=== PATIENT | male | born 1950 | race Caucasian/White ===

== ENCOUNTER 2020-08-08 12:58 | Outpatient (REF) | payer MEDICARE, BC, SELFPAY ==
[2020-08-08 17:14] LABS: Alanine Aminotransferase < 6 U/L (0-40); Anion Gap 17 (12-20); Aspartate Amino Transferase 8 U/L (5-37); Blood Urea Nitrogen 23 mg/dL (9-16); Carbon Dioxide 26 mmol/L (22-29); Chloride 103 mmol/L (96-108); Cholesterol 123 mg/dL; Estimated Glomerular Filt Rate > 60; Glucose Fasting 84 mg/dL (60-99); HDL Cholesterol 46 mg/dL; LDL Cholesterol Calculated 61 mg/dl; Potassium 4.7 mmol/l (3.3-5.1); Sodium 141 mmol/L (135-145); Triglycerides 82 mg/dL
== END 2020-08-08 12:59 | disposition home or self-care (01) ==
LOC: HO.HMGCLDS 12:58
PROVIDERS: PCP Internal Medicine; Visit Provider Internal Medicine
DX: I10 Essential (primary) hypertension (principal); E78.5 Hyperlipidemia, unspecified; I25.10 Atherosclerotic heart disease of native coronary artery without angina pectoris
CPT/HCPCS: 80048; 80061; 84450; 84460

== ENCOUNTER 2020-12-11 12:45 | Outpatient (REF) | payer MEDICARE, SELFPAY ==
[2020-12-11 13:55] LABS: MANUAL DIFF FLAG NO
[2020-12-11 14:01] LABS: Basophils Percent Auto 0.5 % (0-2); Eosinophils Percent Auto 0.2 % (0-4); Hematocrit 40.6 % (42-52); Hemoglobin 13.8 g/dl (14.0-18.0); Imm Gran Abs Auto 0.02 X10*3/uL (0.00-0.03); Imm Gran Pct Auto 0.3 % (0.0-0.4); Lymphocytes Percent Auto 15.3 % (20-40); Mean Corpuscular Volume 91.2 fL (80-98); Mean Platelet Volume 9.3 fL (9.4-12.4); Monocytes Absolute Auto 0.5 X10*3/uL (0.1-1.2); Monocytes Percent Auto 7.1 % (2-11); Neutrophils Absolute Auto 4.9 X10*3/uL (2.0-8.3); Neutrophils Percent Auto 76.6 % (45-73); Platelet Count 184 X10*3/uL (160-400); Red Blood Count 4.45 X10*6/uL (4.60-5.80); Red Cell Distribution Width 12.5 % (11.0-16.0); White Blood Count 6.5 X10*3/uL (4.8-10.8)
[2020-12-11 14:14] LABS: Alanine Aminotransferase 12 U/L (0-40); Anion Gap 15 (12-20); Aspartate Amino Transferase 10 U/L (5-37); Blood Urea Nitrogen 21 mg/dL (9-16); Calcium 8.8 mg/dL (8.4-10.2); Carbon Dioxide 27 mmol/L (22-29); Chloride 105 mmol/L (96-108); Cholesterol 140 mg/dL; Estimated Glomerular Filt Rate > 60; Glucose Fasting 100 mg/dL (60-99); HDL Cholesterol 57 mg/dL; Iron 70 mcg/dL (45-160); LDL Cholesterol Calculated 60 mg/dl; Percent Iron Saturation 21 % (15-50); Potassium 4.2 mmol/L (3.3-5.1); Sodium 143 mmol/L (135-145); Total Iron Binding Capacity 328 mcg/dL (228-428); Triglycerides 119 mg/dL; Unsaturated Iron Binding 258 ug/dL
[2020-12-11 14:36] LABS: Ferritin 67 ng/mL (20-250)
== END 2020-12-11 12:46 | disposition home or self-care (01) ==
LOC: HO.HMGCLDS 12:45
PROVIDERS: PCP Internal Medicine; Visit Provider Internal Medicine
DX: D64.9 Anemia, unspecified (principal); E78.5 Hyperlipidemia, unspecified; I10 Essential (primary) hypertension
CPT/HCPCS: 36415; 80048; 80061; 82728; 83540; 84450; 84460; 85025

== ENCOUNTER 2021-07-10 09:19 | Outpatient (REF) | payer MEDICARE, BC, SELFPAY ==
[2021-07-10 11:27] LABS: MANUAL DIFF FLAG NO
[2021-07-10 11:35] LABS: Basophils Absolute Auto 0.1 X10*3/uL (0.0-0.2); Basophils Percent Auto 0.7 % (0-2); Eosinophils Absolute Auto 0.3 X10*3/uL (0.0-0.4); Hematocrit 40.4 % (42.0-52.0); Hemoglobin 13.5 g/dl (14.0-18.0); Imm Gran Abs Auto 0.03 X10*3/uL (0.00-0.03); Imm Gran Pct Auto 0.4 % (0.0-0.4); Lymphocytes Absolute Auto 1.3 X10*3/uL (1.2-4.9); Lymphocytes Percent Auto 18.2 % (20-40); Mean Corpuscular HGB Conc 33.4 g/dl (31.0-36.0); Mean Corpuscular Hemoglobin 30.8 pg (27.0-33.0); Mean Platelet Volume 9.5 fL (9.4-12.4); Monocytes Absolute Auto 0.6 X10*3/uL (0.1-1.2); Monocytes Percent Auto 8.2 % (2-11); Neutrophils Absolute Auto 4.82 x10*3/uL (2.0-8.3); Neutrophils Percent Auto 68.5 % (45-73); Platelet Count 222 X10*3/uL (160-400); Red Blood Count 4.39 X10*6/uL (4.60-5.80); Red Cell Distribution Width 12.9 % (11.0-16.0)
[2021-07-10 11:57] LABS: Alanine Aminotransferase 8 U/L (0-40); Anion Gap 15 (12-20); Aspartate Amino Transferase 11 U/L (5-37); Blood Urea Nitrogen 16 mg/dL (9-16); Calcium 8.8 mg/dL (8.4-10.2); Carbon Dioxide 26 mmol/L (22-29); Chloride 108 mmol/L (96-108); Cholesterol 143 mg/dL; Estimated Glomerular Filt Rate > 60; Glucose Fasting 100 mg/dL (60-99); HDL Cholesterol 60 mg/dL; Iron 102 mcg/dL (45-160); LDL Cholesterol Calculated 65 mg/dl; Percent Iron Saturation 32 % (15-50); Potassium 3.8 mmol/L (3.3-5.1); Sodium 145 mmol/L (135-145); Total Iron Binding Capacity 315 mcg/dL (228-428); Triglycerides 91 mg/dL; Unsaturated Iron Binding 213 ug/dL
[2021-07-10 12:07] LABS: Ferritin 65 ng/mL (20-250)
[2021-07-10 12:38] LABS: PSA,Total (Free>4and<10) 0.75 ng/mL (0.00-4.00)
== END 2021-07-10 09:20 | disposition home or self-care (01) ==
LOC: HO.HMGCLDS 09:19
PROVIDERS: PCP Internal Medicine; Visit Provider Internal Medicine
DX: Z12.5 Encounter for screening for malignant neoplasm of prostate (principal); D64.9 Anemia, unspecified; E78.5 Hyperlipidemia, unspecified; I10 Essential (primary) hypertension; I25.10 Atherosclerotic heart disease of native coronary artery without angina pectoris; R35.1 Nocturia
CPT/HCPCS: 36415; 80048; 80061; 82728; 83540; 84153; 84450; 84460; 85025

== ENCOUNTER 2022-01-15 12:18 | Outpatient (REF) | payer MEDICARE, BC, SELFPAY ==
[2022-01-15 13:53] LABS: MANUAL DIFF FLAG NO
[2022-01-15 13:59] LABS: Basophils Percent Auto 0.7 % (0-2); Eosinophils Absolute Auto 0.1 X10*3/uL (0.0-0.4); Eosinophils Percent Auto 2.3 % (0-4); Hematocrit 37.5 % (42.0-52.0); Hemoglobin 12.6 g/dl (14.0-18.0); Imm Gran Abs Auto 0.01 X10*3/uL (0.00-0.03); Imm Gran Pct Auto 0.2 % (0.0-0.4); Mean Corpuscular HGB Conc 33.6 g/dl (31.0-36.0); Mean Corpuscular Hemoglobin 30.9 pg (27.0-33.0); Mean Corpuscular Volume 91.9 fL (80.0-98.0); Mean Platelet Volume 9.6 fL (9.4-12.4); Monocytes Absolute Auto 0.4 X10*3/uL (0.1-1.2); Neutrophils Absolute Auto 2.8 x10*3/uL (2.0-8.3); Neutrophils Percent Auto 64.8 % (45-73); Platelet Count 182 X10*3/uL (160-400); Red Blood Count 4.08 X10*6/uL (4.60-5.80); Red Cell Distribution Width 12.7 % (11.0-16.0); White Blood Count 4.3 X10*3/uL (4.8-10.8)
[2022-01-15 14:21] LABS: Alanine Aminotransferase 16 U/L (0-40); Anion Gap 15 (12-20); Aspartate Amino Transferase 9 U/L (5-37); Blood Urea Nitrogen 17 mg/dL (9-16); Calcium 9.9 mg/dL (8.4-10.2); Carbon Dioxide 27 mmol/L (22-29); Chloride 105 mmol/L (96-108); Cholesterol 130 mg/dL; Estimated Glomerular Filt Rate > 60; Glucose Fasting 89 mg/dL (60-99); HDL Cholesterol 55 mg/dL; LDL Cholesterol Calculated 57 mg/dl; Potassium 4.7 mmol/L (3.3-5.1); Sodium 142 mmol/L (135-145); Triglycerides 92 mg/dL
[2022-01-15 14:43] LABS: PSA,Total (Free>4and<10) 0.57 ng/mL (0.00-4.00)
== END 2022-01-15 12:19 | disposition home or self-care (01) ==
LOC: HO.HMGCLDS 12:18
PROVIDERS: Visit Provider Internal Medicine
DX: Z12.5 Encounter for screening for malignant neoplasm of prostate (principal); D64.9 Anemia, unspecified; E78.5 Hyperlipidemia, unspecified; I10 Essential (primary) hypertension; I25.10 Atherosclerotic heart disease of native coronary artery without angina pectoris
CPT/HCPCS: 36415; 80048; 80061; 82306; 84153; 84450; 84460; 85025

== ENCOUNTER 2022-03-05 09:49 | Inpatient (IN) | payer MEDICARE, BC, SELFPAY ==
--- NOTE | 2022-03-05 | ECG_ITS ---
Test Reason : CP Blood Pressure : / mmHG Vent. Rate : 119 BPM Atrial Rate : 119 BPM P-R Int : 128 ms QRS Dur : 092 ms QT Int : 316 ms P-R-T Axes : 079 063 -32 degrees QTc Int : 444 ms Sinus tachycardia Cannot rule out Inferior infarct (cited on or before 03-MAY-2020) Abnormal ECG When compared with ECG of 05-MAR-2022 11:05, No significant change was found Referred By: Brenda Page Electronically Signed By:TAMIKA WATTERS
--- NOTE | ~2022-03-05 | XR_ITS ---
EXAMINATION: XR CHEST CLINICAL INFORMATION: Shortness of breath COMPARISON: 03/06/2022 TECHNIQUE: Frontal view of the chest was obtained. FINDINGS: Left upper extremity PICC line with catheter tip in the proximal right atrium. Previously seen retrocardiac opacity has improved with minimal residual. No focal consolidation or mass seen. No pleural effusion or pneumothorax. Degenerative changes of the shoulders and spine. XR/XR chest 1V IMPRESSION: Previously seen retrocardiac left lower lobe consolidation has improved. New left upper extremity PICC line with tip overlying the proximal right atrium near the expected location of the cavoatrial junction.
--- NOTE | ~2022-03-05 | CT_ITS ---
EXAMINATION: CT HEAD WITHOUT CONTRAST CT CERVICAL SPINE WITHOUT CONTRAST CLINICAL INFORMATION: Fall. COMPARISON: CT scan of the head 05/03/2020. TECHNIQUE: Brass Pourer images were obtained. CT imaging of the head and cervical spine was performed without contrast. Data was reformatted into multiplanar images at the acquisition workstation. This CT examination was performed using dose optimization techniques as appropriate, including one or more of the following: Automated exposure control, iterative reconstruction, and adjustment of technique factors (mA and/or kVp) according to patient size (this includes techniques or standardized protocols for targeted exams where dose is matched to indication/reason for exam). DLP: 1358 mGy-cm. FINDINGS: Head: Patient motion degrades image quality therefore the diagnostic accuracy of this component of the examination is limited. There is no acute hemorrhage or abnormal extra-axial collection. No intracranial mass effect or midline shift. Lateral and third ventricles are proportionate to the subarachnoid spaces. No hydrocephalus. Ill-defined foci of hypoattenuation are visualized within the periventricular white matter that most likely represent a chronic manifestation of small vessel ischemia. Yo-white matter differentiation is otherwise preserved and there is no evidence of acute territorial infarct. The calvarium and skull base are intact. Mastoid air cells and middle ear cavities are well aerated. No active paranasal sinus disease. Cervical spine: Alignment is normal. Vertebral heights are preserved. No acute fracture. No abnormal prevertebral soft tissue swelling. There is multilevel degenerative spondylosis of the cervical spine. Grossly no evidence of canal compromise. Uncovertebral joint spurring causes mild to moderate neuroforaminal encroachment at multiple levels. Heavily calcified atheromatous plaque involves both carotid bifurcations. Soft tissues of the neck are otherwise unremarkable. Visualized lung apices are clear. CT/CT cervical spine wo con IMPRESSION: Patient motion degrades image quality therefore the diagnostic accuracy of this examination is limited. Grossly no evidence of acute intracranial hemorrhage. No acute cervical spine fracture and no posttraumatic spinal subluxation.
--- NOTE | ~2022-03-05 | IR_ITS ---
PROCEDURE: IR INSERTION OF PICC CLINICAL INFORMATION: Requires IV access. COMPARISON: None TECHNIQUE: All elements of maximal sterile barrier technique followed including use of cap, mask, sterile gown, sterile gloves, a sterile full body drape and hand hygiene. Also followed skin preparation with 2% chlorhexidine for cutaneous antisepsis, and sterile ultrasound preparation with sterile gel and probe cover when applicable. Consent for the procedure had been obtained by the radiology nurses for their attempt at placing PICC line. FINDINGS: Ultrasound evaluation of the left arm was performed which demonstrated a patent brachial vein. PACS image was obtained. Using sterile technique and ultrasound guidance a needle was placed into a left brachial vein above the elbow and guidewire placed. Following fascial dilatation a 6 Colombian peel-away sheath was placed. Over the guidewire and through the peel-away sheath a 6 [place]ian 47 cm long triple lumen PICC line was placed with its tip at the cavoatrial junction. All 3 ports aspirated and were flushed. The entry site was then cleaned and dressing applied including antimicrobial disc. FLUOROSCOPY TIME: 0.7 minutes. DAP: 85 uGy-cm2 IR/IR cvc insert peripheral IMPRESSION: Placement of 6 [place]ian triple-lumen PICC line within the left upper extremity via a brachial vein approach. Catheter is 47 cm in length.
--- NOTE | ~2022-03-05 | FL_ITS ---
EXAMINATION: FL MODIFIED BARIUM SWALLOW CLINICAL INFORMATION: Dysphagia. COMPARISON: None. TECHNIQUE: Modified barium swallow was performed in conjunction with the speech pathologist. The radiologist provided real-time fluoroscopic imaging during the examination. FINDINGS: Multiple liquid and semisolid consistencies combined with barium were administered to the patient under direct fluoroscopic visualization. There are several instances of penetration with a possible small focus of aspiration. This was partially cleared with multiple swallowing instances. FLUOROSCOPY TIME: 1.9 min 4.906 mGy 1.473 Gy-cm2 1 image FL/FL barium swallow modified IMPRESSION: Several episodes of penetration with possible aspiration. Please refer to the speech pathologist notes for complete evaluation.
--- NOTE | ~2022-03-05 | CT_ITS ---
EXAMINATION: CT CHEST, ABDOMEN PELVIS WITHOUT CONTRAST CLINICAL INFORMATION: Sacral wound COMPARISON: None TECHNIQUE: 5 mm thin axial and reformatted 3 mm thin sagittal coronal images of chest, abdomen pelvis were obtained without contrast. DLP 582. FINDINGS: Chest: LUNGS: The lungs are well-expanded with ill-defined patchy opacities superior segment left lower lobe with prominent interstitial thickening. Mild atelectatic changes seen in both lung bases. Mediastinum: The heart size and the great vessels are normal caliber. Central trachea and the bronchi widely patent. There are small shotty precarinal 1 cm lymph node. No pericardial effusion seen. Pleura:: There is no pleural effusion, thickening or calcification. Axilla: No abnormal axillary lymph nodes seen. The chest wall is unremarkable. Abdomen and pelvis: Liver, ducts and gallbladder: The liver is normal size, density and contour. There is a 1.4 cm lesion right hepatic lobe most likely simple cyst it measures less than 1 Hounsfield units. No intrahepatic ductal dilatation seen. The gallbladder is unremarkable. Spleen: Unremarkable. Adrenal glands: Unremarkable. Pancreas: Unremarkable. Kidneys, ureter and bladder: Both kidneys are symmetrical size, shape and position. There is a partially exophytic midpole 2.5 cm cyst medial cortex left kidney. No radiopaque calculi or hydronephrosis seen. There is an exophytic interpolar 1.4 cm cyst lateral cortex right kidney. The bladder is distended but otherwise appears unremarkable. Lymphovascular structures there is no abnormal size retroperitoneal lymph nodes seen. The abdominal aorta is normal caliber. GI tract: There is scattered stool, diverticula and gas seen throughout the colon without significant distention or diverticulitis. The small bowel loops are normal caliber. Appendix is not visualized with certainty.. Abdominal wall: Unremarkable. Pelvis: No abnormal lymph nodes. No evidence of hernia. Osseous structures: There is significant compression deformity T12 vertebra, question age. No aggressive lytic or sclerotic process seen. There are degenerative disc changes with endplate spondylosis L4-L5 disc level. CT/CT abdomen pelvis wo con IMPRESSION: Atelectatic changes in both lung bases. No acute process. No acute processes in the abdomen. There are bilateral renal cysts, hepatic cysts. No radiopaque renal or gallbladder calculi. Moderate constipation. Compression fractures of T12 vertebra of uncertain age.
--- NOTE | ~2022-03-05 | US_ITS ---
EXAMINATION: US VENOUS WITH DOPPLER UPPER EXTREMITY, RIGHT CLINICAL INFORMATION: Swelling COMPARISON: None TECHNIQUE: Ultrasound of the upper extremity is performed using compression sonography and color and pulse Doppler flow with assessment of augmentation of flow. There is also imaging and Doppler assessment of the jugular and subclavian veins. Spectral analysis with color-flow imaging is performed. FINDINGS: There is thrombus seen in the right axillary, basilic and cephalic veins. The right internal jugular, subclavian and brachial veins are patent. US/US venous duplex UE RT IMPRESSION: DVT in the right axillary and basilic and cephalic veins.
--- NOTE | ~2022-03-05 | CT_ITS ---
EXAMINATION: CT HEAD WITHOUT CONTRAST CT CERVICAL SPINE WITHOUT CONTRAST CLINICAL INFORMATION: Fall. COMPARISON: CT scan of the head 05/03/2020. TECHNIQUE: Mica Plate Layer Hand images were obtained. CT imaging of the head and cervical spine was performed without contrast. Data was reformatted into multiplanar images at the acquisition workstation. This CT examination was performed using dose optimization techniques as appropriate, including one or more of the following: Automated exposure control, iterative reconstruction, and adjustment of technique factors (mA and/or kVp) according to patient size (this includes techniques or standardized protocols for targeted exams where dose is matched to indication/reason for exam). DLP: 1358 mGy-cm. FINDINGS: Head: Patient motion degrades image quality therefore the diagnostic accuracy of this component of the examination is limited. There is no acute hemorrhage or abnormal extra-axial collection. No intracranial mass effect or midline shift. Lateral and third ventricles are proportionate to the subarachnoid spaces. No hydrocephalus. Ill-defined foci of hypoattenuation are visualized within the periventricular white matter that most likely represent a chronic manifestation of small vessel ischemia. Yo-white matter differentiation is otherwise preserved and there is no evidence of acute territorial infarct. The calvarium and skull base are intact. Mastoid air cells and middle ear cavities are well aerated. No active paranasal sinus disease. Cervical spine: Alignment is normal. Vertebral heights are preserved. No acute fracture. No abnormal prevertebral soft tissue swelling. There is multilevel degenerative spondylosis of the cervical spine. Grossly no evidence of canal compromise. Uncovertebral joint spurring causes mild to moderate neuroforaminal encroachment at multiple levels. Heavily calcified atheromatous plaque involves both carotid bifurcations. Soft tissues of the neck are otherwise unremarkable. Visualized lung apices are clear. CT/CT head/brain wo con IMPRESSION: Patient motion degrades image quality therefore the diagnostic accuracy of this examination is limited. Grossly no evidence of acute intracranial hemorrhage. No acute cervical spine fracture and no posttraumatic spinal subluxation.
--- NOTE | ~2022-03-05 | XR_ITS ---
EXAMINATION: PORTABLE CHEST 1 VIEW CLINICAL INFORMATION: SOB . COMPARISON: No recent pertinent prior studies are available for comparison. TECHNIQUE: Portable frontal view of the chest was obtained. FINDINGS: Lungs well-expanded. There is a subtle obscuration of the medial left hemidiaphragm suggesting a retrocardiac left lower lobe infiltrate versus focal atelectasis. Subtle air bronchograms are suspected in this location. Infectious etiology would be strongly favored. Clinical correlation recommended. No associated effusion edema or pneumothorax. Cardiac silhouette within normal limits for size with vascular calcification in aorta. Degenerative changes in the shoulders. XR/XR chest 1V IMPRESSION: Obscuration of the medial left hemidiaphragm suggesting a left lower lobe retrocardiac consolidation with subtle air bronchograms. Infectious etiology would be favored in this setting.
--- NOTE | 2022-03-05 09:52 | ED.AMS ---
HPI - Altered Mental Status General Chief Complaint: General Medical Stated Complaint: FOUND ON FLOOR,OVERNIGHT,CONFUSION Time Seen by Provider: 03/05/22 09:51 Source: patient and EMS Mode of arrival: EMS Limitations: altered mental status History of Present Illness HPI narrative: 71 yo male with hx of HLD, CAD, parkinson's disease, anemia, HTN - was found on floor this AM by family when they went to get him for appointment. He states he slipped out of bed but he is confused. I am not sure when he was last seen normal. He has no complaints of pain and has no signs of head trauma. family arrived and they have not seen him in a while complaint: altered mental status and confusion Onset (ago): unknown Severity: moderate Consistency of symptoms: unknown Context: other (parkinson's found on floor) Associated symptoms: chills, malaise, foul smelling urine, difficulty walking and incontinence Treatments prior to arrival: oxygen (fire department stated his oxygen levels were low 90s he is 97% on RA here) Related Data Home Medications Medication Instructions Recorded Confirmed carbidopa ER 25 mg-levodopa 100 mg 2 tab PO TID 08/22/20 03/05/22 tablet,extended release metoprolol tartrate 25 mg tablet 25 mg PO BID 08/22/20 03/05/22 amantadine HCl 100 mg tablet 1 tab PO BID 03/05/22 03/05/22 lisinopril 10 mg tablet 1 tab PO DAILY 03/05/22 03/05/22 Previous Rx's Medication Instructions Recorded atorvastatin 20 mg tablet 20 mg PO DAILY #90 tabs 01/15/22 Allergies Allergy/AdvReac Type Severity Reaction Status Date / Time No Known Allergies Allergy Verified 02/24/22 23:32 [No Known Allergies*] Review of Systems Review of Systems: ROS unable to be obtained due to altered mental status PMFSH Past Medical History Source: old records reviewed Medical History Anemia CAD (coronary artery disease) Dyslipidemia Essential hypertension Parkinsons disease Surgical History No pertinent past surgical history Family History Family History Father Bladder cancer Mother No problems noted. Brother No problems noted. Sister No problems noted. Son No problems noted. Son No problems noted. Social History Social History Housing: Apartment Alcohol intake: never Patient Tobacco Use Status: Never used Tobacco e-Cigarette/Vaping Use: Never Used Advance Directives: No Current occupational status: retired Cognitive needs: No Hearing needs: No Vision needs: Yes Physical Exam ED Vital Signs: Vital Signs - 24 hr 03/05/22 10:05 03/05/22 11:43 Temperature 96.5 F L 98.3 F Pulse Rate 130 H 118 H Respiratory Rate 16 16 Blood Pressure 114/64 127/57 L Pulse Oximetry 100 98 Oxygen Delivery Method Room Air Room Air BMI result Body Mass Index 21.0 Appearance: Alert. Oriented X1 to self. Mild acute distress. Eyes: Pupils equal, round and reactive to light. ENT: Pharynx dry MM. Atraumatic Neck: Normal inspection. Neck supple. CVS: tachycardic heart rate and rhythm. Pulses normal. Respiratory: No respiratory distress. Breath sounds diminished Abdomen: Soft and nontender. Back: ulcer noted on thoracic spinous process lower thoracic about 10cm long, sacrum dark necrotic eschar noted with surrounding erythema, skin peeling off and foul odor noted Skin: Skin warm and dry. Normal skin color. Normal skin turgor. Extremities: No lower extremity edema. No calf ttp Neuro: Oriented X 1. No motor deficit. No sensory deficit. follows commands rigid, shaky tremulous Course Course Course Narrative: initially patient in hallway I was not able to see his back due to privacy issues once in CT scan room he has ulcer on thoracic spine with erythema no drainage, on sacrum there is an eschar with necrotic area foul smelling surrounding erythema - at this time infection suspected IV zosyn ordered 1039am. given troponin message sent to Cardiology but patient denies pain and he cannot provide a history I also do not see STEMI on EKG - ECHO heparin lovenox once CT scans back plts and hemoglobin stable, coags stable - trop downtrending, lactic acid downtrending no acute trauma found on CT scan does have T12 compression fracture at this time given troponin will start on low dose infusion I am not sure what event precipitated his presentation but his back wounds suggest he was on the ground for a long time. I am going to start him on heparin in case of the need for reversal. patient on low dose protocol cardiology aware okay to admit family no longer at bedside MDM - Altered Mental Status MDM Narrative Medical decision making narrative: 71 yo male with hx of HLD, CAD, parkinson's disease, anemia, HTN here with c/o being found down on floor he is altered - at this time will obtain labs, cultures, UA, CT head/cspine for trauma. CT chest for pneumonia. He denies any complaints, 2L of IVF ordered. Unsure what happened. Likely admit. Lab Data Result diagrams: 03/05/22 10:25 03/05/22 10:25 Labs: Lab Results 03/05/22 03/05/22 03/05/22 Range/Units 10:25 10:25 10:25 WBC 13.2 H (4.8-10.8) X10*3/uL RBC 5.12 D (4.60-5.80) X10*6/uL Hgb 15.7 D (14.0-18.0) g/dl Hct 47.2 D (42.0-52.0) % MCV 92.2 (80.0-98.0) fL MCH 30.7 (27.0-33.0) pg MCHC 33.3 (31.0-36.0) g/dl RDW 13.0 (11.0-16.0) % Plt Count 279 D (160-400) X10*3/uL MPV 9.4 (9.4-12.4) fL Immature Gran % (Auto) 0.6 H (0.0-0.4) % Neut % (Auto) 86.7 H (45-73) % Lymph % (Auto) 5.4 L (20-40) % [place] % (Auto) 7.1 (2-11) % Eos % (Auto) 0.0 (0-4) % Baso % (Auto) 0.2 (0-2) % Lymph # (Auto) 0.7 L (1.2-4.9) X10*3/uL [place] # (Auto) 0.9 (0.1-1.2) X10*3/uL Eos # (Auto) 0.0 (0.0-0.4) X10*3/uL Baso # (Auto) 0.0 (0.0-0.2) X10*3/uL Abs Immat Gran (auto) 0.08 H (0.00-0.03) X10*3/uL Absolute Neuts (auto) 11.5 H (2.0-8.3) x10*3/uL Absolute Nucleated RBC 0.000 (0.0-0.012) X10*3/uL Nucleated RBC % (auto) 0.0 (0.0-0.2) /100WBC PT 11.1 (9.9-13.0) SEC INR 1.0 (0.9-1.1) APTT 25.5 (24.1-38.0) SEC VBG pH (7.32-7.43) VBG pCO2 mmHg VBG pO2 mmHg VBG HCO3 (22-26) mmol/L VBG O2 Saturation % VBG Base Excess mmol/L Sodium 150 H (135-145) mmol/L Potassium 4.6 (3.3-5.1) mmol/L Chloride 108 (96-108) mmol/L Carbon Dioxide 26 (22-29) mmol/L Anion Gap 21 H (12-20) BUN 44 H D (9-16) mg/dL Creatinine 0.99 (0.5-1.4) mg/dL Estim Creat Clear Calc 63.5 Estimated GFR > 60 Random Glucose 138 H (60-115) mg/dL Lactic Acid (0.5-2.0) mmol/L Lactic Acid F/U @ 2Hr (0.5-2.0) mmol/L Calcium 9.6 (8.4-10.2) mg/dL Magnesium 2.3 (1.6-2.6) mg/dL Total Bilirubin 2.3 H (0.0-1.0) mg/dL Direct Bilirubin 1.1 H (0.0-0.5) mg/dL AST 62 H (5-37) U/L ALT 80 H (0-40) U/L Alkaline Phosphatase 96 (39-117) U/L Total Creatine Kinase 2199 H (38-174) U/L Troponin I High Sens (<3.5-35.0) ng/L Total Protein 7.2 (6.5-8.0) g/dL Albumin 4.2 (3.5-5.0) g/dL Lipase 20 (8-78) U/L COVID-19 (EDUARDO) (Negative) COVID-19 Clin Com 03/05/22 03/05/22 03/05/22 Range/Units 10:25 10:25 10:25 WBC (4.8-10.8) X10*3/uL RBC (4.60-5.80) X10*6/uL Hgb (14.0-18.0) g/dl Hct (42.0-52.0) % MCV (80.0-98.0) fL MCH (27.0-33.0) pg MCHC (31.0-36.0) g/dl RDW (11.0-16.0) % Plt Count (160-400) X10*3/uL MPV (9.4-12.4) fL Immature Gran % (Auto) (0.0-0.4) % Neut % (Auto) (45-73) % Lymph % (Auto) (20-40) % [place] % (Auto) (2-11) % Eos % (Auto) (0-4) % Baso % (Auto) (0-2) % Lymph # (Auto) (1.2-4.9) X10*3/uL [place] # (Auto) (0.1-1.2) X10*3/uL Eos # (Auto) (0.0-0.4) X10*3/uL Baso # (Auto) (0.0-0.2) X10*3/uL Abs Immat Gran (auto) (0.00-0.03) X10*3/uL Absolute Neuts (auto) (2.0-8.3) x10*3/uL Absolute Nucleated RBC (0.0-0.012) X10*3/uL Nucleated RBC % (auto) (0.0-0.2) /100WBC PT (9.9-13.0) SEC INR (0.9-1.1) APTT (24.1-38.0) SEC VBG pH (7.32-7.43) VBG pCO2 mmHg VBG pO2 mmHg VBG HCO3 (22-26) mmol/L VBG O2 Saturation % VBG Base Excess mmol/L Sodium (135-145) mmol/L Potassium (3.3-5.1) mmol/L Chloride (96-108) mmol/L Carbon Dioxide (22-29) mmol/L Anion Gap (12-20) BUN (9-16) mg/dL Creatinine (0.5-1.4) mg/dL Estim Creat Clear Calc Estimated GFR Random Glucose (60-115) mg/dL Lactic Acid 3.1 H* (0.5-2.0) mmol/L Lactic Acid F/U @ 2Hr (0.5-2.0) mmol/L Calcium (8.4-10.2) mg/dL Magnesium (1.6-2.6) mg/dL Total Bilirubin (0.0-1.0) mg/dL Direct Bilirubin (0.0-0.5) mg/dL AST (5-37) U/L ALT (0-40) U/L Alkaline Phosphatase (39-117) U/L Total Creatine Kinase (38-174) U/L Troponin I High Sens 1310.1 H* (<3.5-35.0) ng/L Total Protein (6.5-8.0) g/dL Albumin (3.5-5.0) g/dL Lipase (8-78) U/L COVID-19 (EDUARDO) Negative (Negative) COVID-19 Clin Com See Note 03/05/22 03/05/22 03/05/22 Range/Units 10:30 12:30 12:39 WBC (4.8-10.8) X10*3/uL RBC (4.60-5.80) X10*6/uL Hgb (14.0-18.0) g/dl Hct (42.0-52.0) % MCV (80.0-98.0) fL MCH (27.0-33.0) pg MCHC (31.0-36.0) g/dl RDW (11.0-16.0) % Plt Count (160-400) X10*3/uL MPV (9.4-12.4) fL Immature Gran % (Auto) (0.0-0.4) % Neut % (Auto) (45-73) % Lymph % (Auto) (20-40) % [place] % (Auto) (2-11) % Eos % (Auto) (0-4) % Baso % (Auto) (0-2) % Lymph # (Auto) (1.2-4.9) X10*3/uL [place] # (Auto) (0.1-1.2) X10*3/uL Eos # (Auto) (0.0-0.4) X10*3/uL Baso # (Auto) (0.0-0.2) X10*3/uL Abs Immat Gran (auto) (0.00-0.03) X10*3/uL Absolute Neuts (auto) (2.0-8.3) x10*3/uL Absolute Nucleated RBC (0.0-0.012) X10*3/uL Nucleated RBC % (auto) (0.0-0.2) /100WBC PT (9.9-13.0) SEC INR (0.9-1.1) APTT (24.1-38.0) SEC VBG pH 7.37 (7.32-7.43) VBG pCO2 36 mmHg VBG pO2 39 mmHg VBG HCO3 21 L (22-26) mmol/L VBG O2 Saturation 61.0 % VBG Base Excess -3.2 mmol/L Sodium (135-145) mmol/L Potassium (3.3-5.1) mmol/L Chloride (96-108) mmol/L Carbon Dioxide (22-29) mmol/L Anion Gap (12-20) BUN (9-16) mg/dL Creatinine (0.5-1.4) mg/dL Estim Creat Clear Calc Estimated GFR Random Glucose (60-115) mg/dL Lactic Acid (0.5-2.0) mmol/L Lactic Acid F/U @ 2Hr 2.1 H* (0.5-2.0) mmol/L Calcium (8.4-10.2) mg/dL Magnesium (1.6-2.6) mg/dL Total Bilirubin (0.0-1.0) mg/dL Direct Bilirubin (0.0-0.5) mg/dL AST (5-37) U/L ALT (0-40) U/L Alkaline Phosphatase (39-117) U/L Total Creatine Kinase (38-174) U/L Troponin I High Sens 1052.4 H* (<3.5-35.0) ng/L Total Protein (6.5-8.0) g/dL Albumin (3.5-5.0) g/dL Lipase (8-78) U/L COVID-19 (EDUARDO) (Negative) COVID-19 Clin Com ECG Data ECG #1: Attestation: I personally reviewed and interpreted this ECG as follows: ECG interpretation date: 03/05/22 ECG interpretation time: 11:20 Interpretation: Rate: 120 Rhythm: sinus tachycardia Otho: normal Normal P waves. Normal RICCARDO. Normal QRS complex. ST T wave : no SHARON, nonspecific inf qTC: normal prior studies: no SHARON The study has been interpreted contemporaneously by me. . Critical Care Time Critical Care Time Critical Care Time: Yes Total Critical Care Time: 60 Attestation: review of records, medical consult, discussion with family I attest to this time spent taking care of the patient Discharge Plan Discharge Clinical Impression: Acidosis, lactic, Back wound, Decubitus ulcer of sacral area, Elevated troponin, Acute dehydration, Non-ST elevation NC (NSTEMI), Closed wedge compression fracture of T12 vertebra Patient Disposition: Admitted As Inpatient
--- NOTE | 2022-03-05 10:03 | ECG_ITS ---
Test Reason : CP Blood Pressure : / mmHG Vent. Rate : 120 BPM Atrial Rate : 120 BPM P-R Int : 132 ms QRS Dur : 090 ms QT Int : 324 ms P-R-T Axes : 072 063 -29 degrees QTc Int : 457 ms Sinus tachycardia Possible Left atrial enlargement Cannot rule out Inferior infarct (cited on or before 03-MAY-2020) Abnormal ECG When compared with ECG of 03-MAY-2020 17:30, Vent. rate has increased BY 64 BPM Nonspecific T wave abnormality now evident in Lateral leads Referred By: Brenda Page Electronically Signed By:TAMIKA WATTERS
[2022-03-05 10:05] VITALS: BP 114/64; BP 132/70; PULSE 115; PULSE 130; RESP 16; TEMP 35.8; O2SAT 100; O2SAT 95; BMI 21.0
[2022-03-05 10:31] LABS: MANUAL DIFF FLAG NO
[2022-03-05 10:34] LABS: Venous Blood Gas Refer to POC result
[2022-03-05 10:34] LABS: VBG Base Excess -3.2 mmol/L; VBG HCO3 21 mmol/L (22-26); VBG pCO2 36 mmHg; VBG pH 7.37 (7.32-7.43); VBG pO2 39 mmHg
[2022-03-05 10:35] LABS: Basophils Percent Auto 0.2 % (0-2); Hematocrit 47.2 % (42.0-52.0); Hemoglobin 15.7 g/dl (14.0-18.0); Imm Gran Abs Auto 0.08 X10*3/uL (0.00-0.03); Imm Gran Pct Auto 0.6 % (0.0-0.4); Lymphocytes Absolute Auto 0.7 X10*3/uL (1.2-4.9); Lymphocytes Percent Auto 5.4 % (20-40); Mean Corpuscular HGB Conc 33.3 g/dl (31.0-36.0); Mean Corpuscular Hemoglobin 30.7 pg (27.0-33.0); Mean Corpuscular Volume 92.2 fL (80.0-98.0); Mean Platelet Volume 9.4 fL (9.4-12.4); Monocytes Absolute Auto 0.9 X10*3/uL (0.1-1.2); Monocytes Percent Auto 7.1 % (2-11); Neutrophils Absolute Auto 11.5 x10*3/uL (2.0-8.3); Neutrophils Percent Auto 86.7 % (45-73); Platelet Count 279 X10*3/uL (160-400); Red Blood Count 5.12 X10*6/uL (4.60-5.80); White Blood Count 13.2 X10*3/uL (4.8-10.8)
[2022-03-05 10:49] LABS: Lactic Acid 3.1 mmol/L (0.5-2.0)
[2022-03-05 10:54] LABS: COVID-19 Test Negative (Negative); Prothrombin Time 11.1 SEC (9.9-13.0)
[2022-03-05 10:56] LABS: Partial Thromboplastin Time 25.5 SEC (24.1-38.0)
[2022-03-05 11:01] LABS: Alanine Aminotransferase 80 U/L (0-40); Albumin Level 4.2 g/dL (3.5-5.0); Alkaline Phosphatase 96 U/L (39-117); Anion Gap 21 (12-20); Aspartate Amino Transferase 62 U/L (5-37); Bilirubin Direct 1.1 mg/dL (0.0-0.5); Bilirubin Total 2.3 mg/dL (0.0-1.0); Blood Urea Nitrogen 44 mg/dL (9-16); Calcium 9.6 mg/dL (8.4-10.2); Carbon Dioxide 26 mmol/L (22-29); Chloride 108 mmol/L (96-108); Creatinine Clr Calc Pharmacy 63.5; Estimated Glomerular Filt Rate > 60; Glucose Random 138 mg/dL (60-115); Lipase 20 U/L (8-78); Magnesium 2.3 mg/dL (1.6-2.6); Potassium 4.6 mmol/L (3.3-5.1); Sodium 150 mmol/L (135-145); Total Protein 7.2 g/dL (6.5-8.0); Troponin-I High Sensitivity 1310.1 ng/L (<3.5-35.0)
[2022-03-05] MEDS: Piperacillin Sodium/Tazobactam 3.375 GM in 0.9 % Sodium Chloride 50 ML IV ×2 (11:02→18:15)
[2022-03-05] MEDS: 0.9 % Sodium Chloride 1,000 ML 999 ML IVCONT ×2 (11:05→12:08)
--- NOTE | 2022-03-05 11:31 | CA_ITS ---
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 - Valves not well visualized, but grossly no major abnormality. Findings Left Ventricle Normal left ventricular cavity size. There is normal left ventricular wall thickness. Regional wall motion abnormalities can not be excluded due to suboptimal endocardial definition. Diastolic function is normal for age. Based on off axis views, LVEF about 50%. Right Ventricle Normal right ventricular cavity size. There is normal right ventricular systolic function. Atria Both atria are normal in size. Aortic Valve The aortic valve was not well visualized. There is no aortic valve stenosis. There is no aortic valve regurgitation. Mitral Valve The mitral valve appears normal. There is no mitral valve regurgitation. There is no mitral valve stenosis. Pulmonic Valve The pulmonic valve was not well visualized. Tricuspid Valve There is trace tricuspid valve regurgitation. There is no evidence of pulmonary hypertension. Great Vessels The aorta was not well visualized. The sinuses of valsalva is normal in size. Venous The inferior vena cava is normal in size and collapses greater than 50% with inspiration. Pericardium/Pleural There is no evidence of pericardial effusion. Prior Study Comparison No prior study available for comparison. Measurements 2D Linear Measurements IVSd: 1.03 0.6-0.9/0.6-1.0 cm LVIDd: 4.10 3.9-5.3/4.2-5.9 cm LVIDd Index: 2.24 2.4-3.2/2.2-3.1 cm/m2 LVIDs: 2.99 2.0-3.6 cm LVPWd: 0.93 0.7-1.1 cm LA Diam: 2.50 2.7-3.8/3.0-4.0 cm LAIDs Index: 1.37 1.5-2.3 cm/m2 LV Mass: 159.43 67-162/88-224 g LV Mass Index: 87.12 43-95/49-115 g/m2 LVOT Diam: 2.10 3.0+(-)1.3 cm 2D Systolic Function EF 4C: 57.50 >55% Mitral Valve MV Pk E: 0.31 MV PK A: 0.69 MV Decel Time: 72.00 E/A: 0.40 E'Lateral: 8.92 E'Medial: 4.24 E/E' Med: 7.30 E/E' Lat: 3.50 PHT: 21.00 MVA PHT: 10.48 Decel Pettis: 4.26 Aortic Valve AoV Pk Vasyl: 1.53 AoV Mn Vasyl: 0.99 AoV VTI: 0.22 AoV Pk Grad: 9.00 Aov Mn Grad: 5.00 DARINEL Cont.VTI: 2.53 LVOT LVOT Pk Vasyl: 0.76 LVOT Mn Vasyl: 0.58 LVOT VTI: 0.16 LVOT Pk Grad: 2.00 LVOT Mn Grad: 1.00 LVOT Diam: 2.10 LVOT Area: 3.46 Diastolic Function MV Pk E: 0.31 MV Pk A: 0.69 E/A: 0.40 E'Medial: 4.24 E/E' Med: 7.30 E' Laterial: 8.92 E/E' Lat: 3.50 Right Ventricle TAPSE (mm): 24.00 Tricuspid Valve TR Pk Vasyl: 1.60 TR Pk Grad: 10.00 RA Press: 3.00 RVSP: 13.00 Pulmonary Valve PV Pk Vasyl: 1.53 Peak PV Grad: 9.00 Updated in Other Vendor System with Status of Final Osmar William MD electronically signed on 03/05/2022 5:05:55 PM with status of Final
[2022-03-05 11:43] VITALS: BP 127/57; PULSE 118; RESP 16; TEMP 36.8; O2SAT 98
--- NOTE | 2022-03-05 11:50 | PC.NURSE ---
patient A/O X4 . lungs diminished . patient tachycardia on monitor . tremors r/t history of Parkinson . lips and mouth dry .skin warm dry . superficial abrasion noted on left elbow from fall today . open area with Escher noted on coccyc, covered with allevyn . open area midline along spine covered with abdominal pad . patient positioned on side toe relieve pressure form areas . Bruises noted on left and right hips with yellowing. soft non distended abdomen ,positive bowel sounds noted all quadrants . patient aware of care .
--- NOTE | 2022-03-05 11:54 | PHA.MEDREC ---
Pharmacy Consult ? Medication Reconciliation Pharmacy has completed the medication reconciliation. Patient has altered mental status. Patients son was in the room but could not recall any of his meds. Medications were confirmed with Caty from [facility].
[2022-03-05 12:31] LABS: Reflex Lactate? Lactic Acid Added
[2022-03-05 13:10] LABS: ~Lactic Acid-LAB USE ONLY 2.1 mmol/L (0.5-2.0)
[2022-03-05 13:26] LABS: Troponin-I High Sensitivity 1052.4 ng/L (<3.5-35.0)
--- NOTE | 2022-03-05 13:36 | PC.NURSE ---
pt's weight is 64.1kg per bed scale.
[2022-03-05 14:19] VITALS: BP 138/75; PULSE 117; RESP 20; TEMP 36.6; O2SAT 97
[2022-03-05] MEDS: Heparin Sodium,Porcine 5,000 UNIT/ML VIAL 4000 UNIT IVPUSH (14:24)
[2022-03-05] MEDS: Heparin Sodium,Porcine/1/2NS 25,000 UNIT/250 ML IV.SOLN 7.99 UNIT IVCONT (14:28)
[2022-03-05 14:45] LABS: Reflex Lactate? 2 Y
--- NOTE | 2022-03-05 14:45 | PM.IMHP ---
History of Present Illness Date of Service: 03/05/22 Chief Complaint: found on the ground by son This is a 71 year old male with a PMH of CAD, HTN, Parkinson's disease, HLD who is brought in by EMS services to [facility] after he was found on the ground, next to his bed by his son. The patient is currently disoriented and unable to provide a meaningful history. He is, however, able to state that he does not have chest pain currently. Per his son, he last saw his father on day and he was in his usual state of health then. When he arrived to visit him today, he found him on his back. His son reports that his father does not have a history of dementia and he would rate his memory fairly well. His father typically does manage his ADLS on his own. Upon arrival to the ED, he was ramos-scanned. CT head/neck/chest/abd were essentially negative for any acute findings. His skin exam revealed multiple pressure uclers -- see pictures below. His HS trop-I is elevated and EKG showing non-specific changes. He has been given IVF, IV zosyn and has been started on IV heparin (after discussion with cardiology). Review of Systems Review of Systems: unable due to mental status [facility] Medical History Anemia CAD (coronary artery disease) Dyslipidemia Essential hypertension Parkinsons disease Family History Father Bladder cancer Mother No problems noted. Brother No problems noted. Sister No problems noted. Son No problems noted. Son No problems noted. Surgical History No pertinent past surgical history Social History Housing: Apartment Alcohol intake: never Patient Tobacco Use Status: Never used Tobacco e-Cigarette/Vaping Use: Never Used Advance Directives: No Current occupational status: retired Cognitive needs: No Hearing needs: No Vision needs: Yes Meds Allergies Allergy/AdvReac Type Severity Reaction Status Date / Time No Known Allergies Allergy Verified 02/24/22 23:32 [No Known Allergies*] Active Medications: Current Medications Heparin Sodium (Porcine) (Heparin Sodium,Porcine 5,000 Unit/Ml Vial) 2,700 unit 40 unit/kg (2700 unit) IVPUSH PROTOCOL BOLUS PRN; Protocol PRN Reason: 40 unit/kg - Heparin Protocol Heparin Sodium (Porcine) (Heparin Sodium,Porcine 5,000 Unit/Ml Vial) 5,300 unit 80 unit/kg (5300 unit) IVPUSH PROTOCOL BOLUS PRN; Protocol PRN Reason: 80 unit/kg - Heparin Protocol Heparin Sodium/Sodium Chloride () 25,000 unit in 250 mls @ 0 mls/hr IVCONT .Q0M [facility]; Protocol Last Admin: 03/05/22 14:28 Dose: 12 units/kg/hr, 7.99 mls/hr Pharmacy Consult (Consult Rx Perform Med Rec) 1 each MISCELLANE ONCE PRN PRN Reason: Consult order Pharmacy Consult (Consult Rx Perform Med Rec) 1 each MISCELLANE ONCE PRN PRN Reason: Consult order Home Medications Medication Instructions Recorded Confirmed Last Taken Type carbidopa ER 25 mg-levodopa 100 mg 2 tab PO TID 08/22/20 03/05/22 Unknown History tablet,extended release metoprolol tartrate 25 mg tablet 25 mg PO BID 08/22/20 03/05/22 Unknown History amantadine HCl 100 mg tablet 1 tab PO BID 03/05/22 03/05/22 Unknown History lisinopril 10 mg tablet 1 tab PO DAILY 03/05/22 03/05/22 Unknown History Physical Exam Vital Signs and Narrative: Vital Signs: Last Vital Signs Temp 97.9 F 03/05/22 14:19 Pulse 117 H 03/05/22 14:19 Resp 20 03/05/22 14:19 BP 138/75 03/05/22 14:19 Pulse Ox 97 03/05/22 14:19 O2 Del Method 03/05/22 14:19 BMI result Body Mass Index 21.0 Const: Other: Constitutional - Awake and Alert, No apparent distress HEENT - PERRLA, EOMI, Dry mucous membranes Cardiovascular - S1S2, Tachycardic around 110 Respiratory - Normal lung expansion, Normal respiratory effort, No respiratory distress, CTA bilaterally Gastrointestinal - NT / ND; +BS; No rebound or guarding - No CVA tenderness Extremities - no calf tenderness bilaterally, no swelling Musculoskeletal - Normal inspection, normal ROM Skin - Warm/Dry Neurological - Awake and alert, oriented to self and place, otherwise disoriented to time and situation; moving all 4 limbs equally Psychological - Appropriate affect Results Labs CBC and Chem 7: 03/05/22 10:25 03/05/22 10:25 Labs: Laboratory Results - last 24 hr 03/05/22 03/05/22 03/05/22 10:25 10:25 10:25 MCV 92.2 MCH 30.7 MCHC 33.3 RDW 13.0 Plt Count 279 D MPV 9.4 Immature Gran % (Auto) 0.6 H Neut % (Auto) 86.7 H Lymph % (Auto) 5.4 L [place] % (Auto) 7.1 Eos % (Auto) 0.0 Baso % (Auto) 0.2 Lymph # (Auto) 0.7 L [place] # (Auto) 0.9 Eos # (Auto) 0.0 Baso # (Auto) 0.0 Abs Immat Gran (auto) 0.08 H Absolute Neuts (auto) 11.5 H Absolute Nucleated RBC 0.000 Nucleated RBC % (auto) 0.0 PT 11.1 INR 1.0 APTT 25.5 VBG pH VBG pCO2 VBG pO2 VBG HCO3 VBG O2 Saturation VBG Base Excess Anion Gap 21 H Estim Creat Clear Calc 63.5 Estimated GFR > 60 Random Glucose 138 H Lactic Acid Lactic Acid F/U @ 2Hr Calcium 9.6 Magnesium 2.3 Total Bilirubin 2.3 H Direct Bilirubin 1.1 H AST 62 H ALT 80 H Alkaline Phosphatase 96 Total Creatine Kinase 2199 H Troponin I High Sens Total Protein 7.2 Albumin 4.2 Lipase 20 COVID-19 ([facility]ARDO) COVID-19 Clin Com 03/05/22 03/05/22 03/05/22 10:25 10:25 10:25 MCV MCH MCHC RDW Plt Count MPV Immature Gran % (Auto) Neut % (Auto) Lymph % (Auto) [place] % (Auto) Eos % (Auto) Baso % (Auto) Lymph # (Auto) [place] # (Auto) Eos # (Auto) Baso # (Auto) Abs Immat Gran (auto) Absolute Neuts (auto) Absolute Nucleated RBC Nucleated RBC % (auto) PT INR APTT VBG pH VBG pCO2 VBG pO2 VBG HCO3 VBG O2 Saturation VBG Base Excess Anion Gap Estim Creat Clear Calc Estimated GFR Random Glucose Lactic Acid 3.1 H* Lactic Acid F/U @ 2Hr Calcium Magnesium Total Bilirubin Direct Bilirubin AST ALT Alkaline Phosphatase Total Creatine Kinase Troponin I High Sens 1310.1 H* Total Protein Albumin Lipase COVID-19 ([facility]ARDO) Negative COVID-19 Clin Com See Note 03/05/22 03/05/22 03/05/22 10:30 12:30 12:39 MCV MCH MCHC RDW Plt Count MPV Immature Gran % (Auto) Neut % (Auto) Lymph % (Auto) [place] % (Auto) Eos % (Auto) Baso % (Auto) Lymph # (Auto) [place] # (Auto) Eos # (Auto) Baso # (Auto) Abs Immat Gran (auto) Absolute Neuts (auto) Absolute Nucleated RBC Nucleated RBC % (auto) PT INR APTT VBG pH 7.37 VBG pCO2 36 VBG pO2 39 VBG HCO3 21 L VBG O2 Saturation 61.0 VBG Base Excess -3.2 Anion Gap Estim Creat Clear Calc Estimated GFR Random Glucose Lactic Acid Lactic Acid F/U @ 2Hr 2.1 H* Calcium Magnesium Total Bilirubin Direct Bilirubin AST ALT Alkaline Phosphatase Total Creatine Kinase Troponin I High Sens 1052.4 H* Total Protein Albumin Lipase COVID-19 ([facility]ARDO) COVID-19 Clin Com Imaging Radiologist's Impressions: Impressions Abdomen/Pelvis CT 03/05/22 11:13 IMPRESSION: Atelectatic changes in both lung bases. No acute process. No acute processes in the abdomen. There are bilateral renal cysts, hepatic cysts. No radiopaque renal or gallbladder calculi. Moderate constipation. Compression fractures of T12 vertebra of uncertain age. Cervical Spine CT 03/05/22 11:16 IMPRESSION: Patient motion degrades image quality therefore the diagnostic accuracy of this examination is limited. Grossly no evidence of acute intracranial hemorrhage. No acute cervical spine fracture and no posttraumatic spinal subluxation. Chest CT 03/05/22 11:16 IMPRESSION: Atelectatic changes in both lung bases. No acute process. No acute processes in the abdomen. There are bilateral renal cysts, hepatic cysts. No radiopaque renal or gallbladder calculi. Moderate constipation. Compression fractures of T12 vertebra of uncertain age. Head CT 03/05/22 11:16 IMPRESSION: Patient motion degrades image quality therefore the diagnostic accuracy of this examination is limited. Grossly no evidence of acute intracranial hemorrhage. No acute cervical spine fracture and no posttraumatic spinal subluxation. Assessment and Plan (1) Non-ST elevation PR (NSTEMI): Status: Acute Plan This is a 71 yo M with a PMH of CAD, HTN, HLD, Parkinson's disease who presents to the ED after being found on the ground by his son. He has multiple active issues and will be admitted for further care. 1. NSTEMI EKG non-specific; Troponins in the NSTEMI range IV heparin per protocol, rectal ASA, 2d Echo and cardiology consult 2. Toxic/Metabolic Encephalopathy Per son's description of patient's baseline, this is an acute change CT brain imaging is negative. No definitive foci of infection. He does have mild hypernatremia check ammonia 3. HyperNa due to poor oral intake given 1L NS; will continue with D5-1/2 @ 100 cc/hr until tomorrow AM 4. Hyperbiliubinemia / transaminitis no abdominal symptoms question if related to infectious etiology trend 5. Sacral and thoracic pressure uclers empiric IV antibiotics General surgery consult 6. Parkinson's disease continue baseline meds after swallow eval is completed 7. T12 compression fracture, likely traumatic no pain at this time, monitor I do not feel that the patient has severe sepsis at this time. DVT pptx -- on heparin gtt for NSTEMI Son reports that he is HCP Code status -- persumed full (son is not aware of any DNR/DNI and the patient cannot answer himself) In light of the patients NSTEMI which will require 48 hours of IV heparin, I anticipaite a medically necessary inpatient hospitalization which is likely to span at least 2 midnights. This cannot be completed in a less acute setting. Quality Stroke Does the patient have a stroke diagnosis?: No VTE Prior VTE?: No VTE Risk Level:: Medical - moderate - high VTE Device Contraindication: Treatment Not Indicated VTE Drug Contraindication: N/A - Med Ordered
[2022-03-05 15:22] LABS: Ammonia 28 umol/L (13-55)
[2022-03-05 15:25] LABS: ~Lactic Acid-LAB USE ONLY 2.6 mmol/L (0.5-2.0)
[2022-03-05] MEDS: vancomycin HCL 1,500 MG in 0.9 % Sodium Chloride 500 ML 333.33 MG IV (16:19)
[2022-03-05] MEDS: Aspirin 300 MG SUPP.RECT PR (16:20)
--- NOTE | 2022-03-05 16:35 | PM.CNGS ---
History of Present Illness Consult details Consult date: 03/05/22 Narrative: 71-year-old male referred for sacral decubitus ulcer. The patient was brought to the hospital after he was found on the floor at home by he son. Apparently, the last time that any other family member had seen him was over a week ago. The patient is supposed to be independent and lives alone. He did not have any obvious history of dementia before. This is therefore uncertain as to why he was on the floor and it is uncertain as to how long that he had been in that state. In the ER, he was noted to have markedly elevated troponin levels. He was also noted to have sacral decubitus ulcers on the sacrum, the right arm, in both hips as well as on the vertebral prominence of the upper back. Review of Systems Review of Systems: Unavailable - the patient is not communicative although awake PMFSH Past Medical History Medical History (Updated 03/07/22 @ 16:48 by Mann Watson MD) Anemia CAD (coronary artery disease) Dyslipidemia Essential hypertension Parkinsons disease Family History Family History Father Bladder cancer Mother No problems noted. Brother No problems noted. Sister No problems noted. Son No problems noted. Son No problems noted. Surgical History Surgical History No pertinent past surgical history Social History Social History Housing: Apartment Alcohol intake: never Patient Tobacco Use Status: Never used Tobacco e-Cigarette/Vaping Use: Never Used service: No Current occupational status: retired Cognitive needs: No Hearing needs: No Vision needs: Yes Meds Allergies Allergy/AdvReac Type Severity Reaction Status Date / Time No Known Allergies Allergy Verified 02/24/22 23:32 [No Known Allergies*] Active Medications: Current Medications Acetaminophen (Acetaminophen 325 Mg Tablet) 650 mg PO Q6H PRN PRN Reason: Pain, Mild (Pain Scale 1-3) Heparin Sodium (Porcine) (Heparin Sodium,Porcine 5,000 Unit/Ml Vial) 2,700 unit 40 unit/kg (2700 unit) IVPUSH PROTOCOL BOLUS PRN; Protocol PRN Reason: 40 unit/kg - Heparin Protocol Heparin Sodium (Porcine) (Heparin Sodium,Porcine 5,000 Unit/Ml Vial) 5,300 unit 80 unit/kg (5300 unit) IVPUSH PROTOCOL BOLUS PRN; Protocol PRN Reason: 80 unit/kg - Heparin Protocol Heparin Sodium/Sodium Chloride () 25,000 unit in 250 mls @ 0 mls/hr IVCONT .Q0M [facility]; Protocol Last Admin: 03/05/22 14:28 Dose: 12 units/kg/hr, 7.99 mls/hr Piperacillin Sod/Tazobactam (Sod 3.375 gm/ Sodium Chloride) 50 mls @ 100 mls/hr IV Q6H [facility] Vancomycin HCl 1,250 mg/ (Sodium Chloride) 250 mls @ 166.667 mls/hr IV Q24H [facility] Dextrose/Sodium Chloride (D51/2ns) 1,000 mls @ 100 mls/hr IVCONT .Q10H [facility] Metoprolol Tartrate (Metoprolol Tartrate 5 Mg/5 Ml Vial) 2.5 mg IVPUSH Q6H PRN PRN Reason: HR > 110 Ondansetron HCl (Ondansetron Hcl 4 Mg/2 Ml Vial) 4 mg IVPUSH Q8H PRN PRN Reason: Nausea and Vomiting Pharmacy Consult (Consult Rx Perform Med Rec) 1 each MISCELLANE ONCE PRN PRN Reason: Consult order Pharmacy Consult (Consult Rx Perform Med Rec) 1 each MISCELLANE ONCE PRN PRN Reason: Consult order Pharmacy Consult (Consult Rx Vancomycin Dosing) 1 each MISCELLANE DAILY PRN PRN Reason: Consult order Sodium Chloride (0.9 % Sodium Chloride Flush 3 Ml Syringe) 3 ml IVFLUSH [facility] Home Medications Medication Instructions Recorded Confirmed Last Taken Type carbidopa ER 25 mg-levodopa 100 mg 2 tab PO TID 08/22/20 03/05/22 Unknown History tablet,extended release metoprolol tartrate 25 mg tablet 25 mg PO BID 08/22/20 03/05/22 Unknown History amantadine HCl 100 mg tablet 1 tab PO BID 03/05/22 03/05/22 Unknown History lisinopril 10 mg tablet 1 tab PO DAILY 03/05/22 03/05/22 Unknown History Physical Exam Vital Signs: Vital Signs: Last Vital Signs Temp 97.9 F 03/05/22 14:19 Pulse 117 H 06/28/22 14:19 Resp 20 03/05/22 14:19 BP 138/75 03/05/22 14:19 Pulse Ox 97 03/05/22 14:19 O2 Del Method 03/05/22 14:19 BMI result Body Mass Index 21.0 Const: Other: Opens eyes but not communicative, appears very frail, has very minimal verbal output at this time General: no acute distress Resp: Effort & Inspection: normal respiratory effort Cardio: Rate: tachycardic GI: Palpation (GI): Soft to palpation, not firm and no guarding Back/Spine/Pelvis: Other: Sacral decubitus ulcer, stage 1-2, with a central area that seems to some superficial skin discoloration, no pus, no obvious gangrene or necrosis; area is about 8 x 7 cm in diameter; Decubitus ulcer, stage I, on the upper back along the vertebral prominence and also on both left and right hips, no skin breakdown Results Labs Result diagrams: 03/08/22 06:00 03/08/22 06:00 Labs: Abnormal lab results 03/05/22 03/05/22 03/05/22 Range/Units 10:25 10:25 10:25 WBC 13.2 H (4.8-10.8) X10*3/uL Immature Gran % (Auto) 0.6 H (0.0-0.4) % Neut % (Auto) 86.7 H (45-73) % Lymph % (Auto) 5.4 L (20-40) % Lymph # (Auto) 0.7 L (1.2-4.9) X10*3/uL Abs Immat Gran (auto) 0.08 H (0.00-0.03) X10*3/uL Absolute Neuts (auto) 11.5 H (2.0-8.3) x10*3/uL VBG HCO3 (22-26) mmol/L Sodium 150 H (135-145) mmol/L Anion Gap 21 H (12-20) BUN 44 H D (9-16) mg/dL Random Glucose 138 H (60-115) mg/dL Lactic Acid 3.1 H* (0.5-2.0) mmol/L Lactic Acid F/U @ 2Hr (0.5-2.0) mmol/L Lactic Acid F/U @ 4Hr (0.5-2.0) mmol/L Total Bilirubin 2.3 H (0.0-1.0) mg/dL Direct Bilirubin 1.1 H (0.0-0.5) mg/dL AST 62 H (5-37) U/L ALT 80 H (0-40) U/L Total Creatine Kinase 2199 H (38-174) U/L Troponin I High Sens (<3.5-35.0) ng/L 03/05/22 03/05/22 03/05/22 Range/Units 10:25 10:30 12:30 WBC (4.8-10.8) X10*3/uL Immature Gran % (Auto) (0.0-0.4) % Neut % (Auto) (45-73) % Lymph % (Auto) (20-40) % Lymph # (Auto) (1.2-4.9) X10*3/uL Abs Immat Gran (auto) (0.00-0.03) X10*3/uL Absolute Neuts (auto) (2.0-8.3) x10*3/uL VBG HCO3 21 L (22-26) mmol/L Sodium (135-145) mmol/L Anion Gap (12-20) BUN (9-16) mg/dL Random Glucose (60-115) mg/dL Lactic Acid (0.5-2.0) mmol/L Lactic Acid F/U @ 2Hr (0.5-2.0) mmol/L Lactic Acid F/U @ 4Hr (0.5-2.0) mmol/L Total Bilirubin (0.0-1.0) mg/dL Direct Bilirubin (0.0-0.5) mg/dL AST (5-37) U/L ALT (0-40) U/L Total Creatine Kinase (38-174) U/L Troponin I High Sens 1310.1 H* 1052.4 H* (<3.5-35.0) ng/L 03/05/22 03/05/22 Range/Units 12:39 14:54 WBC (4.8-10.8) X10*3/uL Immature Gran % (Auto) (0.0-0.4) % Neut % (Auto) (45-73) % Lymph % (Auto) (20-40) % Lymph # (Auto) (1.2-4.9) X10*3/uL Abs Immat Gran (auto) (0.00-0.03) X10*3/uL Absolute Neuts (auto) (2.0-8.3) x10*3/uL VBG HCO3 (22-26) mmol/L Sodium (135-145) mmol/L Anion Gap (12-20) BUN (9-16) mg/dL Random Glucose (60-115) mg/dL Lactic Acid (0.5-2.0) mmol/L Lactic Acid F/U @ 2Hr 2.1 H* (0.5-2.0) mmol/L Lactic Acid F/U @ 4Hr 2.6 H* (0.5-2.0) mmol/L Total Bilirubin (0.0-1.0) mg/dL Direct Bilirubin (0.0-0.5) mg/dL AST (5-37) U/L ALT (0-40) U/L Total Creatine Kinase (38-174) U/L Troponin I High Sens (<3.5-35.0) ng/L Short CBC 03/05/22 Range/Units 10:25 WBC 13.2 H (4.8-10.8) X10*3/uL Hgb 15.7 D (14.0-18.0) g/dl Hct 47.2 D (42.0-52.0) % Plt Count 279 D (160-400) X10*3/uL BMP 03/05/22 10:25 Sodium 150 H Potassium 4.6 Chloride 108 Carbon Dioxide 26 BUN 44 H D Creatinine 0.99 Calcium 9.6 Cardiac Enzymes 03/05/22 Range/Units 10:25 Total Creatine Kinase 2199 H (38-174) U/L Liver Function 03/05/22 Range/Units 10:25 Total Bilirubin 2.3 H (0.0-1.0) mg/dL Direct Bilirubin 1.1 H (0.0-0.5) mg/dL AST 62 H (5-37) U/L ALT 80 H (0-40) U/L Alkaline Phosphatase 96 (39-117) U/L Albumin 4.2 (3.5-5.0) g/dL All other labs normal. Assessment and Plan (1) Decubitus ulcer of sacral area: Qualifiers: Pressure injury stage: unspecified pressure injury stage Qualified Code(s): L89.159 - Pressure ulcer of sacral region, unspecified stage Status: Acute He has a wide sacral decubitus ulcer as described above. This appears to be a stage 1-2 ulcer. There is an area of central discoloration. However, I do not think that he needs debridement at this time especially as he has significant elevation of troponin and I would avoid stressing his heart with pain at this time. I would recommend continue with the foam dressings. I would make sure that he changes positions [id number] every 2 hours. He is being worked up for other medical issues at this time including coronary disease. He has been started on heparin drip. He should be aggressively hydrated via IV in view of his lactic acidosis likely secondary to dehydration him being a immobilized for several days. I will follow along while he is in the hospital. Procedures Date of Service Date of Service: 03/05/22
--- NOTE | 2022-03-05 17:48 | MHC.CM.PN ---
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 Concerns regarding self neglect and inability to return home safely. RN aware. Original Note: CM spoke with patient. Able to answer to name, knows he is in the hospital and that he fell. Unsure how long he was on the ground. Pt altered per son. Usually A&O. Son/HCP Xu Gama at bedside. IMM 03/05. HCP not on file. Copy requested. Pt has NSTEMI, Metabolic encephalopathy, parkinson's T12 compression fx, and sacral and thoracic pressure ulcers. Sacral decubitis with eschar. Pt has old bruising noted and is quite thin. Son tells CM that he last saw his father on father's day February 24. Son tells CM that his father lives alone, is essentially independent, drives a bit locally, eats microwaved meals and has no DME/services. Son tells CM that he takes his father to medical appointments and grocery shopping. Admits that his mental status is drastically changed. Son aware that CM will file with [facility] for self neglect, as it seems his father needs more help to live at home and is not safe to d/c home at this time. Son is aware that his father will need a PT/OT consult at some point during his hospital stay and will need STR. Aware that he may need more help at home after STR or might not even to able to return home. Pt requested local referrals. Care Port given with 25 local facilities. D/C plan: STR. Will need transportation. CM to follow for d/c needs.
[2022-03-05] MEDS: Dextrose 5 % and 0.45 % NaCl 1,000 ML 100 ML IVCONT (18:16)
[2022-03-05 18:22] VITALS: BP 112/53; PULSE 109; RESP 18; TEMP 36.5; O2SAT 98
--- NOTE | 2022-03-05 18:28 | PC.NURSE ---
RN to RN given to Mane
--- NOTE | 2022-03-05 20:05 | PC.NURSE ---
Addendum entered by Charlee Peterson 03/06/22 07:09: Report given to RAAD Morton Original Note: report received from RAAD Osborne. pt resting in bed. no signs of acute distress notice. breathing equally unlabored. pt on continuos cardiac monitoring
--- NOTE | 2022-03-05 20:53 | PC.NURSE ---
[employer] PER RN
[2022-03-05] MEDS: Heparin Sodium,Porcine 5,000 UNIT/ML VIAL 2700 UNIT IVPUSH (21:36)
[2022-03-05 23:35] VITALS: BP 127/68; PULSE 110; RESP 18; TEMP 36.7; O2SAT 98
[2022-03-06] VITALS (8 sets, daily range): BP systolic 115–131; BP diastolic 61–67; PULSE 98–127; RESP 17–32; TEMP 37.2–38.6; O2SAT 94–100
[2022-03-06] MEDS: Piperacillin Sodium/Tazobactam 3.375 GM in 0.9 % Sodium Chloride 50 ML IV ×5 (00:06→23:57)
[2022-03-06 04:35] LABS: INTERNATIONAL NORM RATIO 1.1 (0.9-1.1); PTT Heparin Drip 50.6 SEC (53-77.9); Prothrombin Time 13.1 SEC (10.0-13.1)
[2022-03-06 04:37] LABS: Hematocrit 41.5 % (42.0-52.0); Hemoglobin 13.5 g/dl (14.0-18.0); Mean Corpuscular HGB Conc 32.5 g/dl (31.0-36.0); Mean Corpuscular Hemoglobin 30.3 pg (27.0-33.0); Mean Corpuscular Volume 93.3 fL (80.0-98.0); Mean Platelet Volume 9.7 fL (9.4-12.4); Platelet Count 223 X10*3/uL (160-400); Red Blood Count 4.45 X10*6/uL (4.60-5.80); Red Cell Distribution Width 13.3 % (11.0-16.0); White Blood Count 8.5 X10*3/uL (4.8-10.8)
[2022-03-06 05:19] LABS: Alanine Aminotransferase 62 U/L (0-40); Albumin Level 3.2 g/dL (3.5-5.0); Alkaline Phosphatase 77 U/L (39-117); Anion Gap 18 (12-20); Aspartate Amino Transferase 41 U/L (5-37); Bilirubin Direct 0.9 mg/dL (0.0-0.5); Bilirubin Total 1.9 mg/dL (0.0-1.0); Blood Urea Nitrogen 40 mg/dL (9-16); Carbon Dioxide 19 mmol/L (22-29); Chloride 120 mmol/L (96-108); Creatinine Clr Calc Pharmacy 68.3; Creatinine Clr Calc Pharmacy 70.6; Estimated Glomerular Filt Rate > 60; Glucose Random 142 mg/dL (60-115); Sodium 153 mmol/L (135-145); Total Protein 5.6 g/dL (6.5-8.0)
[2022-03-06] MEDS: Heparin Sodium,Porcine 5,000 UNIT/ML VIAL 2700 UNIT IVPUSH (05:21)
--- NOTE | 2022-03-06 06:55 | PM.EVENT ---
Event Note Date of Service: 03/06/22 Event Note: Pt developed resp distress tachypneic, no hypoxia will obtain CXR, BNP pending rectal temp
[2022-03-06 08:00] LABS: B Type Natriuretic Peptide 141 pg/mL (<100)
--- NOTE | 2022-03-06 09:35 | HE.PHANOTE ---
Vancomycin Dosing Addendum Patients renal function has improved since last lab draw.Planning to do a random level pull for tomorrow. Patient is due for a Trough on 03/08/22 @1300. Predicted AUC is 420mg/L/hr with current regimen of 1250mg Q24 (~18mg/kg).
--- NOTE | 2022-03-06 10:16 | MHC.SLORD ---
Addendum entered and electronically signed by Mitali Machado MA, CCC-CHIEF ENGINEER'S HELPER 03/06/22 10:22: Recommend continue NPO at this time given lethargic state. Original Note: Speech Language Pathology Order Status: Received order for bedside dysphagia evaluation. Attempted to see patient for PO trials at bedside this morning. Upon arrival of CHIEF ENGINEER'S HELPER, patient was sleeping, open mouth. CHIEF ENGINEER'S HELPER attempted to wake patient with RN. Patient would briefly open his eyes to sternal rub and verbal stimuli. Patient would quickly fall back asleep, unable to remain awake for more than few seconds. D/t lethargy, not appropriate for swallow evaluation at this time. Discussed w/ RN on unit. Notified MD, RN, RD via [place] Message. Please contact CHIEF ENGINEER'S HELPER if mental status improves. Otherwise, plan to re-attempt evaluation tomorrow if appropriate.
--- NOTE | 2022-03-06 10:24 | P.CONCA_ITS ---
History of Present Illness History of Present Illness Date of Service: 03/06/22 Chief complaint: found on ground by son Narrative: This is a cardiology consultation regarding elevated troponins. It seems that he was found on the ground next to his bed by his son. When he came into the [facility], it seems that he was disoriented and not able to give much information. He still appears quite sleepy and is eyes are pretty much closed. When I tried to ask him questions like if he is having chest pain or breathing problems anything else, he has shakes his head and states no. Otherwise, after arrival labs were checked and found to have elevated CK as well as troponins. Hence he has been f urther admitted for further evaluation. Review of Systems Review of Systems: Yes all other systems are reviewed and are negative Constitutional: Constitutional: Reports as per HPI Eyes: Eyes: Reports as per HPI ENT: Reports as per HPI Cardiovascular: Cardiovascular: Reports as per HPI, Denies acrocyanosis, Denies cool extremities, Denies chest pain, Denies leg edema, Denies lightheadedness, Denies palpitations and Denies dyspnea Respiratory: Respiratory: Reports as per HPI, Reports no additional respiratory complaints and Denies dyspnea Gastrointestinal: Gastrointestinal: Reports as per HPI and Reports no additio nal gastrointestinal complaints Genitourinary: Genitourinary: Reports no additional male genitourinary complaints and Reports as per HPI Musculoskeletal: Musculoskeletal: Reports no additional musculoskeletal complaints and Reports as per HPI Integumentary/Breasts: Skin/Breast: Reports system reviewed and no additional complaints, except as docu Neurologic: Reports system reviewed and no additional complaints, except as documented and Reports as per HPI Psychiatric: Psychiatric: Reports no additional psychiatric complaints and Reports as per HPI Endocrine: Endocrine: Reports no additional endocrine complaints, Reports as per HPI and Denies palpitations Hematologic/Lymphatic: Hematologic/Lymphatic: Reports no additional hematologic/lymphatic complaints and Reports as per HPI Allergic/Immunologic: Allergic/Immunologic: Reports no additional allergic/immunologic complaints and Reports as per HPI [facility] Past Medical History Medical History Anemia CAD (coronary artery disease) Dyslipidemia Essential hypertension Parkinsons disease Family History Family History Father Bladder cancer Mother No problems noted. Brother No problems noted. Sister No problems noted. Son No problems noted. Son No problems noted. Surgical History Surgical History No pertinent past surgical history Social History Social History Housing: Apartment Alcohol intake: never Patient Tobacco Use Status: Never used Tobacco e-Cigarette/Vaping Use: Never Used Advance Directives: No service: No Current occupational status: retired Cognitive needs: No Hearing needs: No Vision needs: Yes Meds Allergies Allergy/AdvReac Type Severity Reaction Status Date / Time No Known Allergies Allergy Verified 02/24/22 23:32 [No Known Allergies*] Active Medications: Current Medications Acetaminophen (Acetaminophen 325 Mg Tablet) 650 mg PO Q6H PRN PRN Reason: Pain, Mild (Pain Scale 1-3) Heparin Sodium (Porcine) (Heparin Sodium,Porcine 5,000 Unit/Ml Vial) 2,700 unit 40 unit/kg (2700 unit) IVPUSH PROTOCOL BOLUS PRN; Protocol PRN Reason: 40 unit/kg - Heparin Protocol Last Admin: 03/06/22 05:21 Dose: 2,700 unit Heparin Sodium (Porcine) (Heparin Sodium,Porcine 5,000 Unit/Ml Vial) 5,300 unit 80 unit/kg (5300 unit) IVPUSH PROTOCOL BOLUS PRN; Protocol PRN Reason: 80 unit/kg - Heparin Protocol Heparin Sodium/Sodium Chloride () 25,000 unit in 250 mls @ 0 mls/hr IVCONT .Q0M [facility]; Protocol Last Titration: 03/06/22 05:15 Dose: 16 units/kg/hr, 10.66 mls/hr Piperacillin Sod/Tazobactam (Sod 3.375 gm/ Sodium Chloride) 50 mls @ 100 mls/hr IV Q6H [facility] Last Admin: 03/06/22 05:23 Dose: 100 mls/hr Vancomycin HCl 1,250 mg/ (Sodium Chloride) 250 mls @ 166.667 mls/hr IV Q24H [facility] Dextrose/Sodium Chloride (D51/2ns) 1,000 mls @ 100 mls/hr IVCONT .Q10H [facility] Last Admin: 03/06/22 00:19 Dose: Not Given Metoprolol Tartrate (Metoprolol Tartrate 5 Mg/5 Ml Vial) 2.5 mg IVPUSH Q6H PRN PRN Reason: HR > 110 Ondansetron HCl (Ondansetron Hcl 4 Mg/2 Ml Vial) 4 mg IVPUSH Q8H PRN PRN Reason: Nausea and Vomiting Pharmacy Consult (Consult Rx Perform Med Rec) 1 each MISCELLANE ONCE PRN PRN Reason: Consult order Pharmacy Consult (Consult Rx Perform Med Rec) 1 each MISCELLANE ONCE PRN PRN Reason: Consult order Pharmacy Consult (Consult Rx Vancomycin Dosing) 1 each MISCELLANE DAILY PRN PRN Reason: Consult order Sodium Chloride (0.9 % Sodium Chloride Flush 3 Ml Syringe) 3 ml IVFLUSH QSHIFT [facility] Last Admin: 03/06/22 08:21 Dose: Not Given Home Medications Medication Instructions Recorded Confirmed Last Taken Type carbidopa ER 25 mg-levodopa 100 mg 2 tab PO TID 08/22/20 03/05/22 Unknown History tablet,extended release metoprolol tartrate 25 mg tablet 25 mg PO BID 08/22/20 03/05/22 Unknown History amantadine HCl 100 mg tablet 1 tab PO BID 03/05/22 03/05/22 Unknown History lisinopril 10 mg tablet 1 tab PO DAILY 03/05/22 03/05/22 Unknown History Physical Exam Vital Signs: Vital Signs: Last Vital Signs Temp 99.7 F 03/06/22 05:49 Pulse 127 H 03/06/22 05:49 Resp 32 H 03/06/22 05:49 BP 131/62 03/06/22 05:49 Pulse Ox 94 03/06/22 05:49 O2 Del Method 03/06/22 05:49 BMI result Body Mass Index 21.0 Const: General: comfortable, no acute distress and lethargic Orientation/consciousness: No patient oriented x3 and lethargic HEENT: Other: Unremarkable Head: Yes normal to inspection Neck: Neck: Yes normal visual inspection Chest: Chest palpation & inspection: normal inspection of the chest Resp: Auscultation: clear to auscultation bilaterally Cardio: Palpation: normal PMI Heart sounds: S1 normal heart sound present, S2 normal heart sound present, no gallops, no murmurs and no rubs GI: Palpation (GI): Soft to palpation Back/Spine/Pelvis: Other: unremarkable Skin: General skin exam: no rashes or lesions noted Neuro: General: No patient oriented x3 Extrem: General: Yes normal to inspection Psych: Appearance: grossly abnormal Objective Labs and Meds Result diagrams: 03/06/22 03:18 03/06/22 03:18 Lab results: Laboratory Results - last 24 hr 03/05/22 03/05/22 03/05/22 10:25 10:25 10:25 WBC 13.2 H RBC 5.12 D Hgb 15.7 D Hct 47.2 D MCV 92.2 MCH 30.7 MCHC 33.3 RDW 13.0 Plt Count 279 D MPV 9.4 Immature Gran % (Auto) 0.6 H Neut % (Auto) 86.7 H Lymph % (Auto) 5.4 L [place] % (Auto) 7.1 Eos % (Auto) 0.0 Baso % (Auto) 0.2 Lymph # (Auto) 0.7 L [place] # (Auto) 0.9 Eos # (Auto) 0.0 Baso # (Auto) 0.0 Abs Immat Gran (auto) 0.08 H Absolute Neuts (auto) 11.5 H Absolute Nucleated RBC 0.000 Nucleated RBC % (auto) 0.0 PT 11.1 INR 1.0 APTT 25.5 aPTT Heparin Protocol VBG pH VBG pCO2 VBG pO2 VBG HCO3 VBG O2 Saturation VBG Base Excess Sodium 150 H Potassium 4.6 Chloride 108 Carbon Dioxide 26 Anion Gap 21 H BUN 44 H D Creatinine 0.99 Estim Creat Clear Calc 63.5 Estimated GFR > 60 Random Glucose 138 H Lactic Acid Lactic Acid F/U @ 2Hr Lactic Acid F/U @ 4Hr Calcium 9.6 Magnesium 2.3 Total Bilirubin 2.3 H Direct Bilirubin 1.1 H AST 62 H ALT 80 H Alkaline Phosphatase 96 Ammonia Total Creatine Kinase 2199 H Troponin I High Sens B-Natriuretic Peptide Total Protein 7.2 Albumin 4.2 Lipase 20 COVID-19 ([facility]) COVID-19 Clin Com 03/05/22 03/05/22 03/05/22 10:25 10:25 10:25 WBC RBC Hgb Hct MCV MCH MCHC RDW Plt Count MPV Immature Gran % (Auto) Neut % (Auto) Lymph % (Auto) [place] % (Auto) Eos % (Auto) Baso % (Auto) Lymph # (Auto) [place] # (Auto) Eos # (Auto) Baso # (Auto) Abs Immat Gran (auto) Absolute Neuts (auto) Absolute Nucleated RBC Nucleated RBC % (auto) PT INR APTT aPTT Heparin Protocol VBG pH VBG pCO2 VBG pO2 VBG HCO3 VBG O2 Saturation VBG Base Excess Sodium Potassium Chloride Carbon Dioxide Anion Gap BUN Creatinine Estim Creat Clear Calc Estimated GFR Random Glucose Lactic Acid 3.1 H* Lactic Acid F/U @ 2Hr Lactic Acid F/U @ 4Hr Calcium Magnesium Total Bilirubin Direct Bilirubin AST ALT Alkaline Phosphatase Ammonia Total Creatine Kinase Troponin I High Sens 1310.1 H* B-Natriuretic Peptide Total Protein Albumin Lipase COVID-19 ([facility]) Negative COVID-19 Clin Com See Note 03/05/22 03/05/22 03/05/22 10:30 12:30 12:39 WBC RBC Hgb Hct MCV MCH MCHC RDW Plt Count MPV Immature Gran % (Auto) Neut % (Auto) Lymph % (Auto) [place] % (Auto) Eos % (Auto) Baso % (Auto) Lymph # (Auto) [place] # (Auto) Eos # (Auto) Baso # (Auto) Abs Immat Gran (auto) Absolute Neuts (auto) Absolute Nucleated RBC Nucleated RBC % (auto) PT INR APTT aPTT Heparin Protocol VBG pH 7.37 VBG pCO2 36 VBG pO2 39 VBG HCO3 21 L VBG O2 Saturation 61.0 VBG Base Excess -3.2 Sodium Potassium Chloride Carbon Dioxide Anion Gap BUN Creatinine Estim Creat Clear Calc Estimated GFR Random Glucose Lactic Acid Lactic Acid F/U @ 2Hr 2.1 H* Lactic Acid F/U @ 4Hr Calcium Magnesium Total Bilirubin Direct Bilirubin AST ALT Alkaline Phosphatase Ammonia Total Creatine Kinase Troponin I High Sens 1052.4 H* B-Natriuretic Peptide Total Protein Albumin Lipase COVID-19 ([facility]) COVID-19 Clin Com 03/05/22 03/05/22 03/05/22 14:54 14:54 20:20 WBC RBC Hgb Hct MCV MCH MCHC RDW Plt Count MPV Immature Gran % (Auto) Neut % (Auto) Lymph % (Auto) [place] % (Auto) Eos % (Auto) Baso % (Auto) Lymph # (Auto) [place] # (Auto) Eos # (Auto) Baso # (Auto) Abs Immat Gran (auto) Absolute Neuts (auto) Absolute Nucleated RBC Nucleated RBC % (auto) PT INR APTT aPTT Heparin Protocol 50.0 L VBG pH VBG pCO2 VBG pO2 VBG HCO3 VBG O2 Saturation VBG Base Excess Sodium Potassium Chloride Carbon Dioxide Anion Gap BUN Creatinine Estim Creat Clear Calc Estimated GFR Random Glucose Lactic Acid Lactic Acid F/U @ 2Hr Lactic Acid F/U @ 4Hr 2.6 H* Calcium Magnesium Total Bilirubin Direct Bilirubin AST ALT Alkaline Phosphatase Ammonia 28 Total Creatine Kinase Troponin I High Sens B-Natriuretic Peptide Total Protein Albumin Lipase COVID-19 ([facility]) COVID-19 Fund Recs 03/06/22 03/06/22 03/06/22 03:18 03:18 03:18 WBC 8.5 RBC 4.45 L Hgb 13.5 L Hct 41.5 L MCV 93.3 MCH 30.3 MCHC 32.5 RDW 13.3 Plt Count 223 MPV 9.7 Immature Gran % (Auto) Neut % (Auto) Lymph % (Auto) [place] % (Auto) Eos % (Auto) Baso % (Auto) Lymph # (Auto) [place] # (Auto) Eos # (Auto) Baso # (Auto) Abs Immat Gran (auto) Absolute Neuts (auto) Absolute Nucleated RBC 0.000 Nucleated RBC % (auto) 0.0 PT INR APTT aPTT Heparin Protocol VBG pH VBG pCO2 VBG pO2 VBG HCO3 VBG O2 Saturation VBG Base Excess Sodium 153 H Potassium 4.0 Chloride 120 H Carbon Dioxide 19 L Anion Gap 18 BUN 40 H Creatinine 0.92 0.89 Estim Creat Clear Calc 68.3 70.6 Estimated GFR > 60 > 60 Random Glucose 142 H Lactic Acid Lactic Acid F/U @ 2Hr Lactic Acid F/U @ 4Hr Calcium 8.0 L D Magnesium Total Bilirubin 1.9 H Direct Bilirubin 0.9 H AST 41 H ALT 62 H Alkaline Phosphatase 77 Ammonia Total Creatine Kinase Troponin I High Sens B-Natriuretic Peptide Total Protein 5.6 L D Albumin 3.2 L D Lipase COVID-19 ([facility]) COVID-19 Fund Recs 03/06/22 03/06/22 03:18 07:30 WBC RBC Hgb Hct MCV MCH MCHC RDW Plt Count MPV Immature Gran % (Auto) Neut % (Auto) Lymph % (Auto) [place] % (Auto) Eos % (Auto) Baso % (Auto) Lymph # (Auto) [place] # (Auto) Eos # (Auto) Baso # (Auto) Abs Immat Gran (auto) Absolute Neuts (auto) Absolute Nucleated RBC Nucleated RBC % (auto) PT 13.1 INR 1.1 APTT aPTT Heparin Protocol 50.6 L VBG pH VBG pCO2 VBG pO2 VBG HCO3 VBG O2 Saturation VBG Base Excess Sodium Potassium Chloride Carbon Dioxide Anion Gap BUN Creatinine Estim Creat Clear Calc Estimated GFR Random Glucose Lactic Acid Lactic Acid F/U @ 2Hr Lactic Acid F/U @ 4Hr Calcium Magnesium Total Bilirubin Direct Bilirubin AST ALT Alkaline Phosphatase Ammonia Total Creatine Kinase Troponin I High Sens B-Natriuretic Peptide 141 H Total Protein Albumin Lipase COVID-19 ([facility]) COVID-19 Clin Com ECG Interpretation: In the initial EKG, there is sinus tachycardia in 120s. T inversions in inferior leads. Cannot exclude inferior infarct but could be nonspecific. Oth erwise, nonspecific ST-T changes in the precordial leads. Repeat EKG somewhat similar. Imaging Radiologist's impression: Impressions Abdomen/Pelvis CT 03/05/22 11:13 IMPRESSION: Atelectatic changes in both lung bases. No acute process. No acute processes in the abdomen. There are bilateral renal cysts, hepatic cysts. No radiopaque renal or gallbladder calculi. Moderate constipation. Compression fractures of T12 vertebra of uncertain age. Cervical Spine CT 03/05/22 11:16 IMPRESSION: Patient motion degrades image quality therefore the diagnostic accuracy of this examination is limited. Grossly no evidence of acute intracranial hemorrhage. No acute cervical spine fracture and no posttraumatic spinal subluxation. Chest CT 03/05/22 11:16 IMPRESSION: Atelectatic changes in both lung bases. No acute process. No acute processes in the abdomen. There are bilateral renal cysts, hepatic cysts. No radiopaque renal or gallbladder calculi. Moderate constipation. Compression fractures of T12 vertebra of uncertain age. Head CT 03/05/22 11:16 IMPRESSION: Patient motion degrades image quality therefore the diagnostic accuracy of this examination is limited. Grossly no evidence of acute intracranial hemorrhage. No acute cervical spine fracture and no posttraumatic spinal subluxation. Chest X-Ray 03/06/22 06:55 IMPRESSION: Obscuration of the medial left hemidiaphragm suggesting a left lower lobe retrocardiac consolidation with subtle air bronchograms. Infectious etiology would be favored in this setting. Assessment and Plan (1) Non-ST elevation [place] (NSTEMI): Status: Acute (2) Rhabdomyolysis: Status: Acute Plan Overall, presumed fall and being found on the floor. Unable to elicit much of symptoms but patient denies any active chest pain. Elevated CKs noted. Elevated troponin I noted as well. On review of prior records, there is an echocardiogram from 2019 from outside hospital scanned. That shows normal LVEF but basal to mid inferior akinesis. In the current echocardiogram, most images are off axis and hence difficult to assess wall motion as well as LVEF. Overall, this could be rhabdomyolysis +/- demand related NSTEMI. Based on prior echocardiogram, could have underlying CAD. However, doubt any acute plaque rupture. We can treat him with IV heparin for 48 hours unless any other major contraindications. Low-dose aspirin. He is also on empiric antibiotics. IV fluid for rehydration. Will follow. Message sent to by Lonnie. Procedures Date of Service Date of Service: 03/06/22
--- NOTE | 2022-03-06 10:36 | PC.NURSE ---
Report received at shift change from Charlee SHANKAR. Patient is resting on hospital bed and is asleep at this time. When aroused patient will open eyes and state a word or two but appears very tired. Speech therapy here to evaluate for swallow study but patient unable to awaken enough to complete. Patient is on monitoring coordinator in tachy sinus rhythm. Respirations 24 with O2 sat 98% on room air. Patient with numerous pressure ulcers currently on lumbosacral region covered with dressing. Patient febrile temp 101.5 rectal. Hospitalist made aware. D5/.45NS running at 100ml/hr. Heparin running at 16u/kg/hr per protocol. Will continue to monitor.
[2022-03-06 11:31] LABS: PTT Heparin Drip 77.2 SEC (53-77.9)
--- NOTE | 2022-03-06 11:34 | PC.NURSE ---
Addendum entered by Michael Alba 03/06/22 13:49: Tylenol given temp decreased tp 100.1. Dr. Zaman made aware. No further instructions from the provider. Original Note: Spoke to Dr. Zaman about patients HR, give tylenol to treat fever.
--- NOTE | 2022-03-06 11:42 | PC.NURSE ---
Supp Tylenol not in pyxis
[2022-03-06] MEDS: Acetaminophen Supp 650 MG SUPP.RECT PR (11:57)
[2022-03-06] MEDS: 0.9 % Sodium Chloride 1,000 ML 100 ML IVCONT (12:24)
[2022-03-06] MEDS: vancomycin HCL 1,250 MG in 0.9 % Sodium Chloride 250 ML 166.67 MG IV (14:31)
[2022-03-06] MEDS: Heparin Sodium,Porcine/1/2NS 25,000 UNIT/250 ML IV.SOLN 10.66 UNIT IVCONT (14:39)
[2022-03-06 17:38] LABS: PTT Heparin Drip 72.4 SEC (53-77.9)
--- NOTE | 2022-03-06 17:49 | P.PNIM_ITS ---
Subjective Subjective Date of Service: 03/06/22 Interval History: Somnolent but arousable this a.m.. Improved with treatment of fever Review of Systems Denies chest pain Denies shortness of breath Denies nausea vomiting diarrhea Physical Exam Vital Signs: Vital Signs: Last Vital Signs Temp 100.1 F 03/06/22 16:52 Pulse 103 H 03/06/22 14:23 Resp 19 03/06/22 14:23 BP 118/67 03/06/22 14:23 Pulse Ox 100 03/06/22 14:23 O2 Del Method 03/06/22 13:33 BMI result Body Mass Index 21.0 Const: Other: Somnolent but arousable Resp: Other: Clear to auscultation bilaterally no rales rhonchi or wheezes Cardio: Other: No S4; positive S1-S2; no S3 murmurs rubs or gallops GI: Other: Soft nontender nondistended normoactive bowel sounds Extrem: Other: No edema bilaterally Objective Data Active Medications Acetaminophen (Acetaminophen 325 Mg Tablet) 650 mg PO Q6H PRN PRN Reason: Pain, Mild (Pain Scale 1-3) Acetaminophen (Acetaminophen Supp 650 Mg Supp.Rect) 650 mg MN Q4H PRN PRN Reason: Fever Last Admin: 03/06/22 11:57 Dose: 650 mg Documented By: ANA Heparin Sodium (Porcine) (Heparin Sodium,Porcine 5,000 Unit/Ml Vial) 2,700 unit 40 unit/kg (2700 unit) IVPUSH PROTOCOL BOLUS PRN; Protocol PRN Reason: 40 unit/kg - Heparin Protocol Last Admin: 03/06/22 05:21 Dose: 2,700 unit Documented By: RO Heparin Sodium (Porcine) (Heparin Sodium,Porcine 5,000 Unit/Ml Vial) 5,300 unit 80 unit/kg (5300 unit) IVPUSH PROTOCOL BOLUS PRN; Protocol PRN Reason: 80 unit/kg - Heparin Protocol Heparin Sodium/Sodium Chloride () 25,000 unit in 250 mls @ 0 mls/hr IVCONT .Q0M [facility]; Protocol Last Admin: 03/06/22 14:39 Dose: 16 units/kg/hr, 10.66 mls/hr Documented By: HENRRY Co-signed By: ANA Piperacillin Sod/Tazobactam (Sod 3.375 gm/ Sodium Chloride) 50 mls @ 100 mls/hr IV Q6H [facility] Last Admin: 03/06/22 16:58 Dose: 100 mls/hr Documented By: ANA Vancomycin HCl 1,250 mg/ (Sodium Chloride) 250 mls @ 166.667 mls/hr IV Q24H [facility] Last Infusion: 03/06/22 16:00 Dose: 0 mls/hr Documented By: ANA Sodium Chloride (Ns) 1,000 mls @ 100 mls/hr IVCONT .Q10H [facility] Last Admin: 03/06/22 12:24 Dose: 100 mls/hr Documented By: ANA Metoprolol Tartrate (Metoprolol Tartrate 5 Mg/5 Ml Vial) 2.5 mg IVPUSH Q6H PRN PRN Reason: HR > 110 Ondansetron HCl (Ondansetron Hcl 4 Mg/2 Ml Vial) 4 mg IVPUSH Q8H PRN PRN Reason: Nausea and Vomiting Pharmacy Consult (Consult Rx Perform Med Rec) 1 each MISCELLANE ONCE PRN PRN Reason: Consult order Pharmacy Consult (Consult Rx Perform Med Rec) 1 each MISCELLANE ONCE PRN PRN Reason: Consult order Pharmacy Consult (Consult Rx Vancomycin Dosing) 1 each MISCELLANE DAILY PRN PRN Reason: Consult order Sodium Chloride (0.9 % Sodium Chloride Flush 3 Ml Syringe) 3 ml IVFLUSH QSHIFT [facility] Last Admin: 03/06/22 14:55 Dose: Not Given Documented By: ANA Non-Admin Reason: IV Running Labs CBC & Chem 7: 03/06/22 03:18 03/06/22 03:18 Labs: Laboratory Results - last 24 hr 03/05/22 03/06/22 03/06/22 20:20 03:18 03:18 MCV 93.3 MCH 30.3 MCHC 32.5 RDW 13.3 Plt Count 223 MPV 9.7 Absolute Nucleated RBC 0.000 Nucleated RBC % (auto) 0.0 PT INR aPTT Heparin Protocol 50.0 L Anion Gap Estim Creat Clear Calc 68.3 Estimated GFR > 60 Random Glucose Calcium Total Bilirubin 1.9 H Direct Bilirubin 0.9 H AST 41 H ALT 62 H Alkaline Phosphatase 77 Total Creatine Kinase B-Natriuretic Peptide Total Protein 5.6 L D Albumin 3.2 L D 03/06/22 03/06/22 03/06/22 03:18 03:18 07:30 MCV MCH MCHC RDW Plt Count MPV Absolute Nucleated RBC Nucleated RBC % (auto) PT 13.1 INR 1.1 aPTT Heparin Protocol 50.6 L Anion Gap 18 Estim Creat Clear Calc 70.6 Estimated GFR > 60 Random Glucose 142 H Calcium 8.0 L D Total Bilirubin Direct Bilirubin AST ALT Alkaline Phosphatase Total Creatine Kinase B-Natriuretic Peptide 141 H Total Protein Albumin 03/06/22 03/06/22 03/06/22 11:13 11:13 17:08 MCV MCH MCHC RDW Plt Count MPV Absolute Nucleated RBC Nucleated RBC % (auto) PT INR aPTT Heparin Protocol 77.2 D 72.4 Anion Gap Estim Creat Clear Calc Estimated GFR Random Glucose Calcium Total Bilirubin Direct Bilirubin AST ALT Alkaline Phosphatase Total Creatine Kinase 784 H D B-Natriuretic Peptide Total Protein Albumin Microbiology Microbiology Results: Microbiology 03/05/22 11:06 Blood Culture - Preliminary Blood - Venous No growth after 24 hours. 03/05/22 10:24 Blood Culture - Preliminary Blood - Venous No growth after 24 hours. Assessment and Plan (1) Non-ST elevation [place] (NSTEMI): Status: Acute (2) Parkinsons disease: Status: Acute (3) Rhabdomyolysis: Status: Acute Plan This is a 71 yo M with a PMH of CAD, HTN, HLD, Parkinson's disease who presents to the ED after being found on the ground by his son. He has multiple active issues and will be admitted for further care. 1. NSTEMI -troponins trending down -continue IV heparin times 48 hours total -add aspirin 2. Toxic/Metabolic Encephalopathy -returning to baseline -follow clinically 3. HyperNa -continue IV fluids -recheck in a.m 4. Parkinson's disease - somnolent for swallow this a.m. reassess -will continue outpatient therapies in a.m. 5. Rhabdomyolysis -see case trending downward -continue IV fluid follow in a.m. DVT pptx -- on heparin gtt for NSTEMI Son reports that he is HCP Code status -- persumed full (son is not aware of any DNR/DNI and the patient cannot answer himself) Patient requires ongoing hospitalization for IV heparin to treat an STEMI Quality Stroke Does the patient have a stroke diagnosis?: No VTE Prior VTE?: No VTE Risk Level:: Medical - moderate - high VTE Device Contraindication: Treatment Not Indicated VTE Drug Contraindication: N/A - Med Ordered
[2022-03-06] MEDS: Dextrose 5 % and 0.45 % NaCl 1,000 ML 100 ML IVCONT (18:06)
[2022-03-07 00:03] VITALS: BP 134/67; PULSE 103; RESP 20; TEMP 36.9; O2SAT 98
[2022-03-07 03:50] VITALS: BP 123/70; PULSE 94; RESP 16; TEMP 36.9; O2SAT 97
[2022-03-07] MEDS: Dextrose 5 % and 0.45 % NaCl 1,000 ML 100 ML IVCONT (04:14)
[2022-03-07] MEDS: Piperacillin Sodium/Tazobactam 3.375 GM in 0.9 % Sodium Chloride 50 ML IV ×3 (04:16→18:09)
[2022-03-07 05:55] LABS: Hemoglobin 12.2 g/dl (14.0-18.0); Mean Corpuscular Hemoglobin 30.7 pg (27.0-33.0); Mean Corpuscular Volume 93.2 fL (80.0-98.0); Mean Platelet Volume 9.4 fL (9.4-12.4); Platelet Count 179 X10*3/uL (160-400); Red Blood Count 3.97 X10*6/uL (4.60-5.80); Red Cell Distribution Width 13.5 % (11.0-16.0); White Blood Count 8.9 X10*3/uL (4.8-10.8)
[2022-03-07 06:03] LABS: PTT Heparin Drip 59.9 SEC (53-77.9)
[2022-03-07 06:27] LABS: Alanine Aminotransferase 49 U/L (0-40); Albumin Level 2.9 g/dL (3.5-5.0); Alkaline Phosphatase 66 U/L (39-117); Aspartate Amino Transferase 20 U/L (5-37); Bilirubin Total 1.6 mg/dL (0.0-1.0); Blood Urea Nitrogen 29 mg/dL (9-16); Calcium 7.7 mg/dL (8.4-10.2); Creatinine Clr Calc Pharmacy 77.6; Estimated Glomerular Filt Rate > 60; Glucose Fasting 129 mg/dL (60-99); Total Protein 5.1 g/dL (6.5-8.0)
[2022-03-07 06:47] LABS: Anion Gap 12 (12-20); Carbon Dioxide 24 mmol/L (22-29); Chloride 122 mmol/L (96-108); Potassium 3.3 mmol/L (3.3-5.1); Sodium 155 mmol/L (135-145)
[2022-03-07 06:49] LABS: Band Neutrophils Percent 11 % (3-5); Lymphocytes Absolute Manual 0.4 X10*3/uL (1.2-4.9); Lymphocytes Percent Manual 4 % (20-40); Monocytes Absolute Manual 0.1 X10*3/uL (0.1-1.2); Monocytes Percent Manual 1 % (2-11); Neutrophils Absolute Manual 8.5 X10*3/uL (2.0-8.3); Neutrophils Percent Manual 84 % (45-73); Platelet Estimate NORMAL (NORMAL)
[2022-03-07 06:50] LABS: Platelet Morphology Comment NORMAL
[2022-03-07 06:51] LABS: Burr Cells 1+ (0-2) /OIF; RBC Morphology NOTED
[2022-03-07] MEDS: 0.9 % Sodium Chloride Flush 3 ML SYRINGE IVFLUSH ×2 (08:15→16:40)
[2022-03-07 08:50] VITALS: BP 122/71; PULSE 101; RESP 16; O2SAT 100
--- NOTE | 2022-03-07 10:27 | P.PNCA_ITS ---
Subjective Subjective Date of Service: 03/07/22 Interval history: He seems to be bit more awake today. Answering questions somewhat but not too alert. Denies any chest pain or any active cardiac symptoms. 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 Review of Systems Review of Systems Yes all other systems are reviewed and are negative Constitutional: Reports as per HPI Eyes: Reports as per HPI Reports as per HPI Cardiovascular: Reports as per HPI, Denies acrocyanosis, Denies cool extremities, Denies chest pain, Denies leg edema, Denies lightheadedness, Denies palpitations and Denies dyspnea Respiratory: Reports as per HPI, Reports no additional respiratory complaints and Denies dyspnea Gastrointestinal: Reports as per HPI and Reports no additional gastrointestinal complaints Genitourinary: Reports no additional male genitourinary complaints and Reports as per HPI Musculoskeletal: Reports no additional musculoskeletal complaints and Reports as per HPI Skin/Breast: Reports system reviewed and no additional complaints, except as docu Reports system reviewed and no additional complaints, except as documented and Reports as per HPI Psychiatric: Reports no additional psychiatric complaints and Reports as per HPI Endocrine: Reports no additional endocrine complaints, Reports as per HPI and Denies palpitations Hematologic/Lymphatic: Reports no additional hematologic/lymphatic complaints and Reports as per HPI Allergic/Immunologic: Reports no additional allergic/immunologic complaints and Reports as per HPI Physical Exam Vital Signs: Last Vital Signs Temp 98.4 F 03/07/22 03:50 Pulse 101 H 03/07/22 08:50 Resp 16 03/07/22 08:50 BP 122/71 03/07/22 08:50 Pulse Ox 100 03/07/22 08:50 O2 Del Method 03/07/22 08:50 BMI result Body Mass Index 21.0 Const General: comfortable and no acute distress HEENT Other: Unremarkable Head: Yes normal to inspection Neck Neck: Yes normal visual inspection Chest Chest palpation & inspection: normal inspection of the chest Resp Auscultation: clear to auscultation bilaterally Cardio Palpation: normal PMI Heart sounds: S1 normal heart sound present, S2 normal heart sound present, no gallops, no murmurs and no rubs GI Palpation (GI): Soft to palpation Back/Spine/Pelvis Other: unremarkable Skin General skin exam: no rashes or lesions noted Neuro Other: appears tired and sleepy but answers question better. speech ok. Extrem General: Yes normal to inspection Psych Appearance: grossly abnormal Objective Labs and Meds Result diagrams: 03/07/22 05:29 03/07/22 05:29 Lab results: Laboratory Results - last 24 hr 03/06/22 03/06/22 03/06/22 11:13 11:13 17:08 WBC RBC Hgb Hct MCV MCH MCHC RDW Plt Count MPV Immature Gran % (Auto) Neut % (Auto) Lymph % (Auto) [place] % (Auto) Eos % (Auto) Baso % (Auto) Lymph # (Auto) [place] # (Auto) Eos # (Auto) Baso # (Auto) Abs Immat Gran (auto) Absolute Neuts (auto) Absolute Nucleated RBC Nucleated RBC % (auto) Neutrophils % (Manual) Band Neutrophils % Lymphocytes % (Manual) Monocytes % (Manual) Abs Neuts (Manual) Lymphocytes # (Manual) Monocytes # (Manual) Platelet Estimate Plt Morphology Comment RBC Morphology [place] Cells aPTT Heparin Protocol 77.2 D 72.4 Sodium Potassium Chloride Carbon Dioxide Anion Gap BUN Creatinine Estim Creat Clear Calc Estimated GFR Fasting Glucose Calcium Total Bilirubin AST ALT Alkaline Phosphatase Total Creatine Kinase 784 H D Total Protein Albumin 03/07/22 03/07/22 03/07/22 05:29 05:29 05:29 WBC 8.9 RBC 3.97 L Hgb 12.2 L Hct 37.0 L MCV 93.2 MCH 30.7 MCHC 33.0 RDW 13.5 Plt Count 179 MPV 9.4 Immature Gran % (Auto) Cancelled Neut % (Auto) Cancelled Lymph % (Auto) Cancelled [place] % (Auto) Cancelled Eos % (Auto) Cancelled Baso % (Auto) Cancelled Lymph # (Auto) Cancelled [place] # (Auto) Cancelled Eos # (Auto) Cancelled Baso # (Auto) Cancelled Abs Immat Gran (auto) Cancelled Absolute Neuts (auto) Cancelled Absolute Nucleated RBC 0.000 Nucleated RBC % (auto) 0.0 Neutrophils % (Manual) 84 H Band Neutrophils % 11 H Lymphocytes % (Manual) 4 L Monocytes % (Manual) 1 L Abs Neuts (Manual) 8.5 H Lymphocytes # (Manual) 0.4 L Monocytes # (Manual) 0.1 Platelet Estimate NORMAL Plt Morphology Comment NORMAL RBC Morphology NOTED Kyle Cells 1+ (0-2) aPTT Heparin Protocol 59.9 Sodium 155 H Potassium 3.3 Chloride 122 H Carbon Dioxide 24 Anion Gap 12 BUN 29 H Creatinine 0.81 Estim Creat Clear Calc 77.6 Estimated GFR > 60 Fasting Glucose 129 H D Calcium 7.7 L Total Bilirubin 1.6 H AST 20 D ALT 49 H Alkaline Phosphatase 66 Total Creatine Kinase Total Protein 5.1 L Albumin 2.9 L Progress Note: A&P Assessment and plan (1) Non-ST elevation [place] (NSTEMI): Status: Acute (2) Rhabdomyolysis: Status: Acute Plan Not very clear if he is having an NSTEMI or if it is rather rhabdomyolysis. Based on presentation, rather rhabdomyolysis. However, based on a prior echocardiogram from [facility] in 2019, he had basal to mid inferior akinesis. Hence he probably has underlying CAD. The current echocardiogram, most images are off axis and hence difficult to assess wall motion. In conclusion, either rhabdomyolysis +/- NSTEMI. Can plan on treating IV heparin for about 48 hours total. Low-dose aspirin. Not on statins due to high CKs. Needs to assess why his mental status is not normal especially if he was driving to [employer] in the past. May need additional brain imaging. Discussed with Dr. Zaman. Continue with hydration. Empiric antibiotics for possible infection. His bands are also high which may support infection. Discussed with . Time Spent With Patient Time: Total time spent is greater than 50% in coordination of care (as documented) at patient's floor/unit and/or counseling patient: 35min. Progress Note: Quality Stroke Does the patient have a stroke diagnosis?: No Procedures Date of Service Date of Service: 03/07/22
[2022-03-07 11:27] VITALS: BP 145/86; PULSE 104; RESP 12; TEMP 37.1; O2SAT 99
[2022-03-07] MEDS: Heparin Sodium,Porcine/1/2NS 25,000 UNIT/250 ML IV.SOLN 10.66 UNIT IVCONT (11:34)
--- NOTE | 2022-03-07 13:08 | MHC.SL.SWA ---
Speech Pathologist Impression: Oropharyngeal dysphagia Risk of Aspiration Due to: Neurological Condition Dysphasia Diet Status: No Change Liquid Consistency and Strategies for Safe Swallow: Liquid Intake Recommendation: NPO Solid Food Consistency: Dietary Recommendations: NPO Additional Modifications to Solid Foods: Patient displayed overt s/s of aspiration w/ PO trials. Recommend continue NPO status. Recommend frequent oral care, moistened swab for comfort, & elevate head of bed at least 30 degrees to decrease risk of microaspiration. Sent [place] Message to , RN, RD w/ update. No changes made to diet order at this time. Oral Medication Intake: NPO Please contact the pharmacy regarding appropriate crushable or liquid drug formulations that are available whenever modified delivery is recommended. Supervision While Eating and Drinking for Safe Swallow: PO with CLIENT RELATIONSHIP CONSULTANT Recommendation for Speech: Inpatient Speech Therapy [employer] Clinican/Clinical Fellow: No Supervisory Statement: I have reviewed and agree with the student/clinical fellow's documentation: N/A Speech Language Pathologist: Mitali Machado M.A., CCC-CLIENT RELATIONSHIP CONSULTANT
[2022-03-07 14:05] LABS: Vancomycin Random 8.2 mcg/mL (15-20)
--- NOTE | 2022-03-07 14:12 | HE.PHANOTE ---
Addendum entered by Irais Keenan nik 03/09/22 13:46: 03/08 level was 9, dose was increased yesterday, next level 03/10 0500 Original Note: re vanco trough was subtherapuetic. in setting of improved renal function, increase dose to 750mg q12 h, suspected auc 424, trough 13.1. next trough 03/08 @1300
[2022-03-07] MEDS: Dextrose 5 % 1,000 ML 150 ML IVCONT ×2 (14:27→21:25)
--- NOTE | 2022-03-07 15:24 | HO.PM.IMPN ---
Subjective Subjective Date of Service: 03/07/22 Interval History: More alert this a.m. but unable to take p.o. Review of Systems Denies chest pain Denies shortness of breath Denies nausea vomiting diarrhea Physical Exam Vital Signs: Vital Signs: Last Vital Signs Temp 98.8 F 03/07/22 11:27 Pulse 104 H 03/07/22 11:27 Resp 12 03/07/22 11:27 BP 145/86 H 03/07/22 11:27 Pulse Ox 99 03/07/22 11:27 O2 Del Method 03/07/22 11:27 BMI result Body Mass Index 21.0 Const: Other: Somnolent but arousable Resp: Other: Clear to auscultation bilaterally no rales rhonchi or wheezes Cardio: Other: No S4; positive S1-S2; no S3 murmurs rubs or gallops GI: Other: Soft nontender nondistended normoactive bowel sounds Extrem: Other: No edema bilaterally Objective Data Active Medications Acetaminophen (Acetaminophen 325 Mg Tablet) 650 mg PO Q6H PRN PRN Reason: Pain, Mild (Pain Scale 1-3) Acetaminophen (Acetaminophen Supp 650 Mg Supp.Rect) 650 mg OR Q4H PRN PRN Reason: Fever Last Admin: 03/06/22 11:57 Dose: 650 mg Documented By: ANA Aspirin (Aspirin Enteric Coated 325 Mg Tablet.Dr) 325 mg PO DAILY [facility] Heparin Sodium (Porcine) (Heparin Sodium,Porcine 5,000 Unit/Ml Vial) 2,700 unit 40 unit/kg (2700 unit) IVPUSH PROTOCOL BOLUS PRN; Protocol PRN Reason: 40 unit/kg - Heparin Protocol Last Admin: 03/06/22 05:21 Dose: 2,700 unit Documented By: RO Heparin Sodium (Porcine) (Heparin Sodium,Porcine 5,000 Unit/Ml Vial) 5,300 unit 80 unit/kg (5300 unit) IVPUSH PROTOCOL BOLUS PRN; Protocol PRN Reason: 80 unit/kg - Heparin Protocol Heparin Sodium/Sodium Chloride () 25,000 unit in 250 mls @ 0 mls/hr IVCONT .Q0M [facility]; Protocol Last Admin: 03/07/22 11:34 Dose: 16 units/kg/hr, 10.66 mls/hr Documented By: HENRRY Co-signed By: ARACELI Piperacillin Sod/Tazobactam (Sod 3.375 gm/ Sodium Chloride) 50 mls @ 100 mls/hr IV Q6H [facility] Last Admin: 03/07/22 13:33 Dose: 100 mls/hr Documented By: ARACELI Dextrose (D5w) 1,000 mls @ 150 mls/hr IVCONT .Q6H40M [facility] Last Admin: 03/07/22 14:27 Dose: 150 mls/hr Documented By: ARACELI Vancomycin HCl 750 mg/ Sodium (Chloride) 265 mls @ 265 mls/hr IV Q12H [facility] Metoprolol Tartrate (Metoprolol Tartrate 5 Mg/5 Ml Vial) 2.5 mg IVPUSH Q6H PRN PRN Reason: HR > 110 Ondansetron HCl (Ondansetron Hcl 4 Mg/2 Ml Vial) 4 mg IVPUSH Q8H PRN PRN Reason: Nausea and Vomiting Pharmacy Consult (Consult Rx Perform Med Rec) 1 each MISCELLANE ONCE PRN PRN Reason: Consult order Pharmacy Consult (Consult Rx Perform Med Rec) 1 each MISCELLANE ONCE PRN PRN Reason: Consult order Pharmacy Consult (Consult Rx Vancomycin Dosing) 1 each MISCELLANE DAILY PRN PRN Reason: Consult order Sodium Chloride (0.9 % Sodium Chloride Flush 3 Ml Syringe) 3 ml IVFLUSH QSHIFT [facility] Last Admin: 03/07/22 08:15 Dose: 3 ml Documented By: ARACELI Labs CBC & Chem 7: 03/07/22 05:29 03/07/22 05:29 Labs: Laboratory Results - last 24 hr 03/06/22 03/07/22 03/07/22 17:08 05:29 05:29 MCV MCH MCHC RDW Plt Count MPV Immature Gran % (Auto) Neut % (Auto) Lymph % (Auto) [place] % (Auto) Eos % (Auto) Baso % (Auto) Lymph # (Auto) [place] # (Auto) Eos # (Auto) Baso # (Auto) Abs Immat Gran (auto) Absolute Neuts (auto) Absolute Nucleated RBC Nucleated RBC % (auto) Neutrophils % (Manual) Band Neutrophils % Lymphocytes % (Manual) Monocytes % (Manual) Abs Neuts (Manual) Lymphocytes # (Manual) Monocytes # (Manual) Platelet Estimate Plt Morphology Comment RBC Morphology [place] Cells aPTT Heparin Protocol 72.4 59.9 Anion Gap 12 Estim Creat Clear Calc 77.6 Estimated GFR > 60 Fasting Glucose 129 H D Calcium 7.7 L Total Bilirubin 1.6 H AST 20 D ALT 49 H Alkaline Phosphatase 66 Total Protein 5.1 L Albumin 2.9 L Random Vancomycin 03/07/22 03/07/22 05:29 13:00 MCV 93.2 MCH 30.7 MCHC 33.0 RDW 13.5 Plt Count 179 MPV 9.4 Immature Gran % (Auto) Cancelled Neut % (Auto) Cancelled Lymph % (Auto) Cancelled [place] % (Auto) Cancelled Eos % (Auto) Cancelled Baso % (Auto) Cancelled Lymph # (Auto) Cancelled [place] # (Auto) Cancelled Eos # (Auto) Cancelled Baso # (Auto) Cancelled Abs Immat Gran (auto) Cancelled Absolute Neuts (auto) Cancelled Absolute Nucleated RBC 0.000 Nucleated RBC % (auto) 0.0 Neutrophils % (Manual) 84 H Band Neutrophils % 11 H Lymphocytes % (Manual) 4 L Monocytes % (Manual) 1 L Abs Neuts (Manual) 8.5 H Lymphocytes # (Manual) 0.4 L Monocytes # (Manual) 0.1 Platelet Estimate NORMAL Plt Morphology Comment NORMAL RBC Morphology NOTED [place] Cells 1+ (0-2) aPTT Heparin Protocol Anion Gap Estim Creat Clear Calc Estimated GFR Fasting Glucose Calcium Total Bilirubin AST ALT Alkaline Phosphatase Total Protein Albumin Random Vancomycin 8.2 L Microbiology Microbiology Results: Microbiology 03/05/22 11:06 Blood Culture - Preliminary Blood - Venous No growth after 48 hours. 03/05/22 10:24 Blood Culture - Preliminary Blood - Venous No growth after 48 hours. Assessment and Plan (1) Non-ST elevation [place] (NSTEMI): Status: Acute (2) Parkinsons disease: Status: Acute (3) Rhabdomyolysis: Status: Acute Plan This is a 71 yo M with a PMH of CAD, HTN, HLD, Parkinson's disease who presents to the ED after being found on the ground by his son. He has multiple active issues and will be admitted for further care. 1. NSTEMI -troponins trending down -continue IV heparin times 48 hours total -add aspirin 2. Toxic/Metabolic Encephalopathy -returning to baseline -follow clinically 3. HyperNa -continue IV fluids -recheck in a.m 4. Parkinson's disease - has not had meds since fall; at least 72 hour duration. Question relation if any to inability to swallow - NPO as per speech -NEURO CONSULT 5. Rhabdomyolysis -see case trending downward -continue IV fluid follow in a.m. DVT pptx -- on heparin gtt for NSTEMI Son reports that he is HCP Code status -- persumed full (son is not aware of any DNR/DNI and the patient cannot answer himself) Patient requires ongoing hospitalization for IV heparin to treat an STEMI Quality Stroke Does the patient have a stroke diagnosis?: No VTE Prior VTE?: No VTE Risk Level:: Medical - moderate - high VTE Device Contraindication: Treatment Not Indicated VTE Drug Contraindication: N/A - Med Ordered
[2022-03-07 16:03] VITALS: BP 146/70; PULSE 113; RESP 16; TEMP 36.9; O2SAT 99
[2022-03-07] MEDS: vancomycin HCL 750 MG in 0.9 % Sodium Chloride 250 ML 265 MG IV (16:39)
--- NOTE | 2022-03-07 16:45 | P.CNNE_ITS ---
History of Present Illness Data of Consult Service Date: 03/07/22 Primary Care Provider: Rhiannon Saxena MD HPI Reason for consult: Parkinson's 71 years old man with underlying diagnosis of Parkinson's came to hospital with confusion and weakness. He was noted to be significantly hypernatremic. He said that he suffered from Parkinson's disease but could not tell me who his neurologist was and when this was diagnosed. Review of Systems Review of Systems: Could not be reliably done [facility] Past Medical History Medical History (Updated 03/07/22 @ 16:48 by Mann Watson MD) Anemia CAD (coronary artery disease) Dyslipidemia Essential hypertension Parkinsons disease Family History Family History Father Bladder cancer Mother No problems noted. Brother No problems noted. Sister No problems noted. Son No problems noted. Son No problems noted. Surgical History Surgical History No pertinent past surgical history Social History Social History Housing: Apartment Alcohol intake: never Patient Tobacco Use Status: Never used Tobacco e-Cigarette/Vaping Use: Never Used Advance Directives: No service: No Current occupational status: retired Cognitive needs: No Hearing needs: No Vision needs: Yes Meds Allergies Allergy/AdvReac Type Severity Reaction Status Date / Time No Known Allergies Allergy Verified 02/24/22 23:32 [No Known Allergies*] Active Medications: Current Medications Acetaminophen (Acetaminophen 325 Mg Tablet) 650 mg PO Q6H PRN PRN Reason: Pain, Mild (Pain Scale 1-3) Acetaminophen (Acetaminophen Supp 650 Mg Supp.Rect) 650 mg HI Q4H PRN PRN Reason: Fever Last Admin: 03/06/22 11:57 Dose: 650 mg Aspirin (Aspirin Enteric Coated 325 Mg Tablet.Dr) 325 mg PO DAILY [facility] Heparin Sodium (Porcine) (Heparin Sodium,Porcine 5,000 Unit/Ml Vial) 2,700 unit 40 unit/kg (2700 unit) IVPUSH PROTOCOL BOLUS PRN; Protocol PRN Reason: 40 unit/kg - Heparin Protocol Last Admin: 03/06/22 05:21 Dose: 2,700 unit Heparin Sodium (Porcine) (Heparin Sodium,Porcine 5,000 Unit/Ml Vial) 5,300 unit 80 unit/kg (5300 unit) IVPUSH PROTOCOL BOLUS PRN; Protocol PRN Reason: 80 unit/kg - Heparin Protocol Heparin Sodium/Sodium Chloride () 25,000 unit in 250 mls @ 0 mls/hr IVCONT .Q0M [facility]; Protocol Last Admin: 03/07/22 11:34 Dose: 16 units/kg/hr, 10.66 mls/hr Piperacillin Sod/Tazobactam (Sod 3.375 gm/ Sodium Chloride) 50 mls @ 100 mls/hr IV Q6H [facility] Last Infusion: 03/07/22 16:44 Dose: Infused Dextrose (D5w) 1,000 mls @ 150 mls/hr IVCONT .Q6H40M [facility] Last Admin: 03/07/22 14:27 Dose: 150 mls/hr Vancomycin HCl 750 mg/ Sodium (Chloride) 265 mls @ 265 mls/hr IV Q12H [facility] Last Admin: 03/07/22 16:39 Dose: 265 mls/hr Metoprolol Tartrate (Metoprolol Tartrate 5 Mg/5 Ml Vial) 2.5 mg IVPUSH Q6H PRN PRN Reason: HR > 110 Ondansetron HCl (Ondansetron Hcl 4 Mg/2 Ml Vial) 4 mg IVPUSH Q8H PRN PRN Reason: Nausea and Vomiting Pharmacy Consult (Consult Rx Perform Med Rec) 1 each MISCELLANE ONCE PRN PRN Reason: Consult order Pharmacy Consult (Consult Rx Perform Med Rec) 1 each MISCELLANE ONCE PRN PRN Reason: Consult order Pharmacy Consult (Consult Rx Vancomycin Dosing) 1 each MISCELLANE DAILY PRN PRN Reason: Consult order Sodium Chloride (0.9 % Sodium Chloride Flush 3 Ml Syringe) 3 ml IVFLUSH QSHIFT [facility] Last Admin: 03/07/22 16:40 Dose: 3 ml Home Medications Medication Instructions Recorded Confirmed Last Taken Type carbidopa ER 25 mg-levodopa 100 mg 2 tab PO TID 08/22/20 03/05/22 Unknown History tablet,extended release metoprolol tartrate 25 mg tablet 25 mg PO BID 08/22/20 03/05/22 Unknown History amantadine HCl 100 mg tablet 1 tab PO BID 03/05/22 03/05/22 Unknown History lisinopril 10 mg tablet 1 tab PO DAILY 03/05/22 03/05/22 Unknown History Physical Exam Vital Signs: Vital Signs: Last Vital Signs Temp 98.5 F 03/07/22 16:03 Pulse 113 H 03/07/22 16:03 Resp 16 03/07/22 16:03 BP 146/70 H 03/07/22 16:03 Pulse Ox 99 03/07/22 16:03 O2 Del Method 03/07/22 16:03 BMI result Body Mass Index 21.0 Neuro: Other: He was alert and awake with normal spontaneity and fluency of speech. He was able to comprehend and answer simple questions. Face is symmetrical. Facial expressions are diminished. Moderate cogwheeling is noted in upper extremities. Mild tremor is noted right hand. Deep tendon reflexes are absent with flexor plantars. Significant rigidity was noted in legs. Speech was mildly soft. Results Labs CBC & Chem 7: 03/07/22 05:29 03/07/22 05:29 Labs: Short CBC 03/07/22 Range/Units 05:29 WBC 8.9 (4.8-10.8) X10*3/uL Hgb 12.2 L (14.0-18.0) g/dl Hct 37.0 L (42.0-52.0) % Plt Count 179 (160-400) X10*3/uL BMP 03/07/22 05:29 Sodium 155 H Potassium 3.3 Chloride 122 H Carbon Dioxide 24 BUN 29 H Creatinine 0.81 Calcium 7.7 L Liver Function 03/07/22 Range/Units 05:29 Total Bilirubin 1.6 H (0.0-1.0) mg/dL AST 20 D (5-37) U/L ALT 49 H (0-40) U/L Alkaline Phosphatase 66 (39-117) U/L Albumin 2.9 L (3.5-5.0) g/dL [id number] diffuse cerebral central and cortical atrophy was noted on CT scan. Microbiology Microbiology Results: Microbiology 03/05/22 11:06 Blood - Venous Blood Culture - Preliminary No growth after 48 hours. 03/05/22 10:24 Blood - Venous Blood Culture - Preliminary No growth after 48 hours. Assessment and Plan (1) Parkinsonism: Status: Acute 71 years old man who probably has underlying dementia/parkinsonism complex from degenerative brain disorder resulting in moderate cerebral central and cortical atrophy. His present situation was likely due to metabolic encephalopathy related to hypernatremia triggered by dehydration. He might not be able to take care of himself I would suggest, after appropriate hydration, consider proper placement or level of care. As far as Parkinson's medicines are concerned, as long as he was in the bed, I would continue his baseline doses and make judgment after he was fully hydrated. Procedures Date of Service Date of Service: 03/07/22
[2022-03-07 20:38] VITALS: BP 158/68; PULSE 101; RESP 22; TEMP 36.3; O2SAT 100
[2022-03-08] VITALS (9 sets, daily range): BP systolic 107–177; BP diastolic 55–74; PULSE 74–99; RESP 16–28; TEMP 36.2–38.4; O2SAT 92–100
[2022-03-08] MEDS: Piperacillin Sodium/Tazobactam 3.375 GM in 0.9 % Sodium Chloride 50 ML IV ×4 (01:49→21:01)
--- NOTE | 2022-03-08 04:28 | PC.NURSE ---
REPOSITIONED FREQ.FOAM DRESSINGS INTACT TO SACRAL DECUBITOUS AND BILAT ELBOW SKIN TEARS/ABRAISONS.ALSO WITH LARGE ABRAISON TO BACK,DRESSING INTACT.PT WITH CONGESTED NON PROD COUGH.SAT 99% ON ROOM AIR.ATTEMPTED MOUTH SUCTIONING WITH SOME EFFECT.LUNGS COARSE BILAT.MONITOR SR WITH PAC.S.,CONTINUES ON HEPARIN DRIP.DENIES CHEST PAIN.IV FLUIDS INFUSING.INCONT SMALL AMT STOOL,CARE PROVIDED.[place] CATH IN PLACE.
--- NOTE | 2022-03-08 05:00 | PC.NURSE ---
PT CONTINUES WITH CONGESTED NON PROD COUGH,SAT 97% ON ROOM AIR.UNABLE TO BRING UP SPUTUM. NOTIFIED,PRN STEPHANI ORDERED.UPDRAFT GIVEN WITH SOME EFFECT.CONT TO MONITOR.
[2022-03-08] MEDS: Dextrose 5 % 1,000 ML 150 ML IVCONT ×3 (05:34→21:01)
[2022-03-08] MEDS: vancomycin HCL 750 MG in 0.9 % Sodium Chloride 250 ML 265 MG IV ×2 (05:36→17:45)
[2022-03-08] MEDS: Albuterol/Iprat 2.5/0.5MG 3 ML AMPUL.NEB INHALE (05:37)
[2022-03-08 06:18] LABS: MANUAL DIFF FLAG NO
[2022-03-08 06:21] LABS: Basophils Percent Auto 0.3 % (0-2); Eosinophils Absolute Auto 0.1 X10*3/uL (0.0-0.4); Eosinophils Percent Auto 0.9 % (0-4); Hematocrit 29.6 % (42.0-52.0); Hemoglobin 9.9 g/dl (14.0-18.0); Imm Gran Abs Auto 0.04 X10*3/uL (0.00-0.03); Imm Gran Pct Auto 0.6 % (0.0-0.4); Lymphocytes Absolute Auto 0.9 X10*3/uL (1.2-4.9); Lymphocytes Percent Auto 13.9 % (20-40); Mean Corpuscular HGB Conc 33.4 g/dl (31.0-36.0); Mean Corpuscular Hemoglobin 30.9 pg (27.0-33.0); Mean Corpuscular Volume 92.5 fL (80.0-98.0); Mean Platelet Volume 9.6 fL (9.4-12.4); Monocytes Absolute Auto 0.5 X10*3/uL (0.1-1.2); Monocytes Percent Auto 7.6 % (2-11); Neutrophils Absolute Auto 4.9 x10*3/uL (2.0-8.3); Neutrophils Percent Auto 76.7 % (45-73); Platelet Count 157 X10*3/uL (160-400); Red Cell Distribution Width 13.5 % (11.0-16.0); White Blood Count 6.3 X10*3/uL (4.8-10.8)
[2022-03-08 06:30] LABS: PTT Heparin Drip 53.6 SEC (53-77.9)
[2022-03-08 06:57] LABS: Alanine Aminotransferase 85 U/L (0-40); Albumin Level 2.5 g/dL (3.5-5.0); Alkaline Phosphatase 63 U/L (39-117); Anion Gap 9 (12-20); Aspartate Amino Transferase 48 U/L (5-37); Bilirubin Total 1.6 mg/dL (0.0-1.0); Blood Urea Nitrogen 20 mg/dL (9-16); Calcium 7.4 mg/dL (8.4-10.2); Carbon Dioxide 25 mmol/L (22-29); Chloride 117 mmol/L (96-108); Estimated Glomerular Filt Rate > 60; Glucose Fasting 139 mg/dL (60-99); Sodium 148 mmol/L (135-145); Total Protein 4.4 g/dL (6.5-8.0)
--- NOTE | 2022-03-08 09:05 | PC.NURSE ---
message sent to MD Zaman (listed as covering physician) at [phone] inquiring about pt's NPO orders and whether or not oral medication could be given. RT just completed bedside suctioning to assist with pt's sputum/secretions with positive affect. PT remains without distress, heparin continues to infuse without s/s of complications noted at 16 units/hr. RN will continue to monitor, PO medication will be held until confirmation recevied from
--- NOTE | 2022-03-08 09:15 | PC.NURSE ---
call from pharmacy regarding pt's current heparin infusion as the pt's heparin has been infusing for over 48 hours. Per pharmacy a page/outreach has been sent to MD Zaman regarding pt's Heparin with follow up to be completed after rounds. Pharmacy reports that they did already put in the pt's repeat PTT/HP lab draw for tomorrow 03/09/22 adding that if the order for heparin gets dc'd the repeat labs will also need to be dc'd.
--- NOTE | 2022-03-08 10:23 | P.CDIC_ITS ---
CDI Concurrent Query Documentation Clarification: PHYSICIAN'S DOCUMENTATION REQUEST Date of Query: 03/08/22 1026 Patient Name: Bird Gama Admit Date: 03/05/22 Dear Doctor, A review of the medical record indicates additional documentation may be needed. Please review below and update the documentation accordingly. Clinical Indicators: The following diagnoses or signs and symptoms were noted in the patient record: Risk Factors/Clinical Indicators/Treatments PN: Dx - Rhabdomyolysis Found on the ground, Traumatic compression fracture T12. CK 2199 H IV fluids Based on the above, could you clarify in the Progress Notes the appropriate diagnosis, if significant, that supports the above abnormalities and additional evaluation, monitoring, and/or treatment rendered: * Non-traumatic Rhabdomyolysis * Traumatic Rhabdomyolysis * Other (please specify) * Unable to determine Use of terms such as suspected, likely, concern for, or probable (associated with a specific diagnosis that is being evaluated, monitored, or treated as if it exists) are acceptable and can be coded in the inpatient setting, when documented at the time of discharge. Thank you, Karli Escobar [facility] [place], CDIS Extension: [phone] Please use your independent medical judgment in providing your response. THIS QUERY IS PART OF THE PERMANENT MEDICAL RECORD Provider Response: Other Other Diagnosis: Traumatic rhabdomyolysis secondary to fall
[2022-03-08 11:47] LABS: Magnesium 1.9 mg/dL (1.6-2.6); Phosphorus 2.7 mg/dL (2.7-4.5); Triglycerides 85 mg/dL
--- NOTE | 2022-03-08 12:06 | MHC.SL.SWA ---
Speech Pathologist Impression: Oropharyngeal dysphagia Risk of Aspiration Due to: Neurological Condition Dysphasia Diet Status: No Change Patient displayed overt s/s of aspiration w/ PO trials. Recommend continue NPO status. Recommend frequent oral care, moistened swab for comfort, & elevate head of bed at least 30 degrees to decrease risk of microaspiration. Sent [place] Message to , RN, RD. Recommend MBSS when patient is able to tolerate the exam (improved level of alertness, secretion management/suctioning, overall condition). MORTGAGE PROCESSING MANAGER will continue to follow. Liquid Consistency and Strategies for Safe Swallow: Liquid Intake Recommendation: NPO Solid Food Consistency: Dietary Recommendations: NPO Oral Medication Intake: NPO Please contact the pharmacy regarding appropriate crushable or liquid drug formulations that are available whenever modified delivery is recommended. Supervision While Eating and Drinking for Safe Swallow: PO with MORTGAGE PROCESSING MANAGER Recommendation for Speech: Inpatient Speech Therapy Butter Production Supervisor Clinican/Clinical Fellow: No Supervisory Statement: I have reviewed and agree with the student/clinical fellow's documentation: N/A Speech Language Pathologist: Mitali Machado M.A., [facility] ([facility])-MORTGAGE PROCESSING MANAGER
--- NOTE | 2022-03-08 12:33 | MHC.CLN ---
NUTRITION CONSULT FOR TPN. PATIENT UNABLE TO SWALLOW. DX PARKINSONS, NSTEMI, RHABDO, SACRAL WOUND. PATIENT TO RECEIVE PICC LINE TODAY. RD RECOMMENDS TPN: DAY 1 (03/08/22); D15AA5 AT 40 ML PER HOUR REPLETE LYTES NEEDED. DAY 2 (03/09/22): D15AA5 AT 60 ML PER HOUR. REPLETE LYTES NEEDED. CHECK TRIGLYCERIDES. DAY 3 (03/10/22): D15AA5 AT MAX GOAL RATE 83.33 ML. PROVIDES 1420 KCALS, 100 G PROTEIN (1.5 G/KG). ADD LIPIDS 15 ML OF 20% LIPIDS. REPLETE LYTES NEEDED. TOTAL KCALS WITH DHSOBJ=1589 KCALS (26.7 KCALS/KG). FULL NUTRITION ASSESSMENT TO FOLLOW.
--- NOTE | 2022-03-08 13:07 | P.PNIM_ITS ---
Subjective Subjective Date of Service: 03/08/22 Interval History: Still unable to swallow. Requiring deep suction by respiratory therapy. Will respond appropriately to questions Review of Systems Denies chest pain Denies shortness of breath Denies nausea vomiting diarrhea Physical Exam Vital Signs: Vital Signs: Last Vital Signs Temp 99.4 F 03/08/22 11:53 Pulse 95 03/08/22 11:53 Resp 24 H 03/08/22 11:53 BP 126/59 L 03/08/22 11:53 Pulse Ox 99 03/08/22 11:53 O2 Del Method 03/08/22 11:53 BMI result Body Mass Index 21.0 Const: Other: Somnolent but arousable Resp: Other: Diffuse coarse rhonchi; scattered expiratory wheezes Cardio: Other: No S4; positive S1-S2; no S3 murmurs rubs or gallops GI: Other: Soft nontender nondistended normoactive bowel sounds Extrem: Other: No edema bilaterally Objective Data Active Medications Acetaminophen (Acetaminophen 325 Mg Tablet) 650 mg PO Q6H PRN PRN Reason: Pain, Mild (Pain Scale 1-3) Acetaminophen (Acetaminophen Supp 650 Mg Supp.Rect) 650 mg SC Q4H PRN PRN Reason: Fever Last Admin: 03/06/22 11:57 Dose: 650 mg Documented By: ANA Albuterol/Ipratropium (Albuterol/Iprat 2.5/0.5mg 3 Ml Ampul.Neb) 3 ml INHALE RQ4H PRN PRN Reason: Shortness of Breath/Wheezing Last Admin: 03/08/22 05:37 Dose: 3 ml Documented By: MAY Aspirin (Aspirin Enteric Coated 325 Mg Tablet.Dr) 325 mg PO DAILY [facility] Dextrose (D5w) 1,000 mls @ 150 mls/hr IVCONT .Q6H40M [facility] Last Admin: 03/08/22 05:34 Dose: 150 mls/hr Documented By: PARKER Piperacillin Sod/Tazobactam (Sod 3.375 gm/ Sodium Chloride) 50 mls @ 100 mls/hr IV Q6H [facility] Last Infusion: 03/08/22 09:00 Dose: 0 mls/hr Documented By: SEGUNDO Vancomycin HCl 750 mg/ Sodium (Chloride) 265 mls @ 265 mls/hr IV Q12H [facility] Last Infusion: 03/08/22 06:37 Dose: 0 mls/hr Documented By: PARKER Potassium Chloride () 10 meq in 100 mls @ 100 mls/hr IV Q1H [facility] Stop: 03/08/22 15:59 Magnesium Sulfate 5 meq/Potassium Phosphate 20 mmol/Calcium Gluconate 4.65 meq/Trace Metals 1 ml/Multivitamins 10 ml/ Amino Acids/Dextrose 960 mls @ 40 mls/hr IV DAILY@1800 [facility] Stop: 03/09/22 17:59 Metoprolol Tartrate (Metoprolol Tartrate 5 Mg/5 Ml Vial) 2.5 mg IVPUSH Q6H PRN PRN Reason: HR > 110 Ondansetron HCl (Ondansetron Hcl 4 Mg/2 Ml Vial) 4 mg IVPUSH Q8H PRN PRN Reason: Nausea and Vomiting Pharmacy Consult (Consult Rx Perform Med Rec) 1 each MISCELLANE ONCE PRN PRN Reason: Consult order Pharmacy Consult (Consult Rx Perform Med Rec) 1 each MISCELLANE ONCE PRN PRN Reason: Consult order Pharmacy Consult (Consult Rx Vancomycin Dosing) 1 each MISCELLANE DAILY PRN PRN Reason: Consult order Sodium Chloride (0.9 % Sodium Chloride Flush 3 Ml Syringe) 3 ml IVFLUSH QSHIFT [facility] Last Admin: 03/08/22 09:18 Dose: Not Given Documented By: SEGUNDO Non-Admin Reason: IV Running Labs CBC & Chem 7: 03/08/22 06:00 03/08/22 06:00 Labs: Laboratory Results - last 24 hr 03/07/22 03/08/22 03/08/22 13:00 06:00 06:00 MCV MCH MCHC RDW Plt Count MPV Immature Gran % (Auto) Neut % (Auto) Lymph % (Auto) [place] % (Auto) Eos % (Auto) Baso % (Auto) Lymph # (Auto) [place] # (Auto) Eos # (Auto) Baso # (Auto) Abs Immat Gran (auto) Absolute Neuts (auto) Absolute Nucleated RBC Nucleated RBC % (auto) aPTT Heparin Protocol 53.6 Anion Gap 9 L Estim Creat Clear Calc 85.0 Estimated GFR > 60 Fasting Glucose 139 H Calcium 7.4 L Phosphorus 2.7 Magnesium 1.9 Total Bilirubin 1.6 H AST 48 H D ALT 85 H Alkaline Phosphatase 63 Total Protein 4.4 L Albumin 2.5 L Triglycerides 85 Random Vancomycin 8.2 L 03/08/22 06:00 MCV 92.5 MCH 30.9 MCHC 33.4 RDW 13.5 Plt Count 157 L MPV 9.6 Immature Gran % (Auto) 0.6 H Neut % (Auto) 76.7 H Lymph % (Auto) 13.9 L [place] % (Auto) 7.6 Eos % (Auto) 0.9 Baso % (Auto) 0.3 Lymph # (Auto) 0.9 L [place] # (Auto) 0.5 Eos # (Auto) 0.1 Baso # (Auto) 0.0 Abs Immat Gran (auto) 0.04 H Absolute Neuts (auto) 4.9 Absolute Nucleated RBC 0.000 Nucleated RBC % (auto) 0.0 aPTT Heparin Protocol Anion Gap Estim Creat Clear Calc Estimated GFR Fasting Glucose Calcium Phosphorus Magnesium Total Bilirubin AST ALT Alkaline Phosphatase Total Protein Albumin Triglycerides Random Vancomycin Microbiology Microbiology Results: Microbiology 03/05/22 11:06 Blood Culture - Preliminary Blood - Venous No growth after 48 hours. 03/05/22 10:24 Blood Culture - Preliminary Blood - Venous No growth after 48 hours. Assessment and Plan (1) Non-ST elevation [place] (NSTEMI): Status: Acute (2) Parkinsons disease: Status: Acute (3) Rhabdomyolysis: Status: Acute Plan This is a 71 yo M with a PMH of CAD, HTN, HLD, Parkinson's disease who presents to the ED after being found on the ground by his son. He has multiple active issues and will be admitted for further care. 1. NSTEMI -heparin drip times 48 hours complete will DC -continue aspirin 2. Toxic/Metabolic Encephalopathy -no appreciable improvement; continue to replete free water -follow clinically 3. HyperNa -continue IV D5W.... Free water deficit now 1.75 L -recheck in a.m 4. Parkinson's disease - no meds given NPO status -restart when appropriate 5. Rhabdomyolysis -see case trending downward -continue IV fluid follow in a.m. Lovenox in a.m. DNR/ DNI Patient requires ongoing hospitalization for IV parental nutrition secondary to NPO status. PICC line to be placed Quality Stroke Does the patient have a stroke diagnosis?: No VTE Prior VTE?: No VTE Risk Level:: Medical - moderate - high VTE Device Contraindication: Treatment Not Indicated VTE Drug Contraindication: N/A - Med Ordered
--- NOTE | 2022-03-08 13:08 | PC.NURSE ---
IR CURRENTLY AT BEDSIDE FOR PICC PLACEMENT. PER OT, PT FAILED SECOND SWALLOW EVAL. RT HAS BEEN AT BEDSIDE FOR AIRWAY SUCTIONING THIS AM. IVF RUNNING, PT RESPONDING TO VERBAL STIMULI. REMAINS IN SINUS TACH LOW 100S.
[2022-03-08] MEDS: Potassium Chloride/H20 10 MEQ/100 ML PIGGYBACK 100 MEQ IV ×4 (13:24→21:09)
[2022-03-08] MEDS: Lidocaine HCl 1 % 20 ML VIAL 10 ML SUBCUT (16:28)
[2022-03-08] MEDS: 0.9 % Sodium Chloride Flush 3 ML SYRINGE IVFLUSH ×2 (17:48→21:02)
[2022-03-09 03:04] VITALS: BP 150/75; PULSE 81; RESP 18; TEMP 36.8; O2SAT 95
[2022-03-09] MEDS: Piperacillin Sodium/Tazobactam 3.375 GM in 0.9 % Sodium Chloride 50 ML IV ×4 (03:40→21:53)
[2022-03-09] MEDS: vancomycin HCL 1,000 MG in 0.9 % Sodium Chloride 250 ML 270 MG IV ×2 (06:39→18:13)
[2022-03-09] MEDS: Dextrose 5 % 1,000 ML 150 ML IVCONT (06:41)
[2022-03-09 06:58] LABS: MANUAL DIFF FLAG NO
[2022-03-09 07:12] LABS: Basophils Percent Auto 0.4 % (0-2); Eosinophils Absolute Auto 0.1 X10*3/uL (0.0-0.4); Eosinophils Percent Auto 2.1 % (0-4); Hematocrit 31.1 % (42.0-52.0); Hemoglobin 10.4 g/dl (14.0-18.0); Imm Gran Abs Auto 0.06 X10*3/uL (0.00-0.03); Imm Gran Pct Auto 1.1 % (0.0-0.4); Lymphocytes Absolute Auto 0.7 X10*3/uL (1.2-4.9); Lymphocytes Percent Auto 11.5 % (20-40); Mean Corpuscular HGB Conc 33.4 g/dl (31.0-36.0); Mean Corpuscular Hemoglobin 30.1 pg (27.0-33.0); Mean Corpuscular Volume 89.9 fL (80.0-98.0); Mean Platelet Volume 9.6 fL (9.4-12.4); Monocytes Absolute Auto 0.6 X10*3/uL (0.1-1.2); Monocytes Percent Auto 10.8 % (2-11); Neutrophils Absolute Auto 4.2 x10*3/uL (2.0-8.3); Neutrophils Percent Auto 74.1 % (45-73); Platelet Count 141 X10*3/uL (160-400); Red Blood Count 3.46 X10*6/uL (4.60-5.80); Red Cell Distribution Width 13.3 % (11.0-16.0); White Blood Count 5.6 X10*3/uL (4.8-10.8)
[2022-03-09 07:17] LABS: PTT Heparin Drip 28.5 SEC (53-77.9)
[2022-03-09 07:44] LABS: Alanine Aminotransferase 114 U/L (0-40); Albumin Level 2.6 g/dL (3.5-5.0); Alkaline Phosphatase 66 U/L (39-117); Anion Gap 10 (12-20); Aspartate Amino Transferase 47 U/L (5-37); Blood Urea Nitrogen 18 mg/dL (9-16); Calcium 7.4 mg/dL (8.4-10.2); Carbon Dioxide 24 mmol/L (22-29); Chloride 108 mmol/L (96-108); Creatinine Clr Calc Pharmacy 88.5; Estimated Glomerular Filt Rate > 60; Glucose Fasting 138 mg/dL (60-99); Potassium 3.6 mmol/L (3.3-5.1); Sodium 138 mmol/L (135-145); Total Protein 4.6 g/dL (6.5-8.0)
[2022-03-09 07:50] VITALS: BP 151/75; PULSE 81; RESP 22; TEMP 36.4; O2SAT 96
[2022-03-09] MEDS: 0.9 % Sodium Chloride Flush 3 ML SYRINGE IVFLUSH (09:48)
[2022-03-09 11:36] VITALS: BP 163/80; PULSE 87; RESP 20; TEMP 36.9; O2SAT 90
--- NOTE | 2022-03-09 11:54 | P.PNIM_ITS ---
Subjective Subjective Date of Service: 03/09/22 Interval History: Much more alert today; weak wet cough Review of Systems Denies chest pain Denies shortness of breath Denies nausea vomiting diarrhea Denies fever chills Admits poor cough Physical Exam Vital Signs: Vital Signs: Last Vital Signs Temp 98.5 F 03/09/22 11:36 Pulse 87 03/09/22 11:36 Resp 20 03/09/22 11:36 BP 163/80 H 03/09/22 11:36 Pulse Ox 90 L 03/09/22 11:36 O2 Del Method 03/09/22 11:36 BMI result Body Mass Index 21.0 Const: Other: Somnolent but arousable Resp: Other: Diffuse coarse rhonchi; scattered expiratory wheezes Cardio: Other: No S4; positive S1-S2; no S3 murmurs rubs or gallops GI: Other: Soft nontender nondistended normoactive bowel sounds Extrem: Other: No edema bilaterally Objective Data Active Medications Acetaminophen (Acetaminophen 325 Mg Tablet) 650 mg PO Q6H PRN PRN Reason: Pain, Mild (Pain Scale 1-3) Acetaminophen (Acetaminophen Supp 650 Mg Supp.Rect) 650 mg [place] Q4H PRN PRN Reason: Fever Last Admin: 03/06/22 11:57 Dose: 650 mg Documented By: AAN Acetylcysteine (Acetylcysteine 10 % 400 Mg/4 Ml Vial) 400 mg INHALE RQ4H WHILE AWAKE [facility] Albuterol/Ipratropium (Albuterol/Iprat 2.5/0.5mg 3 Ml Ampul.Neb) 3 ml INHALE RQ4H PRN PRN Reason: Shortness of Breath/Wheezing Last Admin: 03/08/22 05:37 Dose: 3 ml Documented By: MAY Aspirin (Aspirin Enteric Coated 325 Mg Tablet.Dr) 325 mg PO DAILY [facility] Last Admin: 03/09/22 09:48 Dose: Not Given Documented By: DENNIS Non-Admin Reason: NPO Dextrose (D5w) 1,000 mls @ 150 mls/hr IVCONT .Q6H40M [facility] Last Admin: 03/09/22 06:41 Dose: 150 mls/hr Documented By: JAMAAL Piperacillin Sod/Tazobactam (Sod 3.375 gm/ Sodium Chloride) 50 mls @ 100 mls/hr IV Q6H [facility] Last Infusion: 03/09/22 10:42 Dose: 0 mls/hr Documented By: DENNIS Magnesium Sulfate 5 meq/Potassium Phosphate 20 mmol/Calcium Gluconate 4.65 meq/Trace Metals 1 ml/Multivitamins 10 ml/ Amino Acids/Dextrose 960 mls @ 40 mls/hr IV DAILY@1800 [facility] Stop: 03/09/22 17:59 Last Admin: 03/08/22 17:59 Dose: 40 mls/hr Documented By: JONATHAN Vancomycin HCl 1,000 mg/ (Sodium Chloride) 270 mls @ 270 mls/hr IV Q12H [facility] Last Infusion: 03/09/22 09:30 Dose: 0 mls/hr Documented By: DENNIS Ondansetron HCl (Ondansetron Hcl 4 Mg/2 Ml Vial) 4 mg IVPUSH Q8H PRN PRN Reason: Nausea and Vomiting Pharmacy Consult (Consult Rx Perform Med Rec) 1 each MISCELLANE ONCE PRN PRN Reason: Consult order Pharmacy Consult (Consult Rx Perform Med Rec) 1 each MISCELLANE ONCE PRN PRN Reason: Consult order Pharmacy Consult (Consult Rx Vancomycin Dosing) 1 each MISCELLANE DAILY PRN PRN Reason: Consult order Sodium Chloride (0.9 % Sodium Chloride Flush 3 Ml Syringe) 3 ml IVFLUSH QSHIFT [facility] Last Admin: 03/09/22 09:48 Dose: 3 ml Documented By: DENNIS Labs CBC & Chem 7: 03/09/22 06:33 03/09/22 06:33 Labs: Laboratory Results - last 24 hr 03/08/22 03/09/22 03/09/22 17:20 06:33 06:33 MCV MCH MCHC RDW Plt Count MPV Immature Gran % (Auto) Neut % (Auto) Lymph % (Auto) [place] % (Auto) Eos % (Auto) Baso % (Auto) Lymph # (Auto) [place] # (Auto) Eos # (Auto) Baso # (Auto) Abs Immat Gran (auto) Absolute Neuts (auto) Absolute Nucleated RBC Nucleated RBC % (auto) aPTT Heparin Protocol 28.5 L D Anion Gap 10 L Estim Creat Clear Calc 88.5 Estimated GFR > 60 Fasting Glucose 138 H Calcium 7.4 L Total Bilirubin 2.0 H AST 47 H ALT 114 H Alkaline Phosphatase 66 Total Protein 4.6 L Albumin 2.6 L Random Vancomycin 9.0 L 03/09/22 06:33 MCV 89.9 MCH 30.1 MCHC 33.4 RDW 13.3 Plt Count 141 L MPV 9.6 Immature Gran % (Auto) 1.1 H Neut % (Auto) 74.1 H Lymph % (Auto) 11.5 L [place] % (Auto) 10.8 Eos % (Auto) 2.1 Baso % (Auto) 0.4 Lymph # (Auto) 0.7 L [place] # (Auto) 0.6 Eos # (Auto) 0.1 Baso # (Auto) 0.0 Abs Immat Gran (auto) 0.06 H Absolute Neuts (auto) 4.2 Absolute Nucleated RBC 0.000 Nucleated RBC % (auto) 0.0 aPTT Heparin Protocol Anion Gap Estim Creat Clear Calc Estimated GFR Fasting Glucose Calcium Total Bilirubin AST ALT Alkaline Phosphatase Total Protein Albumin Random Vancomycin Assessment and Plan (1) Non-ST elevation [place] (NSTEMI): Status: Acute (2) Parkinsons disease: Status: Acute (3) Rhabdomyolysis: Status: Acute (4) Pneumonia: Status: Acute Plan This is a 71 yo M with a PMH of CAD, HTN, HLD, Parkinson's disease who presents to the ED after being found on the ground by his son. He has multiple active issues and will be admitted for further care. 1. NSTEMI -ASA -medical management 2. Left lower lobe Infiltrate -Vanco/Zosyn -Mucomyst 10% w/Albuterol.....high flow O2 -Pulmonology Consut 3. HyperNa -sodium normalized -follow renals/divalents 4. Parkinson's disease - no meds given NPO status -restart when appropriate 5. Rhabdomyolysis -CPKs trending downward -continue IV fluid follow in a.m. Lovenox in a.m. DNR/ DNI Patient requires ongoing hospitalization for IV parental nutrition secondary to NPO status. PICC line to be placed Quality Stroke Does the patient have a stroke diagnosis?: No VTE Prior VTE?: No VTE Risk Level:: Medical - moderate - high VTE Device Contraindication: Treatment Not Indicated VTE Drug Contraindication: N/A - Med Ordered
[2022-03-09] MEDS: Sodium Chloride 0.45 % 1,000 ML 100 ML IVCONT (12:38)
[2022-03-09 15:52] VITALS: BP 145/68; PULSE 102; RESP 19; TEMP 37.6; O2SAT 98
--- NOTE | 2022-03-09 17:44 | PC.NURSE ---
Alert and responsive. VSS, afebrile. Non-productive congested cough persist. Unable to cough up mucous, Nasal/oral suction multiple times during the day. Pulmonology consult order in place. Remained NPO. Continues on IV ABT and TPN. Skin and fall precautions maintained. Repositioned as needed. Con updated of plan of care. Will continue to monitor and treat per plan of care.
[2022-03-09 20:00] VITALS: BP 167/72; PULSE 77; RESP 19; TEMP 36.9; O2SAT 100
[2022-03-09 23:17] VITALS: BP 155/87; PULSE 84; RESP 18; TEMP 36.6; O2SAT 98
--- NOTE | 2022-03-09 23:20 | PM.CNPUL ---
History of Present Illness History of Present Illness Consult date: 03/09/22 Chief complaint: found on ground by son Narrative: This is an inpatient pulmonary consultation. This is a 71 year old male with a PMH of CAD, HTN, Parkinson's disease, HLD who is brought in by EMS services to [facility] after he was found on the ground, next to his bed by his son. The patient is currently disoriented and unable to provide a meaningful history. He is, however, able to state that he does not have chest pain currently. Upon arrival to the ED, he was ramos-scanned. CT head/neck/chest/abd were essentially negative for any acute findings. His skin exam revealed multiple pressure ucler. His trop-I is elevated and EKG showing non-specific changes. He has been given IVF, IV zosyn and has been started on IV heparin. Follow the hospital's noted that he has a had a hard time with secretions. He has a very weak cough and has significant mucus in the subglottic area. He has been suction many times. He also required deep suctioning. Secretions seem very thin but he is very weak and his cough is very diminished specially from his Parkinson's disease. Therefore Pulmonary is consulted. We did request an x-ray which I personally reviewed demonstrating no acute disease. The patient also was placed on aerosol mask which is hopefully will help loosen up the mucus in further. Will also try some Mucomyst. The patient does have a neuromuscular condition resulting his ineffective cough. The mucus seems to be more centrally located. Therefore he will be a perfect candidate for a cough assist device. We did talk to the respiratory team to see if this is something that can be provided for the patient. As far as bronchoscopy the patient does not require bronchoscopy at this time. In addition to the fact that bronchoscopy it only helped briefly and then his issues will return. In finally the patient is a DNR DNI and for him to undergo any semi invasive procedures such as bronchoscopy would have to reverse the code status. Review of Systems Review of Systems: Yes Unobtainable due to mental status PMFSH Past Medical History Medical History (Updated 03/09/22 @ 23:26 by Aubrey Tellez MD) Anemia CAD (coronary artery disease) Dyslipidemia Essential hypertension Parkinsons disease Family History Family History Father Bladder cancer Mother No problems noted. Brother No problems noted. Sister No problems noted. Son No problems noted. Son No problems noted. Surgical History Surgical History No pertinent past surgical history Social History Social History Household Members: None Housing: House Do you presently have visiting nurse or other home services: No Alcohol intake: never Patient Tobacco Use Status: Never used Tobacco e-Cigarette/Vaping Use: Never Used service: No Current occupational status: retired Cognitive needs: No Hearing needs: No Vision needs: Yes Meds Allergies Allergy/AdvReac Type Severity Reaction Status Date / Time No Known Allergies Allergy Verified 02/24/22 23:32 [No Known Allergies*] Active Medications: Current Medications Acetaminophen (Acetaminophen 325 Mg Tablet) 650 mg PO Q6H PRN PRN Reason: Pain, Mild (Pain Scale 1-3) Acetaminophen (Acetaminophen Supp 650 Mg Supp.Rect) 650 mg [place] Q4H PRN PRN Reason: Fever Last Admin: 03/06/22 11:57 Dose: 650 mg Acetylcysteine (Acetylcysteine 10 % 400 Mg/4 Ml Vial) 400 mg INHALE RQ4H WHILE AWAKE [facility] Last Admin: 03/09/22 19:53 Dose: Not Given Albuterol/Ipratropium (Albuterol/Iprat 2.5/0.5mg 3 Ml Ampul.Neb) 3 ml INHALE RQ4H PRN PRN Reason: Shortness of Breath/Wheezing Last Admin: 03/08/22 05:37 Dose: 3 ml Aspirin (Aspirin Enteric Coated 325 Mg Tablet.) 325 mg PO DAILY [facility] Last Admin: 03/09/22 09:48 Dose: Not Given Piperacillin Sod/Tazobactam (Sod 3.375 gm/ Sodium Chloride) 50 mls @ 100 mls/hr IV Q6H [facility] Last Infusion: 03/09/22 22:27 Dose: Infused Vancomycin HCl 1,000 mg/ (Sodium Chloride) 270 mls @ 270 mls/hr IV Q12H [facility] Last Infusion: 03/09/22 21:25 Dose: Infused Sodium Chloride () 1,000 mls @ 100 mls/hr IVCONT .Q10H [facility] Last Admin: 03/09/22 22:01 Dose: Not Given Magnesium Sulfate 10 meq/Potassium Phosphate 40 mmol/Calcium Gluconate 9.3 meq/Multivitamins 14 ml/ Trace Metals 1.4 ml/ Amino Acids/Dextrose 1,440 mls @ 60 mls/hr IV DAILY@1800 [facility] Last Admin: 03/09/22 18:11 Dose: 60 mls/hr Ondansetron HCl (Ondansetron Hcl 4 Mg/2 Ml Vial) 4 mg IVPUSH Q8H PRN PRN Reason: Nausea and Vomiting Pharmacy Consult (Consult Rx Perform Med Rec) 1 each MISCELLANE ONCE PRN PRN Reason: Consult order Pharmacy Consult (Consult Rx Perform Med Rec) 1 each MISCELLANE ONCE PRN PRN Reason: Consult order Pharmacy Consult (Consult Rx Vancomycin Dosing) 1 each MISCELLANE DAILY PRN PRN Reason: Consult order Sodium Chloride (0.9 % Sodium Chloride Flush 3 Ml Syringe) 3 ml IVFLUSH QSHIFT [facility] Last Admin: 03/09/22 15:17 Dose: Not Given Home Medications Medication Instructions Recorded Confirmed Last Taken Type carbidopa ER 25 mg-levodopa 100 mg 2 tab PO TID 08/22/20 03/05/22 Unknown History tablet,extended release metoprolol tartrate 25 mg tablet 25 mg PO BID 08/22/20 03/05/22 Unknown History amantadine HCl 100 mg tablet 1 tab PO BID 03/05/22 03/05/22 Unknown History lisinopril 10 mg tablet 1 tab PO DAILY 03/05/22 03/05/22 Unknown History Physical Exam Vital Signs: Vital Signs: Last Vital Signs Temp 97.8 F 03/09/22 23:17 Pulse 84 03/09/22 23:17 Resp 18 03/09/22 23:17 BP 155/87 H 03/09/22 23:17 Pulse Ox 98 03/09/22 23:17 O2 Del Method 03/09/22 23:17 FiO2 28 03/09/22 23:17 BMI result Body Mass Index 21.0 Const: Other: Somnolent but arousable Resp: Other: Diffuse coarse rhonchi; scattered expiratory wheezes Cardio: Other: No S4; positive S1-S2; no S3 murmurs rubs or gallops GI: Other: Soft nontender nondistended normoactive bowel sounds Extrem: Other: No edema bilaterally Results Laboratory Findings CBC and BMP: 03/09/22 06:33 03/09/22 06:33 ABG, PT/INR, D-dimer: PT/INR, D-dimer PT 13.1 SEC (10.0-13.1) 03/06/22 03:18 INR 1.1 (0.9-1.1) 03/06/22 03:18 Abnormal lab findings: Abnormal Labs 03/05/22 03/05/22 03/05/22 10:25 10:25 10:25 WBC 13.2 H RBC Hgb Hct Plt Count Immature Gran % (Auto) 0.6 H Neut % (Auto) 86.7 H Lymph % (Auto) 5.4 L Lymph # (Auto) 0.7 L Abs Immat Gran (auto) 0.08 H Absolute Neuts (auto) 11.5 H Neutrophils % (Manual) Band Neutrophils % Lymphocytes % (Manual) Monocytes % (Manual) Abs Neuts (Manual) Lymphocytes # (Manual) aPTT Heparin Protocol VBG HCO3 Sodium 150 H Potassium Chloride Carbon Dioxide Anion Gap 21 H BUN 44 H D Random Glucose 138 H Fasting Glucose Lactic Acid 3.1 H* Lactic Acid F/U @ 2Hr Lactic Acid F/U @ 4Hr Calcium Total Bilirubin 2.3 H Direct Bilirubin 1.1 H AST 62 H ALT 80 H Total Creatine Kinase 2199 H Troponin I High Sens B-Natriuretic Peptide Total Protein Albumin Random Vancomycin 03/05/22 03/05/22 03/05/22 10:25 10:30 12:30 WBC RBC Hgb Hct Plt Count Immature Gran % (Auto) Neut % (Auto) Lymph % (Auto) Lymph # (Auto) Abs Immat Gran (auto) Absolute Neuts (auto) Neutrophils % (Manual) Band Neutrophils % Lymphocytes % (Manual) Monocytes % (Manual) Abs Neuts (Manual) Lymphocytes # (Manual) aPTT Heparin Protocol VBG HCO3 21 L Sodium Potassium Chloride Carbon Dioxide Anion Gap BUN Random Glucose Fasting Glucose Lactic Acid Lactic Acid F/U @ 2Hr Lactic Acid F/U @ 4Hr Calcium Total Bilirubin Direct Bilirubin AST ALT Total Creatine Kinase Troponin I High Sens 1310.1 H* 1052.4 H* B-Natriuretic Peptide Total Protein Albumin Random Vancomycin 03/05/22 03/05/22 03/05/22 12:39 14:54 20:20 WBC RBC Hgb Hct Plt Count Immature Gran % (Auto) Neut % (Auto) Lymph % (Auto) Lymph # (Auto) Abs Immat Gran (auto) Absolute Neuts (auto) Neutrophils % (Manual) Band Neutrophils % Lymphocytes % (Manual) Monocytes % (Manual) Abs Neuts (Manual) Lymphocytes # (Manual) aPTT Heparin Protocol 50.0 L VBG HCO3 Sodium Potassium Chloride Carbon Dioxide Anion Gap BUN Random Glucose Fasting Glucose Lactic Acid Lactic Acid F/U @ 2Hr 2.1 H* Lactic Acid F/U @ 4Hr 2.6 H* Calcium Total Bilirubin Direct Bilirubin AST ALT Total Creatine Kinase Troponin I High Sens B-Natriuretic Peptide Total Protein Albumin Random Vancomycin 03/06/22 03/06/22 03/06/22 03:18 03:18 03:18 WBC RBC 4.45 L Hgb 13.5 L Hct 41.5 L Plt Count Immature Gran % (Auto) Neut % (Auto) Lymph % (Auto) Lymph # (Auto) Abs Immat Gran (auto) Absolute Neuts (auto) Neutrophils % (Manual) Band Neutrophils % Lymphocytes % (Manual) Monocytes % (Manual) Abs Neuts (Manual) Lymphocytes # (Manual) aPTT Heparin Protocol VBG HCO3 Sodium 153 H Potassium Chloride 120 H Carbon Dioxide 19 L Anion Gap BUN 40 H Random Glucose 142 H Fasting Glucose Lactic Acid Lactic Acid F/U @ 2Hr Lactic Acid F/U @ 4Hr Calcium 8.0 L D Total Bilirubin 1.9 H Direct Bilirubin 0.9 H AST 41 H ALT 62 H Total Creatine Kinase Troponin I High Sens B-Natriuretic Peptide Total Protein 5.6 L D Albumin 3.2 L D Random Vancomycin 03/06/22 03/06/22 03/06/22 03:18 07:30 11:13 WBC RBC Hgb Hct Plt Count Immature Gran % (Auto) Neut % (Auto) Lymph % (Auto) Lymph # (Auto) Abs Immat Gran (auto) Absolute Neuts (auto) Neutrophils % (Manual) Band Neutrophils % Lymphocytes % (Manual) Monocytes % (Manual) Abs Neuts (Manual) Lymphocytes # (Manual) aPTT Heparin Protocol 50.6 L VBG HCO3 Sodium Potassium Chloride Carbon Dioxide Anion Gap BUN Random Glucose Fasting Glucose Lactic Acid Lactic Acid F/U @ 2Hr Lactic Acid F/U @ 4Hr Calcium Total Bilirubin Direct Bilirubin AST ALT Total Creatine Kinase 784 H D Troponin I High Sens B-Natriuretic Peptide 141 H Total Protein Albumin Random Vancomycin 03/07/22 03/07/22 03/07/22 05:29 05:29 13:00 WBC RBC 3.97 L Hgb 12.2 L Hct 37.0 L Plt Count Immature Gran % (Auto) Neut % (Auto) Lymph % (Auto) Lymph # (Auto) Abs Immat Gran (auto) Absolute Neuts (auto) Neutrophils % (Manual) 84 H Band Neutrophils % 11 H Lymphocytes % (Manual) 4 L Monocytes % (Manual) 1 L Abs Neuts (Manual) 8.5 H Lymphocytes # (Manual) 0.4 L aPTT Heparin Protocol VBG HCO3 Sodium 155 H Potassium Chloride 122 H Carbon Dioxide Anion Gap BUN 29 H Random Glucose Fasting Glucose 129 H D Lactic Acid Lactic Acid F/U @ 2Hr Lactic Acid F/U @ 4Hr Calcium 7.7 L Total Bilirubin 1.6 H Direct Bilirubin AST ALT 49 H Total Creatine Kinase Troponin I High Sens B-Natriuretic Peptide Total Protein 5.1 L Albumin 2.9 L Random Vancomycin 8.2 L 03/08/22 03/08/22 03/08/22 06:00 06:00 17:20 WBC RBC 3.20 L Hgb 9.9 L Hct 29.6 L Plt Count 157 L Immature Gran % (Auto) 0.6 H Neut % (Auto) 76.7 H Lymph % (Auto) 13.9 L Lymph # (Auto) 0.9 L Abs Immat Gran (auto) 0.04 H Absolute Neuts (auto) Neutrophils % (Manual) Band Neutrophils % Lymphocytes % (Manual) Monocytes % (Manual) Abs Neuts (Manual) Lymphocytes # (Manual) aPTT Heparin Protocol VBG HCO3 Sodium 148 H Potassium 3.0 L Chloride 117 H Carbon Dioxide Anion Gap 9 L BUN 20 H Random Glucose Fasting Glucose 139 H Lactic Acid Lactic Acid F/U @ 2Hr Lactic Acid F/U @ 4Hr Calcium 7.4 L Total Bilirubin 1.6 H Direct Bilirubin AST 48 H D ALT 85 H Total Creatine Kinase Troponin I High Sens B-Natriuretic Peptide Total Protein 4.4 L Albumin 2.5 L Random Vancomycin 9.0 L 03/09/22 03/09/22 03/09/22 06:33 06:33 06:33 WBC RBC 3.46 L Hgb 10.4 L Hct 31.1 L Plt Count 141 L Immature Gran % (Auto) 1.1 H Neut % (Auto) 74.1 H Lymph % (Auto) 11.5 L Lymph # (Auto) 0.7 L Abs Immat Gran (auto) 0.06 H Absolute Neuts (auto) Neutrophils % (Manual) Band Neutrophils % Lymphocytes % (Manual) Monocytes % (Manual) Abs Neuts (Manual) Lymphocytes # (Manual) aPTT Heparin Protocol 28.5 L D VBG HCO3 Sodium Potassium Chloride Carbon Dioxide Anion Gap 10 L BUN 18 H Random Glucose Fasting Glucose 138 H Lactic Acid Lactic Acid F/U @ 2Hr Lactic Acid F/U @ 4Hr Calcium 7.4 L Total Bilirubin 2.0 H Direct Bilirubin AST 47 H ALT 114 H Total Creatine Kinase Troponin I High Sens B-Natriuretic Peptide Total Protein 4.6 L Albumin 2.6 L Random Vancomycin Microbiology: Microbiology 03/08/22 17:20 Blood - Venous Blood Culture - Preliminary No growth after 24 hours. 03/08/22 17:20 Blood - Venous Blood Culture - Preliminary No growth after 24 hours. 03/05/22 11:06 Blood - Venous Blood Culture - Preliminary No growth after 48 hours. 03/05/22 10:24 Blood - Venous Blood Culture - Preliminary No growth after 48 hours. Assessment and Plan (1) 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: Status: Acute (2) Dysphagia: Status: Acute (3) Parkinsons disease: Status: Acute (4) Pneumonia: Status: Acute Plan Continue antibiotic coverage trial of Mucomyst continue aerosol mask to help with loosening his secretions will try to provide a cough assist device if possible. If not we can make arrangements for him to get 1 son outpatient. No need for bronchoscopy at this time Procedures Date of Service Date of Service: 03/09/22
[2022-03-10] MEDS: Piperacillin Sodium/Tazobactam 3.375 GM in 0.9 % Sodium Chloride 50 ML IV ×4 (02:32→20:33)
[2022-03-10] MEDS: Sodium Chloride 0.45 % 1,000 ML 100 ML IVCONT ×4 (02:33→20:33)
[2022-03-10 04:00] VITALS: BP 161/81; PULSE 85; RESP 18; TEMP 36.9; O2SAT 100
[2022-03-10 05:50] LABS: MANUAL DIFF FLAG NO
[2022-03-10 05:52] LABS: Basophils Percent Auto 0.4 % (0-2); Eosinophils Absolute Auto 0.2 X10*3/uL (0.0-0.4); Eosinophils Percent Auto 3.1 % (0-4); Hematocrit 29.7 % (42.0-52.0); Hemoglobin 10.1 g/dl (14.0-18.0); Imm Gran Abs Auto 0.04 X10*3/uL (0.00-0.03); Imm Gran Pct Auto 0.8 % (0.0-0.4); Lymphocytes Absolute Auto 0.7 X10*3/uL (1.2-4.9); Lymphocytes Percent Auto 14.9 % (20-40); Mean Corpuscular Hemoglobin 30.8 pg (27.0-33.0); Mean Corpuscular Volume 90.5 fL (80.0-98.0); Mean Platelet Volume 9.5 fL (9.4-12.4); Monocytes Absolute Auto 0.6 X10*3/uL (0.1-1.2); Monocytes Percent Auto 13.2 % (2-11); Neutrophils Absolute Auto 3.2 x10*3/uL (2.0-8.3); Neutrophils Percent Auto 67.6 % (45-73); Platelet Count 136 X10*3/uL (160-400); Red Blood Count 3.28 X10*6/uL (4.60-5.80); White Blood Count 4.8 X10*3/uL (4.8-10.8)
[2022-03-10 06:25] LABS: Alanine Aminotransferase 113 U/L (0-40); Albumin Level 2.4 g/dL (3.5-5.0); Alkaline Phosphatase 67 U/L (39-117); Anion Gap 10 (12-20); Aspartate Amino Transferase 41 U/L (5-37); Bilirubin Total 1.6 mg/dL (0.0-1.0); Blood Urea Nitrogen 17 mg/dL (9-16); Calcium 7.2 mg/dL (8.4-10.2); Carbon Dioxide 23 mmol/L (22-29); Chloride 109 mmol/L (96-108); Creatinine Clr Calc Pharmacy 92.5; Estimated Glomerular Filt Rate > 60; Glucose Fasting 135 mg/dL (60-99); Potassium 3.3 mmol/L (3.3-5.1); Sodium 139 mmol/L (135-145); Total Protein 4.3 g/dL (6.5-8.0)
[2022-03-10 06:26] LABS: Vancomycin Random 12.4 mcg/mL (15-20)
--- NOTE | 2022-03-10 06:53 | HE.PHANOTE ---
RE: VANCO CONTINUE VANCO AT CURRENT REGIMEN. SCR STILL IMPROVING. TROUGH OF 12.4 AFTER ONLY 2 DOSES OF INCREASED DOSE. WILL DRAW TROUGH AFTER 3 DOSES, TOMORROW 03/11 @1700
[2022-03-10] MEDS: vancomycin HCL 1,000 MG in 0.9 % Sodium Chloride 250 ML 270 MG IV ×2 (07:01→18:52)
[2022-03-10 07:32] VITALS: BP 167/75; PULSE 83; RESP 24; TEMP 36.2; O2SAT 100
[2022-03-10 08:58] LABS: Magnesium 1.8 mg/dL (1.6-2.6); Phosphorus 3.4 mg/dL (2.7-4.5)
[2022-03-10] MEDS: 0.9 % Sodium Chloride Flush 3 ML SYRINGE IVFLUSH ×3 (09:09→20:33)
[2022-03-10 12:00] VITALS: BP 154/76; PULSE 80; RESP 18; TEMP 36.6; O2SAT 100
--- NOTE | 2022-03-10 12:04 | HO.PM.IMPN ---
Subjective Subjective Date of Service: 03/10/22 Interval History: Much more alert today; weak wet cough Review of Systems Denies chest pain Denies shortness of breath Denies nausea vomiting diarrhea Denies fever chills Admits poor cough Physical Exam Vital Signs: Vital Signs: Last Vital Signs Temp 97.1 F 03/10/22 07:32 Pulse 83 03/10/22 07:32 Resp 24 H 03/10/22 07:32 BP 167/75 H 03/10/22 07:32 Pulse Ox 100 03/10/22 07:32 O2 Del Method 03/10/22 07:32 O2 Flow Rate 28 03/10/22 07:32 FiO2 28 03/10/22 04:00 BMI result Body Mass Index 21.0 Const: Other: Somnolent but arousable Resp: Other: Diffuse coarse rhonchi; scattered expiratory wheezes Cardio: Other: No S4; positive S1-S2; no S3 murmurs rubs or gallops GI: Other: Soft nontender nondistended normoactive bowel sounds Extrem: Other: No edema bilaterally Objective Data Active Medications Acetaminophen (Acetaminophen 325 Mg Tablet) 650 mg PO Q6H PRN PRN Reason: Pain, Mild (Pain Scale 1-3) Acetaminophen (Acetaminophen Supp 650 Mg Supp.Rect) 650 mg [place] Q4H PRN PRN Reason: Fever Last Admin: 03/06/22 11:57 Dose: 650 mg Documented By: ANA Acetylcysteine (Acetylcysteine 10 % 400 Mg/4 Ml Vial) 400 mg INHALE RQ4H WHILE AWAKE [facility] Last Admin: 03/10/22 11:33 Dose: Not Given Documented By: KATE Non-Admin Reason: See Note Albuterol/Ipratropium (Albuterol/Iprat 2.5/0.5mg 3 Ml Ampul.Neb) 3 ml INHALE RQ4H PRN PRN Reason: Shortness of Breath/Wheezing Last Admin: 03/08/22 05:37 Dose: 3 ml Documented By: MAY Aspirin (Aspirin Enteric Coated 325 Mg Tablet.) 325 mg PO DAILY [facility] Last Admin: 03/10/22 09:10 Dose: Not Given Documented By: DENNIS Non-Admin Reason: NPO Piperacillin Sod/Tazobactam (Sod 3.375 gm/ Sodium Chloride) 50 mls @ 100 mls/hr IV Q6H [facility] Last Infusion: 03/10/22 11:47 Dose: 0 mls/hr Documented By: DENNIS Vancomycin HCl 1,000 mg/ (Sodium Chloride) 270 mls @ 270 mls/hr IV Q12H [facility] Last Infusion: 03/10/22 09:11 Dose: 0 mls/hr Documented By: DENNIS Sodium Chloride () 1,000 mls @ 100 mls/hr IVCONT .Q10H [facility] Last Admin: 03/10/22 09:09 Dose: 100 mls/hr Documented By: DENNIS Magnesium Sulfate 10 meq/Potassium Phosphate 40 mmol/Calcium Gluconate 9.3 meq/Multivitamins 14 ml/ Trace Metals 1.4 ml/ Amino Acids/Dextrose 1,440 mls @ 60 mls/hr IV DAILY@1800 [facility] Last Admin: 03/09/22 18:11 Dose: 60 mls/hr Documented By: DENNIS Magnesium Sulfate 10 meq/Potassium Phosphate 30 mmol/Calcium Gluconate 9.3 meq/Multivitamins 10 ml/ Trace Metals 1 ml/ Potassium Chloride 20 meq/ Amino Acids/Dextrose 1,999.92 mls @ 83.33 mls/hr IV DAILY@1800 [facility] Stop: 03/11/22 17:59 Fat Emulsion Intravenous (Intralipid) 180 mls @ 15 mls/hr IV DAILY@1800 [facility] Stop: 03/11/22 05:59 Ondansetron HCl (Ondansetron Hcl 4 Mg/2 Ml Vial) 4 mg IVPUSH Q8H PRN PRN Reason: Nausea and Vomiting Pharmacy Consult (Consult Rx Perform Med Rec) 1 each MISCELLANE ONCE PRN PRN Reason: Consult order Pharmacy Consult (Consult Rx Perform Med Rec) 1 each MISCELLANE ONCE PRN PRN Reason: Consult order Pharmacy Consult (Consult Rx Vancomycin Dosing) 1 each MISCELLANE DAILY PRN PRN Reason: Consult order Sodium Chloride (0.9 % Sodium Chloride Flush 3 Ml Syringe) 3 ml IVFLUSH QSHIFT [facility] Last Admin: 03/10/22 09:09 Dose: 3 ml Documented By: DENNIS Labs CBC & Chem 7: 03/10/22 05:37 03/10/22 05:37 Labs: Laboratory Results - last 24 hr 03/10/22 03/10/22 03/10/22 05:37 05:37 05:37 MCV 90.5 MCH 30.8 MCHC 34.0 RDW 13.0 Plt Count 136 L MPV 9.5 Immature Gran % (Auto) 0.8 H Neut % (Auto) 67.6 Lymph % (Auto) 14.9 L O'Brien % (Auto) 13.2 H Eos % (Auto) 3.1 Baso % (Auto) 0.4 Lymph # (Auto) 0.7 L O'Brien # (Auto) 0.6 Eos # (Auto) 0.2 Baso # (Auto) 0.0 Abs Immat Gran (auto) 0.04 H Absolute Neuts (auto) 3.2 Absolute Nucleated RBC 0.000 Nucleated RBC % (auto) 0.0 Anion Gap 10 L Estim Creat Clear Calc 92.5 Estimated GFR > 60 Fasting Glucose 135 H Calcium 7.2 L Phosphorus 3.4 Magnesium 1.8 Total Bilirubin 1.6 H AST 41 H ALT 113 H Alkaline Phosphatase 67 Total Protein 4.3 L Albumin 2.4 L Random Vancomycin 12.4 L Microbiology Microbiology Results: Microbiology 03/08/22 17:20 Blood Culture - Preliminary Blood - Venous No growth after 24 hours. 03/08/22 17:20 Blood Culture - Preliminary Blood - Venous No growth after 24 hours. Assessment and Plan (1) Non-ST elevation AL (NSTEMI): Status: Acute (2) Pneumonia: Status: Acute (3) Parkinsonism: Status: Acute Plan This is a 71 yo M with a PMH of CAD, HTN, HLD, Parkinson's disease who presents to the ED after being found on the ground by his son. He has multiple active issues and will be admitted for further care. 1. NSTEMI -ASA -medical management 2. Left lower lobe Infiltrate -Vanco/Zosyn(7) -Mucomyst 10% w/Albuterol.....high flow O2 -cough assist vest when available 3. Parkinson's disease - no meds given NPO status -restart when appropriate 4. Rhabdomyolysis -resolved Lovenox in a.m. DNR/ DNI Patient requires ongoing hospitalization for IV parental nutrition secondary to NPO status. PICC line to be placed Quality Stroke Does the patient have a stroke diagnosis?: No VTE Prior VTE?: No VTE Risk Level:: Medical - moderate - high VTE Device Contraindication: Treatment Not Indicated VTE Drug Contraindication: N/A - Med Ordered
[2022-03-10 15:45] VITALS: BP 138/86; PULSE 89; RESP 18; TEMP 37.2; O2SAT 93
[2022-03-10] MEDS: Fat Emulsions 20% 250 ML 15 ML IV (18:39)
[2022-03-10 19:59] VITALS: BP 132/86; PULSE 89; RESP 18; TEMP 37.2; O2SAT 99
[2022-03-10 23:32] VITALS: BP 164/71; PULSE 86; RESP 18; TEMP 36.6; O2SAT 100
[2022-03-11] VITALS (8 sets, daily range): BP systolic 138–152; BP diastolic 61–72; PULSE 81–96; RESP 16–20; TEMP 36.3–37.2; O2SAT 98–100; BMI 21.0
[2022-03-11] MEDS: Piperacillin Sodium/Tazobactam 3.375 GM in 0.9 % Sodium Chloride 50 ML IV ×4 (01:18→20:24)
[2022-03-11] MEDS: vancomycin HCL 1,000 MG in 0.9 % Sodium Chloride 250 ML 270 MG IV ×2 (05:50→19:00)
[2022-03-11] MEDS: Sodium Chloride 0.45 % 1,000 ML 100 ML IVCONT (05:52)
[2022-03-11 07:15] LABS: MANUAL DIFF FLAG NO
[2022-03-11 07:17] LABS: Basophils Percent Auto 0.3 % (0-2); Eosinophils Absolute Auto 0.2 X10*3/uL (0.0-0.4); Eosinophils Percent Auto 2.7 % (0-4); Hematocrit 32.1 % (42.0-52.0); Hemoglobin 10.7 g/dl (14.0-18.0); Imm Gran Abs Auto 0.06 X10*3/uL (0.00-0.03); Lymphocytes Absolute Auto 0.5 X10*3/uL (1.2-4.9); Lymphocytes Percent Auto 8.5 % (20-40); Mean Corpuscular HGB Conc 33.3 g/dl (31.0-36.0); Mean Corpuscular Hemoglobin 30.4 pg (27.0-33.0); Mean Corpuscular Volume 91.2 fL (80.0-98.0); Mean Platelet Volume 9.6 fL (9.4-12.4); Monocytes Absolute Auto 0.6 X10*3/uL (0.1-1.2); Monocytes Percent Auto 9.5 % (2-11); Neutrophils Absolute Auto 4.6 x10*3/uL (2.0-8.3); Platelet Count 142 X10*3/uL (160-400); Red Blood Count 3.52 X10*6/uL (4.60-5.80); White Blood Count 5.9 X10*3/uL (4.8-10.8)
[2022-03-11 07:43] LABS: Alanine Aminotransferase 182 U/L (0-40); Albumin Level 2.5 g/dL (3.5-5.0); Alkaline Phosphatase 77 U/L (39-117); Anion Gap 13 (12-20); Aspartate Amino Transferase 75 U/L (5-37); Bilirubin Total 1.1 mg/dL (0.0-1.0); Blood Urea Nitrogen 18 mg/dL (9-16); Calcium 7.1 mg/dL (8.4-10.2); Carbon Dioxide 22 mmol/L (22-29); Chloride 108 mmol/L (96-108); Creatinine Clr Calc Pharmacy 96.7; Estimated Glomerular Filt Rate > 60; Glucose Fasting 119 mg/dL (60-99); Potassium 3.7 mmol/L (3.3-5.1); Sodium 139 mmol/L (135-145); Total Protein 4.7 g/dL (6.5-8.0)
[2022-03-11 09:11] LABS: Magnesium 1.6 mg/dL (1.6-2.6); Phosphorus 2.9 mg/dL (2.7-4.5)
[2022-03-11] MEDS: 0.9 % Sodium Chloride Flush 3 ML SYRINGE IVFLUSH ×2 (10:18→18:36)
[2022-03-11 11:06] LABS: OBS Int Ctl Valid YES; OBS1 POSITIVE (NEGATIVE)
--- NOTE | 2022-03-11 11:33 | MHC.CLN ---
Addendum entered by Nathalie Martínez RD 03/11/22 11:37: SKIN CONSULT. PATIENT WITH MULTIPLE PRESSURE AREAS INCLUDING UNSTAGEABLE BILATERAL COCCYX. TPN PROVIDES PROTEIN AT 1.5 G/KG TO PROMOTE WOUND HEALING. Original Note: F/U SEE CLINICAL NUTRITION ASSESSMENT 03/11/22. TPN RUNNING [id number] AT MAX GOAL RATE 83.33 ML WITH 15 ML OF 20% LIPIDS. PROVIDES 1780 KCALS (26.7 KCALS/KG), 100 G PROTEIN (1.5 G/KG). TRIGS=85 (03/08). REPLETE LYTES NEEDED. DISCUSSED WITH PHARMACY. CONTINUE CURRENT TPN ORDER WITH LIPIDS.
[2022-03-11 12:37] LABS: CDiff Gene PCR NEGATIVE (Negative)
--- NOTE | 2022-03-11 12:55 | MHC.SL.SWA ---
Speech Pathologist Impression: Oropharyngeal dysphagia Risk of Aspiration Due to: Neurological Condition Dysphasia Diet Status: Upgrade Liquid Consistency and Strategies for Safe Swallow: Liquid Intake Recommendation: [place] Thick Liquid Intake Strategies: Small Sips No Straws Solid Food Consistency: Dietary Recommendations: Grnd/Mech Altered (NDD2) Additional Modifications to Solid Foods: Recommend UPGRADE to GROUND/MECH ALTERED (NDD2) solids w/ sauces/gravies, NECTAR THICK liquid by teaspoon or cup, pills WHOLE in PUREE. Recommend total 1:1 supervision, close monitoring for any s/s of aspiration, ensure aspiration precautions. Updated MD, RN, RD via [email or web address]. MAGNETO ELECTRICIAN will continue to follow. Oral Medication Intake: Whole with Puree Please contact the pharmacy regarding appropriate crushable or liquid drug formulations that are available whenever modified delivery is recommended. Compensatory Strategies and Precautions to be Taken for Safe Swallow: Sitting Upright (90 deg) No Straw Liquids from Cup Liquids from Spoon Small Bites and Sips Alternate Liquids/Solids Rate of Ingestion Change Supervision While Eating and Drinking for Safe Swallow: Total Supervision (1:1) Swallowing Recommended Treatments: Compens. Strategy Educat. Recommendation for Speech: Inpatient Speech Therapy Chainstitch Sewing Machine Operator Clinican/Clinical Fellow: No Supervisory Statement: I have reviewed and agree with the student/clinical fellow's documentation: N/A Speech Language Pathologist: Mitali Machado M.A., CCC-MAGNETO ELECTRICIAN
--- NOTE | 2022-03-11 12:57 | P.PNIM_ITS ---
Subjective Subjective Date of Service: 03/11/22 Interval History: Much more alert today; no further O2 requirement. Re-eval by speech;upgraded to NDD2 Review of Systems Denies chest pain Denies shortness of breath Denies nausea vomiting diarrhea Denies fever chills Admits poor cough Physical Exam Vital Signs: Vital Signs: Last Vital Signs Temp 97.5 F 03/11/22 11:36 Pulse 89 03/11/22 11:36 Resp 20 03/11/22 11:36 BP 148/61 H 03/11/22 11:36 Pulse Ox 98 03/11/22 11:36 O2 Del Method 03/11/22 11:36 O2 Flow Rate 2 03/11/22 03:58 FiO2 28 03/10/22 23:32 BMI result Body Mass Index 21.0 Const: Other: Somnolent but arousable Resp: Other: Scattered expiratory wheezes but overall clear with scant coarse rhonchi Cardio: Other: No S4; positive S1-S2; no S3 murmurs rubs or gallops GI: Other: Soft nontender nondistended normoactive bowel sounds Extrem: Other: No edema bilaterally Objective Data Active Medications Acetaminophen (Acetaminophen 325 Mg Tablet) 650 mg PO Q6H PRN PRN Reason: Pain, Mild (Pain Scale 1-3) Acetaminophen (Acetaminophen Supp 650 Mg Supp.Rect) 650 mg [place] Q4H PRN PRN Reason: Fever Last Admin: 03/06/22 11:57 Dose: 650 mg Documented By: ANA Acetylcysteine (Acetylcysteine 10 % 400 Mg/4 Ml Vial) 400 mg INHALE RQ4H WHILE AWAKE [facility], [facility] Last Admin: 03/11/22 11:06 Dose: Not Given Documented By: KATE Non-Admin Reason: See Note Albuterol/Ipratropium (Albuterol/Iprat 2.5/0.5mg 3 Ml Ampul.Neb) 3 ml INHALE RQ4H PRN PRN Reason: Shortness of Breath/Wheezing Last Admin: 03/08/22 05:37 Dose: 3 ml Documented By: MAY Aspirin (Aspirin Enteric Coated 325 Mg Tablet.Dr) 325 mg PO DAILY [facility] Last Admin: 03/11/22 10:18 Dose: Not Given Documented By: THERESE Non-Admin Reason: NPO Piperacillin Sod/Tazobactam (Sod 3.375 gm/ Sodium Chloride) 50 mls @ 100 mls/hr IV Q6H [facility], [facility] Last Admin: 03/11/22 10:17 Dose: 100 mls/hr Documented By: THERESE Vancomycin HCl 1,000 mg/ (Sodium Chloride) 270 mls @ 270 mls/hr IV Q12H [facility] Last Infusion: 03/11/22 07:18 Dose: 0 mls/hr Documented By: SUSAN Magnesium Sulfate 10 meq/Potassium Phosphate 40 mmol/Calcium Gluconate 9.3 meq/Multivitamins 14 ml/ Trace Metals 1.4 ml/ Amino Acids/Dextrose 1,440 mls @ 60 mls/hr IV DAILY@1800 [facility] Last Admin: 03/10/22 19:00 Dose: Not Given Documented By: DENNIS Non-Admin Reason: rate changed Magnesium Sulfate 10 meq/Potassium Phosphate 30 mmol/Calcium Gluconate 9.3 meq/Multivitamins 10 ml/ Trace Metals 1 ml/ Potassium Chloride 20 meq/ Amino Acids/Dextrose 1,999.92 mls @ 83.33 mls/hr IV DAILY@1800 [facility] Stop: 03/11/22 17:59 Last Admin: 03/10/22 18:10 Dose: 83.33 mls/hr Documented By: DENNIS Ondansetron HCl (Ondansetron Hcl 4 Mg/2 Ml Vial) 4 mg IVPUSH Q8H PRN PRN Reason: Nausea and Vomiting Pharmacy Consult (Consult Rx Perform Med Rec) 1 each MISCELLANE ONCE PRN PRN Reason: Consult order Pharmacy Consult (Consult Rx Perform Med Rec) 1 each MISCELLANE ONCE PRN PRN Reason: Consult order Pharmacy Consult (Consult Rx Vancomycin Dosing) 1 each MISCELLANE DAILY PRN PRN Reason: Consult order Sodium Chloride (0.9 % Sodium Chloride Flush 3 Ml Syringe) 3 ml IVFLUSH QSHIFT [facility] Last Admin: 03/11/22 10:18 Dose: 3 ml Documented By: THERESE Labs CBC & Chem 7: 03/11/22 07:10 03/11/22 07:10 Labs: Laboratory Results - last 24 hr 03/11/22 03/11/22 03/11/22 07:10 07:10 10:37 MCV 91.2 MCH 30.4 MCHC 33.3 RDW 13.0 Plt Count 142 L MPV 9.6 Immature Gran % (Auto) 1.0 H Neut % (Auto) 78.0 H Lymph % (Auto) 8.5 L Rankin % (Auto) 9.5 Eos % (Auto) 2.7 Baso % (Auto) 0.3 Lymph # (Auto) 0.5 L Rankin # (Auto) 0.6 Eos # (Auto) 0.2 Baso # (Auto) 0.0 Abs Immat Gran (auto) 0.06 H Absolute Neuts (auto) 4.6 Absolute Nucleated RBC 0.000 Nucleated RBC % (auto) 0.0 Anion Gap 13 Estim Creat Clear Calc 96.7 Estimated GFR > 60 Fasting Glucose 119 H Calcium 7.1 L Phosphorus 2.9 Magnesium 1.6 Total Bilirubin 1.1 H AST 75 H ALT 182 H Alkaline Phosphatase 77 Total Protein 4.7 L Albumin 2.5 L Stool Occult Blood POSITIVE C. difficile Tox B Gene 03/11/22 10:37 MCV MCH MCHC RDW Plt Count MPV Immature Gran % (Auto) Neut % (Auto) Lymph % (Auto) Rankin % (Auto) Eos % (Auto) Baso % (Auto) Lymph # (Auto) Rankin # (Auto) Eos # (Auto) Baso # (Auto) Abs Immat Gran (auto) Absolute Neuts (auto) Absolute Nucleated RBC Nucleated RBC % (auto) Anion Gap Estim Creat Clear Calc Estimated GFR Fasting Glucose Calcium Phosphorus Magnesium Total Bilirubin AST ALT Alkaline Phosphatase Total Protein Albumin Stool Occult Blood C. difficile Tox B Gene NEGATIVE Microbiology Microbiology Results: Microbiology 03/08/22 17:20 Blood Culture - Preliminary Blood - Venous No growth after 48 hours. 03/08/22 17:20 Blood Culture - Preliminary Blood - Venous No growth after 48 hours. 03/05/22 11:06 Blood Culture - Final Blood - Venous No growth after 5 days. 03/05/22 10:24 Blood Culture - Final Blood - Venous No growth after 5 days. Assessment and Plan (1) Non-ST elevation [place] (NSTEMI): Status: Acute (2) Pneumonia: Status: Acute (3) Parkinsons disease: Status: Acute (4) Malnutrition of moderate degree: Status: Acute Plan This is a 71 yo M with a PMH of CAD, HTN, HLD, Parkinson's disease who presents to the ED after being found on the ground by his son. He has multiple active issues and will be admitted for further care. 1. NSTEMI -ASA -medical management 2. Left lower lobe Infiltrate -Vanco/Zosyn(8) -excellent results from cough assist 3. Parkinson's disease - re-evaluated by speech. .. Now on NDD2. -add back oral medications 4. Moderately malnourished -will continue TPN and additional 24 hours -introduce NDD2 diet -PT eval in a.m.. . . Likely need rehab. Lovenox in a.m. DNR/ DNI Patient requires ongoing hospitalization for completion of IV antibiotics and reintroduction of oral diet Quality Stroke Does the patient have a stroke diagnosis?: No VTE Prior VTE?: No VTE Risk Level:: Medical - moderate - high VTE Device Contraindication: Treatment Not Indicated VTE Drug Contraindication: N/A - Med Ordered
[2022-03-11 17:44] LABS: Vancomycin Trough 15.8 mcg/mL (10.0-20.0)
--- NOTE | 2022-03-11 17:57 | HE.PHANOTE ---
re kilo trough 15.8, continue current dose. next trough is 03/13 @0500
[2022-03-11] MEDS: Pantoprazole Sodium 40 MG/10 ML VIAL IVPUSH (18:31)
[2022-03-11] MEDS: Fat Emulsions 20% 250 ML 15 ML IV (18:36)
[2022-03-12] VITALS (8 sets, daily range): BP systolic 119–155; BP diastolic 60–84; PULSE 78–101; RESP 14–20; TEMP 36.8–37.2; O2SAT 95–98
[2022-03-12] MEDS: Piperacillin Sodium/Tazobactam 3.375 GM in 0.9 % Sodium Chloride 50 ML IV ×2 (02:23→08:43)
[2022-03-12 06:20] LABS: MANUAL DIFF FLAG NO
[2022-03-12 06:23] LABS: Basophils Percent Auto 0.5 % (0-2); Eosinophils Absolute Auto 0.1 X10*3/uL (0.0-0.4); Eosinophils Percent Auto 1.2 % (0-4); Hematocrit 32.6 % (42.0-52.0); Hemoglobin 11.2 g/dl (14.0-18.0); Imm Gran Abs Auto 0.08 X10*3/uL (0.00-0.03); Imm Gran Pct Auto 1.3 % (0.0-0.4); Lymphocytes Absolute Auto 0.4 X10*3/uL (1.2-4.9); Lymphocytes Percent Auto 6.3 % (20-40); Mean Corpuscular HGB Conc 34.4 g/dl (31.0-36.0); Mean Corpuscular Hemoglobin 30.7 pg (27.0-33.0); Mean Corpuscular Volume 89.3 fL (80.0-98.0); Mean Platelet Volume 9.5 fL (9.4-12.4); Monocytes Absolute Auto 0.8 X10*3/uL (0.1-1.2); Monocytes Percent Auto 12.4 % (2-11); Neutrophils Absolute Auto 4.7 x10*3/uL (2.0-8.3); Neutrophils Percent Auto 78.3 % (45-73); Platelet Count 171 X10*3/uL (160-400); Red Blood Count 3.65 X10*6/uL (4.60-5.80)
[2022-03-12] MEDS: Pantoprazole Sodium 40 MG/10 ML VIAL IVPUSH ×2 (06:53→15:14)
[2022-03-12] MEDS: vancomycin HCL 1,000 MG in 0.9 % Sodium Chloride 250 ML 270 MG IV (06:57)
[2022-03-12 07:16] LABS: Alanine Aminotransferase 209 U/L (0-40); Albumin Level 2.8 g/dL (3.5-5.0); Alkaline Phosphatase 92 U/L (39-117); Anion Gap 12 (12-20); Aspartate Amino Transferase 68 U/L (5-37); Bilirubin Total 1.1 mg/dL (0.0-1.0); Blood Urea Nitrogen 20 mg/dL (9-16); Calcium 7.5 mg/dL (8.4-10.2); Carbon Dioxide 22 mmol/L (22-29); Chloride 107 mmol/L (96-108); Creatinine Clr Calc Pharmacy 89.8; Estimated Glomerular Filt Rate > 60; Glucose Fasting 123 mg/dL (60-99); Potassium 3.7 mmol/L (3.3-5.1); Sodium 137 mmol/L (135-145); Total Protein 5.1 g/dL (6.5-8.0)
[2022-03-12] MEDS: 0.9 % Sodium Chloride Flush 3 ML SYRINGE IVFLUSH ×2 (08:47→15:14)
[2022-03-12] MEDS: Aspirin Enteric Coated 325 MG TABLET.DR PO (08:47)
[2022-03-12 09:07] LABS: Procalcitonin 0.16 ng/mL
[2022-03-12] MEDS: Carbidopa/Levodopa CR 25/100 TABLET.ER 2 TAB PO ×3 (09:52→20:44)
[2022-03-12] MEDS: Metoprolol Tartrate 25 MG TABLET PO ×2 (09:52→20:43)
--- NOTE | 2022-03-12 10:32 | MHC.CLN ---
F/U PO INTAKE RECORDED 0% X 2 MEALS SEE FULL CLINICAL NUTRITION ASSESSMENT DATED 03/11/22. TPN RUNNING [id number] AT MAX GOAL RATE 83.33 ML WITH 15 ML OF 20% LIPIDS PROVIDES 1780 KCALS (26.7 KCALS/KG), 100 G PROTEIN (1.5 G/KG) PATIENT WITH MULTIPLE PRESSURE AREAS INCLUDING UN-STAGEABLE BILATERAL COCCYX - TPN PROVIDES PROTEIN AT 1.5 G/KG TO PROMOTE WOUND HEALING. DISCUSSED WITH PHARMACY CONTINUE CURRENT TPN ORDER WITH LIPIDS MONITOR PO INTAKE CLOSELY
--- NOTE | 2022-03-12 13:07 | HO.PM.IMPN ---
Subjective Subjective Date of Service: 03/12/22 Interval History: ate 50% of breakfast this AM minimal cough, dyspnea improved off O2 x 24 hr Review of Systems Review of Systems: Yes all other systems are reviewed and are negative Physical Exam Vital Signs: Vital Signs: Last Vital Signs Temp 99.0 F 03/12/22 11:34 Pulse 96 03/12/22 11:34 Resp 15 03/12/22 11:34 BP 119/66 03/12/22 11:34 Pulse Ox 98 03/12/22 11:34 O2 Del Method 03/12/22 11:34 O2 Flow Rate 2 03/11/22 03:58 FiO2 28 03/10/22 23:32 BMI result Body Mass Index 21.0 Gen: in no acute distress HEENT: sclera anicteric, moist mucus membranes Neck: supple Lungs: clear to auscultation bilaterally Heart: regular rate and rhythm, no murmurs Abd: soft, non-tender, non-distended Ext: no edema, LUE PICC Skin: warm/well-perfused Neuro: alert and oriented x3, rest tremor Psych: appropriate affect Objective Data Active Medications Acetaminophen (Acetaminophen 325 Mg Tablet) 650 mg PO Q6H PRN PRN Reason: Pain, Mild (Pain Scale 1-3) Acetaminophen (Acetaminophen Supp 650 Mg Supp.Rect) [address] Q4H PRN PRN Reason: Fever Last Admin: 03/06/22 11:57 Dose: 650 mg Documented By: ANA Acetylcysteine (Acetylcysteine 10 % 400 Mg/4 Ml Vial) 400 mg INHALE RQ4H WHILE AWAKE [facility] Last Admin: 03/12/22 11:34 Dose: Not Given Documented By: CHADWICK Non-Admin Reason: being dc by dr. luciano Albuterol/Ipratropium (Albuterol/Iprat 2.5/0.5mg 3 Ml Ampul.Neb) 3 ml INHALE RQ4H PRN PRN Reason: Shortness of Breath/Wheezing Last Admin: 03/08/22 05:37 Dose: 3 ml Documented By: MAY Aspirin (Aspirin Enteric Coated 325 Mg Tablet.) 325 mg PO DAILY [facility] Last Admin: 03/12/22 08:47 Dose: 325 mg Documented By: JONATHAN Carbidopa/Levodopa (Carbidopa/Levodopa Cr 25/100 Tablet.Er) 2 tab PO TID [facility] Last Admin: 03/12/22 09:52 Dose: 2 tab Documented By: JONATHAN Potassium Chloride 20 meq/Magnesium Sulfate 16 meq/Potassium Phosphate 30 mmol/Calcium Gluconate 9.3 meq/Multivitamins 10 ml/ Trace Metals 1 ml/ Amino Acids/Dextrose 1,999.92 mls @ 83.33 mls/hr IV DAILY@1800 [facility] Stop: 03/12/22 17:59 Last Admin: 03/11/22 18:36 Dose: 83.33 mls/hr Documented By: THERESE Metoprolol Tartrate (Metoprolol Tartrate 25 Mg Tablet) 25 mg PO BID [facility]; Protocol Last Admin: 03/12/22 09:52 Dose: 25 mg Documented By: JONATHAN Ondansetron HCl (Ondansetron Hcl 4 Mg/2 Ml Vial) 4 mg IVPUSH Q8H PRN PRN Reason: Nausea and Vomiting Pantoprazole Sodium (Pantoprazole Sodium 40 Mg/10 Ml Vial) 40 mg IVPUSH BID@0630,1630 [facility] Last Admin: 03/12/22 06:53 Dose: 40 mg Documented By: FRAN Pharmacy Consult (Consult Rx Perform Med Rec) 1 each MISCELLANE ONCE PRN PRN Reason: Consult order Pharmacy Consult (Consult Rx Perform Med Rec) 1 each MISCELLANE ONCE PRN PRN Reason: Consult order Pharmacy Consult (Consult Rx Vancomycin Dosing) 1 each MISCELLANE DAILY PRN PRN Reason: Consult order Sodium Chloride (0.9 % Sodium Chloride Flush 3 Ml Syringe) 3 ml IVFLUSH QSHIFT [facility] Last Admin: 03/12/22 08:47 Dose: 3 ml Documented By: JONATHAN Labs CBC & Chem 7: 03/12/22 05:54 03/12/22 05:54 Labs: Laboratory Results - last 24 hr 03/11/22 03/12/22 03/12/22 17:12 05:54 05:54 MCV 89.3 MCH 30.7 MCHC 34.4 RDW 13.0 Plt Count 171 MPV 9.5 Immature Gran % (Auto) 1.3 H Neut % (Auto) 78.3 H Lymph % (Auto) 6.3 L George % (Auto) 12.4 H Eos % (Auto) 1.2 Baso % (Auto) 0.5 Lymph # (Auto) 0.4 L George # (Auto) 0.8 Eos # (Auto) 0.1 Baso # (Auto) 0.0 Abs Immat Gran (auto) 0.08 H Absolute Neuts (auto) 4.7 Absolute Nucleated RBC 0.000 Nucleated RBC % (auto) 0.0 Anion Gap 12 Estim Creat Clear Calc 89.8 Estimated GFR > 60 Fasting Glucose 123 H Calcium 7.5 L Total Bilirubin 1.1 H AST 68 H ALT 209 H Alkaline Phosphatase 92 Total Protein 5.1 L Albumin 2.8 L Procalcitonin Vancomycin Trough 15.8 03/12/22 05:54 MCV MCH MCHC RDW Plt Count MPV Immature Gran % (Auto) Neut % (Auto) Lymph % (Auto) George % (Auto) Eos % (Auto) Baso % (Auto) Lymph # (Auto) George # (Auto) Eos # (Auto) Baso # (Auto) Abs Immat Gran (auto) Absolute Neuts (auto) Absolute Nucleated RBC Nucleated RBC % (auto) Anion Gap Estim Creat Clear Calc Estimated GFR Fasting Glucose Calcium Total Bilirubin AST ALT Alkaline Phosphatase Total Protein Albumin Procalcitonin 0.16 Vancomycin Trough Assessment and Plan (1) Non-ST elevation [place] (NSTEMI): Status: Acute (2) Pneumonia: Status: Acute (3) Parkinsons disease: Status: Acute (4) Malnutrition of moderate degree: Status: Acute Plan hospital d#8 71yo M with Parkinson disease, CAD, HTN, HLD found on ground by his son, admitted with PNA + NSTEMI + malnutrition # PNA - completed 7d of pip/rubio + vanco, d/c ABX, BCx negative, PCT low, not hypoxic # NSTEMI vs. 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
[2022-03-12] MEDS: Enoxaparin Sodium 40 MG/0.4 ML SYRINGE SUBCUT (15:13)
--- NOTE | 2022-03-12 17:08 | MHC.SL.SWA ---
Speech Pathologist Impression: Risk of Aspiration Due to: Neurological Condition Dysphasia Diet Status: Recommend DOWNGRADE to PUREE (NDD1) w/ HONEY THICK liquid by teaspoon or cup, pills CRUSHED in PUREE. Recommend total 1:1 supervision, close monitoring for any s/s of aspiration, ensure aspiration precautions. Updated [place] via [employer], RN in person. HAND MOUNTER will continue to follow. Liquid Consistency and Strategies for Safe Swallow: Liquid Intake Recommendation: Honey Thick Liquid Intake Strategies: Small Sips No Straws Solid Food Consistency: Dietary Recommendations: Pureed (NDD1) Additional Modifications to Solid Foods: Add sauces/gravies, blend well. Oral Medication Intake: Crushed with Puree Please contact the pharmacy regarding appropriate crushable or liquid drug formulations that are available whenever modified delivery is recommended. Compensatory Strategies and Precautions to be Taken for Safe Swallow: Sitting Upright (90 deg) No Straw Liquids from Cup Liquids from Spoon Small Bites and Sips Alternate Liquids/Solids Rate of Ingestion Change Supervision While Eating and Drinking for Safe Swallow: Total Supervision (1:1) Foods to Avoid: Swallowing Recommended Treatments: Compens. Strategy Educat. Recommendation for Speech: Inpatient Speech Therapy: Patient seen in [facility] during lunch for dysphagia treatment, re-evaluation of swallow. Before session, nursing reported concern that Pt was coughing frequently during breakfast meal, particularly on liquids. Pt was awake, sitting up in bed, however head of bed was raised to 90 Degrees for meal. Pt had requested tuna salad, mashed potatoes and gravy and chopped carrots. Carrots were notably only slightly cooked before being ground, so in hard pieces. Pt was given tsps of potatoes w/ gravy, which patient was noted to use both tongue movement and mastication to propel food. Oral phase was prolonged, but produced swallow after mild delay. Oral residual noted, cleared by wash of liquid. Pt had more difficulty orally managing mixed texture of potatoes with hard carrots (more prolonged oral phase, mastication, residual) as well as tuna salad, but had no clinical signs of aspiration on food consistencies. Pt noted to be come fatigued after several minutes of eating. On nectar thick liquid by tsp, Pt controlled bolus well orally, but coughed after one presentation, noted to have wet voice after liquid presented to clear residual, and Pt noted to cough repeatedly after HAND MOUNTER left room to get additionally thickener for liquid. Pt was then given honey thick liquid with some improvement noted in transit, no coughing/clinical signs of aspiration. Recommend DOWNGRADE solids to PUREE (due to noted fatigue while eating, greater difficulty orally managing mixed consistencies) and HONEY THICK liquids. Due to tendency to fatigue, Pt would benefit from smaller more frequent meals. Nursing notified in person, secure text sent to MD. HAND MOUNTER will continue to follow. Comment: Frequency/Duration: Date Range for Service Req: Timeline to reassess: Career Services Manager Clinican/Clinical Fellow: No Supervisory Statement: I have reviewed and agree with the student/clinical fellow's documentation: N/A Speech Language Pathologist: Lashae Grady M.A., CCC-HAND MOUNTER
[2022-03-12] MEDS: Apixaban 5 MG TABLET 10 MG PO (20:43)
[2022-03-13] VITALS (7 sets, daily range): BP systolic 116–132; BP diastolic 56–61; PULSE 68–86; RESP 16–18; TEMP 36.6–37; O2SAT 94–99
[2022-03-13 06:20] LABS: Vancomycin Trough 10.5 mcg/mL (10.0-20.0)
[2022-03-13] MEDS: Pantoprazole Sodium 40 MG/10 ML VIAL IVPUSH ×2 (06:26→17:19)
--- NOTE | 2022-03-13 08:48 | HO.PICC ---
PICC Line Insertion PICC REMOVAL PER ORDER REQUEST 47 CM, TRIPLE LUMEN, 6-F, FUNCTIONAL INTACT PICC REMOVED FROM LUE. PT OFFERS NO COMPLAINTS R/T LUE AND PICC. NO NOTED SWELLING/BRUISING. GAUZE/TEGADERM DRESSING APPLIED; MANUAL PRESSURE HELD OVER DRESSING FOR APPROX 10 MINUTES. NO NOTED BLEEDING S/P DRESSING.
--- NOTE | 2022-03-13 09:55 | MHC.CLN ---
F/U PO INTAKE 50% X2 D/C TPN PER MD TODAY DIET RX: PUREED WITH HT LIQ-APPROPRIATE WORKING WITH ACCOUNT CLASSIFICATION CLERK FOR APPROPRIATE DIET CONSISTENCY RECOMMEND ADDING ENSURE BID TO INCREASE KCALS AND PROMOTE WOUND HEALING SUPP TO PROVIE 700KCALS, 40G PROTEIN MONITOR PO INTAKE CLOSELY
--- NOTE | 2022-03-13 10:30 | HO.PM.IMPN ---
Subjective Subjective Date of Service: 03/13/22 Interval History: RUE Doppler positive for DVT LUE PICC removed appetite improving minimal cough no pain Review of Systems Review of Systems: Yes all other systems are reviewed and are negative Physical Exam Vital Signs: Vital Signs: Last Vital Signs Temp 98.4 F 03/13/22 07:38 Pulse 86 03/13/22 09:55 Resp 16 03/13/22 07:38 BP 127/58 L 03/13/22 09:55 Pulse Ox 97 03/13/22 09:55 O2 Del Method 03/13/22 07:38 O2 Flow Rate 2 03/11/22 03:58 FiO2 28 03/10/22 23:32 BMI result Body Mass Index 21.0 Gen: in no acute distress HEENT: sclera anicteric, moist mucus membranes Neck: supple Lungs: clear to auscultation bilaterally Heart: regular rate and rhythm, no murmurs Abd: soft, non-tender, non-distended Ext: RUE swollen Skin: warm/well-perfused Neuro: alert and oriented x3, masked facies Psych: appropriate affect Objective Data Active Medications Acetaminophen (Acetaminophen 325 Mg Tablet) 650 mg PO Q6H PRN PRN Reason: Pain, Mild (Pain Scale 1-3) Acetaminophen (Acetaminophen Supp 650 Mg Supp.Rect) 650 mg [place] Q4H PRN PRN Reason: Fever Last Admin: 03/06/22 11:57 Dose: 650 mg Documented By: ANA Albuterol/Ipratropium (Albuterol/Iprat 2.5/0.5mg 3 Ml Ampul.Neb) 3 ml INHALE RQ4H PRN PRN Reason: Shortness of Breath/Wheezing Last Admin: 03/08/22 05:37 Dose: 3 ml Documented By: MAY Apixaban (Apixaban 5 Mg Tablet) 10 mg PO BID [facility] Stop: 03/19/22 09:01 Last Admin: 03/12/22 20:43 Dose: 10 mg Documented By: ANUJA Carbidopa/Levodopa (Carbidopa/Levodopa Cr 25/100 Tablet.Er) 2 tab PO TID [facility] Last Admin: 03/12/22 20:44 Dose: 2 tab Documented By: ANUJA Metoprolol Tartrate (Metoprolol Tartrate 25 Mg Tablet) 25 mg PO BID [facility]; Protocol Last Admin: 03/12/22 20:43 Dose: 25 mg Documented By: ANUAJ Ondansetron HCl (Ondansetron Hcl 4 Mg/2 Ml Vial) 4 mg IVPUSH Q8H PRN PRN Reason: Nausea and Vomiting Pantoprazole Sodium (Pantoprazole Sodium 40 Mg/10 Ml Vial) 40 mg IVPUSH BID@0630,1630 [facility] Last Admin: 03/13/22 06:26 Dose: 40 mg Documented By: ANUJA Pharmacy Consult (Consult Rx Perform Med Rec) 1 each MISCELLANE ONCE PRN PRN Reason: Consult order Pharmacy Consult (Consult Rx Perform Med Rec) 1 each MISCELLANE ONCE PRN PRN Reason: Consult order Sodium Chloride (0.9 % Sodium Chloride Flush 3 Ml Syringe) 3 ml IVFLUSH QSHIFT [facility] Last Admin: 03/13/22 01:27 Dose: Not Given Documented By: ANUJA Non-Admin Reason: Previously Administered Labs CBC & Chem 7: 03/12/22 05:54 03/12/22 05:54 Labs: Laboratory Results - last 24 hr 03/13/22 05:19 Vancomycin Trough 10.5 Assessment and Plan (1) Non-ST elevation [place] (NSTEMI): Status: Acute (2) Pneumonia: Status: Acute (3) Parkinsons disease: Status: Acute (4) Malnutrition of moderate degree: Status: Acute Plan hospital d#9 71yo M with Parkinson disease, CAD, HTN, HLD found on ground by his son, admitted with PNA + NSTEMI + malnutrition # PNA - completed 7d of pip/rubio + vanco, d/c ABX, BCx negative, PCT low, not hypoxic # NSTEMI vs. 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
[2022-03-13] MEDS: Carbidopa/Levodopa CR 25/100 TABLET.ER 2 TAB PO (10:52)
[2022-03-13] MEDS: Metoprolol Tartrate 25 MG TABLET PO ×2 (10:52→21:01)
[2022-03-13] MEDS: 0.9 % Sodium Chloride Flush 3 ML SYRINGE IVFLUSH ×2 (10:52→17:19)
[2022-03-13] MEDS: Apixaban 5 MG TABLET 10 MG PO ×2 (10:52→21:02)
--- NOTE | 2022-03-13 13:43 | MHC.SL.SWA ---
Speech Pathologist Impression: Oropharyngeal dysphagia Risk of Aspiration Due to: Neurological Condition Dysphasia Diet Status: Recommend continue w/ PUREED (NDD1) solids and DOWNGRADE liquids to PUDDING THICK (SINGLE CONSISTENCY). Due to tendency to fatigue, Pt would benefit from smaller more frequent meals. Recommend consult w/ RD given risk of dehydration w/ thickened liquid. Patient may also benefit from MBSS- Texted care team w/ these recommendations. Diet order updated by GAS WORKER. GAS WORKER will continue to follow. Liquid Consistency and Strategies for Safe Swallow: Liquid Intake Recommendation: Pudding Thick Liquid Intake Strategies: Small Sips Liquids by Teaspoon Only Solid Food Consistency: Dietary Recommendations: Pureed (NDD1) Additional Modifications to Solid Foods: Add sauces/gravies, blend well. Oral Medication Intake: Crushed with Puree Please contact the pharmacy regarding appropriate crushable or liquid drug formulations that are available whenever modified delivery is recommended. Compensatory Strategies and Precautions to be Taken for Safe Swallow: Sitting Upright (90 deg) No Straw Liquids from Spoon Small Bites and Sips Alternate Liquids/Solids Rate of Ingestion Change Supervision While Eating and Drinking for Safe Swallow: Total Supervision (1:1) Swallowing Recommended Treatments: Compens. Strategy Educat. Recommendation for Speech: Inpatient Speech Therapy Torch Cutter Clinican/Clinical Fellow: No Supervisory Statement: I have reviewed and agree with the student/clinical fellow's documentation: N/A Speech Language Pathologist: Mitali Machado M.A., CCC-GAS WORKER
[2022-03-13] MEDS: Carbidopa/Levodopa 25/100 TABLET 2 TAB PO ×2 (17:19→21:01)
[2022-03-14] VITALS (7 sets, daily range): BP systolic 111–148; BP diastolic 54–76; PULSE 72–98; RESP 14–20; TEMP 36.4–36.9; O2SAT 96–99
[2022-03-14] MEDS: Pantoprazole Sodium 40 MG/10 ML VIAL IVPUSH ×2 (05:30→23:26)
[2022-03-14] MEDS: 0.9 % Sodium Chloride Flush 3 ML SYRINGE IVFLUSH ×2 (09:17→16:47)
[2022-03-14] MEDS: Carbidopa/Levodopa 25/100 TABLET 2 TAB PO ×3 (10:23→20:19)
[2022-03-14] MEDS: Apixaban 5 MG TABLET 10 MG PO ×2 (10:24→20:19)
[2022-03-14] MEDS: Metoprolol Tartrate 25 MG TABLET PO ×2 (10:24→20:19)
[2022-03-14 10:53] LABS: Alanine Aminotransferase 125 U/L (0-40); Albumin Level 2.7 g/dL (3.5-5.0); Alkaline Phosphatase 97 U/L (39-117); Anion Gap 13 (12-20); Aspartate Amino Transferase 46 U/L (5-37); Blood Urea Nitrogen 35 mg/dL (9-16); Calcium 7.5 mg/dL (8.4-10.2); Carbon Dioxide 21 mmol/L (22-29); Chloride 107 mmol/L (96-108); Creatinine Clr Calc Pharmacy 93.8; Estimated Glomerular Filt Rate > 60; Glucose Random 131 mg/dL (60-115); Potassium 4.3 mmol/L (3.3-5.1); Sodium 137 mmol/L (135-145); Total Protein 5.2 g/dL (6.5-8.0)
[2022-03-14 11:14] LABS: Hematocrit 30.1 % (42.0-52.0); Hemoglobin 10.3 g/dl (14.0-18.0); Red Blood Count 3.35 X10*6/uL (4.60-5.80); White Blood Count 7.2 X10*3/uL (4.8-10.8)
[2022-03-14 11:15] LABS: Mean Corpuscular HGB Conc 34.2 g/dl (31.0-36.0); Mean Corpuscular Hemoglobin 30.7 pg (27.0-33.0); Mean Corpuscular Volume 89.9 fL (80.0-98.0); Mean Platelet Volume 9.4 fL (9.4-12.4); Platelet Count 274 X10*3/uL (160-400); Red Cell Distribution Width 13.4 % (11.0-16.0)
--- NOTE | 2022-03-14 11:28 | P.PNIM_ITS ---
Subjective Subjective Date of Service: 03/14/22 Interval History: downgraded to pudding-thick liquids yesterday and MBSS recommended; scheduled for later today still coughing; no dyspnea c/o xerostomia Review of Systems Review of Systems: Yes all other systems are reviewed and are negative Physical Exam Vital Signs: Vital Signs: Last Vital Signs Temp 97.6 F 03/14/22 07:37 Pulse 86 03/14/22 10:57 Resp 16 03/14/22 07:37 BP 125/71 03/14/22 10:57 Pulse Ox 97 03/14/22 10:57 O2 Del Method 03/14/22 07:37 O2 Flow Rate 2 03/11/22 03:58 FiO2 28 03/10/22 23:32 BMI result Body Mass Index 21.0 Gen: in no acute distress HEENT: sclera anicteric, moist mucus membranes Neck: supple Lungs: clear to auscultation bilaterally Heart: regular rate and rhythm, no murmurs Abd: soft, non-tender, non-distended Ext: RUE swelling improved Skin: warm/well-perfused Neuro: alert and oriented x3, masked facies Psych: appropriate affect Objective Data Active Medications Acetaminophen (Acetaminophen 325 Mg Tablet) 650 mg PO Q6H PRN PRN Reason: Pain, Mild (Pain Scale 1-3) Acetaminophen (Acetaminophen Supp 650 Mg Supp.Rect) 650 mg OR Q4H PRN PRN Reason: Fever Last Admin: 03/06/22 11:57 Dose: 650 mg Documented By: ANA Albuterol/Ipratropium (Albuterol/Iprat 2.5/0.5mg 3 Ml Ampul.Neb) 3 ml INHALE RQ4H PRN PRN Reason: Shortness of Breath/Wheezing Last Admin: 03/08/22 05:37 Dose: 3 ml Documented By: MAY Apixaban (Apixaban 5 Mg Tablet) 10 mg PO BID YAMEL Stop: 03/19/22 09:01 Last Admin: 03/14/22 10:24 Dose: 10 mg Documented By: KEVIN Carbidopa/Levodopa (Carbidopa/Levodopa 25/100 Tablet) 2 tab PO TID YAMEL Last Admin: 03/14/22 10:23 Dose: 2 tab Documented By: KEVIN Metoprolol Tartrate (Metoprolol Tartrate 25 Mg Tablet) 25 mg PO BID [facility]; Protocol Last Admin: 03/14/22 10:24 Dose: 25 mg Documented By: KEVIN Ondansetron HCl (Ondansetron Hcl 4 Mg/2 Ml Vial) 4 mg IVPUSH Q8H PRN PRN Reason: Nausea and Vomiting Pantoprazole Sodium (Pantoprazole Sodium 40 Mg/10 Ml Vial) 40 mg IVPUSH BID@063 0,1630 [facility] Last Admin: 03/14/22 05:30 Dose: 40 mg Documented By: ROWDY Pharmacy Consult (Consult Rx Perform Med Rec) 1 each MISCELLANE ONCE PRN PRN Reason: Consult order Pharmacy Consult (Consult Rx Perform Med Rec) 1 each MISCELLANE ONCE PRN PRN Reason: Consult order Sodium Chloride (0.9 % Sodium Chloride Flush 3 Ml Syringe) 3 ml IVFLUSH QSHIFT [facility] Last Admin: 03/14/22 09:17 Dose: 3 ml Documented By: KEVIN Labs CBC & Chem 7: 03/14/22 11:07 03/14/22 10:14 Labs: Laboratory Results - last 24 hr 03/14/22 03/14/22 10:14 11:07 MCV 89.9 MCH 30.7 MCHC 34.2 RDW 13.4 Plt Count 274 D MPV 9.4 Absolute Nucleated RBC 0.000 Nucleated RBC % (auto) 0.0 Anion Gap 13 Estim Creat Clear Calc 93.8 Estimated GFR > 60 Random Glucose 131 H Calcium 7.5 L Total Bilirubin 1.0 AST 46 H ALT 125 H Alkaline Phosphatase 97 Total Creatine Kinase 49 D Total Protein 5.2 L Albumin 2.7 L Microbiology Microbiology Results: Microbiology 03/08/22 17:20 Blood Culture - Final Blood - Venous No growth after 5 days. 03/08/22 17:20 Blood Culture - Final Blood - Venous No growth after 5 days. Assessment and Plan (1) Non-ST elevation NM (NSTEMI): Status: Acute (2) Pneumonia: Status: Acute (3) Parkinsons disease: Status: Acute (4) Malnutrition of moderate degree: Status: Acute Plan hospital d#10 71yo M with Parkinson disease, CAD, HTN, HLD found on ground by his son, admitted with PNA + NSTEMI + malnutrition # RUE DVT - apixaban started 03/12 at 10 mg bid, switch to 5 mg bid on 03/19 # PNA - completed 7d of pip/rubio + vanco, d/c ABX, BCx negative, PCT low, not hypoxic # NSTEMI vs. 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
--- NOTE | 2022-03-14 11:44 | MHC.CM.PN ---
Per ROUNDS discussion, Patient is getting a MBS today and is not yet medically cleared for dc. PT is recommending STR and CM will continue to follow.
--- NOTE | 2022-03-14 16:43 | MHC.SL.IMP ---
Date of Plan of Treatment: 03/14/22 Onset of Symptoms/Illness: 03/07/22 Date Treatment Started: 03/14/22 Admitting Diagnosis: NSTEMI, toxic/metabolic encephalopathy, hyperNa, hyperbiliubinemia/transaminitis, sacral and thoracic pressure ulcers, Parkinson's disease, T12 compression fracture likely traumatic Primary Speech & Language Diagnosis: R13.12 Oropharyngeal Phase Dysphagia Reason for Today's Visit: 71451 Modified Barium Swallow Study Pre-evaluation Dietary Consistencies: Pureed (NDD1) Pre-evaluation Liquid Consistency: Pudding Thick Pre-evaluation Medication Administration: Crushed with Puree Medical History: Modified Barium Swallow Study Fluoroscopic Evaluation of Swallowing Function CPT Code 17648 Evaluation Year: 2021 Reason for Study: Patient displays overt s/s of aspiration. Referring Physician: Torito Ba M.D. Evaluating Clinician: Mitali Machado MA, CCC-BELT FIXER Study Number: 1 Patient Name: MRN: Status: Inpatient Age: 71 Gender: Male MEDICAL HISTORY: Primary (admitting) Diagnosis: Parkinson's disease Year of Onset or Diagnosis: 2021 Comorbidities: Anemia CAD Dyslipidemia Essential hypertension Hyperlipidemia Current (pre-evaluation) Intake/Diet: Route: PO Diet Grade: Puree Liquid Consistencies: Pudding Thick Pre-Study Functional Oral Intake Scale (FOIS): 4- Total oral intake of a single consistency Pain: None reported at time of study SUBJECTIVE: Patient is a 71 year old male w/ underlying Parkinson's disease brought to ED after being found on the floor by family. Main complaint altered mental status and confusion, patient was admitted with pneumonia, NSTEMI, and malnutrition. -03/[address]: Patient motion degrades image quality therefore the diagnostic accuracy of this examination is limited. Grossly no evidence of acute intracranial hemorrhage. No acute cervical spine fracture and no posttraumatic spinal subluxation. -03/06 Chest x-ray: Obscuration of the medial left hemidiaphragm suggesting a left lower lobe retrocardiac consolidation with subtle air bronchograms. Infectious etiology would be favored in this setting. Patient was initially evaluated by BELT FIXER on 03/07/22. Patient displayed overt s/s of aspiration and was recommended NPO 03/07-03/08. When re-evaluated several days later on 03/11, patient demonstrated some improvement and was recommended an upgrade to a ground diet with nectar thick liquids. Subsequently, RN and BELT FIXER noted that patient was coughing during meals and with PO trials. Patient was downgraded to single consistency pureed solids with pudding thick liquids, recommended re-evaluation with MBSS d/t variable tolerance of PO, patient?s pneumonia diagnosis, and underlying Parkinson?s disease. Oral Motor Exam Facial Symmetry: Symmetrical Facial Movement: Controlled Mouth Occlusion: Normal Oral-Facial Teeth Characteristics: Intact/Normal Oral-Facial Puff Cheeks Description: Reduced Strength Tongue Size: Normal Tongue Excursion Description: Incomplete Tongue Range of Movement Description: Reduced Tongue Speed of Movement Description: Reduced Tongue Strength of Movement (against opposing pressure): Reduced Tongue Movement Characteristics: Normal/Absent Tongue Movement Miscellaneous Observation: Weak volitional cough Is patient able to produce volitional cough?: Yes Food and Liquid Trials: Oral Impairment: Lip Closure: 1=Interlabial escape; no progression to anterior tip Oral Impairment: Tongue Control During Bolus Hold: 1=Escape to lateral buccal cavity/floor of mouth (FOM) Oral Impairment: Bolus Preparation/Mastication: Did not test Oral Impairment: Bolus Transport/Lingual Motion: 3=Repetitive/disorganized tongue motion Oral Impairment: Oral Residue: 2=Residue collection on oral structures Oral Impairment:Initiation of Pharyngeal Swallow: 3=Bolus head in pyriforms Pharyngeal Impairment: Soft Palate Elevation: 0=No bolus between soft palate (SP)/pharyngeal wall (PW) Pharyngeal Impairment: Laryngeal Elevation: 1=Partial thyroid cartilage/arytenoids to epiglottic petiole movement Pharyngeal Impairment: Anterior Hyoid Excursion: 1=Partial anterior movement Pharyngeal Impairment: Epiglottic Movement: 2=No inversion Pharyngeal Impairment: Laryngeal Vestibular Closure:: 1=Incomplete: narrow column air/contrast in laryngeal vestibule Pharyngeal Impairment: Pharyngeal Stripping Wave: 0=Present: complete Pharyngeal Impairment: Pharyngeal Contraction: Did not test Pharyngeal Impairment: Pharyngoesophageal Segment Openin=Complete distension and complete duration: no obstruction of flow Pharyngeal Impairment: Tongue Base (TB) Retraction: 1=Trace column of contrast/air between TB and posterior PW Pharyngeal Impairment: Pharyngeal Residue: 3=Majority of contrast within or on pharyngeal structures Pharyngeal Impairment: Esophageal Clearance Upright Position: Did not test Impressions and Recommendations Clinical Observations: OBJECTIVE: Time-out: performed at 11:45 Evaluation Start: 11:35; Stop: 11:40 Patient Positioning: Seated 70-90 degrees Viewing Planes: LATERAL ONLY Contrast: MBSImP? Standardized Protocol using commercially prepared, standardized Barium viscosities, including: Varibar? THIN LIQUID (40% w/v, <15 cps) , Varibar? NECTAR (40% w/v, <150-450 cps) , Varibar? THIN HONEY (40% w/v, <800-1800 cps) MBSImP ID: [id number] MBSImP Results: Lip closure for intraoral bolus containment resulted in interlabial escape, without progression to the anterior lip. Tongue control during bolus hold allowed bolus escape to the lateral buccal cavity/floor of mouth. Bolus preparation and mastication received the highest impairment score; solid not given due to patient safety concerns related to oral impairment. Bolus transport/lingual motion was with repetitive/disorganized motion of the tongue. Oral residue was a collection on oral structures. Initiation of the pharyngeal swallow occurred when the bolus head was in the pyriform sinuses. Soft palate elevation resulted in no bolus between the soft palate and the pharyngeal wall. Laryngeal elevation was decreased, with partial superior movement of the thyroid cartilage/partial approximation of the arytenoids to the epiglottic petiole. Anterior hyoid excursion demonstrated partial anterior movement. Epiglottic movement resulted in no inversion. Laryngeal vestibular closure was incomplete, with a narrow column of air/contrast noted within the laryngeal vestibule at the height of the swallow. Pharyngeal stripping wave was present and complete. Pharyngeal contraction could not be determined due to logistical reasons not related to physiologic impairment. Pharyngoesophageal segment opening was completely distended for complete duration with no obstruction of bolus flow. Tongue base retraction allowed a trace column of contrast or air between the retracted tongue base and the posterior pharyngeal wall. Pharyngeal residue was the majority of contrast within or on pharyngeal structures. Esophageal clearance in the upright position could not be assessed due to logistical reasons not related to physiologic impairment. Oral Impairment Score: 12 Pharyngeal Impairment Score: 8 (absence of score, component 13) Esophageal Impairment Score: --- (absence of score, component 17) Laryngeal Penetration and Aspiration: Both Penetration and Aspiration were observed in today's study. Pureed solid, Honey-thick Contrast entered the airway, contacted the vocal folds, and were not ejected from the airway. [place]-thick, Thin Contrast entered the airway, passed below the vocal folds, and no effort were made to eject. ASSESSMENT: Clinician Assessment: This exam was conducted by a multidisciplinary team, which included a speech pathologist, radiologist, and mine technician. Patient was seated upright at 90 degrees in a chair for lateral view only. Patient trialed the following liquid and solid consistencies: thin liquid barium via straw and spoon, nectar thick liquid barium via spoon, honey thick liquid barium via spoon, pureed solid (mixture applesauce with barium paste) via spoon. Patient displayed minimal interlabial escape, but no progression to anterior lip. There was minimal escape of bolus to the floor of mouth. Posterior lingual movements were repetitive and disorganized. There was mild residue remaining on the tongue after each swallow. Significant delay in pharyngeal swallow trigger, initiated as bolus head reached pyriform sinuses. No nasopharyngeal reflux. Laryngeal elevation was incomplete with partial anterior hyoid excursion. Noted minimal to no epiglottic inversion, with incomplete laryngeal vestibular closure resulting in trace column of contrast in laryngeal vestibule. With small teaspoon amount honey thick liquid and small teaspoon amount pureed solid, there was minimal pharyngeal clearance. Majority of the contrast collected in the valleculae, with some residuals in the pyriform sinuses and on the posterior pharyngeal wall as well. Patient performed a chin tuck in an attempt to clear pharyngeal residue, which had no effect. Multiple dry swallows minimally cleared small amount of contrast from valleculae and pyriforms. There were episodes of deep penetration both during the initial swallow and during subsequent dry swallows on residuals from the valleculae and pyriform sinuses. There was no spontaneous cough in response to penetration. Patient was instructed to cough and swallow again. Volitional cough resulted in partial but not complete clearance of contrast from trachea. There was question of trace aspiration on residuals. Patient took sips of thin liquid by straw and by teaspoon, sips of nectar thick by teaspoon. With thin and nectar thick consistencies, improved pharyngeal clearance, however patient presented with trace aspiration during the initial swallow and on subsequent dry swallows. There was no spontaneous cough. Patient was again instructed to produce volitional cough, which reduced, but did not entirely clear contrast from trachea. No obstruction of flow through the pharyngoesophageal segment opening. Patient was provided with cues throughout the exam. The following compensatory strategies have not been used until today's study, but when employed, improved swallowing function: Cough Volitional decreased Penetration, Aspiration, Oral Residue, Pharyngeal Residue Additional Swallow(s) per Bolus; Decrease Oral Residue, Pharyngeal Residue The following compensatory strategies appear to have had a negative impact on swallowing function: Additional Swallow(s) per Bolus increased Penetration, Aspiration; This exam revealed severe oropharyngeal dysphagia. Noted disorganized oral phase. Delayed pharyngeal swallow trigger. Pharyngeal phase characterized by minimal to no epiglottic inversion, partial laryngeal elevation, incomplete laryngeal vestibular closure. There was significant pharyngeal retention. Evidence of deep penetration, silent aspiration. Recommend NPO at this time with continued speech therapy at next level of care, repeat MBSS post-treatment in 10-12 weeks, consult with care team, including G.I. and Nutrition, to determine most appropriate route for nutritional intake for this patient. Liquid Intake Recommendation: NPO Dietary Recommendations: NPO Medication Administration: NPO Please contact the pharmacy regarding appropriate crushable or liquid drug formulations that are available whenever modified delivery is recommended. Recommended Treatments: Pharyngeal Resistive Exer Recommendation for Speech Therapy: Outpatient Speech Therapy Speech Therapy through [facility] vs. Rehab Facility Modified Barium Swallow Study - Outpatient PLAN: Intake Recommendations: Route: NPO/Alternate Route Diet Grade: IDDSI Levels: Liquid Consistencies: IDDSI Levels: Post-Study Functional Oral Intake Scale (FOIS): 1- No oral intake Based on objective results of this study alone, safest recommendation is NPO. Patient is at high aspiration risk. Patient is recommended consultations with a registered dietetic technician/hot dog vender and entry level recruiter to determine if alternative means of nutrition is appropriate for this patient. Ultimate decision for nutritional intake is to be made by the patient, his caregiver/family, and his medical team with consideration of the totality of the patient, other concomitant conditions, and overall quality of life. With any decision made, recommend rigorous oral care (at least 4 times daily) and elevate head of bed at least 30 degrees to reduce risk of microaspiration. If patient chooses to pursue PO/partial PO for nutritional intake or for comfort feeding, patient must have knowledge and understanding of the risks of aspiration. Patient is recommended continued speech therapy at the next level of care for dysphagia treatment. Recommend a follow-up MBSS post-treatment to monitor for any changes/improvement and to determine most appropriate means for nutrition, which must be determined by patient and his care team keeping totality of patient in mind. Suggested Referrals: The patient might benefit from a referral to: Gastroenterology Neurology Nutrition Services Therapy Recommendations: Therapy will be continued Prognosis for Improvement: The prognosis for the patient to meet nutritional needs by mouth is poor based on degree of impairment. [employer] Outfit Supervisor Goals: ? The patient will demonstrate improved swallowing function via repeat clinical evaluation, videoendoscopy/videofluoroscopy and/or patient self-rating scores. ? The patient and/or family will participate in further education for swallowing goals. Short Term Goals: ? Structured Therapy - The patient will demonstrate 100% accuracy and require moderate cuing in structured swallowing therapy with the BELT FIXER using the following exercises/therapy approaches and therapy assisted devices: Ashley Maneuver, Shaker Head Lifts, Carmina Maneuver, . ? Education - The patient, family, caregiver will verbalize/demonstrate understanding of the results of this evaluation, the above recommendations, and the swallowing guidelines. Clinician - Supplemental, Miscellaneous Communication: It is important to note MBSS objective studies are snapshots in time and Patient function might vary with factors such as time of day or concomitant medical conditions. For this reason, the final treatment plan for this patient should rest with their medical care team. Additional recommendations should be considered with the totality of the Patient in mind. Thank for the opportunity to participate in the care of this patient. If you have any questions about the content of this report, please contact the [facility] at [facility]. Dough Scaler And Mixer Clinician/Clinical Fellow: No Supervisory Statement: N/A Speech Language Pathologist: Mitali Machado M.A., [facility]
--- NOTE | 2022-03-14 16:54 | MHC.SLORD ---
Speech Language Pathology Order Status: MBSS completed. Updated MD & RD of results via [employer] Message.
[2022-03-14 21:09] LABS: OBS Int Ctl Valid YES; OBS1 POSITIVE (NEGATIVE)
[2022-03-14 21:53] LABS: CDiff Gene PCR NEGATIVE (Negative)
[2022-03-15] MEDS: 0.9 % Sodium Chloride Flush 3 ML SYRINGE IVFLUSH ×2 (01:57→10:34)
[2022-03-15 04:00] VITALS: BP 106/54; PULSE 102; RESP 18; TEMP 36.6; O2SAT 100
[2022-03-15] MEDS: Pantoprazole Sodium 40 MG/10 ML VIAL IVPUSH (05:22)
--- NOTE | 2022-03-15 07:24 | PM.GICN ---
History of Present Illness Data of Consult Service Date: 03/15/22 Requesting physician: Darrick Cartwright Primary Care Provider: Rhiannon Saxena MD HPI Reason for consult: Heme positive stools 71 YM with hx of CAD, HTN, Parkinson's disease, HLD hospitalized [place] [facility] [place] after he was found on the ground, next to his bed by his son. The patient was disoriented and unable to provide a meaningful history. Pt was diagnosed with NSTEMI/rhabdomyolysis, pneumonia and noted to have pressure sores. Upon arrival to the ED, he was ramos-scanned. CT head/neck/chest/abd were essentially negative for any acute findings. His skin exam revealed multiple pressure uclers. His HS trop-I is elevated and EKG showing non-specific changes. He has been given IVF, IV zosyn and has been started on IV heparin (after discussion with cardiology). He was switched to Eliquis on 03/12/22 for rt upper extremity DVT. GI consulted since pt had 3-4 episodes of black tarry stools yesterday evening. He was started on IV pantoprazole once a day and Eliquis was placed on hold. Patient denies symptoms of heartburn, nausea, vomiting, change in appetite. Pt admits to loosing weight. He denies recent change in bowel habits, constipation, diarrhea. Patient denies past history peptic ulcer disease or GI bleeding. Patient denies loud snoring or sleep apnea Pt lives alone and has 2 children (One son in [place] and another in [place]). He worked for [employer] and is retired. Patient denies known family history of colon polyps, colon cancer or other GI malignancies. Pt had an MBS yesterday and was made NPO by Speech Pathologist due to aspiration. He reviewed his options with Dr Watson (his Neurologist) today and decided to proceed with PEG placement[facility]. H&H on 03/12 was 11.2 and 32.6, decreased to 10.3 in 30.1 on 03/14/22 Follow-up labs today showed H&H of 9.9 in 29 in the am, decreased to 9.1 & 27.2 at 10 am and stable at 9.3 & 27.4 at 4 pm. Elevated LFTs likely due to rhabdomyolysis PAST EGD/COLONOSCOPY: Patient denies having an upper endoscopy or colonoscopy in the past. IMAGING STUDIES: 03/14/22 MBS SHOWED: Multiple liquid and semisolid consistencies combined with barium were administered to the patient under direct fluoroscopic visualization. There are several instances of penetration with a possible small focus of aspiration. This was partially cleared with multiple swallowing instances. 03/05/[address] SCAN SHOWED: Atelectatic changes in both lung bases. No acute process. No acute processes in the abdomen. There are bilateral renal cysts, hepatic cysts. No radiopaque renal or gallbladder calculi. Moderate constipation. Compression fractures of T12 vertebra of uncertain age. Review of Systems Constitutional: Constitutional: Reports as per HPI ENT: Reports Normal hearing present and Reports dysphagia Cardiovascular: Cardiovascular: Denies dyspnea Respiratory: Respiratory: Denies dyspnea Gastrointestinal: Gastrointestinal: Denies abdominal pain, Reports melena, Reports dysphagia and Denies vomiting Genitourinary: Genitourinary: Denies dysuria Neurologic: Reports Normal hearing present and Denies memory loss Psychiatric: Psychiatric: Denies anxiety, Denies depression and Denies memory loss [facility] Past Medical History Medical History (Updated 03/19/22 @ 12:02 by Chano Diamond MD) Anemia CAD (coronary artery disease) Dyslipidemia Essential hypertension Parkinsons disease Family History Family History Father Bladder cancer Mother No problems noted. Brother No problems noted. Sister No problems noted. Son No problems noted. Son No problems noted. Surgical History Surgical History No pertinent past surgical history Social History Social History Household Members: None Housing: House Do you presently have visiting nurse or other home services: No Alcohol intake: never Patient Tobacco Use Status: Never used Tobacco e-Cigarette/Vaping Use: Never Used service: No Current occupational status: retired Cognitive needs: No Hearing needs: No Vision needs: Yes Meds Allergies Allergy/AdvReac Type Severity Reaction Status Date / Time No Known Allergies Allergy Verified 02/24/22 23:32 [No Known Allergies*] Active Medications: Current Medications Acetaminophen (Acetaminophen 325 Mg Tablet) 650 mg PO Q6H PRN PRN Reason: Pain, Mild (Pain Scale 1-3) Acetaminophen (Acetaminophen Supp 650 Mg Supp.Rect) 650 mg [place] Q4H PRN PRN Reason: Fever Last Admin: 03/06/22 11:57 Dose: 650 mg Apixaban (Apixaban 5 Mg Tablet) 10 mg PO BID [facility] Stop: 03/19/22 09:01 Last Admin: 03/14/22 20:19 Dose: 10 mg Carbidopa/Levodopa (Carbidopa/Levodopa 25/100 Tablet) 2 tab PO TID [facility] Last Admin: 03/14/22 20:19 Dose: 2 tab Metoprolol Tartrate (Metoprolol Tartrate 25 Mg Tablet) 25 mg PO BID [facility]; Protocol Last Admin: 03/14/22 20:19 Dose: 25 mg Ondansetron HCl (Ondansetron Hcl 4 Mg/2 Ml Vial) 4 mg IVPUSH Q8H PRN PRN Reason: Nausea and Vomiting Pantoprazole Sodium (Pantoprazole Sodium 40 Mg/10 Ml Vial) 40 mg IVPUSH DAILY@0630 [facility] Last Admin: 03/15/22 05:22 Dose: 40 mg Pharmacy Consult (Consult Rx Perform Med Rec) 1 each MISCELLANE ONCE PRN PRN Reason: Consult order Pharmacy Consult (Consult Rx Perform Med Rec) 1 each MISCELLANE ONCE PRN PRN Reason: Consult order Sodium Chloride (0.9 % Sodium Chloride Flush 3 Ml Syringe) [facility] Last Admin: 03/15/22 01:57 Dose: 3 ml Home Medications Medication Instructions Recorded Confirmed Last Taken Type carbidopa ER 25 mg-levodopa 100 mg 2 tab PO TID 08/22/20 03/05/22 Unknown History tablet,extended release metoprolol tartrate 25 mg tablet 25 mg PO BID 08/22/20 03/05/22 Unknown History amantadine HCl 100 mg tablet 1 tab PO BID 03/05/22 03/05/22 Unknown History lisinopril 10 mg tablet 1 tab PO DAILY 03/05/22 03/05/22 Unknown History Physical Exam Vital Signs: Vital Signs: Last Vital Signs Temp 97.9 F 03/15/22 04:00 Pulse 102 H 03/15/22 04:00 Resp 18 03/15/22 04:00 BP 106/54 L 03/15/22 04:00 Pulse Ox 100 03/15/22 04:00 O2 Del Method 07/08/22 04:00 O2 Flow Rate 2 03/11/22 03:58 FiO2 28 03/10/22 23:32 BMI result Body Mass Index 21.0 Const: General: no acute distress and ill appearing Nutritional Appearance: average body habitus Orientation/consciousness: patient oriented x3 Limitations: no limitations HEENT: Head: Yes normal to inspection Ears: hearing grossly normal bilaterally Eyes: Sclerae: sclerae normal Pupils: Equal, round and reactive pupils present Neck: Neck: Yes normal visual inspection Chest: Chest palpation & inspection: normal inspection of the chest Resp: Effort & Inspection: normal respiratory effort Auscultation: clear to auscultation bilaterally Cardio: Palpation: normal PMI Rate: regular rate Rhythm: regular rhythm Heart sounds: S1 normal heart sound present, S2 normal heart sound present and no murmurs GI: Palpation (GI): Soft to palpation, nontender and No hepatosplenomegaly present Auscultation: normal bowel sounds Rectal Exam - Male: Yes deferred Skin: General skin exam: no rashes or lesions noted Neuro: General: patient oriented x3, gait normal and moves all extremities Cranial nerves: Yes Equal, round and reactive pupils present and Yes Normal hearing present Psych: Appearance: grossly normal Mental Status: mental status grossly normal Results Labs CBC & Chem 7: 03/19/22 08:01 03/16/22 01:12 Labs: Short CBC 03/14/22 Range/Units 11:07 WBC 7.2 (4.8-10.8) X10*3/uL Hgb 10.3 L (14.0-18.0) g/dl Hct 30.1 L (42.0-52.0) % Plt Count 274 D (160-400) X10*3/uL BMP 03/14/22 10:14 Sodium 137 Potassium 4.3 Chloride 107 Carbon Dioxide 21 L BUN 35 H D Creatinine 0.67 Calcium 7.5 L Cardiac Enzymes 03/14/22 Range/Units 10:14 Total Creatine Kinase 49 D (38-174) U/L Liver Function 03/14/22 Range/Units 10:14 Total Bilirubin 1.0 (0.0-1.0) mg/dL AST 46 H (5-37) U/L ALT 125 H (0-40) U/L Alkaline Phosphatase 97 (39-117) U/L Albumin 2.7 L (3.5-5.0) g/dL Microbiology Microbiology Results: Microbiology 03/08/22 17:20 Blood - Venous Blood Culture - Final No growth after 5 days. 03/08/22 17:20 Blood - Venous Blood Culture - Final No growth after 5 days. 03/05/22 11:06 Blood - Venous Blood Culture - Final No growth after 5 days. 03/05/22 10:24 Blood - Venous Blood Culture - Final No growth after 5 days. Assessment and Plan (1) Dysphagia: Status: Acute (2) GI bleed: Status: Acute Plan 71 YM with hx of CAD, HTN, Parkinson's disease, HLD hospitalized [place] [facility] [place] with NSTEMI/rhabdomyolysis, pneumonia. He was switched to Eliquis on 03/12/22 for rt upper extremity DVT. Ptt had 3-4 episodes of black tarry stools yesterday and one today. H&H on 03/12 was 11.2 and 32.6, decreased to 10.3 in 30.1 on 03/14/22 Follow-up labs today showed H&H of 9.9 in 29 in the am, decreased to 9.1 & 27.2 at 10 am and stable at 9.3 & 27.4 at 4 pm. Elevated LFTs likely due to rhabdomyolysis Pt had an MBS and made NPO due to aspiration He reviewed his options with Dr Watson (his Neurologist) today and decided to proceed with PEG placement. RECOMMENDATIONS: 1. Start on PPI infusion. 2. Monitor H & H Q 8 hrly x 24 hrs and then once a day if stable. 3. Type and cross match for 2 units PRBC 4. Agree with holding anticoagulation. 5. EGD with PEG placement scheduled for 03/18/22. If pt has continued black stools with a declining H&H, please contact Dr Butt to schedule urgent EGD over the weekend Pt was signed out to Dr Butt. Procedures Date of Service Date of Service: 03/15/22
[2022-03-15 07:52] LABS: Anion Gap 13 (12-20); Blood Urea Nitrogen 52 mg/dL (9-16); Calcium 7.7 mg/dL (8.4-10.2); Carbon Dioxide 23 mmol/L (22-29); Chloride 108 mmol/L (96-108); Creatinine Clr Calc Pharmacy 89.8; Estimated Glomerular Filt Rate > 60; Glucose Random 110 mg/dL (60-115); Potassium 4.4 mmol/L (3.3-5.1); Sodium 140 mmol/L (135-145)
[2022-03-15 08:00] VITALS: BP 120/60; PULSE 102; RESP 20; TEMP 37.1; O2SAT 98
[2022-03-15 09:05] LABS: Hematocrit 29.4 % (42.0-52.0); Hemoglobin 9.9 g/dl (14.0-18.0); Mean Corpuscular HGB Conc 33.7 g/dl (31.0-36.0); Mean Corpuscular Hemoglobin 30.4 pg (27.0-33.0); Mean Corpuscular Volume 90.2 fL (80.0-98.0); Mean Platelet Volume 9.3 fL (9.4-12.4); Platelet Count 361 X10*3/uL (160-400); Red Blood Count 3.26 X10*6/uL (4.60-5.80); Red Cell Distribution Width 13.3 % (11.0-16.0); White Blood Count 8.2 X10*3/uL (4.8-10.8)
[2022-03-15 09:08] LABS: INTERNATIONAL NORM RATIO 1.9 (0.9-1.1); Prothrombin Time 22.5 SEC (10.0-13.1)
--- NOTE | 2022-03-15 09:39 | P.CNNE_ITS ---
History of Present Illness Data of Consult Service Date: 03/15/22 Primary Care Provider: Rhiannon Saxena MD HPI Reason for consult: Parkinson's 71 years old man who has dementia/parkinsonism complex admitted hospital with significant hypernatremia and encephalopathy. Now electrolyte parameters were better and his mental status was better. He has failed swallowing eval and a formal barium swallow study revealed aspiration. I was asked to see him as he was requesting to be seen by me. He stated that I had diagnosed him with Parkinson's in the past but I was unable to find records. In any case at this time he was not in any distress. [facility] Past Medical History Medical History (Updated 03/15/22 @ 08:43 by Nya Boucher MD) Anemia CAD (coronary artery disease) Dyslipidemia Essential hypertension Parkinsons disease Family History Family History Father Bladder cancer Mother No problems noted. Brother No problems noted. Sister No problems noted. Son No problems noted. Son No problems noted. Surgical History Surgical History No pertinent past surgical history Social History Social History Household Members: None Housing: House Do you presently have visiting nurse or other home services: No Alcohol intake: never Patient Tobacco Use Status: Never used Tobacco e-Cigarette/Vaping Use: Never Used service: No Current occupational status: retired Cognitive needs: No Hearing needs: No Vision needs: Yes Meds Allergies Allergy/AdvReac Type Severity Reaction Status Date / Time No Known Allergies Allergy Verified 02/24/22 23:32 [No Known Allergies*] Active Medications: Current Medications Acetaminophen (Acetaminophen 325 Mg Tablet) 650 mg PO Q6H PRN PRN Reason: Pain, Mild (Pain Scale 1-3) Acetaminophen (Acetaminophen Supp 650 Mg Supp.Rect) 650 mg NM Q4H PRN PRN Reason: Fever Last Admin: 03/06/22 11:57 Dose: 650 mg Apixaban (Apixaban 5 Mg Tablet) 10 mg PO BID [facility] Last Admin: 03/14/22 20:19 Dose: 10 mg Carbidopa/Levodopa (Carbidopa/Levodopa 25/100 Tablet) 2 tab PO TID [facility] Last Admin: 03/14/22 20:19 Dose: 2 tab Heparin Sodium (Porcine) (Heparin Sodium,Porcine 5,000 Unit/Ml Vial) 2,700 unit 40 unit/kg (2700 unit) IVPUSH PROTOCOL BOLUS PRN; Protocol PRN Reason: 40 unit/kg - Heparin Protocol Heparin Sodium (Porcine) (Heparin Sodium,Porcine 5,000 Unit/Ml Vial) 5,300 unit 80 unit/kg (5300 unit) IVPUSH PROTOCOL BOLUS PRN; Protocol PRN Reason: 80 unit/kg - Heparin Protocol Lactated Ringer's (Lr) 1,000 mls @ 80 mls/hr IVCONT .[id number] [facility] Heparin Sodium/Sodium Chloride () 25,000 unit in 250 mls @ 0 mls/hr IVCONT .Q0M [facility]; Protocol Metoprolol Tartrate (Metoprolol Tartrate 25 Mg Tablet) 25 mg PO BID [facility]; Protoc ol Last Admin: 03/14/22 20:19 Dose: 25 mg Metoprolol Tartrate (Metoprolol Tartrate 5 Mg/5 Ml Vial) 2.5 mg IVPUSH Q6H PRN PRN Reason: TACHYCADIA Ondansetron HCl (Ondansetron Hcl 4 Mg/2 Ml Vial) 4 mg IVPUSH Q8H PRN PRN Reason: Nausea and Vomiting Pantoprazole Sodium (Pantoprazole Sodium 40 Mg/10 Ml Vial) 40 mg IVPUSH BID@0630,1630 [facility] Pharmacy Consult (Consult Rx Perform Med Rec) 1 each MISCELLANE ONCE PRN PRN Reason: Consult order Pharmacy Consult (Consult Rx Perform Med Rec) 1 each MISCELLANE ONCE PRN PRN Reason: Consult order Sodium Chloride (0.9 % Sodium Chloride Flush 3 Ml Syringe) 3 ml IVFLUSH QSHIFT [facility] Last Admin: 03/15/22 01:57 Dose: 3 ml Home Medications Medication Instructions Recorded Confirmed Last Taken Type carbidopa ER 25 mg-levodopa 100 mg 2 tab PO TID 08/22/20 03/05/22 Unknown History tablet,extended release metoprolol tartrate 25 mg tablet 25 mg PO BID 08/22/20 03/05/22 Unknown History amantadine HCl 100 mg tablet 1 tab PO BID 03/05/22 03/05/22 Unknown History lisinopril 10 mg tablet 1 tab PO DAILY 03/05/22 03/05/22 Unknown History Physical Exam Vital Signs: Vital Signs: Last Vital Signs Temp 98.7 F 03/15/22 08:00 Pulse 102 H 03/15/22 08:00 Resp 20 03/15/22 08:00 BP 120/60 03/15/22 08:00 Pulse Ox 98 03/15/22 08:00 O2 Del Method 03/15/22 08:00 O2 Flow Rate 2 03/11/22 03:58 FiO2 28 03/10/22 23:32 BMI result Body Mass Index 21.0 Neuro: Other: Alert and awake with normal spontaneity of speech fluency comprehension and affect. Moderate cogwheeling rigidity was noted with bradykinesia and upper extremities and lower extremities. Results Labs CBC & Chem 7: 03/15/22 08:45 03/15/22 06:40 Labs: Short CBC 03/14/22 03/15/22 Range/Units 11:07 08:45 WBC 7.2 8.2 (4.8-10.8) X10*3/uL Hgb 10.3 L 9.9 L (14.0-18.0) g/dl Hct 30.1 L 29.4 L (42.0-52.0) % Plt Count 274 D 361 D (160-400) X10*3/uL BMP 03/14/22 03/15/22 10:14 06:40 Sodium 137 140 Potassium 4.3 4.4 Chloride 107 108 Carbon Dioxide 21 L 23 BUN 35 H D 52 H Creatinine 0.67 0.70 Calcium 7.5 L 7.7 L Cardiac Enzymes 03/14/22 Range/Units 10:14 Total Creatine Kinase 49 D (38-174) U/L Liver Function 03/14/22 Range/Units 10:14 Total Bilirubin 1.0 (0.0-1.0) mg/dL AST 46 H (5-37) U/L ALT 125 H (0-40) U/L Alkaline Phosphatase 97 (39-117) U/L Albumin 2.7 L (3.5-5.0) g/dL Microbiology Microbiology Results: Microbiology 03/08/22 17:20 Blood - Venous Blood Culture - Final No growth after 5 days. 03/08/22 17:20 Blood - Venous Blood Culture - Final No growth after 5 days. 03/05/22 11:06 Blood - Venous Blood Culture - Final No growth after 5 days. 03/05/22 10:24 Blood - Venous Blood Culture - Final No growth after 5 days. Assessment and Plan (1) Parkinsons disease: Status: Acute 71 years old man with severe Parkinson's. He also has dysphagia and has failed barium swallow. I talked to him and recommended that he should have a PEG placed. This could also be used on as needed basis but at this time he needed for medicines and nutrition especially Parkinson's meds. I notice that he is on carbidopa levodopa extended release 2 tablets 3 times a day. Instead, I would recommend regular carbidopa levodopa 25/100 to 4 times a day starting with 06:00 in the morning and giving a dose every 4 hours. He might require additional levodopa but the dose could be adjusted later. Procedures Date of Service Date of Service: 03/15/22
--- NOTE | 2022-03-15 09:59 | MHC.CLN ---
F/U FAMILY MEETING TODAY TO DISCUSS PEG PLACEMENT IF TF NEEDED; RECOMMEND PROMOTE AT MAX GAOL RATE 75ML/HR WITH 120ML FREE WATER FLUSHES Q 6 HRS TO PROVIDE 1800KCALS (27KCALS/KG), 112.5G PROTEIN (1.7G/KG) FOR WOUND HEALING, 1990ML TOTLA WATER FORMULA AND FLUSHES (30ML/KG) START FORMULA AT 20ML/HR AND INCREASE BY 10ML Q 4 HRS UNTIL MAX GOAL IS REACHED MONITOR TOLERANCE, RESIDUALS AND LYTES FOLLOWING WITH TEAM
[2022-03-15 10:25] LABS: Hematocrit 27.2 % (42.0-52.0); Hemoglobin 9.1 g/dl (14.0-18.0); Mean Corpuscular HGB Conc 33.5 g/dl (31.0-36.0); Mean Corpuscular Volume 89.8 fL (80.0-98.0); Mean Platelet Volume 9.3 fL (9.4-12.4); Platelet Count 361 X10*3/uL (160-400); Red Blood Count 3.03 X10*6/uL (4.60-5.80); Red Cell Distribution Width 13.5 % (11.0-16.0)
--- NOTE | 2022-03-15 10:25 | PC.NURSE ---
Per Dr. Snow, plan was to start patient on a Heparin gtt. This RN notified MD that the patient was having dark, tarry stools and OBS came back positive. Care switched over to Dr. Diamond. Dr. Diamond made aware. Per Dr. Diamond, hold Heparin gtt for now
[2022-03-15] MEDS: Lactated Ringers 1,000 ML 80 ML IVCONT (10:33)
[2022-03-15 10:34] LABS: INTERNATIONAL NORM RATIO 1.8 (0.9-1.1); Prothrombin Time 21.4 SEC (10.0-13.1)
[2022-03-15 10:37] LABS: PTT Heparin Drip 37.2 SEC (53-77.9)
--- NOTE | 2022-03-15 11:22 | P.PNIM_ITS ---
Subjective Subjective Date of Service: 03/15/22 Interval History: f/u on dvt, aspiration no new issues Review of Systems Denies chest pain Denies shortness of breath Denies nausea vomiting diarrhea Denies fever chills Admits poor cough Physical Exam Vital Signs: Vital Signs: Last Vital Signs Temp 98.7 F 03/15/22 08:00 Pulse 102 H 03/15/22 08:00 Resp 20 03/15/22 08:00 BP 120/60 03/15/22 08:00 Pulse Ox 98 03/15/22 08:00 O2 Del Method 03/15/22 08:00 O2 Flow Rate 2 03/11/22 03:58 FiO2 28 03/10/22 23:32 BMI result Body Mass Index 21.0 Objective Data Active Medications Acetaminophen (Acetaminophen 325 Mg Tablet) 650 mg PO Q6H PRN PRN Reason: Pain, Mild (Pain Scale 1-3) Acetaminophen (Acetaminophen Supp 650 Mg Supp.Rect) 650 mg [place] Q4H PRN PRN Reason: Fever Last Admin: 03/06/22 11:57 Dose: 650 mg Documented By: ANA Apixaban (Apixaban 5 Mg Tablet) 10 mg PO BID [facility] Last Admin: 03/14/22 20:19 Dose: 10 mg Documented By: MICKEY Carbidopa/Levodopa (Carbidopa/Levodopa 25/100 Tablet) 2 tab PO TID [facility] Last Admin: 03/15/22 10:34 Dose: Not Given Documented By: JONATHAN Non-Admin Reason: NPO Heparin Sodium (Porcine) (Heparin Sodium,Porcine 5,000 Unit/Ml Vial) 2,700 unit 40 unit/kg (2700 unit) IVPUSH PROTOCOL BOLUS PRN; Protocol PRN Reason: 40 unit/kg - Heparin Protocol Heparin Sodium (Porcine) (Heparin Sodium,Porcine 5,000 Unit/Ml Vial) 5,300 unit 80 unit/kg (5300 unit) IVPUSH PROTOCOL BOLUS PRN; Protocol PRN Reason: 80 unit/kg - Heparin Protocol Lactated Ringer's (Lr) 1,000 mls @ 80 mls/hr IVCONT .[id number] [facility] Last Admin: 03/15/22 10:33 Dose: 80 mls/hr Documented By: JONATHAN Heparin Sodium/Sodium Chloride () 25,000 unit in 250 mls @ 0 mls/hr IVCONT .Q0M [facility]; Protocol Metoprolol Tartrate (Metoprolol Tartrate 25 Mg Tablet) 25 mg PO BID [facility]; Protocol Last Admin: 03/14/22 20:19 Dose: 25 mg Documented By: MICKEY Metoprolol Tartrate (Metoprolol Tartrate 5 Mg/5 Ml Vial) 2.5 mg IVPUSH Q6H PRN PRN Reason: TACHYCADIA Ondansetron HCl (Ondansetron Hcl 4 Mg/2 Ml Vial) 4 mg IVPUSH Q8H PRN PRN Reason: Nausea and Vomiting Pantoprazole Sodium (Pantoprazole Sodium 40 Mg/10 Ml Vial) 40 mg IVPUSH BID@0630,1630 [facility] Pharmacy Consult (Consult Rx Perform Med Rec) 1 each MISCELLANE ONCE PRN PRN Reason: Consult order Pharmacy Consult (Consult Rx Perform Med Rec) 1 each MISCELLANE ONCE PRN PRN Reason: Consult order Sodium Chloride (0.9 % Sodium Chloride Flush 3 Ml Syringe) 3 ml IVFLUSH QSHIFT [facility] Last Admin: 03/15/22 10:34 Dose: 3 ml Documented By: JONATHAN Labs CBC & Chem 7: 03/15/22 10:10 03/15/22 06:40 Labs: Laboratory Results - last 24 hr 03/14/22 03/14/22 03/15/22 20:36 20:36 06:40 MCV MCH MCHC RDW Plt Count MPV Absolute Nucleated RBC Nucleated RBC % (auto) PT INR aPTT Heparin Protocol Anion Gap 13 Estim Creat Clear Calc 89.8 Estimated GFR > 60 Random Glucose 110 Calcium 7.7 L Stool Occult Blood POSITIVE C. difficile Tox B Gene NEGATIVE 03/15/22 03/15/22 03/15/22 08:45 08:45 10:10 MCV 90.2 89.8 MCH 30.4 30.0 MCHC 33.7 33.5 RDW 13.3 13.5 Plt Count 361 D 361 MPV 9.3 L 9.3 L Absolute Nucleated RBC 0.000 0.000 Nucleated RBC % (auto) 0.0 0.0 PT 22.5 H INR 1.9 H aPTT Heparin Protocol Anion Gap Estim Creat Clear Calc Estimated GFR Random Glucose Calcium Stool Occult Blood C. difficile Tox B Gene 03/15/22 10:10 MCV MCH MCHC RDW Plt Count MPV Absolute Nucleated RBC Nucleated RBC % (auto) PT 21.4 H INR 1.8 H aPTT Heparin Protocol 37.2 L D Anion Gap Estim Creat Clear Calc Estimated GFR Random Glucose Calcium Stool Occult Blood C. difficile Tox B Gene Assessment and Plan (1) Non-ST elevation GA (NSTEMI): Status: Acute (2) Pneumonia: Status: Acute (3) Parkinsons disease: Status: Acute (4) Malnutrition of moderate degree: Status: Acute Plan hospital d#11 71yo M with Parkinson disease, CAD, HTN, HLD found on ground by his son, admitted with PNA + NSTEMI + malnutrition # RUE DVT - apixaban started 03/12 at 10 mg bid, switch to 5 mg bid on 03/19 # PNA - completed 7d of pip/rubio + vanco, d/c ABX, BCx negative, PCT low, not hypoxic # NSTEMI vs. rhabdomyolysis - Cardiology consulted, treated medically with heparinization + ASA; resumed metoprolol, held statin given rhabdomyolysis # moderate pr/hattie malnutrition - d/c'ed TPN 03/12/22, encourage PO intake # aspiration - ongoing MATERIALS SCHEDULER- currently NDD1 solids + pudding-thick liquids; plan MBSS today # HTN - metoprolol # Parkinsons disease: seen by Dr. Watson today with the following remark: I talked to him and recommended that he should have a PEG placed.? This could also be used on as needed basis but at this time he needed for medicines and nutrition especially Parkinson's meds.? I notice that he is on carbidopa levodopa extended release 2 tablets 3 times a day.? Instead, I would recommend regular carbidopa levodopa 25/100 to 4 times a day starting with 06:00 in the morning and giving a dose every 4 hours.? He might require additional levodopa but the dose could be adjusted later . He's agreable for a peg # VTE ppx: LMWH # dispo: STR In my clinical judgment, the patient requires continued hospitalization for the following reasons: nutrition, feeding route, placement Quality Stroke Does the patient have a stroke diagnosis?: No VTE Prior VTE?: No VTE Risk Level:: Medical - moderate - high VTE Device Contraindication: Treatment Not Indicated VTE Drug Contraindication: N/A - Med Ordered
--- NOTE | 2022-03-15 11:38 | MHC.SLORD ---
Speech Language Pathology Order Status: ASSIGNMENT DESK EDITOR provided further education to patient RE: MBSS results, recommendations. Discussed w/ MD via [place] Message. MD will meet with patient to discuss PEG later today.
[2022-03-15 12:00] VITALS: BP 122/60; PULSE 109; RESP 20; TEMP 36.6; O2SAT 98
--- NOTE | 2022-03-15 13:24 | MHC.CM.PN ---
Patient is not yet medically cleared for dc; there will be a family conference to determine if Patient will proceed wit PEG tube placement.PT is recommending STR and CM will continue to follow.
[2022-03-15 14:50] VITALS: BP 122/60; PULSE 109; O2SAT 98
[2022-03-15 15:54] VITALS: BP 104/64; PULSE 112; RESP 16; TEMP 36.8; O2SAT 97
[2022-03-15 16:36] LABS: Hematocrit 27.4 % (42.0-52.0); Hemoglobin 9.3 g/dl (14.0-18.0); Mean Corpuscular HGB Conc 33.9 g/dl (31.0-36.0); Mean Corpuscular Hemoglobin 30.9 pg (27.0-33.0); Mean Platelet Volume 9.4 fL (9.4-12.4); Platelet Count 376 X10*3/uL (160-400); Red Blood Count 3.01 X10*6/uL (4.60-5.80); Red Cell Distribution Width 13.5 % (11.0-16.0); White Blood Count 7.7 X10*3/uL (4.8-10.8)
[2022-03-15] MEDS: Pantoprazole Sodium 80 MG in 0.9 % Sodium Chloride 80 ML 10 MG IV (17:22)
[2022-03-15] MEDS: Dextrose 5 % 1,000 ML 100 ML IVCONT (17:24)
[2022-03-15 20:00] VITALS: BP 121/76; PULSE 120; RESP 16; TEMP 36.4; O2SAT 94
[2022-03-16] VITALS (10 sets, daily range): BP systolic 95–123; BP diastolic 49–63; PULSE 72–160; RESP 14–18; TEMP 36.3–36.8; O2SAT 97–100
--- NOTE | 2022-03-16 | ECG_ITS ---
Test Reason : cp Blood Pressure : / mmHG Vent. Rate : 156 BPM Atrial Rate : 000 BPM P-R Int : 000 ms QRS Dur : 106 ms QT Int : 304 ms P-R-T Axes : 000 044 270 degrees QTc Int : 489 ms Atrial fibrillation with rapid ventricular response Possible Inferior infarct (cited on or before 03-MAY-2020) Abnormal ECG When compared with ECG of 05-MAR-2022 11:06, Atrial fibrillation has replaced Sinus rhythm Questionable change in initial forces of Inferior leads ST no longer elevated in Inferior leads ST more depressed Lateral leads Nonspecific T wave abnormality has replaced inverted T waves in Inferior leads Referred By: Chano Diamond Electronically Signed By:VANCE GÓMEZ MD
[2022-03-16] MEDS: Metoprolol Tartrate 5 MG/5 ML VIAL IVPUSH (01:10)
[2022-03-16] MEDS: 0.9 % Sodium Chloride Flush 3 ML SYRINGE IVFLUSH (01:17)
--- NOTE | 2022-03-16 01:23 | PC.NURSE ---
Patients HR noted to increase from low 100s to 160s/170s continuously going up and down. Pt assessed, no chest pain or palpitations, did c/o mild anxiety. Dr. Cartwright notified, one time dose metoprolol IV and labs ordered. EKG reading AFIB RVR. HR now reading 120s/130s s/p metoprolol IV. Will continue to monitor
[2022-03-16 01:47] LABS: Anion Gap 12 (12-20); Blood Urea Nitrogen 40 mg/dL (9-16); Calcium 7.8 mg/dL (8.4-10.2); Carbon Dioxide 25 mmol/L (22-29); Chloride 107 mmol/L (96-108); Creatinine Clr Calc Pharmacy 77.6; Estimated Glomerular Filt Rate > 60; Glucose Random 138 mg/dL (60-115); Sodium 140 mmol/L (135-145)
[2022-03-16] MEDS: Pantoprazole Sodium 80 MG in 0.9 % Sodium Chloride 80 ML 10 MG IV ×2 (01:58→13:00)
[2022-03-16] MEDS: LORazepam 2 MG/ML VIAL 0.25 MG IVPUSH (02:05)
[2022-03-16] MEDS: Acetaminophen Supp 650 MG SUPP.RECT PR (02:07)
[2022-03-16] MEDS: Metoprolol Tartrate 5 MG/5 ML VIAL 2.5 MG IVPUSH (02:08)
[2022-03-16] MEDS: Dextrose 5 % 1,000 ML 100 ML IVCONT ×3 (02:15→22:35)
--- NOTE | 2022-03-16 03:03 | PC.NURSE ---
Second dose of metoprolol 2.5 mg IV given. PT noted to be converting in and out of NSR and AFIB. Dr. Cartwright notified. Will continue to monitor.
[2022-03-16 06:42] LABS: Hematocrit 25.4 % (42.0-52.0); Hemoglobin 8.5 g/dl (14.0-18.0); Mean Corpuscular HGB Conc 33.5 g/dl (31.0-36.0); Mean Corpuscular Hemoglobin 30.7 pg (27.0-33.0); Mean Corpuscular Volume 91.7 fL (80.0-98.0); Mean Platelet Volume 9.9 fL (9.4-12.4); Platelet Count 383 X10*3/uL (160-400); Red Blood Count 2.77 X10*6/uL (4.60-5.80); Red Cell Distribution Width 13.4 % (11.0-16.0); White Blood Count 8.9 X10*3/uL (4.8-10.8)
[2022-03-16 06:47] LABS: INTERNATIONAL NORM RATIO 1.4 (0.9-1.1); Prothrombin Time 16.6 SEC (10.0-13.1)
[2022-03-16 08:28] LABS: Hemoglobin 8.5 g/dl (14.0-18.0); Mean Corpuscular HGB Conc 32.7 g/dl (31.0-36.0); Mean Corpuscular Hemoglobin 30.7 pg (27.0-33.0); Mean Corpuscular Volume 93.9 fL (80.0-98.0); Mean Platelet Volume 9.6 fL (9.4-12.4); Platelet Count 409 X10*3/uL (160-400); Red Blood Count 2.77 X10*6/uL (4.60-5.80); Red Cell Distribution Width 13.7 % (11.0-16.0); White Blood Count 7.4 X10*3/uL (4.8-10.8)
[2022-03-16 10:14] LABS: PTT Heparin Drip 33.5 SEC (53-77.9)
--- NOTE | 2022-03-16 11:09 | PM.GIPN ---
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 03/08/22 17:20 Blood - Venous Blood Culture - Final No growth after 5 days. 03/05/22 11:06 Blood - Venous Blood Culture - Final No growth after 5 days. 03/05/22 10:24 Blood - Venous Blood Culture - Final No growth after 5 days. Procedures Date of Service Date of Service: 03/16/22 Progress Note: A&P Assessment and plan (1) Dysphagia: Status: Acute Assessment and Plan: No active GI bleeding Hct down slightly, probably dilutional. EGD with PEG planned for 03/18. Time Spent With Patient Time: Total time spent is greater than 50% in coordination of care (as documented) at patient's floor/unit and/or counseling patient: Quality Stroke Does the patient have a stroke diagnosis?: No VTE Prior VTE?: No VTE Risk Level:: Medical - moderate - high VTE Device Contraindication: Treatment Not Indicated VTE Drug Contraindication: N/A - Med Ordered
--- NOTE | 2022-03-16 11:37 | P.PNIM_ITS ---
Subjective Subjective Date of Service: 03/16/22 Interval History: f/u on dvt, aspiration no new issues, no gi bleed nor further Review of Systems Denies chest pain Denies shortness of breath Denies nausea vomiting diarrhea Denies fever chills Admits poor cough Physical Exam Vital Signs: Vital Signs: Last Vital Signs Temp 97.7 F 03/16/22 11:11 Pulse 88 03/16/22 11:11 Resp 16 03/16/22 11:11 BP 118/56 L 03/16/22 11:11 Pulse Ox 98 03/16/22 11:11 O2 Del Method 03/16/22 11:11 O2 Flow Rate 2 03/11/22 03:58 FiO2 28 03/10/22 23:32 BMI result Body Mass Index 21.0 Objective Data Active Medications Acetaminophen (Acetaminophen 325 Mg Tablet) 650 mg PO Q6H PRN PRN Reason: Pain, Mild (Pain Scale 1-3) Acetaminophen (Acetaminophen Supp 650 Mg Supp.Rect) 650 mg LA Q4H PRN PRN Reason: Fever Last Admin: 03/16/22 02:07 Dose: 650 mg Documented By: KALEN Carbidopa/Levodopa (Carbidopa/Levodopa 25/100 Tablet) 2 tab PO TID [facility] Last Admin: 03/16/22 10:40 Dose: Not Given Documented By: SCOTT Non-Admin Reason: NPO Heparin Sodium (Porcine) (Heparin Sodium,Porcine 5,000 Unit/Ml Vial) 2,700 unit 40 unit/kg (2700 unit) IVPUSH PROTOCOL BOLUS PRN; Protocol PRN Reason: 40 unit/kg - Heparin Protocol Heparin Sodium (Porcine) (Heparin Sodium,Porcine 5,000 Unit/Ml Vial) 5,300 unit 80 unit/kg (5300 unit) IVPUSH PROTOCOL BOLUS PRN; Protocol PRN Reason: 80 unit/kg - Heparin Protocol Lactated Ringer's (Lr) 1,000 mls @ 80 mls/hr IVCONT .[id number] [facility] Last Infusion: 03/15/22 17:25 Dose: 0 mls/hr Documented By: JONATHAN Heparin Sodium/Sodium Chloride () 25,000 unit in 250 mls @ 0 mls/hr IVCONT .Q0M [facility]; Protocol Dextrose (D5w) 1,000 mls @ 100 mls/hr IVCONT .Q10H [facility] Last Admin: 03/16/22 02:15 Dose: 100 mls/hr Documented By: KALEN Pantoprazole Sodium 80 mg/ (Sodium Chloride) 100 mls @ 10 mls/hr IV .Q10H [facility] Last Admin: 03/16/22 01:58 Dose: 8 mg/hr, 10 mls/hr Documented By: KALEN Metoprolol Tartrate (Metoprolol Tartrate 25 Mg Tablet) 25 mg PO BID [facility]; Protocol Last Admin: 03/14/22 20:19 Dose: 25 mg Documented By: MICKEY Metoprolol Tartrate (Metoprolol Tartrate 5 Mg/5 Ml Vial) 2.5 mg IVPUSH Q6H PRN PRN Reason: TACHYCADIA Last Admin: 03/16/22 02:08 Dose: 2.5 mg Documented By: KALEN Metoprolol Tartrate (Metoprolol Tartrate 5 Mg/5 Ml Vial) 5 mg IVPUSH Q6H PRN PRN Reason: HR>125 Ondansetron HCl (Ondansetron Hcl 4 Mg/2 Ml Vial) 4 mg IVPUSH Q8H PRN PRN Reason: Nausea and Vomiting Pantoprazole Sodium (Pantoprazole Sodium 40 Mg/10 Ml Vial) 40 mg IVPUSH BID@0630,1630 [facility] Last Admin: 03/16/22 05:45 Dose: Not Given Documented By: KALEN Non-Admin Reason: Physician Held Med Comments: protonix drip running Pharmacy Consult (Consult Rx Perform Med Rec) 1 each MISCELLANE ONCE PRN PRN Reason: Consult order Pharmacy Consult (Consult Rx Perform Med Rec) 1 each MISCELLANE ONCE PRN PRN Reason: Consult order Sodium Chloride (0.9 % Sodium Chloride Flush 3 Ml Syringe) 3 ml IVFLUSH QSHIFT [facility] Last Admin: 03/16/22 09:41 Dose: Not Given Documented By: SCOTT Non-Admin Reason: IV Running Labs CBC & Chem 7: 03/16/22 07:38 03/16/22 01:12 Labs: Laboratory Results - last 24 hr 03/15/22 03/15/22 03/16/22 16:15 16:57 01:12 MCV 91.0 MCH 30.9 MCHC 33.9 RDW 13.5 Plt Count 376 MPV 9.4 Absolute Nucleated RBC 0.000 Nucleated RBC % (auto) 0.0 PT INR aPTT Heparin Protocol Anion Gap 12 Estim Creat Clear Calc 77.6 Estimated GFR > 60 Random Glucose 138 H Calcium 7.8 L Magnesium 2.0 Blood Type O Positive Antibody Screen NEGATIVE 03/16/22 03/16/22 03/16/22 06:02 06:02 07:38 MCV 91.7 93.9 MCH 30.7 30.7 MCHC 33.5 32.7 RDW 13.4 13.7 Plt Count 383 409 H MPV 9.9 9.6 Absolute Nucleated RBC 0.000 0.000 Nucleated RBC % (auto) 0.0 0.0 PT 16.6 H INR 1.4 H aPTT Heparin Protocol Anion Gap Estim Creat Clear Calc Estimated GFR Random Glucose Calcium Magnesium Blood Type Antibody Screen 03/16/22 09:53 MCV MCH MCHC RDW Plt Count MPV Absolute Nucleated RBC Nucleated RBC % (auto) PT INR aPTT Heparin Protocol 33.5 L Anion Gap Estim Creat Clear Calc Estimated GFR Random Glucose Calcium Magnesium Blood Type Antibody Screen Assessment and Plan (1) Non-ST elevation [place] (NSTEMI): Status: Acute (2) Pneumonia: Status: Acute (3) Parkinsons disease: Status: Acute (4) Malnutrition of moderate degree: Status: Acute Plan hospital d#11 71yo M with Parkinson disease, CAD, HTN, HLD found on ground by his son, admitted with PNA + NSTEMI + malnutrition # RUE DVT - apixaban started 03/12 at 10 mg bid, switch to 5 mg bid on 03/19 -he had decrease H/H with melana and anticoagulation was on hold, but seem stable now -starting heparin until EGD on friday #Dysphagia with possible aspiration complicated by moderate protein calory malnu trition -he is agreable to PEG planned for 03/08 -reasses for oral diet until peg # PNA - completed 7d of pip/rubio + vanco, d/c ABX, BCx negative, PCT low, not hypoxic # NSTEMI vs. 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 Watson today with the following remark: I talked to him and recommended that he should have a PEG placed.? This could also be used on as needed basis but at this time he needed for medicines and nutrition especially Parkinson's meds.? I notice that he is on carbidopa levodopa extended release 2 tablets 3 times a day.? Instead, I would recommend regular carbidopa levodopa 25/100 to 4 times a day starting with 06:00 in the morning and giving a dose every 4 hours.? He might require additional levodopa but the dose could be adjusted later . He's agreable for a peg # VTE ppx: LMWH # dispo: STR In my clinical judgment, the patient requires continued hospitalization for the following reasons: nutrition, feeding route, placement Quality Stroke Does the patient have a stroke diagnosis?: No VTE Prior VTE?: No VTE Risk Level:: Medical - moderate - high VTE Device Contraindication: Treatment Not Indicated VTE Drug Contraindication: N/A - Med Ordered
[2022-03-16] MEDS: Heparin Sodium,Porcine/1/2NS 25,000 UNIT/250 ML IV.SOLN 7.99 UNIT IVCONT (12:24)
[2022-03-16 13:11] LABS: PTT Heparin Drip 31.2 SEC (53-77.9)
--- NOTE | 2022-03-16 14:38 | PC.NURSE ---
texted me to discontinue the LR for room 462 however I cannot d/c in the system.
--- NOTE | 2022-03-16 14:51 | PC.NURSE ---
This pt's PTT was drawn at 0953; a second PTT was taken at 1254 which showed a lower PTT. I consulted with pharmacy--they said that because the second was drawn so close to the first I should disregard it, keep the rate as is, and reevaluate when the results of the 1830 draw are in.
[2022-03-16 18:46] LABS: PTT Heparin Drip 47.2 SEC (53-77.9)
[2022-03-16] MEDS: Heparin Sodium,Porcine 5,000 UNIT/ML VIAL 2700 UNIT IVPUSH (19:32)
[2022-03-17] MEDS: Pantoprazole Sodium 80 MG in 0.9 % Sodium Chloride 80 ML 10 MG IV (01:08)
[2022-03-17 02:09] LABS: PTT Heparin Drip 70.8 SEC (53-77.9)
[2022-03-17 03:23] VITALS: BP 108/54; PULSE 98; RESP 14; TEMP 37.1; O2SAT 97
[2022-03-17 07:17] LABS: PTT Heparin Drip 69.5 SEC (53-77.9)
[2022-03-17 09:01] VITALS: BP 131/60; PULSE 97; RESP 18; TEMP 36.6; O2SAT 98
[2022-03-17] MEDS: Dextrose 5 % 1,000 ML 100 ML IVCONT (09:29)
--- NOTE | 2022-03-17 09:51 | P.PNIM_ITS ---
Subjective Subjective Date of Service: 03/17/22 Interval History: f/u on dvt, aspiration no new issues, no gi bleed nor further, no pain Review of Systems Denies chest pain Denies shortness of breath Denies nausea vomiting diarrhea Denies fever chills Admits poor cough Physical Exam Vital Signs: Vital Signs: Last Vital Signs Temp 97.9 F 03/17/22 09:01 Pulse 97 03/17/22 09:01 Resp 18 03/17/22 09:01 BP 131/60 03/17/22 09:01 Pulse Ox 98 03/17/22 09:01 O2 Del Method 03/17/22 09:01 O2 Flow Rate 2 03/11/22 03:58 FiO2 28 03/10/22 23:32 BMI result Body Mass Index 21.0 Const: Other: General: AO X 3, no acute distress Resp: CTA bilateral CVS: S1,S2,RRR GI: +BS, NT, no distention Skin: No rash Neuro: motor grossly intact Psych: appropriate affect Objective Data Active Medications Acetaminophen (Acetaminophen 325 Mg Tablet) 650 mg PO Q6H PRN PRN Reason: Pain, Mild (Pain Scale 1-3) Acetaminophen (Acetaminophen Supp 650 Mg Supp.Rect) 650 mg [place] Q4H PRN PRN Reason: Fever Last Admin: 03/16/22 02:07 Dose: 650 mg Documented By: KALEN Carbidopa/Levodopa (Carbidopa/Levodopa 25/100 Tablet) 2 tab PO TID [facility] Last Admin: 03/17/22 09:32 Dose: Not Given Documented By: SCOTT Non-Admin Reason: NPO Heparin Sodium (Porcine) (Heparin Sodium,Porcine 5,000 Unit/Ml Vial) 2,700 unit 40 unit/kg (2700 unit) IVPUSH PROTOCOL BOLUS PRN; Protocol PRN Reason: 40 unit/kg - Heparin Protocol Last Admin: 03/16/22 19:32 Dose: 2,700 unit Documented By: RAYSHAWN Heparin Sodium (Porcine) (Heparin Sodium,Porcine 5,000 Unit/Ml Vial) 5,300 unit 80 unit/kg (5300 unit) IVPUSH PROTOCOL BOLUS PRN; Protocol PRN Reason: 80 unit/kg - Heparin Protocol Heparin Sodium/Sodium Chloride () 25,000 unit in 250 mls @ 0 mls/hr IVCONT .Q0M [facility]; Protocol Last Titration: 03/17/22 09:23 Dose: 14 units/kg/hr, 9.32 mls/hr Documented By: SCOTT Co-signed By: JOSE Dextrose (D5w) 1,000 mls @ 100 mls/hr IVCONT .Q10H [facility] Last Admin: 03/17/22 09:29 Dose: 100 mls/hr Documented By: SCOTT Metoprolol Tartrate (Metoprolol Tartrate 25 Mg Tablet) 25 mg PO BID [facility]; Protocol Last Admin: 03/14/22 20:19 Dose: 25 mg Documented By: MICKEY Metoprolol Tartrate (Metoprolol Tartrate 5 Mg/5 Ml Vial) 2.5 mg IVPUSH Q6H PRN PRN Reason: TACHYCADIA Last Admin: 03/16/22 02:08 Dose: 2.5 mg Documented By: KALEN Metoprolol Tartrate (Metoprolol Tartrate 5 Mg/5 Ml Vial) 5 mg IVPUSH Q6H PRN PRN Reason: HR>125 Ondansetron HCl (Ondansetron Hcl 4 Mg/2 Ml Vial) 4 mg IVPUSH Q8H PRN PRN Reason: Nausea and Vomiting Pantoprazole Sodium (Pantoprazole Sodium 40 Mg/10 Ml Vial) 40 mg IVPUSH BID@0630,1630 [facility] Last Admin: 03/17/22 06:04 Dose: Not Given Documented By: PARKER Non-Admin Reason: on protonix drip Pharmacy Consult (Consult Rx Perform Med Rec) 1 each MISCELLANE ONCE PRN PRN Reason: Consult order Pharmacy Consult (Consult Rx Perform Med Rec) 1 each MISCELLANE ONCE PRN PRN Reason: Consult order Sodium Chloride (0.9 % Sodium Chloride Flush 3 Ml Syringe) 3 ml IVFLUSH QSHIFT [facility] Last Admin: 03/17/22 09:28 Dose: Not Given Documented By: SCOTT Non-Admin Reason: IV Running Labs CBC & Chem 7: 03/16/22 07:38 03/16/22 01:12 Labs: Laboratory Results - last 24 hr 03/16/22 03/16/22 03/16/22 09:53 12:54 18:28 aPTT Heparin Protocol 33.5 L 31.2 L 47.2 L D 03/17/22 03/17/22 01:41 06:25 aPTT Heparin Protocol 70.8 D 69.5 Assessment and Plan (1) Non-ST elevation [place] (NSTEMI): Status: Acute (2) Pneumonia: Status: Acute (3) Parkinsons disease: Status: Acute (4) Malnutrition of moderate degree: Status: Acute Plan 71yo M with Parkinson disease, CAD, HTN, HLD found on ground by his son, admitted with PNA + NSTEMI + malnutrition # RUE DVT - apixaban started 03/12 at 10 mg bid, switch to 5 mg bid on 03/19 -he had decrease H/H with melana and anticoagulation was on hold, but seem stable now -On heparin until EGD on friday #Dysphagia with possible aspiration complicated by moderate protein calory malnutrition -he is agreable to PEG planned for 03/18 -reasses for oral diet until peg # PNA - completed 7d of pip/rubio + vanco, d/c ABX, BCx negative, PCT low, not hypoxic # NSTEMI vs. 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 Watson today with the following remark: I talked to him and recommended that he should have a PEG placed.? This could also be used on as needed basis but at this time he needed for medicines and nutrition especially Parkinson's meds.? I notice that he is on carbidopa levodopa extended release 2 tablets 3 times a day.? Instead, I would recommend regular carbidopa levodopa 25/100 to 4 times a day starting with 06:00 in the morning and giving a dose every 4 hours.? He might require additional levodopa but the dose could be adjusted later . He's agreable for a peg # VTE ppx: LMWH # dispo: STR In my clinical judgment, the patient requires continued hospitalization for the following reasons: nutrition, feeding route, placement Quality Stroke Does the patient have a stroke diagnosis?: No VTE Prior VTE?: No VTE Risk Level:: Medical - moderate - high VTE Device Contraindication: Treatment Not Indicated VTE Drug Contraindication: N/A - Med Ordered
--- NOTE | 2022-03-17 11:21 | PM.GIPN ---
Subjective Subjective Date of Service: 03/17/22 Critical Care Time (minutes): 0 Comment: Mr Gama states he feels ok. Physical Exam Vital Signs: Vital Signs: Last Vital Signs Temp 97.9 F 03/17/22 09:01 Pulse 97 03/17/22 09:01 Resp 18 03/17/22 09:01 BP 131/60 03/17/22 09:01 Pulse Ox 98 03/17/22 09:01 O2 Del Method 03/17/22 09:01 O2 Flow Rate 2 03/11/22 03:58 FiO2 28 03/10/22 23:32 BMI result Body Mass Index 21.0 GI: Other: abdomen is soft and nontender Objective Data Labs CBC & Chem 7: 03/16/22 07:38 03/16/22 01:12 Labs: Laboratory Results - last 24 hr 03/16/22 03/16/22 03/17/22 12:54 18:28 01:41 aPTT Heparin Protocol 31.2 L 47.2 L D 70.8 D 03/17/22 06:25 aPTT Heparin Protocol 69.5 Microbiology Microbiology Results: Microbiology 03/08/22 17:20 Blood - Venous Blood Culture - Final No growth after 5 days. 03/08/22 17:20 Blood - Venous Blood Culture - Final No growth after 5 days. 03/05/22 11:06 Blood - Venous Blood Culture - Final No growth after 5 days. 03/05/22 10:24 Blood - Venous Blood Culture - Final No growth after 5 days. Procedures Date of Service Date of Service: 03/17/22 Progress Note: A&P Assessment and plan (1) GI bleed: Status: Acute Assessment and Plan: hematocrit is stable without any further bleeding EGD/PEG tomorrow. Time Spent With Patient Time: Total time spent is greater than 50% in coordination of care (as documented) at patient's floor/unit and/or counseling patient: Quality Stroke Does the patient have a stroke diagnosis?: No VTE Prior VTE?: No VTE Risk Level:: Medical - moderate - high VTE Device Contraindication: Treatment Not Indicated VTE Drug Contraindication: N/A - Med Ordered
[2022-03-17 12:30] VITALS: BP 128/62; PULSE 92; RESP 16; TEMP 37.4; O2SAT 99
[2022-03-17] MEDS: Heparin Sodium,Porcine/1/2NS 25,000 UNIT/250 ML IV.SOLN 9.32 UNIT IVCONT (14:05)
[2022-03-17 16:00] VITALS: BP 145/89; PULSE 88; RESP 16; TEMP 37.3; O2SAT 97
[2022-03-17] MEDS: Pantoprazole Sodium 40 MG/10 ML VIAL IVPUSH (18:17)
[2022-03-17 19:56] VITALS: BP 130/63; PULSE 102; RESP 14; TEMP 37.1; O2SAT 92
[2022-03-17] MEDS: 0.9 % Sodium Chloride Flush 3 ML SYRINGE IVFLUSH (20:07)
[2022-03-17 23:31] VITALS: BP 133/61; PULSE 102; RESP 14; TEMP 36.3; O2SAT 96
[2022-03-18] VITALS (11 sets, daily range): BP systolic 109–165; BP diastolic 51–64; PULSE 79–109; RESP 8–18; TEMP 36.4–37.6; O2SAT 95–98
[2022-03-18 03:53] LABS: Glucose, Whole Blood 87 mg/dL (60-115)
--- NOTE | 2022-03-18 04:15 | PC.NURSE ---
Around 22:00, pt slightly restless/anxious regarding his surgery for peg placement. Frequently ringing the call valiente but not really wanting or needing anything. Pt did have some slight confusion when he stated, it wasn't his room but was redirectable. Sat with patient at length reassuring him of surgery and he settled down. Around 03:55, pt found to be naked in bed. Pulled out both IV's, pulled of telemetry, [place] catheter and a dressing. Pt confused. Even with us in the room talking to him, he thought he was somewhere in [place]. It took a bit to re-orient him. BS 97. Telemetry SR and VSS. New IV placed and Heparin drip restarted. Telemetry and [place] catheter back on. Pt bathed and repositioned. notified. Will continue to monitor.
--- NOTE | 2022-03-18 04:31 | PC.NURSE ---
Nursing addendum - camera was placed in patients room around 0400. Bed alarm still on.
[2022-03-18] MEDS: Pantoprazole Sodium 40 MG/10 ML VIAL IVPUSH (05:59)
[2022-03-18 06:41] LABS: PTT Heparin Drip 46.2 SEC (53-77.9)
--- NOTE | 2022-03-18 08:07 | PC.NURSE ---
AM PTT came back at 46.2. Pharmacy called during report and spoke with Maria and told him not to bolus and to stop heparin. Heparing stopped around 07:36. Pt awake, pulling at [place] catheter. Pt confused stating he was in [place]. Took a bit to wake him and patient was then able to re-orient self to place, situation and time. Maria (day RN) present.
--- NOTE | 2022-03-18 08:45 | P.PNIM_ITS ---
Subjective Subjective Date of Service: 03/18/22 Interval History: f/u on dvt, aspiration, malnutrition no new issues, no gi bleed r, no pain, awaiting PEG Review of Systems Denies chest pain Denies shortness of breath Denies nausea vomiting diarrhea Denies fever chills Admits poor cough Physical Exam Vital Signs: Vital Signs: Last Vital Signs Temp 98.5 F 03/18/22 08:00 Pulse 92 03/18/22 08:00 Resp 18 03/18/22 08:00 BP 109/55 L 03/18/22 08:00 Pulse Ox 96 03/18/22 08:00 O2 Del Method 03/18/22 08:00 O2 Flow Rate 2 03/11/22 03:58 FiO2 28 03/10/22 23:32 BMI result Body Mass Index 21.0 Const: Other: General: AO X 3, no acute distress Resp: CTA bilateral CVS: S1,S2,RRR GI: +BS, NT, no distention Skin: No rash Neuro: motor grossly intact Psych: appropriate affect Objective Data Active Medications Acetaminophen (Acetaminophen 325 Mg Tablet) 650 mg PO Q6H PRN PRN Reason: Pain, Mild (Pain Scale 1-3) Acetaminophen (Acetaminophen Supp 650 Mg Supp.Rect) 650 mg [place] Q4H PRN PRN Reason: Fever Last Admin: 03/16/22 02:07 Dose: 650 mg Documented By: KALEN Carbidopa/Levodopa (Carbidopa/Levodopa 25/100 Tablet) 2 tab PO TID [facility] Last Admin: 03/17/22 21:51 Dose: Not Given Documented By: RAYSHAWN Non-Admin Reason: NPO Heparin Sodium (Porcine) (Heparin Sodium,Porcine 5,000 Unit/Ml Vial) 2,700 unit 40 unit/kg (2700 unit) IVPUSH PROTOCOL BOLUS PRN; Protocol PRN Reason: 40 unit/kg - Heparin Protocol Last Admin: 03/16/22 19:32 Dose: 2,700 unit Documented By: RAYSHAWN Heparin Sodium (Porcine) (Heparin Sodium,Porcine 5,000 Unit/Ml Vial) 5,300 unit 80 unit/kg (5300 unit) IVPUSH PROTOCOL BOLUS PRN; Protocol PRN Reason: 80 unit/kg - Heparin Protocol Heparin Sodium/Sodium Chloride () 25,000 unit in 250 mls @ 0 mls/hr IVCONT .Q0M [facility]; Protocol Last Titration: 03/18/22 07:36 Dose: 0 units/kg/hr, 0 mls/hr Documented By: AVANI Co-signed By: RAYSHAWN Metoprolol Tartrate (Metoprolol Tartrate 25 Mg Tablet) 25 mg PO BID [facility]; Protocol Last Admin: 03/14/22 20:19 Dose: 25 mg Documented By: MICKEY Metoprolol Tartrate (Metoprolol Tartrate 5 Mg/5 Ml Vial) 2.5 mg IVPUSH Q6H PRN PRN Reason: TACHYCADIA Last Admin: 03/16/22 02:08 Dose: 2.5 mg Documented By: KALEN Metoprolol Tartrate (Metoprolol Tartrate 5 Mg/5 Ml Vial) 5 mg IVPUSH Q6H PRN PRN Reason: HR>125 Ondansetron HCl (Ondansetron Hcl 4 Mg/2 Ml Vial) 4 mg IVPUSH Q8H PRN PRN Reason: Nausea and Vomiting Pantoprazole Sodium (Pantoprazole Sodium 40 Mg/10 Ml Vial) 40 mg IVPUSH BID@0630,1630 [facility] Last Admin: 03/18/22 05:59 Dose: 40 mg Documented By: RAYSHAWN Pharmacy Consult (Consult Rx Perform Med Rec) 1 each MISCELLANE ONCE PRN PRN Reason: Consult order Pharmacy Consult (Consult Rx Perform Med Rec) 1 each MISCELLANE ONCE PRN PRN Reason: Consult order Sodium Chloride (0.9 % Sodium Chloride Flush 3 Ml Syringe) 3 ml IVFLUSH QSHIFT [facility] Last Admin: 03/17/22 20:07 Dose: 3 ml Documented By: RAYSHAWN Labs CBC & Chem 7: 03/16/22 07:38 03/16/22 01:12 Labs: Laboratory Results - last 24 hr 03/18/22 03/18/22 03:48 05:59 aPTT Heparin Protocol 46.2 L D POC Glucose 87 Assessment and Plan (1) Non-ST elevation [place] (NSTEMI): Status: Acute (2) Pneumonia: Status: Acute (3) Parkinsons disease: Status: Acute (4) Malnutrition of moderate degree: Status: Acute Plan 71yo M with Parkinson disease, CAD, HTN, HLD found on ground by his son, admitted with PNA + NSTEMI + malnutrition # RUE DVT - apixaban started on 03/12 at 10 mg bid and was to beswitched to 5 mg bid on 03/19.. but was put on heparin in anticipation of PEG -he had decrease H/H with melana and anticoagulation was on hold for a bit and r estarted on heparin -On heparin until EGD on friday today, restart Apixiban tomorrow #Dysphagia with possible aspiration complicated by moderate protein calory malnutrition -he is agreable to PEG planned for 03/18 -reasses for oral diet after peg # PNA - completed 7d of pip/rubio + vanco, d/c ABX, BCx negative, PCT low, not hypoxic # NSTEMI vs. rhabdomyolysis - Cardiology consulted, treated medically with heparinization + ASA; resumed metoprolol, held statin given rhabdomyolysis - # moderate pr/hattie malnutrition - d/c'ed TPN 03/12/22, and now planned for PEG starting today # aspiration -NPO pending PEG # HTN - metoprolol # Parkinsons disease: seen by Dr. Watson today with the following remark: I talked to him and recommended that he should have a PEG placed.? This could also be used on as needed basis but at this time he needed for medicines and nutrition especially Parkinson's meds.? I notice that he is on carbidopa levodopa extended release 2 tablets 3 times a day.? Instead, I would recommend regular carbidopa levodopa 25/100 to 4 times a day starting with 06:00 in the morning and giving a dose every 4 hours.? He might require additional levodopa but the dose could be adjusted later . He's agreable for a peg # VTE ppx: LMWH # dispo: STR In my clinical judgment, the patient requires continued hospitalization for the following reasons: nutrition, plan for peg, placement Quality Stroke Does the patient have a stroke diagnosis?: No VTE Prior VTE?: No VTE Risk Level:: Medical - moderate - high VTE Device Contraindication: Treatment Not Indicated VTE Drug Contraindication: N/A - Med Ordered
--- NOTE | 2022-03-18 08:53 | P.CDIC_ITS ---
CDI Concurrent Query Documentation Clarification: PHYSICIAN'S DOCUMENTATION REQUEST Date of Query: 03/18/22 0854 Patient Name: Bird Gama Admit Date: 03/05/22 Dear Doctor, A review of the medical record indicates additional documentation may be indicated. Please review below and update the documentation accordingly. Clinical Indicators: Risk Factors/Clinical Indicators/Treatments Wound care notes 03/17 -Pressure injuries Stage II bilateral coccyx. Foam dressing - CD&I Based on the above, could you please provide, in the Progress Notes, further information regarding the ulcer/wound: * If a pressure ulcer, please also include the stage* of the ulcer: * Stage 1 - Skin intact, non-blanchable redness * Stage 2 - Partial thickness loss of dermis, includes intact or open blister * Stage 3 - Full thickness tissue not including bone, tendon, or muscle * Stage 4 - Full thickness tissue loss, including exposed bones, tendon, or muscle * Unstageable - Full thickness tissue loss in which the base of the ulcer is covered by slough (yellow, cotto, patel, green or brown) and/or eschar (cotto, brown, or black) in the wound bed. * Other * Unable to determine *Source: National Pressure Ulcer Advisory Panel (NPUAP) Use of terms such as suspected, likely, concern for, or probable (associated with a specific diagnosis that is being evaluated, monitored, or treated as if it exists) are acceptable and can be coded in the inpatient setting, when documented at the time of discharge. Thank you, Karli Escobar [facility], CDIS Extension: [phone] Please use your independent medical judgment in providing your response. THIS QUERY IS PART OF THE PERMANENT MEDICAL RECORD
--- NOTE | 2022-03-18 08:58 | P.CDIC_ITS ---
CDI Concurrent Query Documentation Clarification: PHYSICIAN'S DOCUMENTATION REQUEST Date of Query: 03/18/22 0858 Patient Name: Bird Gama Admit Date: 03/05/22 Dear Doctor, A review of the medical record indicates additional documentation may be indicated. Please review below and update the documentation accordingly. Clinical Indicators: Risk Factors/Clinical Indicators/Treatments Wound care notes 03/17 - Pressure injury Stage II medial back. Foam dressing - CD&I Based on the above, could you please provide, in the Progress Notes, further information regarding the ulcer/wound: * If a pressure ulcer, please also include the stage* of the ulcer: * Stage 1 - Skin intact, non-blanchable redness * Stage 2 - Partial thickness loss of dermis, includes intact or open blister * Stage 3 - Full thickness tissue not including bone, tendon, or muscle * Stage 4 - Full thickness tissue loss, including exposed bones, tendon, or muscle * Unstageable - Full thickness tissue loss in which the base of the ulcer is covered by slough (yellow, cotto, patel, green or brown) and/or eschar (cotto, brown, or black) in the wound bed. * Other * Unable to determine *Source: National Pressure Ulcer Advisory Panel (NPUAP) Use of terms such as suspected, likely, concern for, or probable (associated with a specific diagnosis that is being evaluated, monitored, or treated as if it exists) are acceptable and can be coded in the inpatient setting, when documented at the time of discharge. Thank you, Karli Escobar [facility], CDIS Extension: [phone] Please use your independent medical judgment in providing your response. THIS QUERY IS PART OF THE PERMANENT MEDICAL RECORD
[2022-03-18] MEDS: Dextrose 5 % 1,000 ML 100 ML IVCONT ×2 (10:10→20:05)
[2022-03-18] MEDS: 0.9 % Sodium Chloride Flush 3 ML SYRINGE IVFLUSH (10:14)
--- NOTE | 2022-03-18 11:31 | MHC.CLN ---
F/U PEG PLACEMENT SCHEDULED FOR TODAY 03/18 RECOMMEND PROMOTE AT MAX GAOL RATE 75ML/HR WITH 120ML FREE WATER FLUSHES Q 6 HRS TO PROVIDE 1800KCALS (27KCALS/KG), 112.5G PROTEIN (1.7G/KG) FOR WOUND HEALING, 1990ML TOTAL WATER FORMULA AND FLUSHES (30ML/KG) START FORMULA AT 20ML/HR AND INCREASE BY 10ML Q 4 HRS UNTIL MAX GOAL IS REACHED MONITOR TOLERANCE, RESIDUALS AND LYTES
--- NOTE | 2022-03-18 12:19 | MHC.SLORD ---
Speech Language Pathology Order Status: Discussed w/ RN. Patient is scheduled for PEG placement today.
[2022-03-18 13:03] LABS: MANUAL DIFF FLAG NO
[2022-03-18 13:07] LABS: Basophils Percent Auto 0.3 % (0-2); Eosinophils Percent Auto 0.3 % (0-4); Hematocrit 22.1 % (42.0-52.0); Hemoglobin 7.4 g/dl (14.0-18.0); Imm Gran Abs Auto 0.04 X10*3/uL (0.00-0.03); Imm Gran Pct Auto 0.4 % (0.0-0.4); Lymphocytes Percent Auto 11.2 % (20-40); Mean Corpuscular HGB Conc 33.5 g/dl (31.0-36.0); Mean Corpuscular Hemoglobin 30.6 pg (27.0-33.0); Mean Corpuscular Volume 91.3 fL (80.0-98.0); Mean Platelet Volume 8.9 fL (9.4-12.4); Monocytes Absolute Auto 0.4 X10*3/uL (0.1-1.2); Monocytes Percent Auto 4.9 % (2-11); Neutrophils Absolute Auto 7.4 x10*3/uL (2.0-8.3); Neutrophils Percent Auto 82.9 % (45-73); Platelet Count 420 X10*3/uL (160-400); Red Blood Count 2.42 X10*6/uL (4.60-5.80); Red Cell Distribution Width 13.6 % (11.0-16.0); White Blood Count 8.9 X10*3/uL (4.8-10.8)
[2022-03-18 13:12] LABS: INTERNATIONAL NORM RATIO 1.3 (0.9-1.1); Prothrombin Time 14.8 SEC (10.0-13.1)
[2022-03-18 13:15] LABS: Partial Thromboplastin Time 31.2 SEC (24.1-38.0)
--- NOTE | 2022-03-18 13:24 | P.CONAN_ITS ---
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 Brother No problems noted. Sister No problems noted. Son No problems noted. Son No problems noted. Family history of problems with anesthesia: No Surgical History Surgical History No pertinent past surgical history History of Problems with Anesthesia: No Social History Social History Household Members: None Housing: House Do you presently have visiting nurse or other home services: No Alcohol intake: never Patient Tobacco Use Status: Never used Tobacco e-Cigarette/Vaping Use: Never Used service: No Current occupational status: retired Cognitive needs: No Hearing needs: No Vision needs: Yes Meds Allergies Allergy/AdvReac Type Severity Reaction Status Date / Time No Known Allergies Allergy Verified 02/24/22 23:32 [No Known Allergies*] Active Medications: Current Medications Acetaminophen (Acetaminophen 325 Mg Tablet) 650 mg PO Q6H PRN PRN Reason: Pain, Mild (Pain Scale 1-3) Acetaminophen (Acetaminophen Supp 650 Mg Supp.Rect) 650 mg MN Q4H PRN PRN Reason: Fever Last Admin: 03/16/22 02:07 Dose: 650 mg Carbidopa/Levodopa (Carbidopa/Levodopa 25/100 Tablet) 2 tab PO TID YAMEL Last Admin: 03/18/22 10:05 Dose: Not Given Heparin Sodium (Porcine) (Heparin Sodium,Porcine 5,000 Unit/Ml Vial) 2,700 unit 40 unit/kg (2700 unit) IVPUSH PROTOCOL BOLUS PRN; Protocol PRN Reason: 40 unit/kg - Heparin Protocol Last Admin: 03/16/22 19:32 Dose: 2,700 unit Heparin Sodium (Porcine) (Heparin Sodium,Porcine 5,000 Unit/Ml Vial) 5,300 unit 80 unit/kg (5300 unit) IVPUSH PROTOCOL BOLUS PRN; Protocol PRN Reason: 80 unit/kg - Heparin Protocol Heparin Sodium/Sodium Chloride () 25,000 unit in 250 mls @ 0 mls/hr IVCONT .Q0M [facility]; Protocol Last Titration: 03/18/22 07:36 Dose: 0 units/kg/hr, 0 mls/hr Dextrose (D5w) 1,000 mls @ 100 mls/hr IVCONT .Q10H [facility] Last Admin: 03/18/22 10:10 Dose: 100 mls/hr Metoprolol Tartrate (Metoprolol Tartrate 25 Mg Tablet) 25 mg PO BID [facility]; Protocol Last Admin: 03/14/22 20:19 Dose: 25 mg Metoprolol Tartrate (Metoprolol Tartrate 5 Mg/5 Ml Vial) 2.5 mg IVPUSH Q6H PRN PRN Reason: TACHYCADIA Last Admin: 03/16/22 02:08 Dose: 2.5 mg Metoprolol Tartrate (Metoprolol Tartrate 5 Mg/5 Ml Vial) 5 mg IVPUSH Q6H PRN PRN Reason: HR>125 Ondansetron HCl (Ondansetron Hcl 4 Mg/2 Ml Vial) 4 mg IVPUSH Q8H PRN PRN Reason: Nausea and Vomiting Pantoprazole Sodium (Pantoprazole Sodium 40 Mg/10 Ml Vial) 40 mg IVPUSH BID@0630,1630 [facility] Last Admin: 03/18/22 05:59 Dose: 40 mg Pharmacy Consult (Consult Rx Perform Med Rec) 1 each MISCELLANE ONCE PRN PRN Reason: Consult order Pharmacy Consult (Consult Rx Perform Med Rec) 1 each MISCELLANE ONCE PRN PRN Reason: Consult order Sodium Chloride (0.9 % Sodium Chloride Flush 3 Ml Syringe) 3 ml IVFLUSH QSHIFT [facility] Last Admin: 03/18/22 10:14 Dose: 3 ml Home Medications Medication Instructions Recorded Confirmed Last Taken Type carbidopa ER 25 mg-levodopa 100 mg 2 tab PO TID 08/22/20 03/05/22 Unknown History tablet,extended release metoprolol tartrate 25 mg tablet 25 mg PO BID 08/22/20 03/05/22 Unknown History amantadine HCl 100 mg tablet 1 tab PO BID 03/05/22 03/05/22 Unknown History lisinopril 10 mg tablet 1 tab PO DAILY 03/05/22 03/05/22 Unknown History Exam Exam Date and Time: March 18, 2022 1324 Height,Weight and Vital Signs: Height 5 ft 10 in Weight 66.6 kg Last Vital Signs Temp 97.5 F 03/18/22 12:00 Pulse 96 03/18/22 12:00 Resp 18 03/18/22 12:00 BP 118/60 03/18/22 12:00 Pulse Ox 97 03/18/22 12:00 O2 Del Method 03/18/22 12:00 O2 Flow Rate 2 03/11/22 03:58 FiO2 28 03/10/22 23:32 Pertinent Lab Results Pertinent Lab Results: Laboratory Tests 03/05/22 03/05/22 03/05/22 10:25 10:25 10:25 WBC 13.2 H RBC 5.12 D Hgb 15.7 D Hct 47.2 D MCV 92.2 MCH 30.7 MCHC 33.3 RDW 13.0 Plt Count 279 D MPV 9.4 Immature Gran % (Auto) 0.6 H Neut % (Auto) 86.7 H Lymph % (Auto) 5.4 L [place] % (Auto) 7.1 Eos % (Auto) 0.0 Baso % (Auto) 0.2 Lymph # (Auto) 0.7 L [place] # (Auto) 0.9 Eos # (Auto) 0.0 Baso # (Auto) 0.0 Abs Immat Gran (auto) 0.08 H Absolute Neuts (auto) 11.5 H Absolute Nucleated RBC 0.000 Nucleated RBC % (auto) 0.0 Neutrophils % (Manual) Band Neutrophils % Lymphocytes % (Manual) Monocytes % (Manual) Abs Neuts (Manual) Lymphocytes # (Manual) Monocytes # (Manual) Platelet Estimate Plt Morphology Comment RBC Morphology Kyle Cells PT 11.1 INR 1.0 APTT 25.5 aPTT Heparin Protocol VBG pH VBG pCO2 VBG pO2 VBG HCO3 VBG O2 Saturation VBG Base Excess Sodium 150 H Potassium 4.6 Chloride 108 Carbon Dioxide 26 Anion Gap 21 H BUN 44 H D Creatinine 0.99 Estim Creat Clear Calc 63.5 Estimated GFR > 60 POC Glucose Random Glucose 138 H Fasting Glucose Lactic Acid Lactic Acid F/U @ 2Hr Lactic Acid F/U @ 4Hr Calcium 9.6 Phosphorus Magnesium 2.3 Total Bilirubin 2.3 H Direct Bilirubin 1.1 H AST 62 H ALT 80 H Alkaline Phosphatase 96 Ammonia Total Creatine Kinase 2199 H Troponin I High Sens B-Natriuretic Peptide Total Protein 7.2 Albumin 4.2 Triglycerides Lipase 20 Procalcitonin Stool Occult Blood Vancomycin Trough Random Vancomycin C. difficile Tox B Gene COVID-19 ([place]) [employer] Blood Type Antibody Screen 03/05/22 03/05/22 03/05/22 10:25 10:25 10:25 WBC RBC Hgb Hct MCV MCH MCHC RDW Plt Count MPV Immature Gran % (Auto) Neut % (Auto) Lymph % (Auto) [place] % (Auto) Eos % (Auto) Baso % (Auto) Lymph # (Auto) [place] # (Auto) Eos # (Auto) Baso # (Auto) Abs Immat Gran (auto) Absolute Neuts (auto) Absolute Nucleated RBC Nucleated RBC % (auto) Neutrophils % (Manual) Band Neutrophils % Lymphocytes % (Manual) Monocytes % (Manual) Abs Neuts (Manual) Lymphocytes # (Manual) Monocytes # (Manual) Platelet Estimate Plt Morphology Comment RBC Morphology [place] Cells PT INR APTT aPTT Heparin Protocol VBG pH VBG pCO2 VBG pO2 VBG HCO3 VBG O2 Saturation VBG Base Excess Sodium Potassium Chloride Carbon Dioxide Anion Gap BUN Creatinine Estim Creat Clear Calc Estimated GFR POC Glucose Random Glucose Fasting Glucose Lactic Acid 3.1 H* Lactic Acid F/U @ 2Hr Lactic Acid F/U @ 4Hr Calcium Phosphorus Magnesium Total Bilirubin Direct Bilirubin AST ALT Alkaline Phosphatase Ammonia Total Creatine Kinase Troponin I High Sens 1310.1 H* B-Natriuretic Peptide Total Protein Albumin Triglycerides Lipase Procalcitonin Stool Occult Blood Vancomycin Trough Random Vancomycin C. difficile Tox B Gene COVID-19 ([place]) Negative [employer] See Note Blood Type Antibody Screen 03/05/22 03/05/22 03/05/22 10:30 12:30 12:39 WBC RBC Hgb Hct MCV MCH MCHC RDW Plt Count MPV Immature Gran % (Auto) Neut % (Auto) Lymph % (Auto) [place] % (Auto) Eos % (Auto) Baso % (Auto) Lymph # (Auto) [place] # (Auto) Eos # (Auto) Baso # (Auto) Abs Immat Gran (auto) Absolute Neuts (auto) Absolute Nucleated RBC Nucleated RBC % (auto) Neutrophils % (Manual) Band Neutrophils % Lymphocytes % (Manual) Monocytes % (Manual) Abs Neuts (Manual) Lymphocytes # (Manual) Monocytes # (Manual) Platelet Estimate Plt Morphology Comment RBC Morphology Kyle Cells PT INR APTT aPTT Heparin Protocol VBG pH 7.37 VBG pCO2 36 VBG pO2 39 VBG HCO3 21 L VBG O2 Saturation 61.0 VBG Base Excess -3.2 Sodium Potassium Chloride Carbon Dioxide Anion Gap BUN Creatinine Estim Creat Clear Calc Estimated GFR POC Glucose Random Glucose Fasting Glucose Lactic Acid Lactic Acid F/U @ 2Hr 2.1 H* Lactic Acid F/U @ 4Hr Calcium Phosphorus Magnesium Total Bilirubin Direct Bilirubin AST ALT Alkaline Phosphatase Ammonia Total Creatine Kinase Troponin I High Sens 1052.4 H* B-Natriuretic Peptide Total Protein Albumin Triglycerides Lipase Procalcitonin Stool Occult Blood Vancomycin Trough Random Vancomycin C. difficile Tox B Gene COVID-19 ([place]) COVID-19 Clin Com Blood Type Antibody Screen 03/05/22 03/05/22 03/05/22 14:54 14:54 20:20 WBC RBC Hgb Hct MCV MCH MCHC RDW Plt Count MPV Immature Gran % (Auto) Neut % (Auto) Lymph % (Auto) [place] % (Auto) Eos % (Auto) Baso % (Auto) Lymph # (Auto) [place] # (Auto) Eos # (Auto) Baso # (Auto) Abs Immat Gran (auto) Absolute Neuts (auto) Absolute Nucleated RBC Nucleated RBC % (auto) Neutrophils % (Manual) Band Neutrophils % Lymphocytes % (Manual) Monocytes % (Manual) Abs Neuts (Manual) Lymphocytes # (Manual) Monocytes # (Manual) Platelet Estimate Plt Morphology Comment RBC Morphology [place] Cells PT INR APTT aPTT Heparin Protocol 50.0 L VBG pH VBG pCO2 VBG pO2 VBG HCO3 VBG O2 Saturation VBG Base Excess Sodium Potassium Chloride Carbon Dioxide Anion Gap BUN Creatinine Estim Creat Clear Calc Estimated GFR POC Glucose Random Glucose Fasting Glucose Lactic Acid Lactic Acid F/U @ 2Hr Lactic Acid F/U @ 4Hr 2.6 H* Calcium Phosphorus Magnesium Total Bilirubin Direct Bilirubin AST ALT Alkaline Phosphatase Ammonia 28 Total Creatine Kinase Troponin I High Sens B-Natriuretic Peptide Total Protein Albumin Triglycerides Lipase Procalcitonin Stool Occult Blood Vancomycin Trough Random Vancomycin C. difficile Tox B Gene COVID-19 ([place]) COVID-19 [employer] Blood Type Antibody Screen 03/06/22 03/06/22 03/06/22 03:18 03:18 03:18 WBC 8.5 RBC 4.45 L Hgb 13.5 L Hct 41.5 L MCV 93.3 MCH 30.3 MCHC 32.5 RDW 13.3 Plt Count 223 MPV 9.7 Immature Gran % (Auto) Neut % (Auto) Lymph % (Auto) [place] % (Auto) Eos % (Auto) Baso % (Auto) Lymph # (Auto) [place] # (Auto) Eos # (Auto) Baso # (Auto) Abs Immat Gran (auto) Absolute Neuts (auto) Absolute Nucleated RBC 0.000 Nucleated RBC % (auto) 0.0 Neutrophils % (Manual) Band Neutrophils % Lymphocytes % (Manual) Monocytes % (Manual) Abs Neuts (Manual) Lymphocytes # (Manual) Monocytes # (Manual) Platelet Estimate Plt Morphology Comment RBC Morphology [place] Cells PT INR APTT aPTT Heparin Protocol VBG pH VBG pCO2 VBG pO2 VBG HCO3 VBG O2 Saturation VBG Base Excess Sodium 153 H Potassium 4.0 Chloride 120 H Carbon Dioxide 19 L Anion Gap 18 BUN 40 H Creatinine 0.92 0.89 Estim Creat Clear Calc 68.3 70.6 Estimated GFR > 60 > 60 POC Glucose Random Glucose 142 H Fasting Glucose Lactic Acid Lactic Acid F/U @ 2Hr Lactic Acid F/U @ 4Hr Calcium 8.0 L D Phosphorus Magnesium Total Bilirubin 1.9 H Direct Bilirubin 0.9 H AST 41 H ALT 62 H Alkaline Phosphatase 77 Ammonia Total Creatine Kinase Troponin I High Sens B-Natriuretic Peptide Total Protein 5.6 L D Albumin 3.2 L D Triglycerides Lipase Procalcitonin Stool Occult Blood Vancomycin Trough Random Vancomycin C. difficile Tox B Gene COVID-19 ([place]) COVID-19 [employer] Blood Type Antibody Screen 03/06/22 03/06/22 03/06/22 03:18 07:30 11:13 WBC RBC Hgb Hct MCV MCH MCHC RDW Plt Count MPV Immature Gran % (Auto) Neut % (Auto) Lymph % (Auto) [place] % (Auto) Eos % (Auto) Baso % (Auto) Lymph # (Auto) [place] # (Auto) Eos # (Auto) Baso # (Auto) Abs Immat Gran (auto) Absolute Neuts (auto) Absolute Nucleated RBC Nucleated RBC % (auto) Neutrophils % (Manual) Band Neutrophils % Lymphocytes % (Manual) Monocytes % (Manual) Abs Neuts (Manual) Lymphocytes # (Manual) Monocytes # (Manual) Platelet Estimate Plt Morphology Comment RBC Morphology [place] Cells PT 13.1 INR 1.1 APTT aPTT Heparin Protocol 50.6 L 77.2 D VBG pH VBG pCO2 VBG pO2 VBG HCO3 VBG O2 Saturation VBG Base Excess Sodium Potassium Chloride Carbon Dioxide Anion Gap BUN Creatinine Estim Creat Clear Calc Estimated GFR POC Glucose Random Glucose Fasting Glucose Lactic Acid Lactic Acid F/U @ 2Hr Lactic Acid F/U @ 4Hr Calcium Phosphorus Magnesium Total Bilirubin Direct Bilirubin AST ALT Alkaline Phosphatase Ammonia Total Creatine Kinase Troponin I High Sens B-Natriuretic Peptide 141 H Total Protein Albumin Triglycerides Lipase Procalcitonin Stool Occult Blood Vancomycin Trough Random Vancomycin C. difficile Tox B Gene COVID-19 ([place]) COVID-19 Clin Com Blood Type Antibody Screen 03/06/22 03/06/22 03/07/22 11:13 17:08 05:29 WBC RBC Hgb Hct MCV MCH MCHC RDW Plt Count MPV Immature Gran % (Auto) Neut % (Auto) Lymph % (Auto) [place] % (Auto) Eos % (Auto) Baso % (Auto) Lymph # (Auto) [place] # (Auto) Eos # (Auto) Baso # (Auto) Abs Immat Gran (auto) Absolute Neuts (auto) Absolute Nucleated RBC Nucleated RBC % (auto) Neutrophils % (Manual) Band Neutrophils % Lymphocytes % (Manual) Monocytes % (Manual) Abs Neuts (Manual) Lymphocytes # (Manual) Monocytes # (Manual) Platelet Estimate Plt Morphology Comment RBC Morphology [place] Cells PT INR APTT aPTT Heparin Protocol 72.4 VBG pH VBG pCO2 VBG pO2 VBG HCO3 VBG O2 Saturation VBG Base Excess Sodium 155 H Potassium 3.3 Chloride 122 H Carbon Dioxide 24 Anion Gap 12 BUN 29 H Creatinine 0.81 Estim Creat Clear Calc 77.6 Estimated GFR > 60 POC Glucose Random Glucose Fasting Glucose 129 H D Lactic Acid Lactic Acid F/U @ 2Hr Lactic Acid F/U @ 4Hr Calcium 7.7 L Phosphorus Magnesium Total Bilirubin 1.6 H Direct Bilirubin AST 20 D ALT 49 H Alkaline Phosphatase 66 Ammonia Total Creatine Kinase 784 H D Troponin I High Sens B-Natriuretic Peptide Total Protein 5.1 L Albumin 2.9 L Triglycerides Lipase Procalcitonin Stool Occult Blood Vancomycin Trough Random Vancomycin C. difficile Tox B Gene COVID-19 ([place]) COVID-19 [employer] Blood Type Antibody Screen 03/07/22 03/07/22 03/07/22 05:29 05:29 13:00 WBC 8.9 RBC 3.97 L Hgb 12.2 L Hct 37.0 L MCV 93.2 MCH 30.7 MCHC 33.0 RDW 13.5 Plt Count 179 MPV 9.4 Immature Gran % (Auto) Cancelled Neut % (Auto) Cancelled Lymph % (Auto) Cancelled [place] % (Auto) Cancelled Eos % (Auto) Cancelled Baso % (Auto) Cancelled Lymph # (Auto) Cancelled [place] # (Auto) Cancelled Eos # (Auto) Cancelled Baso # (Auto) Cancelled Abs Immat Gran (auto) Cancelled Absolute Neuts (auto) Cancelled Absolute Nucleated RBC 0.000 Nucleated RBC % (auto) 0.0 Neutrophils % (Manual) 84 H Band Neutrophils % 11 H Lymphocytes % (Manual) 4 L Monocytes % (Manual) 1 L Abs Neuts (Manual) 8.5 H Lymphocytes # (Manual) 0.4 L Monocytes # (Manual) 0.1 Platelet Estimate NORMAL Plt Morphology Comment NORMAL RBC Morphology NOTED Kyle Cells 1+ (0-2) PT INR APTT aPTT Heparin Protocol 59.9 VBG pH VBG pCO2 VBG pO2 VBG HCO3 VBG O2 Saturation VBG Base Excess Sodium Potassium Chloride Carbon Dioxide Anion Gap BUN Creatinine Estim Creat Clear Calc Estimated GFR POC Glucose Random Glucose Fasting Glucose Lactic Acid Lactic Acid F/U @ 2Hr Lactic Acid F/U @ 4Hr Calcium Phosphorus Magnesium Total Bilirubin Direct Bilirubin AST ALT Alkaline Phosphatase Ammonia Total Creatine Kinase Troponin I High Sens B-Natriuretic Peptide Total Protein Albumin Triglycerides Lipase Procalcitonin Stool Occult Blood Vancomycin Trough Random Vancomycin 8.2 L C. difficile Tox B Gene COVID-19 ([place]) COVID-19 [employer] Blood Type Antibody Screen 07/01/22 07/01/22 07/01/22 06:00 06:00 06:00 WBC 6.3 RBC 3.20 L Hgb 9.9 L Hct 29.6 L MCV 92.5 MCH 30.9 MCHC 33.4 RDW 13.5 Plt Count 157 L MPV 9.6 Immature Gran % (Auto) 0.6 H Neut % (Auto) 76.7 H Lymph % (Auto) 13.9 L [place] % (Auto) 7.6 Eos % (Auto) 0.9 Baso % (Auto) 0.3 Lymph # (Auto) 0.9 L [place] # (Auto) 0.5 Eos # (Auto) 0.1 Baso # (Auto) 0.0 Abs Immat Gran (auto) 0.04 H Absolute Neuts (auto) 4.9 Absolute Nucleated RBC 0.000 Nucleated RBC % (auto) 0.0 Neutrophils % (Manual) Band Neutrophils % Lymphocytes % (Manual) Monocytes % (Manual) Abs Neuts (Manual) Lymphocytes # (Manual) Monocytes # (Manual) Platelet Estimate Plt Morphology Comment RBC Morphology [place] Cells PT INR APTT aPTT Heparin Protocol 53.6 VBG pH VBG pCO2 VBG pO2 VBG HCO3 VBG O2 Saturation VBG Base Excess Sodium 148 H Potassium 3.0 L Chloride 117 H Carbon Dioxide 25 Anion Gap 9 L BUN 20 H Creatinine 0.74 Estim Creat Clear Calc 85.0 Estimated GFR > 60 POC Glucose Random Glucose Fasting Glucose 139 H Lactic Acid Lactic Acid F/U @ 2Hr Lactic Acid F/U @ 4Hr Calcium 7.4 L Phosphorus 2.7 Magnesium 1.9 Total Bilirubin 1.6 H Direct Bilirubin AST 48 H D ALT 85 H Alkaline Phosphatase 63 Ammonia Total Creatine Kinase Troponin I High Sens B-Natriuretic Peptide Total Protein 4.4 L Albumin 2.5 L Triglycerides 85 Lipase Procalcitonin Stool Occult Blood Vancomycin Trough Random Vancomycin C. difficile Tox B Gene COVID-19 ([place]) COVID-19 Clin Com Blood Type Antibody Screen 03/08/22 03/09/22 03/09/22 17:20 06:33 06:33 WBC RBC Hgb Hct MCV MCH MCHC RDW Plt Count MPV Immature Gran % (Auto) Neut % (Auto) Lymph % (Auto) [place] % (Auto) Eos % (Auto) Baso % (Auto) Lymph # (Auto) [place] # (Auto) Eos # (Auto) Baso # (Auto) Abs Immat Gran (auto) Absolute Neuts (auto) Absolute Nucleated RBC Nucleated RBC % (auto) Neutrophils % (Manual) Band Neutrophils % Lymphocytes % (Manual) Monocytes % (Manual) Abs Neuts (Manual) Lymphocytes # (Manual) Monocytes # (Manual) Platelet Estimate Plt Morphology Comment RBC Morphology [place] Cells PT INR APTT aPTT Heparin Protocol 28.5 L D VBG pH VBG pCO2 VBG pO2 VBG HCO3 VBG O2 Saturation VBG Base Excess Sodium 138 Potassium 3.6 Chloride 108 Carbon Dioxide 24 Anion Gap 10 L BUN 18 H Creatinine 0.71 Estim Creat Clear Calc 88.5 Estimated GFR > 60 POC Glucose Random Glucose Fasting Glucose 138 H Lactic Acid Lactic Acid F/U @ 2Hr Lactic Acid F/U @ 4Hr Calcium 7.4 L Phosphorus Magnesium Total Bilirubin 2.0 H Direct Bilirubin AST 47 H ALT 114 H Alkaline Phosphatase 66 Ammonia Total Creatine Kinase Troponin I High Sens B-Natriuretic Peptide Total Protein 4.6 L Albumin 2.6 L Triglycerides Lipase Procalcitonin Stool Occult Blood Vancomycin Trough Random Vancomycin 9.0 L C. difficile Tox B Gene COVID-19 ([place]) COVID-19 Clin Com Blood Type Antibody Screen 03/09/22 03/10/22 03/10/22 06:33 05:37 05:37 WBC 5.6 RBC 3.46 L Hgb 10.4 L Hct 31.1 L MCV 89.9 MCH 30.1 MCHC 33.4 RDW 13.3 Plt Count 141 L MPV 9.6 Immature Gran % (Auto) 1.1 H Neut % (Auto) 74.1 H Lymph % (Auto) 11.5 L [place] % (Auto) 10.8 Eos % (Auto) 2.1 Baso % (Auto) 0.4 Lymph # (Auto) 0.7 L [place] # (Auto) 0.6 Eos # (Auto) 0.1 Baso # (Auto) 0.0 Abs Immat Gran (auto) 0.06 H Absolute Neuts (auto) 4.2 Absolute Nucleated RBC 0.000 Nucleated RBC % (auto) 0.0 Neutrophils % (Manual) Band Neutrophils % Lymphocytes % (Manual) Monocytes % (Manual) Abs Neuts (Manual) Lymphocytes # (Manual) Monocytes # (Manual) Platelet Estimate Plt Morphology Comment RBC Morphology [place] Cells PT INR APTT aPTT Heparin Protocol VBG pH VBG pCO2 VBG pO2 VBG HCO3 VBG O2 Saturation VBG Base Excess Sodium 139 Potassium 3.3 Chloride 109 H Carbon Dioxide 23 Anion Gap 10 L BUN 17 H Creatinine 0.68 Estim Creat Clear Calc 92.5 Estimated GFR > 60 POC Glucose Random Glucose Fasting Glucose 135 H Lactic Acid Lactic Acid F/U @ 2Hr Lactic Acid F/U @ 4Hr Calcium 7.2 L Phosphorus 3.4 Magnesium 1.8 Total Bilirubin 1.6 H Direct Bilirubin AST 41 H ALT 113 H Alkaline Phosphatase 67 Ammonia Total Creatine Kinase Troponin I High Sens B-Natriuretic Peptide Total Protein 4.3 L Albumin 2.4 L Triglycerides Lipase Procalcitonin Stool Occult Blood Vancomycin Trough Random Vancomycin 12.4 L C. difficile Tox B Gene COVID-19 ([place]) COVID-19 Clin Com Blood Type Antibody Screen 03/10/22 03/11/22 03/11/22 05:37 07:10 07:10 WBC 4.8 5.9 RBC 3.28 L 3.52 L Hgb 10.1 L 10.7 L Hct 29.7 L 32.1 L MCV 90.5 91.2 MCH 30.8 30.4 MCHC 34.0 33.3 RDW 13.0 13.0 Plt Count 136 L 142 L MPV 9.5 9.6 Immature Gran % (Auto) 0.8 H 1.0 H Neut % (Auto) 67.6 78.0 H Lymph % (Auto) 14.9 L 8.5 L [place] % (Auto) 13.2 H 9.5 Eos % (Auto) 3.1 2.7 Baso % (Auto) 0.4 0.3 Lymph # (Auto) 0.7 L 0.5 L [place] # (Auto) 0.6 0.6 Eos # (Auto) 0.2 0.2 Baso # (Auto) 0.0 0.0 Abs Immat Gran (auto) 0.04 H 0.06 H Absolute Neuts (auto) 3.2 4.6 Absolute Nucleated RBC 0.000 0.000 Nucleated RBC % (auto) 0.0 0.0 Neutrophils % (Manual) Band Neutrophils % Lymphocytes % (Manual) Monocytes % (Manual) Abs Neuts (Manual) Lymphocytes # (Manual) Monocytes # (Manual) Platelet Estimate Plt Morphology Comment RBC Morphology [place] Cells PT INR APTT aPTT Heparin Protocol VBG pH VBG pCO2 VBG pO2 VBG HCO3 VBG O2 Saturation VBG Base Excess Sodium 139 Potassium 3.7 Chloride 108 Carbon Dioxide 22 Anion Gap 13 BUN 18 H Creatinine 0.65 Estim Creat Clear Calc 96.7 Estimated GFR > 60 POC Glucose Random Glucose Fasting Glucose 119 H Lactic Acid Lactic Acid F/U @ 2Hr Lactic Acid F/U @ 4Hr Calcium 7.1 L Phosphorus 2.9 Magnesium 1.6 Total Bilirubin 1.1 H Direct Bilirubin AST 75 H ALT 182 H Alkaline Phosphatase 77 Ammonia Total Creatine Kinase Troponin I High Sens B-Natriuretic Peptide Total Protein 4.7 L Albumin 2.5 L Triglycerides Lipase Procalcitonin Stool Occult Blood Vancomycin Trough Random Vancomycin C. difficile Tox B Gene COVID-19 ([place]) [employer] Blood Type Antibody Screen 03/11/22 03/11/22 03/11/22 10:37 10:37 17:12 WBC RBC Hgb Hct MCV MCH MCHC RDW Plt Count MPV Immature Gran % (Auto) Neut % (Auto) Lymph % (Auto) [place] % (Auto) Eos % (Auto) Baso % (Auto) Lymph # (Auto) [place] # (Auto) Eos # (Auto) Baso # (Auto) Abs Immat Gran (auto) Absolute Neuts (auto) Absolute Nucleated RBC Nucleated RBC % (auto) Neutrophils % (Manual) Band Neutrophils % Lymphocytes % (Manual) Monocytes % (Manual) Abs Neuts (Manual) Lymphocytes # (Manual) Monocytes # (Manual) Platelet Estimate Plt Morphology Comment RBC Morphology [place] Cells PT INR APTT aPTT Heparin Protocol VBG pH VBG pCO2 VBG pO2 VBG HCO3 VBG O2 Saturation VBG Base Excess Sodium Potassium Chloride Carbon Dioxide Anion Gap BUN Creatinine Estim Creat Clear Calc Estimated GFR POC Glucose Random Glucose Fasting Glucose Lactic Acid Lactic Acid F/U @ 2Hr Lactic Acid F/U @ 4Hr Calcium Phosphorus Magnesium Total Bilirubin Direct Bilirubin AST ALT Alkaline Phosphatase Ammonia Total Creatine Kinase Troponin I High Sens B-Natriuretic Peptide Total Protein Albumin Triglycerides Lipase Procalcitonin Stool Occult Blood POSITIVE Vancomycin Trough 15.8 Random Vancomycin C. difficile Tox B Gene NEGATIVE COVID-19 ([place]) [employer] Blood Type Antibody Screen 03/12/22 03/12/22 03/12/22 05:54 05:54 05:54 WBC 6.0 RBC 3.65 L Hgb 11.2 L Hct 32.6 L MCV 89.3 MCH 30.7 MCHC 34.4 RDW 13.0 Plt Count 171 MPV 9.5 Immature Gran % (Auto) 1.3 H Neut % (Auto) 78.3 H Lymph % (Auto) 6.3 L [place] % (Auto) 12.4 H Eos % (Auto) 1.2 Baso % (Auto) 0.5 Lymph # (Auto) 0.4 L [place] # (Auto) 0.8 Eos # (Auto) 0.1 Baso # (Auto) 0.0 Abs Immat Gran (auto) 0.08 H Absolute Neuts (auto) 4.7 Absolute Nucleated RBC 0.000 Nucleated RBC % (auto) 0.0 Neutrophils % (Manual) Band Neutrophils % Lymphocytes % (Manual) Monocytes % (Manual) Abs Neuts (Manual) Lymphocytes # (Manual) Monocytes # (Manual) Platelet Estimate Plt Morphology Comment RBC Morphology [place] Cells PT INR APTT aPTT Heparin Protocol VBG pH VBG pCO2 VBG pO2 VBG HCO3 VBG O2 Saturation VBG Base Excess Sodium 137 Potassium 3.7 Chloride 107 Carbon Dioxide 22 Anion Gap 12 BUN 20 H Creatinine 0.70 Estim Creat Clear Calc 89.8 Estimated GFR > 60 POC Glucose Random Glucose Fasting Glucose 123 H Lactic Acid Lactic Acid F/U @ 2Hr Lactic Acid F/U @ 4Hr Calcium 7.5 L Phosphorus Magnesium Total Bilirubin 1.1 H Direct Bilirubin AST 68 H ALT 209 H Alkaline Phosphatase 92 Ammonia Total Creatine Kinase Troponin I High Sens B-Natriuretic Peptide Total Protein 5.1 L Albumin 2.8 L Triglycerides Lipase Procalcitonin 0.16 Stool Occult Blood Vancomycin Trough Random Vancomycin C. difficile Tox B Gene COVID-19 ([facility]) COVID-19 Clin Com Blood Type Antibody Screen 03/13/22 03/14/22 03/14/22 05:19 10:14 11:07 WBC 7.2 RBC 3.35 L Hgb 10.3 L Hct 30.1 L MCV 89.9 MCH 30.7 MCHC 34.2 RDW 13.4 Plt Count 274 D MPV 9.4 Immature Gran % (Auto) Neut % (Auto) Lymph % (Auto) [place] % (Auto) Eos % (Auto) Baso % (Auto) Lymph # (Auto) [place] # (Auto) Eos # (Auto) Baso # (Auto) Abs Immat Gran (auto) Absolute Neuts (auto) Absolute Nucleated RBC 0.000 Nucleated RBC % (auto) 0.0 Neutrophils % (Manual) Band Neutrophils % Lymphocytes % (Manual) Monocytes % (Manual) Abs Neuts (Manual) Lymphocytes # (Manual) Monocytes # (Manual) Platelet Estimate Plt Morphology Comment RBC Morphology [place] Cells PT INR APTT aPTT Heparin Protocol VBG pH VBG pCO2 VBG pO2 VBG HCO3 VBG O2 Saturation VBG Base Excess Sodium 137 Potassium 4.3 Chloride 107 Carbon Dioxide 21 L Anion Gap 13 BUN 35 H D Creatinine 0.67 Estim Creat Clear Calc 93.8 Estimated GFR > 60 POC Glucose Random Glucose 131 H Fasting Glucose Lactic Acid Lactic Acid F/U @ 2Hr Lactic Acid F/U @ 4Hr Calcium 7.5 L Phosphorus Magnesium Total Bilirubin 1.0 Direct Bilirubin AST 46 H ALT 125 H Alkaline Phosphatase 97 Ammonia Total Creatine Kinase 49 D Troponin I High Sens B-Natriuretic Peptide Total Protein 5.2 L Albumin 2.7 L Triglycerides Lipase Procalcitonin Stool Occult Blood Vancomycin Trough 10.5 Random Vancomycin C. difficile Tox B Gene COVID-19 ([facility]) COVID-19 Clin Com Blood Type Antibody Screen 03/14/22 03/14/22 03/15/22 20:36 20:36 06:40 WBC RBC Hgb Hct MCV MCH MCHC RDW Plt Count MPV Immature Gran % (Auto) Neut % (Auto) Lymph % (Auto) [place] % (Auto) Eos % (Auto) Baso % (Auto) Lymph # (Auto) [place] # (Auto) Eos # (Auto) Baso # (Auto) Abs Immat Gran (auto) Absolute Neuts (auto) Absolute Nucleated RBC Nucleated RBC % (auto) Neutrophils % (Manual) Band Neutrophils % Lymphocytes % (Manual) Monocytes % (Manual) Abs Neuts (Manual) Lymphocytes # (Manual) Monocytes # (Manual) Platelet Estimate Plt Morphology Comment RBC Morphology [place] Cells PT INR APTT aPTT Heparin Protocol VBG pH VBG pCO2 VBG pO2 VBG HCO3 VBG O2 Saturation VBG Base Excess Sodium 140 Potassium 4.4 Chloride 108 Carbon Dioxide 23 Anion Gap 13 BUN 52 H Creatinine 0.70 Estim Creat Clear Calc 89.8 Estimated GFR > 60 POC Glucose Random Glucose 110 Fasting Glucose Lactic Acid Lactic Acid F/U @ 2Hr Lactic Acid F/U @ 4Hr Calcium 7.7 L Phosphorus Magnesium Total Bilirubin Direct Bilirubin AST ALT Alkaline Phosphatase Ammonia Total Creatine Kinase Troponin I High Sens B-Natriuretic Peptide Total Protein Albumin Triglycerides Lipase Procalcitonin Stool Occult Blood POSITIVE Vancomycin Trough Random Vancomycin C. difficile Tox B Gene NEGATIVE COVID-19 ([facility]) COVID-19 Clin Com Blood Type Antibody Screen 03/15/22 03/15/22 03/15/22 08:45 08:45 10:10 WBC 8.2 8.0 RBC 3.26 L 3.03 L Hgb 9.9 L 9.1 L Hct 29.4 L 27.2 L MCV 90.2 89.8 MCH 30.4 30.0 MCHC 33.7 33.5 RDW 13.3 13.5 Plt Count 361 D 361 MPV 9.3 L 9.3 L Immature Gran % (Auto) Neut % (Auto) Lymph % (Auto) [place] % (Auto) Eos % (Auto) Baso % (Auto) Lymph # (Auto) [place] # (Auto) Eos # (Auto) Baso # (Auto) Abs Immat Gran (auto) Absolute Neuts (auto) Absolute Nucleated RBC 0.000 0.000 Nucleated RBC % (auto) 0.0 0.0 Neutrophils % (Manual) Band Neutrophils % Lymphocytes % (Manual) Monocytes % (Manual) Abs Neuts (Manual) Lymphocytes # (Manual) Monocytes # (Manual) Platelet Estimate Plt Morphology Comment RBC Morphology [place] Cells PT 22.5 H INR 1.9 H APTT aPTT Heparin Protocol VBG pH VBG pCO2 VBG pO2 VBG HCO3 VBG O2 Saturation VBG Base Excess Sodium Potassium Chloride Carbon Dioxide Anion Gap BUN Creatinine Estim Creat Clear Calc Estimated GFR POC Glucose Random Glucose Fasting Glucose Lactic Acid Lactic Acid F/U @ 2Hr Lactic Acid F/U @ 4Hr Calcium Phosphorus Magnesium Total Bilirubin Direct Bilirubin AST ALT Alkaline Phosphatase Ammonia Total Creatine Kinase Troponin I High Sens B-Natriuretic Peptide Total Protein Albumin Triglycerides Lipase Procalcitonin Stool Occult Blood Vancomycin Trough Random Vancomycin C. difficile Tox B Gene COVID-19 ([facility]) COVID-19 Clin Com Blood Type Antibody Screen 03/15/22 03/15/22 03/15/22 10:10 16:15 16:57 WBC 7.7 RBC 3.01 L Hgb 9.3 L Hct 27.4 L MCV 91.0 MCH 30.9 MCHC 33.9 RDW 13.5 Plt Count 376 MPV 9.4 Immature Gran % (Auto) Neut % (Auto) Lymph % (Auto) [place] % (Auto) Eos % (Auto) Baso % (Auto) Lymph # (Auto) [place] # (Auto) Eos # (Auto) Baso # (Auto) Abs Immat Gran (auto) Absolute Neuts (auto) Absolute Nucleated RBC 0.000 Nucleated RBC % (auto) 0.0 Neutrophils % (Manual) Band Neutrophils % Lymphocytes % (Manual) Monocytes % (Manual) Abs Neuts (Manual) Lymphocytes # (Manual) Monocytes # (Manual) Platelet Estimate Plt Morphology Comment RBC Morphology Kyle Cells PT 21.4 H INR 1.8 H APTT aPTT Heparin Protocol 37.2 L D VBG pH VBG pCO2 VBG pO2 VBG HCO3 VBG O2 Saturation VBG Base Excess Sodium Potassium Chloride Carbon Dioxide Anion Gap BUN Creatinine Estim Creat Clear Calc Estimated GFR POC Glucose Random Glucose Fasting Glucose Lactic Acid Lactic Acid F/U @ 2Hr Lactic Acid F/U @ 4Hr Calcium Phosphorus Magnesium Total Bilirubin Direct Bilirubin AST ALT Alkaline Phosphatase Ammonia Total Creatine Kinase Troponin I High Sens B-Natriuretic Peptide Total Protein Albumin Triglycerides Lipase Procalcitonin Stool Occult Blood Vancomycin Trough Random Vancomycin C. difficile Tox B Gene COVID-19 ([facility]) COVID-19 Clin Com Blood Type O Positive Antibody Screen NEGATIVE 03/16/22 03/16/22 03/16/22 01:12 06:02 06:02 WBC 8.9 RBC 2.77 L Hgb 8.5 L Hct 25.4 L MCV 91.7 MCH 30.7 MCHC 33.5 RDW 13.4 Plt Count 383 MPV 9.9 Immature Gran % (Auto) Neut % (Auto) Lymph % (Auto) [place] % (Auto) Eos % (Auto) Baso % (Auto) Lymph # (Auto) [place] # (Auto) Eos # (Auto) Baso # (Auto) Abs Immat Gran (auto) Absolute Neuts (auto) Absolute Nucleated RBC 0.000 Nucleated RBC % (auto) 0.0 Neutrophils % (Manual) Band Neutrophils % Lymphocytes % (Manual) Monocytes % (Manual) Abs Neuts (Manual) Lymphocytes # (Manual) Monocytes # (Manual) Platelet Estimate Plt Morphology Comment RBC Morphology [place] Cells PT 16.6 H INR 1.4 H APTT aPTT Heparin Protocol VBG pH VBG pCO2 VBG pO2 VBG HCO3 VBG O2 Saturation VBG Base Excess Sodium 140 Potassium 4.0 Chloride 107 Carbon Dioxide 25 Anion Gap 12 BUN 40 H Creatinine 0.81 Estim Creat Clear Calc 77.6 Estimated GFR > 60 POC Glucose Random Glucose 138 H Fasting Glucose Lactic Acid Lactic Acid F/U @ 2Hr Lactic Acid F/U @ 4Hr Calcium 7.8 L Phosphorus Magnesium 2.0 Total Bilirubin Direct Bilirubin AST ALT Alkaline Phosphatase Ammonia Total Creatine Kinase Troponin I High Sens B-Natriuretic Peptide Total Protein Albumin Triglycerides Lipase Procalcitonin Stool Occult Blood Vancomycin Trough Random Vancomycin C. difficile Tox B Gene COVID-19 ([place]) COVIDGlobaltmail [place] [facility] Blood Type Antibody Screen 03/16/22 03/16/22 03/16/22 07:38 09:53 12:54 WBC 7.4 RBC 2.77 L Hgb 8.5 L Hct 26.0 L MCV 93.9 MCH 30.7 MCHC 32.7 RDW 13.7 Plt Count 409 H MPV 9.6 Immature Gran % (Auto) Neut % (Auto) Lymph % (Auto) [place] % (Auto) Eos % (Auto) Baso % (Auto) Lymph # (Auto) [place] # (Auto) Eos # (Auto) Baso # (Auto) Abs Immat Gran (auto) Absolute Neuts (auto) Absolute Nucleated RBC 0.000 Nucleated RBC % (auto) 0.0 Neutrophils % (Manual) Band Neutrophils % Lymphocytes % (Manual) Monocytes % (Manual) Abs Neuts (Manual) Lymphocytes # (Manual) Monocytes # (Manual) Platelet Estimate Plt Morphology Comment RBC Morphology [place] Cells PT INR APTT aPTT Heparin Protocol 33.5 L 31.2 L VBG pH VBG pCO2 VBG pO2 VBG HCO3 VBG O2 Saturation VBG Base Excess Sodium Potassium Chloride Carbon Dioxide Anion Gap BUN Creatinine Estim Creat Clear Calc Estimated GFR POC Glucose Random Glucose Fasting Glucose Lactic Acid Lactic Acid F/U @ 2Hr Lactic Acid F/U @ 4Hr Calcium Phosphorus Magnesium Total Bilirubin Direct Bilirubin AST ALT Alkaline Phosphatase Ammonia Total Creatine Kinase Troponin I High Sens B-Natriuretic Peptide Total Protein Albumin Triglycerides Lipase Procalcitonin Stool Occult Blood Vancomycin Trough Random Vancomycin C. difficile Tox B Gene COVID-19 ([place]) COVMicroCoal [facility] Blood Type Antibody Screen 03/16/22 03/17/22 03/17/22 18:28 01:41 06:25 WBC RBC Hgb Hct MCV MCH MCHC RDW Plt Count MPV Immature Gran % (Auto) Neut % (Auto) Lymph % (Auto) [place] % (Auto) Eos % (Auto) Baso % (Auto) Lymph # (Auto) [place] # (Auto) Eos # (Auto) Baso # (Auto) Abs Immat Gran (auto) Absolute Neuts (auto) Absolute Nucleated RBC Nucleated RBC % (auto) Neutrophils % (Manual) Band Neutrophils % Lymphocytes % (Manual) Monocytes % (Manual) Abs Neuts (Manual) Lymphocytes # (Manual) Monocytes # (Manual) Platelet Estimate Plt Morphology Comment RBC Morphology [place] Cells PT INR APTT aPTT Heparin Protocol 47.2 L D 70.8 D 69.5 VBG pH VBG pCO2 VBG pO2 VBG HCO3 VBG O2 Saturation VBG Base Excess Sodium Potassium Chloride Carbon Dioxide Anion Gap BUN Creatinine Estim Creat Clear Calc Estimated GFR POC Glucose Random Glucose Fasting Glucose Lactic Acid Lactic Acid F/U @ 2Hr Lactic Acid F/U @ 4Hr Calcium Phosphorus Magnesium Total Bilirubin Direct Bilirubin AST ALT Alkaline Phosphatase Ammonia Total Creatine Kinase Troponin I High Sens B-Natriuretic Peptide Total Protein Albumin Triglycerides Lipase Procalcitonin Stool Occult Blood Vancomycin Trough Random Vancomycin C. difficile Tox B Gene COVID-19 ([facility]) COVID-19 Clin Com Blood Type Antibody Screen 03/18/22 03/18/22 03/18/22 03:48 05:59 12:58 WBC RBC Hgb Hct MCV MCH MCHC RDW Plt Count MPV Immature Gran % (Auto) Neut % (Auto) Lymph % (Auto) [place] % (Auto) Eos % (Auto) Baso % (Auto) Lymph # (Auto) [place] # (Auto) Eos # (Auto) Baso # (Auto) Abs Immat Gran (auto) Absolute Neuts (auto) Absolute Nucleated RBC Nucleated RBC % (auto) Neutrophils % (Manual) Band Neutrophils % Lymphocytes % (Manual) Monocytes % (Manual) Abs Neuts (Manual) Lymphocytes # (Manual) Monocytes # (Manual) Platelet Estimate Plt Morphology Comment RBC Morphology [place] Cells PT 14.8 H INR 1.3 H APTT 31.2 D aPTT Heparin Protocol 46.2 L D VBG pH VBG pCO2 VBG pO2 VBG HCO3 VBG O2 Saturation VBG Base Excess Sodium Potassium Chloride Carbon Dioxide Anion Gap BUN Creatinine Estim Creat Clear Calc Estimated GFR POC Glucose 87 Random Glucose Fasting Glucose Lactic Acid Lactic Acid F/U @ 2Hr Lactic Acid F/U @ 4Hr Calcium Phosphorus Magnesium Total Bilirubin Direct Bilirubin AST ALT Alkaline Phosphatase Ammonia Total Creatine Kinase Troponin I High Sens B-Natriuretic Peptide Total Protein Albumin Triglycerides Lipase Procalcitonin Stool Occult Blood Vancomycin Trough Random Vancomycin C. difficile Tox B Gene COVID-19 ([place]) COVIDMtivity Blood Type Antibody Screen 03/18/22 12:58 WBC 8.9 RBC 2.42 L Hgb 7.4 L Hct 22.1 L MCV 91.3 MCH 30.6 MCHC 33.5 RDW 13.6 Plt Count 420 H MPV 8.9 L Immature Gran % (Auto) 0.4 Neut % (Auto) 82.9 H Lymph % (Auto) 11.2 L [place] % (Auto) 4.9 Eos % (Auto) 0.3 Baso % (Auto) 0.3 Lymph # (Auto) 1.0 L [place] # (Auto) 0.4 Eos # (Auto) 0.0 Baso # (Auto) 0.0 Abs Immat Gran (auto) 0.04 H Absolute Neuts (auto) 7.4 Absolute Nucleated RBC 0.000 Nucleated RBC % (auto) 0.0 Neutrophils % (Manual) Band Neutrophils % Lymphocytes % (Manual) Monocytes % (Manual) Abs Neuts (Manual) Lymphocytes # (Manual) Monocytes # (Manual) Platelet Estimate Plt Morphology Comment RBC Morphology [place] Cells PT INR APTT aPTT Heparin Protocol VBG pH VBG pCO2 VBG pO2 VBG HCO3 VBG O2 Saturation VBG Base Excess Sodium Potassium Chloride Carbon Dioxide Anion Gap BUN Creatinine Estim Creat Clear Calc Estimated GFR POC Glucose Random Glucose Fasting Glucose Lactic Acid Lactic Acid F/U @ 2Hr Lactic Acid F/U @ 4Hr Calcium Phosphorus Magnesium Total Bilirubin Direct Bilirubin AST ALT Alkaline Phosphatase Ammonia Total Creatine Kinase Troponin I High Sens B-Natriuretic Peptide Total Protein Albumin Triglycerides Lipase Procalcitonin Stool Occult Blood Vancomycin Trough Random Vancomycin C. difficile Tox B Gene COVID-19 ([facility]) COVID-19 [facility] Blood Type Antibody Screen Airway Mallampati Class: II TM Dist: >3cm Neck ROM: Full Heart: r Lungs: rc Assessment and Plan Assessment Anesthesia Assessment: Anesthesia Plan Discussed and Chart Reviewed Final Anesthetic Review Family History of Problems with Anesthesia: No History of Problems with Anesthesia: No NPO: Yes ASA Class: III Final Preanesthetic Review: No Changes in Pt Med Stat, Meds/Allgs Chart Reviewed and Consent Obtained/Reviewed Patient Risk: Intermediate Procedure Risk: Low Anesthetic Plan Anesthetic Plan: MAC: Disposition: Standard PACU
--- NOTE | 2022-03-18 13:33 | MHC.CM.PN ---
PER ROUNDS PT MAYBE DC TOMORROW PT TO HAVE PEG TODAY
--- NOTE | 2022-03-18 14:50 | PM.OP ---
Brief Operative Note Date of Service: 03/18/22 Pre-op diagnosis: GI bleeding, dysphagia for PEG tube placement Post-op diagnosis: other (Duodenal ulcer, Status post successful PEG tube placment.) Procedure: FLEXIBLE TRANSORAL UPPER GASTROINTESTINAL ENDOSCOPY WITH BIOPSIES, HEMOCLIP AND PERCUTANEOUS ENDOSCOPIC GASTROSTOMY TUBE PLACEMENT Consent: Indications for the procedure and potential complications of bleeding, perforation, reaction to medications and missed diagnosis were discussed with the patient and informed consent was obtained. Instrument: Olympus GIF H 190 mid size upper endoscope Monitoring: Vital signs and clinical assessment, continuous EKG monitoring, Pulse oximetry, Carbon Dioxide monitoring and blood pressure monitoring were done throughout the procedure. Procedure: Cefazolin 2 grams was given IV for pre-procedure prophylaxis. The patient was placed in the left lateral decubitis position and pre-procedure medications were administered and a bite block was placed. The endoscope was inserted into the mouth and advanced under direct vision to the third part of duodenum. A careful inspection was made as the upper endoscope was withdrawn including a retroflexed examination of the proximal stomach; A PEG tube was placed successfully as noted below Findings and interventions are described below. Findings: Esophagus: GE junction at 36 cms, hiatal hernia 36 to 39 cms. No esophagitis or Tse's. Stomach: Mild gastric erythema. Biopsies were obtained for H Pylori. Grade 2 flap valve on retroflexed examination of the cardia. Appropriate site for PEG tube placement was identified by finger impression and transillumination. The endoscope was removed. Skin was prepped and draped in the usual sterile fashion. A 20 F Miguel A Orozco gastrostomy tube was placed successfully by pull technique. The external bolster was placed at 3 cms from the skin. Endoscope was reinserted and appropriate position of internal bolster was confirmed. Duodenum: A 1.5 cms ulcer in the bulb with a non-bleeding visible vessel - treated with placement of a resolution clip. Normal descending duodenum Intervention: Biopsies, hemoclip and PEG tube placement as noted above Impression and Post Procedure Diagnosis: Endoscopy Findings: ESOPHAGUS: Medium sized hiatal hernia STOMACH: Mild antral gastritis, status post successful PEG tube placement DUODENUM: A 1.5 cms ulcer in the bulb with a non-bleeding visible vessel - treated with placement of a resolution clip. Plan: Await pathology results Continue IV PPI and switch to per gastrostomy tube once pt is tolerating PEG tube feedings. PEG tube feeding can be started on 03/19/22 in the am as per order of the yarding engineer. Resume Heparin on 03/19/22 at 8 am. Above findings were reviewed with the patient's son, Xu Gama over the telephone. And also with the patient. Surgeon: Nya Boucher MD Anesthesia: MAC (Dr Li) Was an Professor Of Political Science used for this Procedure?: Yes Professor Of Political Science: Nallely Marcos Estimated blood loss (mL): 0 Pathology: other (A. Gastric antrum) Condition: stable Disposition: PACU
--- NOTE | 2022-03-18 14:51 | MHC.SHP ---
Pre-Procedural Eval Section A Date of Service: 03/18/22 The patient is an INPATIENT: Yes Changes since office visit: Yes New Medical Problems, Yes Changes in Medication and Yes Patient answered all questions; No Cold of Flu in the past 2 weeks The History & Physical has been completed within 30 days and I have reviewed it.: Yes Section B Chief Complaint: found on ground by son Allergies: Allergies Allergy/AdvReac Type Severity Reaction Status Date / Time No Known Allergies Allergy Verified 02/24/22 23:32 [No Known Allergies*] Plan I have reviewed the history and physical and performed a pertinent physical examination on my patient. No changes have occurred unless specified.
--- NOTE | 2022-03-18 14:58 | PC.NURSE ---
unable to edit time of initial vital signs, just prior to prbc transfusing. vitals were at 1426
--- NOTE | 2022-03-18 16:00 | W.PM.OPN ---
Operative Note Operative Note Date of Service: 03/18/22 Narrative: Pre-op diagnosis: GI bleeding, dysphagia for PEG tube placement Post-op diagnosis:?other (Hiatal hernia, Duodenal ulcer, Status post successful PEG tube placment.) Procedure: FLEXIBLE TRANSORAL UPPER GASTROINTESTINAL ENDOSCOPY WITH BIOPSIES, HEMOCLIP AND PERCUTANEOUS ENDOSCOPIC GASTROSTOMY TUBE PLACEMENT Consent:?Indications for the procedure and potential complications of bleeding, perforation, reaction to medications and missed diagnosis were discussed with the patient and informed consent was obtained. Instrument:?Olympus GIF H 190 mid size upper endoscope Monitoring: Vital signs and clinical assessment, continuous EKG monitoring, Pulse oximetry, Carbon Dioxide monitoring and blood pressure monitoring were done throughout the procedure. Procedure:?Cefazolin 2 grams was given IV for pre-procedure prophylaxis. The patient was placed in the left lateral decubitis position and pre-procedure medications were administered and a bite block was placed. The endoscope was inserted into the mouth and advanced under direct vision to the third part of duodenum. A careful inspection was made as the upper endoscope was withdrawn including a retroflexed examination of the proximal stomach; A PEG tube was placed successfully as noted below Findings and interventions are described below. Findings: Esophagus: GE junction at 36? cms, hiatal hernia 36 to 39 cms. No esophagitis or Tse's. Stomach: Mild gastric erythema. Biopsies were obtained for H Pylori. Grade 2 flap valve on retroflexed examination of the cardia. Appropriate site for PEG tube placement was identified by finger impression and transillumination.? The endoscope was removed. Skin was prepped and draped in the usual sterile fashion. A 20 F Miguel A Orozco gastrostomy tube was placed successfully by pull technique. The external bolster was placed at 3 cms from the skin. Endoscope was reinserted and appropriate position of internal bolster was confirmed. Duodenum: A 1.5 cms ulcer in the bulb with a non-bleeding visible vessel - treated with placement of a resolution clip. Normal descending duodenum Intervention: Biopsies, hemoclip and PEG tube placement as noted above Impression and Post Procedure Diagnosis: Endoscopy Findings: ESOPHAGUS: Medium sized hiatal hernia STOMACH: Mild antral gastritis, status post successful PEG tube placement DUODENUM: A 1.5 cms ulcer in the bulb with a non-bleeding visible vessel - treated with placement of a resolution clip. Plan: Await pathology results Continue IV PPI and switch to per gastrostomy tube once pt is tolerating PEG tube feedings. PEG tube feeding can be started on 03/19/22 in the am as per order of the turf keeper. Resume Heparin on 03/19/22 at 8 am. Above findings were reviewed with the patient's son, Xu Gama over the telephone. And also with the patient. Surgeon: Nya Boucher MD Anesthesia:?MAC (Dr Li) Was an Strategic Marketing Associate used for this Procedure?:?No Strategic Marketing Associate:?Nallely Marcos Estimated blood loss (mL):?0 Pathology:?other (A.? Gastric antrum) Condition:?stable Disposition:?PACU
[2022-03-19] VITALS (9 sets, daily range): BP systolic 113–136; BP diastolic 52–64; PULSE 81–93; RESP 16–20; TEMP 36.3–37; O2SAT 95–99; BMI 21.0
--- NOTE | 2022-03-19 04:16 | PC.NURSE ---
pt seen at around 2100 with persistent,weak non prod cough, denies any SOB, VSS, LS noted with scattered fine crackles and mild rhonchi, NPO maintained, [facility] Ro was made aware[facility] paged and came gave breathing treatment with relief.
[2022-03-19] MEDS: Dextrose 5 % 1,000 ML 100 ML IVCONT ×2 (05:08→15:10)
[2022-03-19 08:14] LABS: Hematocrit 27.4 % (42.0-52.0); Hemoglobin 9.3 g/dl (14.0-18.0); Mean Corpuscular HGB Conc 33.9 g/dl (31.0-36.0); Mean Corpuscular Hemoglobin 31.1 pg (27.0-33.0); Mean Corpuscular Volume 91.6 fL (80.0-98.0); Mean Platelet Volume 8.8 fL (9.4-12.4); Platelet Count 377 X10*3/uL (160-400); Red Blood Count 2.99 X10*6/uL (4.60-5.80); Red Cell Distribution Width 14.2 % (11.0-16.0); White Blood Count 8.1 X10*3/uL (4.8-10.8)
--- NOTE | 2022-03-19 11:20 | HO.POSTANES ---
Post Anesthesia Evaluation Post Anesthesia Evaluation Vital Signs: Vital Signs Temp Pulse Resp BP Pulse Ox O2 Del Method 03/19/22 08:24 87 131/59 L 99 03/19/22 07:45 98.3 F 87 20 131/59 L 99 Room Air 03/19/22 03:57 98.6 F 82 16 125/57 L 97 Nasal Cannula 03/19/22 00:00 98.1 F 16 127/52 L 98 Room Air Anesthesia: Monitored Mental Status: Awake Pain Control: Satisfactory Nausea/Vomiting: None Hydration: Adequate Anesthesia-Related Issues: No Anes. Related Issues
--- NOTE | 2022-03-19 11:36 | MHC.CLN ---
RE: CONSULT PEG PLACED 03/18 CONSULT TO START PEG FEEDING 03/19 IN AM RECOMMEND PROMOTE AT MAX GAOL RATE 75ML/HR WITH 120ML FREE WATER FLUSHES Q 6 HRS TO PROVIDE 1800KCALS (27KCALS/KG), 112.5G PROTEIN (1.7G/KG) FOR WOUND HEALING, 1990ML TOTAL WATER FORMULA AND FLUSHES (30ML/KG) START FORMULA AT 20ML/HR AND INCREASE BY 10ML Q 4 HRS UNTIL MAX GOAL IS REACHED MONITOR TOLERANCE, RESIDUALS AND LYTES
[2022-03-19] MEDS: Apixaban 5 MG TABLET G-TUBE ×2 (11:56→19:37)
[2022-03-19] MEDS: Carbidopa/Levodopa 25/100 TABLET 2 TAB PO ×3 (11:56→19:37)
[2022-03-19] MEDS: 0.9 % Sodium Chloride Flush 3 ML SYRINGE IVFLUSH ×3 (12:00→23:57)
--- NOTE | 2022-03-19 12:00 | P.PNIM_ITS ---
Subjective Subjective Date of Service: 03/19/22 Interval History: f/u on dvt, aspiration, malnutrition no new issues, no gi bleed r, no pain, succesful PEG placment yesterday, has no new complaint Review of Systems no pain no bleeding from anywhere Physical Exam Vital Signs: Vital Signs: Last Vital Signs Temp 97.8 F 03/19/22 11:58 Pulse 92 03/19/22 11:58 Resp 20 03/19/22 11:58 BP 136/63 03/19/22 11:58 Pulse Ox 95 03/19/22 11:58 O2 Del Method 03/19/22 11:58 O2 Flow Rate 2 03/19/22 11:58 FiO2 28 03/10/22 23:32 BMI result Body Mass Index 21.0 Const: Other: General: AO X 3, no acute distress Resp: CTA bilateral CVS: S1,S2,RRR GI: +BS, NT, no distention Skin: No rash Neuro: motor grossly intact Psych: appropriate affect Objective Data Active Medications Acetaminophen (Acetaminophen 325 Mg Tablet) 650 mg PO Q6H PRN PRN Reason: Pain, Mild (Pain Scale 1-3) Acetaminophen (Acetaminophen Supp 650 Mg Supp.Rect) 650 mg HI Q4H PRN PRN Reason: Fever Last Admin: 03/16/22 02:07 Dose: 650 mg Documented By: KALEN Albuterol/Ipratropium (Albuterol/Iprat 2.5/0.5mg 3 Ml Ampul.Neb) 3 ml INHALE Q4H PRN PRN Reason: Shortness of Breath/Wheezing Apixaban (Apixaban 5 Mg Tablet) 5 mg G-TUBE BID YAMEL Carbidopa/Levodopa (Carbidopa/Levodopa 25/100 Tablet) 2 tab PO TID YAMEL Last Admin: 03/18/22 22:38 Dose: Not Given Documented By: TORI Non-Admin Reason: NPO Dextrose (D5w) 1,000 mls @ 100 mls/hr IVCONT .Q10H YAMEL Last Admin: 03/19/22 05:08 Dose: 100 mls/hr Documented By: TORI Metoprolol Tartrate (Metoprolol Tartrate 25 Mg Tablet) 25 mg PO BID YAMEL; Protocol Last Admin: 03/14/22 20:19 Dose: 25 mg Documented By: HO.COLOJ Metoprolol Tartrate (Metoprolol Tartrate 5 Mg/5 Ml Vial) 2.5 mg IVPUSH Q6H PRN PRN Reason: TACHYCADIA Last Admin: 03/16/22 02:08 Dose: 2.5 mg Documented By: KALEN Metoprolol Tartrate (Metoprolol Tartrate 5 Mg/5 Ml Vial) 5 mg IVPUSH Q6H PRN PRN Reason: HR>125 Ondansetron HCl (Ondansetron Hcl 4 Mg/2 Ml Vial) 4 mg IVPUSH Q8H PRN PRN Reason: Nausea and Vomiting Pharmacy Consult (Consult Rx Perform Med Rec) 1 each MISCELLANE ONCE PRN PRN Reason: Consult order Pharmacy Consult (Consult Rx Perform Med Rec) 1 each MISCELLANE ONCE PRN PRN Reason: Consult order Sodium Chloride (0.9 % Sodium Chloride Flush 3 Ml Syringe) [facility] Last Admin: 03/19/22 01:17 Dose: Not Given Documented By: TORI Non-Admin Reason: IV Running Labs CBC & Chem 7: 03/19/22 08:01 03/16/22 01:12 Labs: Laboratory Results - last 24 hr 03/15/22 03/18/22 03/18/22 16:57 12:58 12:58 MCV 91.3 MCH 30.6 MCHC 33.5 RDW 13.6 Plt Count 420 H MPV 8.9 L Immature Gran % (Auto) 0.4 Neut % (Auto) 82.9 H Lymph % (Auto) 11.2 L Upson % (Auto) 4.9 Eos % (Auto) 0.3 Baso % (Auto) 0.3 Lymph # (Auto) 1.0 L Upson # (Auto) 0.4 Eos # (Auto) 0.0 Baso # (Auto) 0.0 Abs Immat Gran (auto) 0.04 H Absolute Neuts (auto) 7.4 Absolute Nucleated RBC 0.000 Nucleated RBC % (auto) 0.0 PT 14.8 H INR 1.3 H APTT 31.2 D Blood Type O Positive Antibody Screen NEGATIVE Crossmatch See Detail 03/19/22 08:01 MCV 91.6 MCH 31.1 MCHC 33.9 RDW 14.2 Plt Count 377 MPV 8.8 L Immature Gran % (Auto) Neut % (Auto) Lymph % (Auto) Upson % (Auto) Eos % (Auto) Baso % (Auto) Lymph # (Auto) Upson # (Auto) Eos # (Auto) Baso # (Auto) Abs Immat Gran (auto) Absolute Neuts (auto) Absolute Nucleated RBC 0.000 Nucleated RBC % (auto) 0.0 PT INR APTT Blood Type Antibody Screen Crossmatch Assessment and Plan (1) GI bleed: Status: Acute (2) DVT (deep venous thrombosis): Status: Acute Plan 71yo M with Parkinson disease, CAD, HTN, HLD found on ground by his son, admitted with PNA + NSTEMI + malnutrition # RUE DVT - apixaban started on 03/12 at 10 mg bid and was to beswitched to 5 mg bid on 03/19.. but was put on heparin in anticipation of PEG -he had decrease H/H with melana and anticoagulation was on hold for a day and started on heparin -restarting Eliquis today as H/H stable #Dysphagia with possible aspiration complicated by moderate protein calory malnutrition -has a PEG place on 03/18 -reasses for oral diet after PEG # PNA - completed 7d of pip/rubio + vanco, d/c ABX, BCx negative, PCT low, not hypoxic # NSTEMI vs. rhabdomyolysis - Cardiology consulted, treated medically with heparinization + ASA; resumed metoprolol, held statin given rhabdomyolysis - # moderate pr/hattie malnutrition - d/c'ed TPN 03/12/22, Tube feed starting today 03/18 # Aspiration -NPO PEG placed 03/18, # HTN - metoprolol #Parkinsons disease: seen by Dr. Watson today with the following remark: I talked to him and recommended that he should have a PEG placed.? This could also be used on as needed basis but at this time he needed for medicines and nutrition especially Parkinson's meds.? I notice that he is on carbidopa levodopa extended release 2 tablets 3 times a day.? Instead, I would recommend regular carbidopa levodopa 25/100 to 4 times a day starting with 06:00 in the morning and giving a dose every 4 hours.? He might require additional levodopa but the dose could be adjusted later . He's agreable for a peg # VTE ppx: LMWH # dispo: STR In my clinical judgment, the patient requires continued hospitalization for the following reasons: nutrition, plan for peg, placement Quality Stroke Does the patient have a stroke diagnosis?: No VTE Prior VTE?: No VTE Risk Level:: Medical - moderate - high VTE Device Contraindication: Treatment Not Indicated VTE Drug Contraindication: N/A - Med Ordered
[2022-03-20] MEDS: Dextrose 5 % 1,000 ML 100 ML IVCONT (03:33)
[2022-03-20 04:00] VITALS: BP 144/65; PULSE 84; RESP 16; TEMP 36.8; O2SAT 97
[2022-03-20 07:25] VITALS: BP 125/56; PULSE 84; RESP 16; TEMP 37; O2SAT 98
[2022-03-20] MEDS: Apixaban 5 MG TABLET G-TUBE ×2 (11:05→20:36)
[2022-03-20] MEDS: Metoprolol Tartrate 12.5 MG HALFTAB G-TUBE ×2 (11:06→20:36)
[2022-03-20] MEDS: Carbidopa/Levodopa 25/100 TABLET 1 TAB G-TUBE ×4 (11:06→20:37)
[2022-03-20] MEDS: 0.9 % Sodium Chloride Flush 3 ML SYRINGE IVFLUSH ×3 (11:10→20:38)
--- NOTE | 2022-03-20 11:36 | MHC.CM.PN ---
Per ROUNDS discussion, Patient is not yet medically cleared for d/c (PEG placement yesterday but not yet advanced to goal amount/rate); PT is recommending STR and CM will continue to follow.
[2022-03-20 12:00] VITALS: BP 126/53; PULSE 90; RESP 18; TEMP 36.8; O2SAT 99
--- NOTE | 2022-03-20 13:11 | MHC.CLN ---
F/U PT RECEIVING PROMOTE AT MAX GAOL RATE 75ML/HR WITH 120ML FREE WATER FLUSHES Q 6 HRS PROVIDES 1800KCALS (27KCALS/KG), 112.5G PROTEIN (1.7G/KG) FOR WOUND HEALING, 1990ML TOTAL WATER FORMULA AND FLUSHES (30ML/KG) MONITOR TOLERANCE, RESIDUALS AND LYTES
--- NOTE | 2022-03-20 15:20 | P.PNIM_ITS ---
Subjective Subjective Date of Service: 03/20/22 Interval History: Woke up disoriented but that has resolved Tolerating TFs, currently 50 mL/hr, goal 75 mL/hr Denies dyspnea or cough Review of Systems Review of Systems: Yes all other systems are reviewed and are negative Physical Exam Vital Signs: Vital Signs: Last Vital Signs Temp 98.2 F 03/20/22 12:00 Pulse 90 03/20/22 12:00 Resp 18 03/20/22 12:00 BP 126/53 L 03/20/22 12:00 Pulse Ox 99 03/20/22 12:00 O2 Del Method 03/20/22 13:00 O2 Flow Rate 2 03/19/22 19:01 FiO2 28 03/10/22 23:32 Oxygen Flow Rate 2 03/19/22 13:24 BMI result Body Mass Index 21.0 Gen: in no acute distress HEENT: sclera anicteric, moist mucus membranes Neck: supple Lungs: clear to auscultation bilaterally Heart: regular rate and rhythm, no murmurs Abd: soft, non-tender, non-distended, PEG tube in place Ext: RUE swelling improved Skin: warm/well-perfused Neuro: alert and oriented x3, masked facies, cogwheeling Psych: appropriate affect ? Objective Data Active Medications Acetaminophen (Acetaminophen 325 Mg Tablet) 650 mg PO Q6H PRN PRN Reason: Pain, Mild (Pain Scale 1-3) Acetaminophen (Acetaminophen Supp 650 Mg Supp.Rect) 650 mg FL Q4H PRN PRN Reason: Fever Last Admin: 03/16/22 02:07 Dose: 650 mg Documented By: KALEN Albuterol/Ipratropium (Albuterol/Iprat 2.5/0.5mg 3 Ml Ampul.Neb) 3 ml INHALE Q4H PRN PRN Reason: Shortness of Breath/Wheezing Apixaban (Apixaban 5 Mg Tablet) 5 mg G-TUBE BID [facility] Last Admin: 03/20/22 11:05 Dose: 5 mg Documented By: JAZ Carbidopa/Levodopa (Carbidopa/Levodopa 25/100 Tablet) 1 tab G-TUBE QID [facility] Last Admin: 03/20/22 13:46 Dose: 1 tab Documented By: JAZ Metoprolol Tartrate (Metoprolol Tartrate 5 Mg/5 Ml Vial) 2.5 mg IVPUSH Q6H PRN PRN Reason: TACHYCADIA Last Admin: 03/16/22 02:08 Dose: 2.5 mg Documented By: KALEN Metoprolol Tartrate (Metoprolol Tartrate 5 Mg/5 Ml Vial) 5 mg IVPUSH Q6H PRN PRN Reason: HR>125 Metoprolol Tartrate (Metoprolol Tartrate 12.5 Mg Halftab) 12.5 mg G-TUBE BID [facility]; Protocol Last Admin: 03/20/22 11:06 Dose: 12.5 mg Documented By: JAZ Ondansetron HCl (Ondansetron Hcl 4 Mg/2 Ml Vial) 4 mg IVPUSH Q8H PRN PRN Reason: Nausea and Vomiting Pharmacy Consult (Consult Rx Perform Med Rec) 1 each MISCELLANE ONCE PRN PRN Reason: Consult order Pharmacy Consult (Consult Rx Perform Med Rec) 1 each MISCELLANE ONCE PRN PRN Reason: Consult order Sodium Chloride (0.9 % Sodium Chloride Flush 3 Ml Syringe) 3 ml IVFLUSH QSHIFT [facility] Last Admin: 03/20/22 11:10 Dose: 3 ml Documented By: JAZ Labs CBC & Chem 7: 03/19/22 08:01 03/16/22 01:12 Assessment and Plan (1) GI bleed: Status: Acute (2) DVT (deep venous thrombosis): Status: Acute Plan hospital d#16 71yo M with Parkinson disease, CAD, HTN, HLD found on ground by his son, admitted with PNA + NSTEMI + malnutrition # RUE DVT - apixaban started on 03/12 at 10 mg bid and was to be switched to 5 mg bid on 03/19, but was put on heparin in anticipation of PEG, had decrease H/H with melana and anticoagulation was on hold for a day and started on heparin, restarting apixaban 03/19/22 and H+H stable # PNA - completed 7d of pip/rubio + vanco, d/c ABX, BCx negative, PCT low, not hypoxic # NSTEMI vs. rhabdomyolysis - Cardiology consulted, treated medically with heparinization + ASA; resumed metoprolol, held statin given rhabdomyolysis # moderate pr/hattie malnutrition # aspiration - d/c'ed TPN 03/12/22, PEG placed 03/18, advance TFs to goal [Promote 75 mL/hr + free water 120 mL q6hr] # HTN - metoprolol #Parkinsons disease: seen by Dr. Watson today with the following remark: I talked to him and recommended that he should have a PEG placed.? This could also be used on as needed basis but at this time he needed for medicines and nutrition especially Parkinson's meds.? I notice that he is on carbidopa levodopa extended release 2 tablets 3 times a day.? Instead, I would recommend regular carbidopa levodopa 25/100 to 4 times a day starting with 06:00 in the morning and giving a dose every 4 hours.? He might require additional levodopa but the dose could be adjusted later # VTE ppx: apixaban # dispo: STR In my clinical judgment, the patient requires continued hospitalization for the following reasons: nutrition, advancing tube feeds, STR placement Quality Stroke Does the patient have a stroke diagnosis?: No VTE Prior VTE?: No VTE Risk Level:: Medical - moderate - high VTE Device Contraindication: Treatment Not Indicated VTE Drug Contraindication: N/A - Med Ordered
[2022-03-20 15:38] VITALS: BP 114/65; PULSE 81; RESP 19; TEMP 36.7; O2SAT 100
[2022-03-20 19:42] VITALS: BP 124/55; PULSE 64; RESP 17; TEMP 36.4; O2SAT 98
[2022-03-20 23:25] VITALS: BP 110/60; PULSE 66; RESP 22; TEMP 36.7; O2SAT 98
[2022-03-21] VITALS (9 sets, daily range): BP systolic 106–134; BP diastolic 48–70; PULSE 71–94; RESP 16–20; TEMP 36.6–37.2; O2SAT 97–100
[2022-03-21] MEDS: Apixaban 5 MG TABLET G-TUBE ×2 (09:59→21:41)
[2022-03-21] MEDS: Metoprolol Tartrate 12.5 MG HALFTAB G-TUBE ×2 (09:59→21:40)
[2022-03-21] MEDS: Carbidopa/Levodopa 25/100 TABLET 1 TAB G-TUBE ×4 (09:59→21:40)
[2022-03-21] MEDS: 0.9 % Sodium Chloride Flush 3 ML SYRINGE IVFLUSH ×3 (10:00→21:41)
[2022-03-21 11:23] LABS: COVID-19 Test Negative (Negative); IDNOW Serial# 9DB6401D
--- NOTE | 2022-03-21 12:49 | MHC.CM.PN ---
CM met with Patient to discuss his SNF preferences. Patient is requesting to go to [facility], who may have an available bed for him tomorrow. INNA spoke with MD, who is agreeable with this plan. CM will follow.
--- NOTE | 2022-03-21 13:02 | P.PNIM_ITS ---
Subjective Subjective Date of Service: 03/21/22 Interval History: TFs at goal No cough/dyspnea No fever Awaiting bed at [facility] Review of Systems Review of Systems: Yes all other systems are reviewed and are negative Physical Exam Vital Signs: Vital Signs: Last Vital Signs Temp 98.3 F 03/21/22 11:23 Pulse 74 03/21/22 11:23 Resp 20 03/21/22 11:23 BP 115/55 L 03/21/22 11:23 Pulse Ox 99 03/21/22 11:23 O2 Del Method 03/21/22 11:23 O2 Flow Rate 2 03/19/22 19:01 FiO2 28 03/10/22 23:32 Oxygen Flow Rate 2 03/19/22 13:24 BMI result Body Mass Index 21.0 Gen: in no acute distress HEENT: sclera anicteric, moist mucus membranes Neck: supple Lungs: clear to auscultation bilaterally Heart: regular rate and rhythm, no murmurs Abd: soft, non-tender, non-distended, PEG tube in place Ext: RUE swelling improved Skin: warm/well-perfused Neuro: alert and oriented x3, masked facies, cogwheeling Psych: appropriate affect Objective Data Active Medications Acetaminophen (Acetaminophen 325 Mg Tablet) 650 mg PO Q6H PRN PRN Reason: Pain, Mild (Pain Scale 1-3) Acetaminophen (Acetaminophen Supp 650 Mg Supp.Rect) 650 mg MD Q4H PRN PRN Reason: Fever Last Admin: 03/16/22 02:07 Dose: 650 mg Documented By: KALEN Albuterol/Ipratropium (Albuterol/Iprat 2.5/0.5mg 3 Ml Ampul.Neb) 3 ml INHALE Q4H PRN PRN Reason: Shortness of Breath/Wheezing Apixaban (Apixaban 5 Mg Tablet) 5 mg G-TUBE BID [facility] Last Admin: 03/21/22 09:59 Dose: 5 mg Documented By: NAHOMI Carbidopa/Levodopa (Carbidopa/Levodopa 25/100 Tablet) 1 tab G-TUBE QID [facility] Last Admin: 03/21/22 09:59 Dose: 1 tab Documented By: NAHOMI Metoprolol Tartrate (Metoprolol Tartrate 5 Mg/5 Ml Vial) 2.5 mg IVPUSH Q6H PRN PRN Reason: TACHYCADIA Last Admin: 03/16/22 02:08 Dose: 2.5 mg Documented By: KALEN Metoprolol Tartrate (Metoprolol Tartrate 5 Mg/5 Ml Vial) 5 mg IVPUSH Q6H PRN PRN Reason: HR>125 Metoprolol Tartrate (Metoprolol Tartrate 12.5 Mg Halftab) 12.5 mg G-TUBE BID [facility]; Protocol Last Admin: 03/21/22 09:59 Dose: 12.5 mg Documented By: NAHOMI Ondansetron HCl (Ondansetron Hcl 4 Mg/2 Ml Vial) 4 mg IVPUSH Q8H PRN PRN Reason: Nausea and Vomiting Pharmacy Consult (Consult Rx Perform Med Rec) 1 each MISCELLANE ONCE PRN PRN Reason: Consult order Pharmacy Consult (Consult Rx Perform Med Rec) 1 each MISCELLANE ONCE PRN PRN Reason: Consult order Sodium Chloride (0.9 % Sodium Chloride Flush 3 Ml Syringe) 3 ml IVFLUSH QSHIFT [facility] Last Admin: 03/21/22 10:00 Dose: 3 ml Documented By: NAHOMI Labs CBC & Chem 7: 03/19/22 08:01 03/16/22 01:12 Labs: Laboratory Results - last 24 hr 03/21/22 10:45 COVID-19 (EDUARDO) Negative COVID-19 Clin Com See Note Assessment and Plan (1) GI bleed: Status: Acute (2) DVT (deep venous thrombosis): Status: Acute Plan hospital d#17 71yo M with Parkinson disease, CAD, HTN, HLD found on ground by his son, admitted with PNA + NSTEMI + malnutrition # RUE DVT - apixaban started on 03/12 at 10 mg bid and was to be switched to 5 mg bid on 03/19, but was put on heparin in anticipation of PEG, had decrease H/H with melana and anticoagulation was on hold for a day and started on heparin, restarting apixaban 03/19/22 and H+H stable # PNA - completed 7d of pip/rubio + vanco, d/c ABX, BCx negative, PCT low, not hypoxic # NSTEMI vs. rhabdomyolysis - Cardiology consulted, treated medically with heparinization + ASA; resumed metoprolol, held statin given rhabdomyolysis # moderate pr/hattie malnutrition # aspiration - d/c'ed TPN 03/12/22, PEG placed 03/18, advanced TFs to goal [Promote 75 mL/hr + free water 120 mL q6hr] # HTN - metoprolol #Parkinsons disease: seen by Dr. Watson: I talked to him and recommended that he should have a PEG placed.? This could also be used on as needed basis but at this time he needed for medicines and nutrition especially Parkinson's meds.? I notice that he is on carbidopa levodopa extended release 2 tablets 3 times a day.? Instead, I would recommend regular carbidopa levodopa 25/100 to 4 times a day starting with 06:00 in the morning and giving a dose every 4 hours.? He might require additional levodopa but the dose could be adjusted later # VTE ppx: apixaban # dispo: STR, awaiting bed at [facility], likely tomorrow In my clinical judgment, the patient requires continued hospitalization for the following reasons: placement Quality Stroke Does the patient have a stroke diagnosis?: No VTE Prior VTE?: No VTE Risk Level:: Medical - moderate - high VTE Device Contraindication: Treatment Not Indicated VTE Drug Contraindication: N/A - Med Ordered
--- NOTE | 2022-03-21 22:53 | HO.WOUNDCONS ---
History of Present Illness Data of Consult Service Date: 03/21/22 Requesting physician: Torito Ba Primary Care Provider: Rhiannon Saxena MD HPI Reason for consult: sacral wound The pt is a 71 year old male with multiple med issues. baseline Parkinsons so doesnt move around much. now with STEMI -he fell and could not get up and so was down for some time and then brought into hospital. he has multiple small abrasions and wounds but has a large unstageable sacral ulcer due to being down and also probably it was already there and progressed with this insult injury Review of Systems Review of Systems: Yes Unobtainable due to mental condition [facility] Medical History (Updated 03/22/22 @ 00:58 by Latesha Jin MD) Anemia CAD (coronary artery disease) Dyslipidemia Essential hypertension Parkinsons disease Family History Father Bladder cancer Mother No problems noted. Brother No problems noted. Sister No problems noted. Son No problems noted. Son No problems noted. Surgical History No pertinent past surgical history Social History Household Members: None Housing: House Do you presently have visiting nurse or other home services: No Alcohol intake: never Patient Tobacco Use Status: Never used Tobacco e-Cigarette/Vaping Use: Never Used service: No Current occupational status: retired Cognitive needs: No Hearing needs: No Vision needs: Yes Meds Allergies Allergy/AdvReac Type Severity Reaction Status Date / Time No Known Allergies Allergy Verified 02/24/22 23:32 [No Known Allergies*] Active Medications: Current Medications Acetaminophen (Acetaminophen 325 Mg Tablet) 650 mg PO Q6H PRN PRN Reason: Pain, Mild (Pain Scale 1-3) Acetaminophen (Acetaminophen Supp 650 Mg Supp.Rect) 650 mg SD Q4H PRN PRN Reason: Fever Last Admin: 03/16/22 02:07 Dose: 650 mg Albuterol/Ipratropium (Albuterol/Iprat 2.5/0.5mg 3 Ml Ampul.Neb) 3 ml INHALE Q4H PRN PRN Reason: Shortness of Breath/Wheezing Apixaban (Apixaban 5 Mg Tablet) 5 mg G-TUBE BID [facility] Last Admin: 03/21/22 21:41 Dose: 5 mg Carbidopa/Levodopa (Carbidopa/Levodopa 25/100 Tablet) 1 tab G-TUBE QID [facility] Last Admin: 03/21/22 21:40 Dose: 1 tab Metoprolol Tartrate (Metoprolol Tartrate 5 Mg/5 Ml Vial) 2.5 mg IVPUSH Q6H PRN PRN Reason: TACHYCADIA Last Admin: 03/16/22 02:08 Dose: 2.5 mg Metoprolol Tartrate (Metoprolol Tartrate 5 Mg/5 Ml Vial) 5 mg IVPUSH Q6H PRN PRN Reason: HR>125 Metoprolol Tartrate (Metoprolol Tartrate 12.5 Mg Halftab) 12.5 mg G-TUBE BID [facility]; Protocol Last Admin: 03/21/22 21:40 Dose: 12.5 mg Ondansetron HCl (Ondansetron Hcl 4 Mg/2 Ml Vial) 4 mg IVPUSH Q8H PRN PRN Reason: Nausea and Vomiting Pharmacy Consult (Consult Rx Perform Med Rec) 1 each MISCELLANE ONCE PRN PRN Reason: Consult order Pharmacy Consult (Consult Rx Perform Med Rec) 1 each MISCELLANE ONCE PRN PRN Reason: Consult order Sodium Chloride (0.9 % Sodium Chloride Flush 3 Ml Syringe) [facility] Last Admin: 03/21/22 21:41 Dose: 3 ml Home Medications Medication Instructions Recorded Confirmed Last Taken Type carbidopa ER 25 mg-levodopa 100 mg 2 tab PO TID 08/22/20 03/05/22 Unknown History tablet,extended release metoprolol tartrate 25 mg tablet 25 mg PO BID 08/22/20 03/05/22 Unknown History amantadine HCl 100 mg tablet 1 tab PO BID 03/05/22 03/05/22 Unknown History lisinopril 10 mg tablet 1 tab PO DAILY 03/05/22 03/05/22 Unknown History Physical Exam Vital Signs and Narrative: Vital Signs: Last Vital Signs Temp 98.7 F 03/21/22 23:37 Pulse 71 03/21/22 23:37 Resp 18 03/21/22 23:37 BP 121/58 L 03/21/22 23:37 Pulse Ox 99 03/21/22 23:37 O2 Del Method 03/21/22 23:37 O2 Flow Rate 2 03/19/22 19:01 FiO2 28 03/10/22 23:32 Oxygen Flow Rate 2 03/19/22 13:24 BMI result Body Mass Index 21.0 Skin: Other: large sacral ulcer 8x6cm with dark eschar no drainage not cellulitic pt a little tender in the area pt also very thin and malnourished Results Labs CBC and Chem 7: 03/19/22 08:01 03/16/22 01:12 Labs: Laboratory Results - last 24 hr 03/21/22 10:45 COVID-19 ([facility]) Negative COVID-19 Clin Com See Note Assessment and Plan (1) Pressure ulcer of sacral region, unstageable: Status: Acute Plan 71 year old male with sig sacral ulcer unstageable - other wounds not bad this one will need surgical debridement - cont to offload and increase protein intake cont with betadine paint to wound for now.
[2022-03-22 03:58] VITALS: BP 128/59; PULSE 72; RESP 20; TEMP 36.8; O2SAT 97
[2022-03-22 07:52] VITALS: BP 138/70; PULSE 94; RESP 19; TEMP 36.4; O2SAT 98
[2022-03-22] MEDS: Metoprolol Tartrate 12.5 MG HALFTAB G-TUBE ×2 (09:00→22:47)
[2022-03-22] MEDS: Carbidopa/Levodopa 25/100 TABLET 1 TAB G-TUBE ×4 (09:01→22:48)
[2022-03-22] MEDS: 0.9 % Sodium Chloride Flush 3 ML SYRINGE IVFLUSH ×2 (09:02→16:49)
--- NOTE | 2022-03-22 10:05 | PM.PNCARD ---
Subjective Subjective Date of Service: 03/22/22 Principal diagnosis: elevated troponins, paroxysmal atrial fibrillation Interval history: I was asked to see the patient because he is planned to undergo debridement of his sacral wound. This is considered low risk procedure. Patient on admission was found on floor and had rhabdomyolysis and elevated troponins. Was seen by Dr. William at that point time it was felt that this was more likely rhabdo related elevated troponins. His echocardiogram at shown preserved EF. He has had no cardiac complaints since then. Episode of atrial fibrillation last week. However currently sinus rhythm with short burst of atrial fibrillation. Currently not having any cardiac complaints. Denies any chest pain or shortness of breath. Hemodynamically stable. Review of Systems Constitutional: Reports weakness Cardiovascular: Reports no additional cardiovascular complaints Respiratory: Reports no additional respiratory complaints Gastrointestinal: Reports no additional gastrointestinal complaints Reports weakness Physical Exam Vital Signs: Last Vital Signs Temp 97.5 F 03/22/22 07:52 Pulse 94 03/22/22 07:52 Resp 19 03/22/22 07:52 BP 138/70 03/22/22 07:52 Pulse Ox 98 03/22/22 07:52 O2 Del Method 03/22/22 07:52 O2 Flow Rate 2 03/19/22 19:01 FiO2 28 03/10/22 23:32 Oxygen Flow Rate 2 03/19/22 13:24 BMI result Body Mass Index 21.0 Const General: cooperative, alert and awake Nutritional Appearance: malnourished Orientation/consciousness: patient oriented x3 Neck Neck: Yes trachea midline, Yes supple and Yes no JVD Resp Effort & Inspection: decreased respiratory effort Auscultation: clear to auscultation bilaterally Cardio Jugular venous distension: no JVD Palpation: normal PMI Rate: regular rate Rhythm: regular rhythm Heart sounds: S1 normal heart sound present, S2 normal heart sound present, no click, no gallops and no murmurs Neuro General: patient oriented x3 Objective Labs and Meds Result diagrams: 03/19/22 08:01 03/16/22 01:12 Lab results: Laboratory Results - last 24 hr 03/21/22 10:45 COVID-19 ([facility]) Negative COVID-19 Clin Com See Note Progress Note: A&P Assessment and plan (1) Pre-operative cardiovascular examination: Status: Acute Assessment and Plan: preoperative cardiovascular exam in this elderly gentleman who is currently bed-bound and needs to undergo sacral wound debridement under local anesthesia with sedation. This is considered low risk procedure. He had elevated troponins 2 weeks ago and since then has had no cardiac complaints. Currently not having any chest pain or symptoms of angina. Has no prior coronary artery disease. He is currently optimized to undergo this surgery from cardiac perspective with low to intermediate risk. Currently on oral anticoagulation therapy for DVT. he had transient atrial fibrillation and still as short burst of atrial fibrillation, most likely related to his underlying medical condition. Will follow up if need be Time Spent With Patient Time: Total time spent is greater than 50% in coordination of care (as documented) at patient's floor/unit and/or counseling patient: Progress Note: Quality Stroke Does the patient have a stroke diagnosis?: No Procedures Date of Service Date of Service: 03/22/22
--- NOTE | 2022-03-22 11:23 | MHC.CLN ---
F/U PT CONTINUES TO RECEIVE PROMOTE AT MAX GOAL RATE 75ML/HR WITH 120ML FREE WATER FLUSHES Q 6 HRS PROVIDES 1800KCALS (27KCALS/KG), 112.5G PROTEIN (1.7G/KG) FOR WOUND HEALING, 1990ML TOTAL WATER FORMULA AND FLUSHES (30ML/KG) CONTINUE TO MONITOR TOLERANCE, RESIDUALS AND LYTES
--- NOTE | 2022-03-22 11:42 | MHC.CM.PN ---
PER MD ROUNDS, PT WILL NOT DISCHARGED UNTIL AT LEAST FRIDAY. DCP REMAINS STR, [facility] IS FIRST CHOICE AND ACCEPTING PENDING OPEN BED
[2022-03-22 12:00] VITALS: BP 134/65; PULSE 74; RESP 19; TEMP 36.4; O2SAT 98
[2022-03-22 13:00] VITALS: O2SAT 98
--- NOTE | 2022-03-22 13:08 | HO.PM.IMPN ---
Subjective Subjective Date of Service: 03/22/22 Interval History: Tolerating TFs To OR tomorow for debridement of unstageable sacral pressure wound Review of Systems Review of Systems: Yes all other systems are reviewed and are negative Physical Exam Vital Signs: Vital Signs: Last Vital Signs Temp 97.5 F 03/22/22 12:00 Pulse 74 03/22/22 12:00 Resp 19 03/22/22 12:00 BP 134/65 03/22/22 12:00 Pulse Ox 98 03/22/22 12:00 O2 Del Method 03/22/22 12:00 O2 Flow Rate 2 03/19/22 19:01 FiO2 28 03/10/22 23:32 Oxygen Flow Rate 2 03/19/22 13:24 BMI result Body Mass Index 21.0 Gen: in no acute distress HEENT: sclera anicteric, moist mucus membranes Neck: supple Lungs: clear to auscultation bilaterally Heart: regular rate and rhythm, no murmurs Abd: soft, non-tender, non-distended, PEG tube in place Ext: RUE swelling improved Skin: warm/well-perfused Neuro: alert and oriented x3, masked facies, cogwheeling Psych: appropriate affect Objective Data Active Medications Acetaminophen (Acetaminophen 325 Mg Tablet) 650 mg PO Q6H PRN PRN Reason: Pain, Mild (Pain Scale 1-3) Acetaminophen (Acetaminophen Supp 650 Mg Supp.Rect) 650 mg [place] Q4H PRN PRN Reason: Fever Last Admin: 03/16/22 02:07 Dose: 650 mg Documented By: KALEN Albuterol/Ipratropium (Albuterol/Iprat 2.5/0.5mg 3 Ml Ampul.Neb) 3 ml INHALE Q4H PRN PRN Reason: Shortness of Breath/Wheezing Apixaban (Apixaban 5 Mg Tablet) 5 mg G-TUBE BID [facility] Last Admin: 03/21/22 21:41 Dose: 5 mg Documented By: PRAKASH Carbidopa/Levodopa (Carbidopa/Levodopa 25/100 Tablet) 1 tab G-TUBE QID [facility] Last Admin: 03/22/22 09:01 Dose: 1 tab Documented By: MAHOGANY Metoprolol Tartrate (Metoprolol Tartrate 5 Mg/5 Ml Vial) 2.5 mg IVPUSH Q6H PRN PRN Reason: TACHYCADIA Last Admin: 03/16/22 02:08 Dose: 2.5 mg Documented By: KALEN Metoprolol Tartrate (Metoprolol Tartrate 5 Mg/5 Ml Vial) 5 mg IVPUSH Q6H PRN PRN Reason: HR>125 Metoprolol Tartrate (Metoprolol Tartrate 12.5 Mg Halftab) 12.5 mg G-TUBE BID [facility]; Protocol Last Admin: 03/22/22 09:00 Dose: 12.5 mg Documented By: MAHOGANY Ondansetron HCl (Ondansetron Hcl 4 Mg/2 Ml Vial) 4 mg IVPUSH Q8H PRN PRN Reason: Nausea and Vomiting Pharmacy Consult (Consult Rx Perform Med Rec) 1 each MISCELLANE ONCE PRN PRN Reason: Consult order Pharmacy Consult (Consult Rx Perform Med Rec) 1 each MISCELLANE ONCE PRN PRN Reason: Consult order Sodium Chloride (0.9 % Sodium Chloride Flush 3 Ml Syringe) [facility] Last Admin: 03/22/22 09:02 Dose: 3 ml Documented By: MAHOGANY Labs CBC & Chem 7: 03/19/22 08:01 03/16/22 01:12 Assessment and Plan (1) GI bleed: Status: Acute (2) DVT (deep venous thrombosis): Status: Acute Plan hospital d#18 71yo M with Parkinson disease, CAD, HTN, HLD found on ground by his son, admitted with PNA + NSTEMI + malnutrition # unstageable sacral pressure ulcer - hold tube feeds after midnight and hold apixaban for OR debridement in AM, Cardiology evaluation for preoperative examination # RUE DVT - apixaban started on 03/12 at 10 mg bid and was to be switched to 5 mg bid on 03/19, but was put on heparin in anticipation of PEG, had decrease H/H with melana and anticoagulation was on hold for a day and started on heparin, restarting apixaban 03/19/22 and H+H stable; held for OR # PNA - completed 7d of pip/rubio + vanco, d/c ABX, BCx negative, PCT low, not hypoxic # NSTEMI vs. rhabdomyolysis - Cardiology consulted, treated medically with heparinization + ASA; resumed metoprolol, held statin given rhabdomyolysis # moderate pr/hattie malnutrition # aspiration - d/c'ed TPN 03/12/22, PEG placed 03/18, advanced TFs to goal [Promote 75 mL/hr + free water 120 mL q6hr]; hold after midnight for OR # HTN - metoprolol #Parkinsons disease: seen by Dr. Watson: I talked to him and recommended that he should have a PEG placed.? This could also be used on as needed basis but at this time he needed for medicines and nutrition especially Parkinson's meds.? I notice that he is on carbidopa levodopa extended release 2 tablets 3 times a day.? Instead, I would recommend regular carbidopa levodopa 25/100 to 4 times a day starting with 06:00 in the morning and giving a dose every 4 hours.? He might require additional levodopa but the dose could be adjusted later # VTE ppx: apixaban # dispo: STR, awaiting bed at [facility], also needs operative debridement In my clinical judgment, the patient requires continued hospitalization for the following reasons: operative debridement Quality Stroke Does the patient have a stroke diagnosis?: No VTE Prior VTE?: No VTE Risk Level:: Medical - moderate - high VTE Device Contraindication: Treatment Not Indicated VTE Drug Contraindication: N/A - Med Ordered
[2022-03-22 16:00] VITALS: BP 127/64; PULSE 97; RESP 17; TEMP 36.1; O2SAT 93
[2022-03-22 20:00] VITALS: BP 136/60; PULSE 91; RESP 18; TEMP 36.5; O2SAT 96
[2022-03-23] VITALS (10 sets, daily range): BP systolic 98–126; BP diastolic 45–64; PULSE 61–99; RESP 15–20; TEMP 36.3–37.4; O2SAT 98–100
[2022-03-23] MEDS: Carbidopa/Levodopa 25/100 TABLET 1 TAB G-TUBE ×3 (10:12→22:27)
[2022-03-23] MEDS: Metoprolol Tartrate 12.5 MG HALFTAB G-TUBE ×2 (10:12→22:27)
[2022-03-23] MEDS: 0.9 % Sodium Chloride Flush 3 ML SYRINGE IVFLUSH ×3 (10:13→22:27)
--- NOTE | 2022-03-23 10:44 | P.PNIM_ITS ---
Subjective Subjective Date of Service: 03/23/22 Interval History: TFs on hold for planned operative debridement today Denies pain or dyspnea Review of Systems Review of Systems: Yes all other systems are reviewed and are negative Physical Exam Vital Signs: Vital Signs: Last Vital Signs Temp 98.4 F 03/23/22 07:47 Pulse 99 03/23/22 07:47 Resp 20 03/23/22 07:47 BP 115/64 03/23/22 07:47 Pulse Ox 100 03/23/22 07:47 O2 Del Method 03/23/22 07:47 O2 Flow Rate 2 03/19/22 19:01 FiO2 28 03/10/22 23:32 Oxygen Flow Rate 2 03/19/22 13:24 BMI result Body Mass Index 21.0 Gen: in no acute distress HEENT: sclera anicteric, moist mucus membranes Neck: supple Lungs: clear to auscultation bilaterally Heart: regular rate and rhythm, no murmurs Abd: soft, non-tender, non-distended, PEG tube in place Ext: RUE swelling improved Skin: warm/well-perfused Neuro: alert and oriented x3, masked facies, cogwheeling Psych: appropriate affect Objective Data Active Medications Acetaminophen (Acetaminophen 325 Mg Tablet) 650 mg PO Q6H PRN PRN Reason: Pain, Mild (Pain Scale 1-3) Acetaminophen (Acetaminophen Supp 650 Mg Supp.Rect) 650 mg [place] Q4H PRN PRN Reason: Fever Last Admin: 03/16/22 02:07 Dose: 650 mg Documented By: KALEN Albuterol/Ipratropium (Albuterol/Iprat 2.5/0.5mg 3 Ml Ampul.Neb) 3 ml INHALE Q4H PRN PRN Reason: Shortness of Breath/Wheezing Apixaban (Apixaban 5 Mg Tablet) 5 mg G-TUBE BID [facility] Last Admin: 03/21/22 21:41 Dose: 5 mg Documented By: PRAKASH Carbidopa/Levodopa (Carbidopa/Levodopa 25/100 Tablet) 1 tab G-TUBE QID [facility] Last Admin: 03/23/22 10:12 Dose: 1 tab Documented By: TASH Metoprolol Tartrate (Metoprolol Tartrate 5 Mg/5 Ml Vial) 2.5 mg IVPUSH Q6H PRN PRN Reason: TACHYCADIA Last Admin: 03/16/22 02:08 Dose: 2.5 mg Documented By: KALEN Metoprolol Tartrate (Metoprolol Tartrate 5 Mg/5 Ml Vial) 5 mg IVPUSH Q6H PRN PRN Reason: HR>125 Metoprolol Tartrate (Metoprolol Tartrate 12.5 Mg Halftab) 12.5 mg G-TUBE BID [facility]; Protocol Last Admin: 03/23/22 10:12 Dose: 12.5 mg Documented By: TASH Ondansetron HCl (Ondansetron Hcl 4 Mg/2 Ml Vial) 4 mg IVPUSH Q8H PRN PRN Reason: Nausea and Vomiting Pharmacy Consult (Consult Rx Perform Med Rec) 1 each MISCELLANE ONCE PRN PRN Reason: Consult order Pharmacy Consult (Consult Rx Perform Med Rec) 1 each MISCELLANE ONCE PRN PRN Reason: Consult order Sodium Chloride (0.9 % Sodium Chloride Flush 3 Ml Syringe) 3 ml IVFLUSH QSHIFT [facility] Last Admin: 03/23/22 10:13 Dose: 3 ml Documented By: TASH Labs CBC & Chem 7: 03/19/22 08:01 03/16/22 01:12 Assessment and Plan (1) GI bleed: Status: Acute (2) DVT (deep venous thrombosis): Status: Acute Plan hospital d#19 71yo M with Parkinson disease, CAD, HTN, HLD found on ground by his son, admitted with PNA + NSTEMI + malnutrition # unstageable sacral pressure ulcer - hold tube feeds after midnight and hold apixaban for OR debridement today, Cardiology evaluation apreciated # RUE DVT - apixaban started on 03/12 at 10 mg bid and was to be switched to 5 mg bid on 03/19, but was put on heparin in anticipation of PEG, had decrease H/H with melana and anticoagulation was on hold for a day and started on heparin, restarting apixaban 03/19/22 and H+H stable; held for OR today # PNA - completed 7d of pip/rubio + vanco, d/c ABX, BCx negative, PCT low, not hypoxic # NSTEMI vs. rhabdomyolysis - Cardiology consulted, treated medically with heparinization + ASA; resumed metoprolol, held statin given rhabdomyolysis # moderate pr/hattie malnutrition # aspiration - d/c'ed TPN 03/12/22, PEG placed 03/18, advanced TFs to goal [Promote 75 mL/hr + free water 120 mL q6hr]; TFs on hold for OR # HTN - metoprolol #Parkinsons disease: seen by Dr. Watson: I talked to him and recommended that he should have a PEG placed.? This could also be used on as needed basis but at this time he needed for medicines and nutrition especially Parkinson's meds.? I notice that he is on carbidopa levodopa extended release 2 tablets 3 times a day.? Instead, I would recommend regular carbidopa levodopa 25/100 to 4 times a day starting with 06:00 in the morning and giving a dose every 4 hours.? He might require additional levodopa but the dose could be adjusted later # VTE ppx: apixaban # dispo: STR, awaiting bed at [facility], also needs operative debridement In my clinical judgment, the patient requires continued hospitalization for the following reasons: operative debridement Quality Stroke Does the patient have a stroke diagnosis?: No VTE Prior VTE?: No VTE Risk Level:: Medical - moderate - high VTE Device Contraindication: Treatment Not Indicated VTE Drug Contraindication: N/A - Med Ordered
--- NOTE | 2022-03-23 14:16 | W.PM.OPN ---
Documented by User: Latesha Jin MD 03/23/22 14:21 Operative Note Operative Note Date of Service: 03/23/22 Narrative: preop and postop dx - sacral decubitus pressure ulcer unstageable now stage 3 mac anesthesia pt brought to OR and placed in lateral position - prepped and draped in standard fashion local used and 10 blade used to remove the necrotic skin down to healthy subcutaneous fat, no bone exposed no purulent drainage wet dressing secured no specimen pt returned stable to recovery ebl -1 cc Documented by User: Latesha Jin MD 04/03/22 22:53 Operative Note Operative Note Narrative: preop and postop dx - sacral decubitus pressure ulcer unstageable now stage 3 mac anesthesia pt brought to OR and placed in lateral position - prepped and draped in standard fashion local used and 10 blade scalpel used to remove the necrotic skin down to healthy subcutaneous fat, no bone exposed no purulent drainage excisional debridement wet dressing secured no specimen pt returned stable to recovery ebl -1 cc
[2022-03-24 04:00] VITALS: BP 130/60; PULSE 83; RESP 16; TEMP 36.9; O2SAT 97
[2022-03-24 07:53] VITALS: BP 130/60; PULSE 90; RESP 20; TEMP 36.5; O2SAT 99
[2022-03-24] MEDS: Carbidopa/Levodopa 25/100 TABLET 1 TAB G-TUBE ×4 (10:22→21:55)
[2022-03-24] MEDS: Metoprolol Tartrate 12.5 MG HALFTAB G-TUBE ×2 (10:22→21:55)
[2022-03-24] MEDS: Apixaban 5 MG TABLET G-TUBE ×2 (10:24→21:55)
--- NOTE | 2022-03-24 10:39 | P.PNIM_ITS ---
Subjective Subjective Date of Service: 03/24/22 Interval History: had operative debridement of stage 3 sacral wound yesterday TFs restarted no dyspnea or cough Review of Systems Review of Systems: Yes all other systems are reviewed and are negative Physical Exam Vital Signs: Vital Signs: Last Vital Signs Temp 97.7 F 03/24/22 07:53 Pulse 90 03/24/22 07:53 Resp 20 03/24/22 07:53 BP 130/60 03/24/22 07:53 Pulse Ox 99 03/24/22 07:53 O2 Del Method 03/24/22 07:53 O2 Flow Rate 3 03/23/22 14:34 FiO2 28 03/10/22 23:32 Oxygen Flow Rate 2 03/19/22 13:24 BMI result Body Mass Index 21.0 Gen: in no acute distress HEENT: sclera anicteric, moist mucus membranes Neck: supple Lungs: clear to auscultation bilaterally Heart: regular rate and rhythm, no murmurs Abd: soft, non-tender, non-distended, PEG tube in place Ext: no edema Skin: warm/well-perfused Neuro: alert and oriented x3, masked facies, cogwheeling Psych: appropriate affect Objective Data Active Medications Acetaminophen (Acetaminophen 325 Mg Tablet) 650 mg PO Q6H PRN PRN Reason: Pain, Mild (Pain Scale 1-3) Acetaminophen (Acetaminophen Supp 650 Mg Supp.Rect) 650 mg [place] Q4H PRN PRN Reason: Fever Last Admin: 03/16/22 02:07 Dose: 650 mg Documented By: KALEN Albuterol/Ipratropium (Albuterol/Iprat 2.5/0.5mg 3 Ml Ampul.Neb) 3 ml INHALE Q4H PRN PRN Reason: Shortness of Breath/Wheezing Apixaban (Apixaban 5 Mg Tablet) 5 mg G-TUBE BID [facility] Last Admin: 03/21/22 21:41 Dose: 5 mg Documented By: PRAKASH Carbidopa/Levodopa (Carbidopa/Levodopa 25/100 Tablet) 1 tab G-TUBE QID [facility] Last Admin: 03/23/22 22:27 Dose: 1 tab Documented By: ANUJA Metoprolol Tartrate (Metoprolol Tartrate 5 Mg/5 Ml Vial) 2.5 mg IVPUSH Q6H PRN PRN Reason: TACHYCADIA Last Admin: 03/16/22 02:08 Dose: 2.5 mg Documented By: KALEN Metoprolol Tartrate (Metoprolol Tartrate 5 Mg/5 Ml Vial) 5 mg IVPUSH Q6H PRN PRN Reason: HR>125 Metoprolol Tartrate (Metoprolol Tartrate 12.5 Mg Halftab) 12.5 mg G-TUBE BID [facility]; Protocol Last Admin: 03/23/22 22:27 Dose: 12.5 mg Documented By: ANUJA Ondansetron HCl (Ondansetron Hcl 4 Mg/2 Ml Vial) 4 mg IVPUSH Q8H PRN PRN Reason: Nausea and Vomiting Pharmacy Consult (Consult Rx Perform Med Rec) 1 each MISCELLANE ONCE PRN PRN Reason: Consult order Pharmacy Consult (Consult Rx Perform Med Rec) 1 each MISCELLANE ONCE PRN PRN Reason: Consult order Sodium Chloride (0.9 % Sodium Chloride Flush 3 Ml Syringe) [facility] Last Admin: 03/23/22 22:27 Dose: 3 ml Documented By: ANUJA Labs CBC & Chem 7: 03/19/22 08:01 03/16/22 01:12 Assessment and Plan (1) GI bleed: Status: Acute (2) DVT (deep venous thrombosis): Status: Acute Plan hospital d#20 71yo M with Parkinson disease, CAD, HTN, HLD found on ground by his son, admitted with PNA + NSTEMI + malnutrition # stage 3 sacral pressure ulcer - POD#[address] Jin, who left wound care directions: wet dressing to sacral wound daily, other wounds do bacitracin ointment and cover daily offload pt on his side and spend little time flat on back get a wound vac to be placed by nursing team on friday - black sponge to 125 mmHg pressure suction -change M, W,F # RUE DVT - apixaban started on 03/12 at 10 mg bid and was to be switched to 5 mg bid on 03/19, but was put on heparin in anticipation of PEG, had decrease H/H with melana and anticoagulation was on hold for a day and started on heparin, restarting apixaban 03/19/22 and H+H stable; held for OR 03/22, restart today # PNA - completed 7d of pip/rubio + vanco, d/c ABX, BCx negative, PCT low, not hypoxic # NSTEMI vs. rhabdomyolysis - Cardiology consulted, treated medically with heparinization + ASA; resumed metoprolol, held statin given rhabdomyolysis # moderate pr/hattie malnutrition # aspiration - d/c'ed TPN 03/12/22, PEG placed 03/18, tolerated TFs at goal but then held for OR. advance TFs to goal [Promote 75 mL/hr + free water 120 mL q6hr] # HTN - metoprolol #Parkinsons disease: seen by Dr. Watson: I talked to him and recommended that he should have a PEG placed.? This could also be used on as needed basis but at this time he needed for medicines and nutrition especially Parkinson's meds.? I notice that he is on carbidopa levodopa extended release 2 tablets 3 times a day.? Instead, I would recommend regular carbidopa levodopa 25/100 to 4 times a day starting with 06:00 in the morning and giving a dose every 4 hours.? He might require additional levodopa but the dose could be adjusted later # VTE ppx: apixaban # dispo: STR, awaiting bed at [facility], also needs wound VAC In my clinical judgment, the patient requires continued hospitalization for the following reasons: operative debridement Quality Stroke Does the patient have a stroke diagnosis?: No VTE Prior VTE?: No VTE Risk Level:: Medical - moderate - high VTE Device Contraindication: Treatment Not Indicated VTE Drug Contraindication: N/A - Med Ordered
[2022-03-24] MEDS: 0.9 % Sodium Chloride Flush 3 ML SYRINGE IVFLUSH ×3 (10:55→21:55)
[2022-03-24 11:17] LABS: COVID-19 Test Negative (Negative)
[2022-03-24 12:00] VITALS: BP 99/53; PULSE 64; RESP 18; TEMP 36.8; O2SAT 98
[2022-03-24 15:31] VITALS: BP 93/58; PULSE 85; RESP 18; TEMP 36.8; O2SAT 99
[2022-03-24 20:00] VITALS: BP 117/56; PULSE 83; RESP 18; TEMP 36.6; O2SAT 98
[2022-03-24 23:12] VITALS: BP 100/53; PULSE 69; RESP 18; TEMP 36.9; O2SAT 100
[2022-03-25] VITALS (7 sets, daily range): BP systolic 106–136; BP diastolic 52–67; PULSE 69–95; RESP 17–20; TEMP 36.8–37.1; O2SAT 96–99
[2022-03-25] MEDS: Carbidopa/Levodopa 25/100 TABLET 1 TAB G-TUBE ×4 (08:01→19:35)
[2022-03-25] MEDS: Metoprolol Tartrate 12.5 MG HALFTAB G-TUBE ×2 (08:01→19:35)
[2022-03-25] MEDS: Apixaban 5 MG TABLET G-TUBE ×2 (08:01→19:35)
--- NOTE | 2022-03-25 08:49 | HO.POSTANES ---
Post Anesthesia Evaluation Post Anesthesia Evaluation Vital Signs: Vital Signs Temp Pulse Resp BP Pulse Ox O2 Del Method 03/25/22 07:37 98.2 F 95 20 133/67 97 Room Air 03/25/22 03:07 98.4 F 84 18 112/61 96 Room Air 03/25/22 04:00 84 03/25/22 00:00 69 03/24/22 23:12 98.4 F 69 18 100/53 L 100 Room Air Anesthesia: Monitored Mental Status: Awake Pain Control: Satisfactory Nausea/Vomiting: None Hydration: Adequate Anesthesia-Related Issues: No Anes. Related Issues
[2022-03-25 09:49] LABS: Anion Gap 11 (12-20); Blood Urea Nitrogen 24 mg/dL (9-16); Calcium 7.9 mg/dL (8.4-10.2); Carbon Dioxide 30 mmol/L (22-29); Chloride 98 mmol/L (96-108); Creatinine Clr Calc Pharmacy 92.5; Estimated Glomerular Filt Rate > 60; Glucose Random 110 mg/dL (60-115); Magnesium 1.8 mg/dL (1.6-2.6); Potassium 4.5 mmol/L (3.3-5.1); Sodium 134 mmol/L (135-145)
--- NOTE | 2022-03-25 11:53 | MHC.CLN ---
F/U PT WAS NPO 03/24 FOR WOUND DEBRIDEMENT PT RESUMED PROMOTE AT MAX GOAL RATE 75ML/HR WITH 120ML FREE WATER FLUSHES Q 6 HRS PROVIDES 1800KCALS (27KCALS/KG), 112.5G PROTEIN (1.7G/KG) FOR WOUND HEALING, 1990ML TOTAL WATER FORMULA AND FLUSHES (30ML/KG) CONTINUE TO MONITOR TOLERANCE, RESIDUALS AND LYTES
--- NOTE | 2022-03-25 12:10 | HO.PM.IMPN ---
Subjective Subjective Date of Service: 03/25/22 Interval History: TFs at goal needs wound VAC 3 sec SVT while sleeping no complaints Review of Systems Review of Systems: Yes all other systems are reviewed and are negative Physical Exam Vital Signs: Vital Signs: Last Vital Signs Temp 98.3 F 03/25/22 11:22 Pulse 90 03/25/22 11:22 Resp 18 03/25/22 11:22 BP 136/64 03/25/22 11:22 Pulse Ox 97 03/25/22 11:22 O2 Del Method 03/25/22 11:22 O2 Flow Rate 3 03/23/22 14:34 FiO2 28 03/10/22 23:32 Oxygen Flow Rate 2 03/19/22 13:24 BMI result Body Mass Index 21.0 Gen: in no acute distress HEENT: sclera anicteric, moist mucus membranes Neck: supple Lungs: clear to auscultation bilaterally Heart: regular rate and rhythm, no murmurs Abd: soft, non-tender, non-distended, PEG tube in place Ext: no edema Skin: warm/well-perfused Neuro: alert and oriented x3, masked facies, cogwheeling Psych: appropriate affect Objective Data Active Medications Acetaminophen (Acetaminophen 325 Mg Tablet) 650 mg PO Q6H PRN PRN Reason: Pain, Mild (Pain Scale 1-3) Acetaminophen (Acetaminophen Supp 650 Mg Supp.Rect) 650 mg [place] Q4H PRN PRN Reason: Fever Last Admin: 03/16/22 02:07 Dose: 650 mg Documented By: KALEN Albuterol/Ipratropium (Albuterol/Iprat 2.5/0.5mg 3 Ml Ampul.Neb) 3 ml INHALE Q4H PRN PRN Reason: Shortness of Breath/Wheezing Apixaban (Apixaban 5 Mg Tablet) 5 mg G-TUBE BID [facility] Last Admin: 03/25/22 08:01 Dose: 5 mg Documented By: FELIPE Carbidopa/Levodopa (Carbidopa/Levodopa 25/100 Tablet) 1 tab G-TUBE QID [facility] Last Admin: 03/25/22 11:59 Dose: 1 tab Documented By: FELIPE Metoprolol Tartrate (Metoprolol Tartrate 5 Mg/5 Ml Vial) 2.5 mg IVPUSH Q6H PRN PRN Reason: TACHYCADIA Last Admin: 03/16/22 02:08 Dose: 2.5 mg Documented By: KALEN Metoprolol Tartrate (Metoprolol Tartrate 5 Mg/5 Ml Vial) 5 mg IVPUSH Q6H PRN PRN Reason: HR>125 Metoprolol Tartrate (Metoprolol Tartrate 12.5 Mg Halftab) 12.5 mg G-TUBE BID [facility]; Protocol Last Admin: 03/25/22 08:01 Dose: 12.5 mg Documented By: FELIPE Ondansetron HCl (Ondansetron Hcl 4 Mg/2 Ml Vial) 4 mg IVPUSH Q8H PRN PRN Reason: Nausea and Vomiting Pharmacy Consult (Consult Rx Perform Med Rec) 1 each MISCELLANE ONCE PRN PRN Reason: Consult order Pharmacy Consult (Consult Rx Perform Med Rec) 1 each MISCELLANE ONCE PRN PRN Reason: Consult order Sodium Chloride (0.9 % Sodium Chloride Flush 3 Ml [facility]) [facility] Last Admin: 03/25/22 07:53 Dose: Not Given Documented By: FELIPE Non-Admin Reason: See Note Labs CBC & Chem 7: 03/19/22 08:01 03/25/22 08:58 Labs: Laboratory Results - last 24 hr 03/25/22 08:58 Anion Gap 11 L Estim Creat Clear Calc 92.5 Estimated GFR > 60 Random Glucose 110 Calcium 7.9 L Magnesium 1.8 Assessment and Plan (1) GI bleed: Status: Acute (2) DVT (deep venous thrombosis): Status: Acute Plan hospital d#21 71yo M with Parkinson disease, CAD, HTN, HLD found on ground by his son, admitted with PNA + NSTEMI + malnutrition # SVT - short, self-limited; increase metoprolol succinate 12.5->25 mg daily # stage 3 sacral pressure ulcer - POD#[address] Dr Jin, who left wound care directions: wet dressing to sacral wound daily, other wounds do bacitracin ointment and cover daily offload pt on his side and spend little time flat on back get a wound vac to be placed by nursing team on friday - black sponge to 125 mmHg pressure suction -change M, W,F # RUE DVT - apixaban started on 03/12 at 10 mg bid and was to be switched to 5 mg bid on 03/19, but was put on heparin in anticipation of PEG, had decrease H/H with melana and anticoagulation was on hold for a day and started on heparin, restarting apixaban 03/19/22 and H+H stable; held for OR 03/22, restarted 03/23 # PNA - completed 7d of pip/rubio + vanco, d/c ABX, BCx negative, PCT low, not hypoxic # NSTEMI vs. rhabdomyolysis - Cardiology consulted, treated medically with heparinization + ASA; resumed metoprolol, held statin given rhabdomyolysis # moderate pr/hattie malnutrition # aspiration - d/c'ed TPN 03/12/22, PEG placed 03/18, tolerated TFs at goal but then held for OR. advance TFs to goal [Promote 75 mL/hr + free water 120 mL q6hr] # HTN - metoprolol- increase dose as above #Parkinsons disease: seen by Dr. Watson: I talked to him and recommended that he should have a PEG placed.? This could also be used on as needed basis but at this time he needed for medicines and nutrition especially Parkinson's meds.? I notice that he is on carbidopa levodopa extended release 2 tablets 3 times a day.? Instead, I would recommend regular carbidopa levodopa 25/100 to 4 times a day starting with 06:00 in the morning and giving a dose every 4 hours.? He might require additional levodopa but the dose could be adjusted later # VTE ppx: apixaban # dispo: STR, awaiting bed at [facility], also needs wound VAC In my clinical judgment, the patient requires continued hospitalization for the following reasons: wound VAC, placement Quality Stroke Does the patient have a stroke diagnosis?: No VTE Prior VTE?: No VTE Risk Level:: Medical - moderate - high VTE Device Contraindication: Treatment Not Indicated VTE Drug Contraindication: N/A - Med Ordered
--- NOTE | 2022-03-25 13:17 | PC.NURSE ---
Was called to help put a wound vac on a patient. Pt has a stage III on buttocks. Wound vac applied as ordered. Patient tolerated well.
--- NOTE | 2022-03-25 15:41 | MHC.CM.PN ---
pt accepted at [facility] which is pts first choice facility will plan admisison for tomorrow facility to get wound vac and supplies t/w contaced son to bring in hcp , aware
--- NOTE | 2022-03-25 18:14 | PC.NURSE ---
Wound vac placed per MD verbal order w/ 2 RNs at bedside. Pt informed he is not being d/c'ed today. safety and fall precautions in place. call valiente within reach. tube feeds maintained w/ H2O boluses as ordered. pt repo'ed q2. Dressing intact.
[2022-03-25] MEDS: 0.9 % Sodium Chloride Flush 3 ML SYRINGE IVFLUSH (19:36)
[2022-03-25] MEDS: Melatonin 3 MG TABLET 6 MG PO (23:07)
[2022-03-26] VITALS (7 sets, daily range): BP systolic 98–126; BP diastolic 59–60; PULSE 72–99; RESP 18–20; TEMP 36.4–37.1; O2SAT 97–99
[2022-03-26] MEDS: 0.9 % Sodium Chloride Flush 3 ML SYRINGE IVFLUSH (09:11)
[2022-03-26] MEDS: Carbidopa/Levodopa 25/100 TABLET 1 TAB G-TUBE ×2 (09:11→12:59)
[2022-03-26] MEDS: Metoprolol Tartrate 12.5 MG HALFTAB G-TUBE (09:11)
[2022-03-26] MEDS: Apixaban 5 MG TABLET G-TUBE (09:11)
--- NOTE | 2022-03-26 09:41 | P.CDIC_ITS ---
CDI Concurrent Query Documentation Clarification: PHYSICIAN'S DOCUMENTATION REQUEST Date of Query: 03/26/22 0942 Patient Name: Bird Yuan Gama Admit Date: 03/05/22 Dear Doctor, A review of the medical record indicates additional documentation may be needed. Please review below and update the documentation accordingly. Clinical Indicators: Risk Factors/Clinical Indicators/Treatments Operative note 03/23 - local used and 10 blade used to remove the necrotic skin down to healthy subcutaneous fat, no bone exposed, no purulent drainage. Wet dressing secured. Could you provide, in the Progress Notes, further clarification regarding the debridement? Specifics to the debridement performed: Please specify the type of debridement performed: * Excisional debridement - defined as removal by excision (blade, scissors) of: devitalized tissue, necrosis, or slough * Non-excisional debridement - defined as removal of devitalized tissue, necrosis, or slough by such methods as: irrigation, brushing, scrubbing, or washing. Other Undetermined Use of terms such as suspected, likely, concern for, or probable (associated with a specific diagnosis that is being evaluated, monitored, or treated as if it exists) are acceptable and can be coded in the inpatient setting, when documented at the time of discharge. Thank you, Karli Escobar [facility], CDIS Extension: [phone] Please use your independent medical judgment in providing your response. THIS QUERY IS PART OF THE PERMANENT MEDICAL RECORD
--- NOTE | 2022-03-26 12:35 | PM.DS ---
DS: Providers Provider Date of Service: 03/26/22 Date of admission: 03/05/22 14:42 Date of discharge: 03/26/22 Primary care physician: Rhiannon Saxena MD Consults: 03/05/22 14:43 Consult to Cardiology Routine Consulting Provider: Osmar William Reason for consultation: NSTEMI 03/05/22 14:44 Consult to General Surgery Routine Consulting Provider: Warren Selby Reason for consultation: sacral and thoracic decubitus 03/07/22 10:20 Consult to Neurology Routine Consulting Provider: [facility] Reason for consultation: MS changes Has provider been notified: Yes 03/09/22 11:48 Consult to Pulmonology Routine Consulting Provider: Aubrey Tellez Reason for consultation: PNeumonia Has provider been notified: Yes 03/09/22 11:53 Consult to Pulmonology Routine Consulting Provider: Aubrey Tellez Reason for consultation: Pneumonia Has provider been notified: Yes 03/14/22 23:12 Consult to Gastroenterology Routine Consulting Provider: Nya Boucher Reason for consultation: Guaiac positive Stool 03/20/22 16:25 Consult to Wound Care Routine Consulting Provider: Latesha Jin Reason for consultation: multiple wounds chronic and post fall 03/22/22 08:40 Consult to Cardiology Routine Consulting Provider: Clifton Corey Reason for consultation: preop- wound debridement in OR. CAD/NSTEMI unmodifiable DS: Diagnosis Discharge Diagnosis (1) Pneumonia: Status: Acute (2) Parkinsons disease: Status: Acute (3) Rhabdomyolysis: Status: Acute (4) Non-ST elevation AR (NSTEMI): Status: Acute (5) Deep vein thrombosis, upper right extremity: Status: Acute (6) Stage III pressure ulcer of sacral region: Status: Acute (7) Dysphagia: Status: Acute (8) Malnutrition of moderate degree: Status: Acute (9) Aspiration into airway: Status: Acute (10) Paroxysmal atrial fibrillation: Status: Acute DS: Summary Hospital Course Hospital Course: from admission H+P, 03/05/22, by hospitalist Tony Greene: This is a 71 year old male with a PMH of CAD, HTN, Parkinson's disease, HLD who is brought in by EMS services to [facility] ED after he was found on the ground, next to his bed by his son. The patient is currently disoriented and unable to provide a meaningful history. He is, however, able to state that he does not have chest pain currently. Per his son, he last saw his father on day and he was in his usual state of health then. When he arrived to visit him today, he found him on his back. His son reports that his father does not have a history of dementia and he would rate his memory fairly well. His father typically does manage his ADLS on his own. Upon arrival to the ED, he was ramos-scanned. CT head/neck/chest/abd were essentially negative for any acute findings. His skin exam revealed multiple pressure uclers -- see pictures below. His HS trop-I is elevated and EKG showing non-specific changes. He has been given IVF, IV zosyn and has been started on IV heparin (after discussion with cardiology) 71yo M with Parkinson disease, CAD, HTN, and HLD who was found on ground by his son and admitted with PNA + NSTEMI + malnutrition Hospital course by problem: # PNA - completed 7d of pip/rubio + vanco, d/c ABX, BCx negative, PCT low, not hypoxic # NSTEMI vs. rhabdomyolysis - Cardiology consulted, treated medically with heparinization + ASA + metoprolol, held statin given concern of rhabdomyolysis. TTE with preserved EF. No angina. Ultimately, the elevated troponin was thought more likely due to rhabdomyolysis rather than NSTEMI. # stage 3 sacral pressure ulcer - He underwent operative debridement by Dr Jin on 03/23/22. Wound VAC was placed and he will need it changed [facility]. He should follow-up with Dr Jin at the [facility]. # RUE DVT - He was found to have RUE swelling and diagnosed with RUE DVT. He was started on apixaban for anticoagulation.. # paroxysmal atrial fibrillation - He had a very short burst likely related to medical condition. He is on a beta-norman already and anticoagulation was started as above. # moderate protein-caloriel malnutrition # aspiration - Initially placed on TPN. He failed MBSS and after conversation with his son and his neurologist, a PEG was placed on 03/18/22. Tube feeds were dvanced to goal: Promote 75 mL/hr + free water 120 mL q6hr. Outpatient [employer] should be done to see if he can take anything safely by mouth in the future. #Parkinsons disease - He was changed from carvidopa-levodopa extended-release to immediate-release and should follow up with his neurologist, Dr Watson, in 2-3 weeks. He was discharged to [facility] for short-term rehabilitation. Time Spent with Patient Time attestation: Total time spent providing and/or coordinating discharge services: Discharge coordination time: Greater than 30 minutes Quality: Safe Use of Opioids Does Pt have an Active Cancer Diagnosis on the Problem List?: No Quality: Stroke Does the patient have a stroke diagnosis?: No Physical Exam Vital Signs: Vital Signs: Last Vital Signs Temp 98.3 F 03/26/22 11:44 Pulse 72 03/26/22 11:44 Resp 20 03/26/22 11:44 BP 126/59 L 03/26/22 11:44 Pulse Ox 99 03/26/22 11:44 O2 Del Method 03/26/22 11:44 O2 Flow Rate 3 03/23/22 14:34 FiO2 28 03/10/22 23:32 Oxygen Flow Rate 2 03/19/22 13:24 BMI result Body Mass Index 21.0 Gen: in no acute distress HEENT: sclera anicteric, moist mucus membranes Neck: supple Lungs: clear to auscultation bilaterally Heart: regular rate and rhythm, no murmurs Abd: soft, non-tender, non-distended, PEG tube in place Ext: no edema Skin: warm/well-perfused Neuro: alert and oriented x3, masked facies, cogwheeling Psych: appropriate affect DS: Data Data Completed and Pending Completed studies during hospitalization [Text1]: Laboratory Results WBC 8.1 X10*3/uL (4.8-10.8) 03/19/22 08:01 RBC 2.99 X10*6/uL (4.60-5.80) L D 03/19/22 08:01 Hgb 9.3 g/dl (14.0-18.0) L D 03/19/22 08:01 Hct 27.4 % (42.0-52.0) L D 03/19/22 08:01 MCV 91.6 fL (80.0-98.0) 03/19/22 08:01 MCH 31.1 pg (27.0-33.0) 03/19/22 08:01 MCHC 33.9 g/dl (31.0-36.0) 03/19/22 08:01 RDW 14.2 % (11.0-16.0) 03/19/22 08:01 Plt Count 377 X10*3/uL (160-400) 03/19/22 08:01 MPV 8.8 fL (9.4-12.4) L 03/19/22 08:01 Immature Gran % (Auto) 0.4 % (0.0-0.4) 03/18/22 12:58 Neut % (Auto) 82.9 % (45-73) H 03/18/22 12:58 Lymph % (Auto) 11.2 % (20-40) L 03/18/22 12:58 [place] % (Auto) 4.9 % (2-11) 03/18/22 12:58 Eos % (Auto) 0.3 % (0-4) 03/18/22 12:58 Baso % (Auto) 0.3 % (0-2) 03/18/22 12:58 Lymph # (Auto) 1.0 X10*3/uL (1.2-4.9) L 03/18/22 12:58 [place] # (Auto) 0.4 X10*3/uL (0.1-1.2) 03/18/22 12:58 Eos # (Auto) 0.0 X10*3/uL (0.0-0.4) 03/18/22 12:58 Baso # (Auto) 0.0 X10*3/uL (0.0-0.2) 03/18/22 12:58 Abs Immat Gran (auto) 0.04 X10*3/uL (0.00-0.03) H 03/18/22 12:58 Absolute Neuts (auto) 7.4 x10*3/uL (2.0-8.3) 03/18/22 12:58 Absolute Nucleated RBC 0.000 X10*3/uL (0.0-0.012) 03/19/22 08:01 Nucleated RBC % (auto) 0.0 /100WBC (0.0-0.2) 03/19/22 08:01 Neutrophils % (Manual) 84 % (45-73) H 03/07/22 05:29 Band Neutrophils % 11 % (3-5) H 03/07/22 05:29 Lymphocytes % (Manual) 4 % (20-40) L 03/07/22 05:29 Monocytes % (Manual) 1 % (2-11) L 03/07/22 05:29 Abs Neuts (Manual) 8.5 X10*3/uL (2.0-8.3) H 03/07/22 05:29 Lymphocytes # (Manual) 0.4 X10*3/uL (1.2-4.9) L 03/07/22 05:29 Monocytes # (Manual) 0.1 X10*3/uL (0.1-1.2) 03/07/22 05:29 Platelet Estimate NORMAL (NORMAL) 03/07/22 05:29 Plt Morphology Comment NORMAL 03/07/22 05:29 RBC Morphology NOTED 03/07/22 05:29 Kyle Cells 1+ (0-2) /OIF 03/07/22 05:29 PT 14.8 SEC (10.0-13.1) H 03/18/22 12:58 INR 1.3 (0.9-1.1) H 03/18/22 12:58 APTT 31.2 SEC (24.1-38.0) D 03/18/22 12:58 aPTT Heparin Protocol 46.2 SEC (53-77.9) L D 03/18/22 05:59 VBG pH 7.37 (7.32-7.43) 03/05/22 10:30 VBG pCO2 36 mmHg 03/05/22 10:30 VBG pO2 39 mmHg 03/05/22 10:30 VBG HCO3 21 mmol/L (22-26) L 03/05/22 10:30 VBG O2 Saturation 61.0 % 03/05/22 10:30 VBG Base Excess -3.2 mmol/L 03/05/22 10:30 Sodium 134 mmol/L (135-145) L 03/25/22 08:58 Potassium 4.5 mmol/L (3.3-5.1) 03/25/22 08:58 Chloride 98 mmol/L (96-108) 03/25/22 08:58 Carbon Dioxide 30 mmol/L (22-29) H 03/25/22 08:58 Anion Gap 11 (12-20) L 03/25/22 08:58 BUN 24 mg/dL (9-16) H 03/25/22 08:58 Creatinine 0.68 mg/dL (0.5-1.4) 03/25/22 08:58 Estim Creat Clear Calc 92.5 03/25/22 08:58 Estimated GFR > 60 03/25/22 08:58 POC Glucose 87 mg/dL (60-115) 03/18/22 03:48 Random Glucose 110 mg/dL (60-115) 03/25/22 08:58 Fasting Glucose 123 mg/dL (60-99) H 03/12/22 05:54 Lactic Acid 3.1 mmol/L (0.5-2.0) H* 03/05/22 10:25 Lactic Acid F/U @ 2Hr 2.1 mmol/L (0.5-2.0) H* 03/05/22 12:39 Lactic Acid F/U @ 4Hr 2.6 mmol/L (0.5-2.0) H* 03/05/22 14:54 Calcium 7.9 mg/dL (8.4-10.2) L 03/25/22 08:58 Phosphorus 2.9 mg/dL (2.7-4.5) 03/11/22 07:10 Magnesium 1.8 mg/dL (1.6-2.6) 03/25/22 08:58 Total Bilirubin 1.0 mg/dL (0.0-1.0) 03/14/22 10:14 Direct Bilirubin 0.9 mg/dL (0.0-0.5) H 03/06/22 03:18 AST 46 U/L (5-37) H 03/14/22 10:14 ALT 125 U/L (0-40) H 03/14/22 10:14 Alkaline Phosphatase 97 U/L (39-117) 03/14/22 10:14 Ammonia 28 umol/L (13-55) 03/05/22 14:54 Total Creatine Kinase 49 U/L (38-174) D 03/14/22 10:14 Troponin I High Sens 1052.4 ng/L (<3.5-35.0) H* 03/05/22 12:30 B-Natriuretic Peptide 141 pg/mL (<100) H 03/06/22 07:30 Total Protein 5.2 g/dL (6.5-8.0) L 03/14/22 10:14 Albumin 2.7 g/dL (3.5-5.0) L 03/14/22 10:14 Triglycerides 85 mg/dL 03/08/22 06:00 Lipase 20 U/L (8-78) 03/05/22 10:25 Procalcitonin 0.16 ng/mL 03/12/22 05:54 Stool Occult Blood POSITIVE (NEGATIVE) 03/14/22 20:36 Vancomycin Trough 10.5 mcg/mL (10.0-20.0) 03/13/22 05:19 Random Vancomycin 12.4 mcg/mL (15-20) L 03/10/22 05:37 C. difficile Tox B Gene NEGATIVE (Negative) 03/14/22 20:36 COVID-19 (EDUARDO) Negative (Negative) 03/24/22 Unknown COVID-19 Clin Com See Note 03/24/22 Unknown Influenza Type A (PCR) NEGATIVE (Negative) 03/26/22 11:52 Influenza Type B (PCR) NEGATIVE (Negative) 03/26/22 11:52 RSV RNA Qual (PCR) NEGATIVE (Negative) 03/26/22 11:52 SARS-CoV-2 RNA (RT-PCR) NEGATIVE (Negative) 03/26/22 11:52 Blood Type O Positive 03/15/22 16:57 Antibody Screen NEGATIVE 03/15/22 16:57 Crossmatch See Detail 03/15/22 16:57 Impressions Abdomen/Pelvis CT 03/05/22 11:13 IMPRESSION: Atelectatic changes in both lung bases. No acute process. No acute processes in the abdomen. There are bilateral renal cysts, hepatic cysts. No radiopaque renal or gallbladder calculi. Moderate constipation. Compression fractures of T12 vertebra of uncertain age. Cervical Spine CT 03/05/22 11:16 IMPRESSION: Patient motion degrades image quality therefore the diagnostic accuracy of this examination is limited. Grossly no evidence of acute intracranial hemorrhage. No acute cervical spine fracture and no posttraumatic spinal subluxation. Chest CT 03/05/22 11:16 IMPRESSION: Atelectatic changes in both lung bases. No acute process. No acute processes in the abdomen. There are bilateral renal cysts, hepatic cysts. No radiopaque renal or gallbladder calculi. Moderate constipation. Compression fractures of T12 vertebra of uncertain age. Head CT 03/05/22 11:16 IMPRESSION: Patient motion degrades image quality therefore the diagnostic accuracy of this examination is limited. Grossly no evidence of acute intracranial hemorrhage. No acute cervical spine fracture and no posttraumatic spinal subluxation. Chest X-Ray 03/09/22 12:02 IMPRESSION: Previously seen retrocardiac left lower lobe consolidation has improved. New left upper extremity PICC line with tip overlying the proximal right atrium near the expected location of the cavoatrial junction. Venous Duplex 03/12/22 15:45 IMPRESSION: DVT in the right axillary and basilic and cephalic veins. Modified Barium Swallow 03/14/22 11:50 IMPRESSION: Several episodes of penetration with possible aspiration. Please refer to the speech pathologist notes for complete evaluation. TTE, 03/05/22 Conclusions: - Based on off axis views,? LVEF about 50%.? - Valves not well visualized, but grossly no major abnormality.? Discharge Plan Discharge Patient Disposition: [facility] Discharge Diagnosis: # pneumonia # NSTEMI vs. rhabdomyolysis # stage 3 sacral pressure ulcer # RUE DVT # moderate pr/hattie malnutrition # dysphagia # aspiration # Parkinsons disease Referrals: laura [Other] - 1 Week Rhiannon Saxena MD [Primary Care Provider] - 1 Week Mann Watson MD [Physician] - 1 Week Latesha Jin MD [Physician] - 1 Week Discharge Medications: New Eliquis 5 mg Tablet 5 mg G-tube BID Qty: 60 0RF carbidopa-levodopa 25-100 mg Tablet 1 tab G-tube QID Qty: 120 0RF Continued amantadine HCl 100 mg tablet 1 tab PO BID metoprolol tartrate 25 mg tablet 25 mg PO BID Discontinued lisinopril 10 mg tablet 1 tab PO DAILY carbidopa-levodopa 25-100 mg tablet extended release 2 tab PO TID atorvastatin 20 mg tablet 20 mg PO DAILY Qty: 90 2RF Discharge Orders: Discharge Order (Routine); Ordered 03/26/22 Ordered By: Torito Ba Diet: tube feeds Activity on Discharge: As tolerated Stand Alone Forms: Patient Portal Discharge page Care Plan Goals: wound healing safe nutrition Health Concerns: # pneumonia # NSTEMI vs. rhabdomyolysis # stage 3 sacral pressure ulcer # RUE DVT # PNA # moderate pr/hattie malnutrition # dysphagia # aspiration # Parkinsons disease Plan of Treatment: # pneumonia - completed antibiotics # NSTEMI vs. rhabdomyolysis - stop statin # stage 3 sacral pressure ulcer - wet dressing to sacral wound daily; for other wounds, apply bacitracin ointment and cover daily. Offload pt on his side and spend as little time as possible flat on his back. Wound VAC with black sponge to 125 mmHg pressure suction, change MWF - follow up with [facility] in 1-2 weeks # RUE DVT - apixaban 5 mg twice daily # moderate pr/hattie malnutrition # dysphagia # aspiration - PEG tube placed. Promote 75 mL/hr + free water 120 mL q6hr - outpatient speech therapy # Parkinsons disease - continue Sinemet. follow up with Dr Watson from [facility] Neurology in 2 weeks Assessment: See Discharge Summary
[2022-03-26 12:39] LABS: Influenza A PCR NEGATIVE (Negative); Influenza B PCR NEGATIVE (Negative); Resp Syncy Virus RNA Qual PCR NEGATIVE (Negative); SARS COV2 PCR INHOUSE NEGATIVE (Negative)
== END 2022-03-26 15:27 | disposition skilled nursing facility (03) | DRG 280 ==
LOC: HO.ED 10:53 → HO.EDOVER 15:14 → HO.IMC 03-08 15:22
PROVIDERS: Hospitalist; Internal Medicine; Internal Medicine Gastroenterology; Surgery; Admitting Provider Family Medicine; Emergency Provider Emergency Medicine; PCP Internal Medicine; Visit Provider Family Medicine
PROC: 0DH63UZ Insertion of Feeding Device into Stomach, Percutaneous Approach (ICD-10-PCS; CPT 43246; principal; 2022-03-18 15:00)
PROC: 0HB6XZZ Excision of Back Skin, External Approach (ICD-10-PCS; principal; 2022-03-23 13:00)
DX: I21.4 Non-ST elevation (NSTEMI) myocardial infarction (principal); G92.8 Other toxic encephalopathy; L89.153 Pressure ulcer of sacral region, stage 3; J18.9 Pneumonia, unspecified organism; K26.4 Chronic or unspecified duodenal ulcer with hemorrhage; E87.2 Acidosis; S22.080A Wedge compression fracture of T11-T12 vertebra, initial encounter for closed fracture; E87.0 Hyperosmolality and hypernatremia; E44.0 Moderate protein-calorie malnutrition; I82.621 Acute embolism and thrombosis of deep veins of right upper extremity; I47.1 Supraventricular tachycardia; Z66 Do not resuscitate; G20 Parkinson's disease; I25.10 Atherosclerotic heart disease of native coronary artery without angina pectoris; E78.5 Hyperlipidemia, unspecified; E86.0 Dehydration; I10 Essential (primary) hypertension; J98.4 Other disorders of lung; W18.30XA Fall on same level, unspecified, initial encounter; T79.6XXA Traumatic ischemia of muscle, initial encounter; R13.10 Dysphagia, unspecified; F02.80 Dementia in other diseases classified elsewhere, unspecified severity, without behavioral disturbance, psychotic disturbance, mood disturbance, and anxiety; Z68.21 Body mass index [BMI] 21.0-21.9, adult; L89.229 Pressure ulcer of left hip, unspecified stage; L89.219 Pressure ulcer of right hip, unspecified stage; L89.899 Pressure ulcer of other site, unspecified stage; Z20.822 Contact with and (suspected) exposure to COVID-19; Z79.01 Long term (current) use of anticoagulants; Z79.899 Other long term (current) drug therapy
CPT/HCPCS: 0241U; 36415; 36573; 70450; 71045; 71250; 72125; 74176; 74230; 80048; 80053; 80076; 80202; 82140; 82272; 82550; 82565; 82803; 82947; 83605; 83690; 83735; 83880; 84100; 84145; 84478; 84484; 85007; 85025; 85027; 85610; 85730; 86850; 86900; 86901; 86923; 87040; 87493; 87635; 88305; 88342; 92526; 92610; 92611; 93005; 93306; 93971; 94640; 96361; 96365; 96367; 96375; 96376; 97110; 97162; 97530; 99285; C1751; J0610; J1100; J1650; J2060; J2250; J2405; J2543; J3010; J3370; J3475; P9016

== ENCOUNTER 2022-04-11 10:14 | Outpatient (RCR) | payer MEDICARE, BC, SELFPAY | END 2023-03-21 09:37 | disposition home or self-care (01) | LOC: HO.WCC 10:14 | PROVIDERS: PCP Internal Medicine; Visit Provider Surgery | DX: L89.312 Pressure ulcer of right buttock, stage 2 (principal) | CPT/HCPCS: 11042; 11043; 11044; 11045; 11046; 15271; 97597; 99212; 99213; 99214; Q4158 ==

== ENCOUNTER → 2022-04-26 09:21 | Outpatient (BNVA) | payer MEDICARE, BC, SELFPAY | PROVIDERS: PCP Internal Medicine; Visit Provider Internal Medicine Gastroenterology | DX: K26.9 Duodenal ulcer, unspecified as acute or chronic, without hemorrhage or perforation (principal); Z93.1 Gastrostomy status | CPT/HCPCS: 99212 ==

== ENCOUNTER 2022-05-29 14:14 | Outpatient (REF) | payer MEDICARE, BC, SELFPAY ==
--- NOTE | ~2022-05-29 | FL_ITS ---
EXAMINATION: XR BARIUM SWALLOW CLINICAL INFORMATION: Dysphasia Upgrade diet. COMPARISON: 03/14/2022. TECHNIQUE: Modified barium swallow with speech pathology. FINDINGS: Patient consumed multiple consistencies from thin liquid to solid. There are noted to be episodes of laryngeal penetration with thin liquid and nectar thick fluid with question of penetration with puree. There was trace aspiration noted. No cough reflex was elicited. There is retention of fluids and solids within the vallecula and to a lesser degree the piriform sinuses. FLUOROSCOPY TIME: 6.7 minutes. DOSE AREA PRODUCT: 4.217 Gy-cm2 (patel-centimeter squared) FL/FL barium swallow modified IMPRESSION: Laryngeal penetration with trace aspiration and without cough reflex as described above. Retention within the vallecula.
--- NOTE | 2022-05-31 17:12 | MHC.SL.IMP ---
Date of Plan of Treatment: 05/29/22 Onset of Symptoms/Illness: 03/14/22 Date Treatment Started: 03/14/22 Admitting Diagnosis: Parkinson's Disease Acidosis, lactic Acute dehydration Anemia Back wound CAD (coronary artery disease) Closed wedge compression fracture of T12 vertebra Decubitus ulcer of sacral area DVT (deep venous thrombosis) Dyslipidemia Dysphagia Elevated troponin Essential hypertension GI bleed Malnutrition of moderate degree Non-ST elevation NH (NSTEMI) Parkinsonism Parkinsons disease Pneumonia Pre-operative cardiovascular examination Pressure ulcer of sacral region, unstageable 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 Rhabdomyolysis Primary Speech & Language Diagnosis: R13.12 Oropharyngeal Phase Dysphagia Reason for Today's Visit: 11782 Modified Barium Swallow Study Pre-evaluation Dietary Consistencies: NPO Pre-evaluation Liquid Consistency: NPO Pre-evaluation Medication Administration: NPO Medical History: Modified Barium Swallow Study Fluoroscopic Evaluation of Swallowing Function CPT Code 58685 Evaluation Year: 2021 Reason for Study: History of aspiration Referring Physician: Amos Inman Evaluating Clinician: Mitali Machado MA, CCC-SEAFO[employer] AND SERVICE MEAT MANAGER Study Number: 2 Patient Name: Kwabena Gama Status: Outpatient, Stretcher Age: 71 Gender: Male MEDICAL HISTORY: Parkinson's Disease Acidosis, lactic Acute dehydration Anemia Back wound CAD (coronary artery disease) Closed wedge compression fracture of T12 vertebra Decubitus ulcer of sacral area DVT (deep venous thrombosis) Dyslipidemia Dysphagia Elevated troponin Essential hypertension GI bleed Malnutrition of moderate degree Non-ST elevation NH (NSTEMI) Parkinsonism Parkinsons disease Pneumonia Pre-operative cardiovascular examination Pressure ulcer of sacral region, unstageable 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 Pt was [place] [facility] [place] with pneumonia, NSTEMI, and malnutrition. During his hospitalization, pt had MBSS revealing severe oropharyngeal dysphagia. There was significant pharyngeal retention, and evidence of deep penetration, silent aspiration. Pt was subsequently recommended NPO status at that time with continued speech therapy at next level of care, repeat MBSS post-treatment in 10-12 weeks, consult with care team, including G.I. and Nutrition. Pt had PEG tube placed on 03/18 and was discharged to [facility] for short-term rehab. Pt is here today from [facility] for repeat MBSS. Pt arrived on stretcher via ambulance. Pt reports he ?believes he was seeing SEAFOOD AND SERVICE MEAT MANAGER at [facility]? and vaguely recalled working on exercises. Pt stated he did not remember frequency of SEAFOOD AND SERVICE MEAT MANAGER?s visits nor specific goals he had been working on. Pt stated he was ?hoping to eat a solid diet.? Oral Motor Exam Facial Symmetry: Symmetrical Mouth Occlusion: Normal Oral-Facial Teeth Characteristics: Intact/Normal Oral-Facial Puff Cheeks Description: Reduced Strength Tongue Size: Normal Tongue Range of Movement Description: Reduced Tongue Speed of Movement Description: Reduced Tongue Strength of Movement (against opposing pressure): Reduced Food and Liquid Trials: Oral Impairment: Lip Closure: 1=Interlabial escape; no progression to anterior tip Oral Impairment: Tongue Control During Bolus Hold: 1=Escape to lateral buccal cavity/floor of mouth (FOM) Oral Impairment: Bolus Preparation/Mastication: 0=Timely and efficient chewing and mashing Oral Impairment: Bolus Transport/Lingual Motion: 3=Repetitive/disorganized tongue motion Oral Impairment: Oral Residue: 2=Residue collection on oral structures Oral Impairment:Initiation of Pharyngeal Swallow: 2=Bolus head at posterior laryngeal surface of epiglottis Pharyngeal Impairment: Soft Palate Elevation: 0=No bolus between soft palate (SP)/pharyngeal wall (PW) Pharyngeal Impairment: Laryngeal Elevation: 1=Partial thyroid cartilage/arytenoids to epiglottic petiole movement Pharyngeal Impairment: Anterior Hyoid Excursion: 1=Partial anterior movement Pharyngeal Impairment: Epiglottic Movement: 2=No inversion Pharyngeal Impairment: Laryngeal Vestibular Closure:: 1=Incomplete: narrow column air/contrast in laryngeal vestibule Pharyngeal Impairment: Pharyngeal Stripping Wave: 1=Present: diminished Pharyngeal Impairment: Pharyngeal Contraction: Did not test Pharyngeal Impairment: Pharyngoesophageal Segment Openin=Complete distension and complete duration: no obstruction of flow Pharyngeal Impairment: Tongue Base (TB) Retraction: 1=Trace column of contrast/air between TB and posterior PW Pharyngeal Impairment: Pharyngeal Residue: 4=Minimal to no pharyngeal clearance Pharyngeal Impairment: Esophageal Clearance Upright Position: Did not test Impressions and Recommendations OBJECTIVE: Time-out: performed at 02:45 Evaluation Start: 02:30; Stop: 02:40 Patient Positioning: Seated 70-90 degrees Viewing Planes: LATERAL ONLY Contrast: MBSImP? Standardized Protocol using commercially prepared, standardized Barium viscosities, including: Varibar? THIN LIQUID (40% w/v, <15 cps) , Varibar? NECTAR (40% w/v, <150-450 cps) , Varibar? THIN HONEY (40% w/v, <800-1800 cps) MBSImP ID: [id number] MBSImP Results: Lip closure for intraoral bolus containment resulted in interlabial escape, without progression to the anterior lip. Tongue control during bolus hold allowed bolus escape to the lateral buccal cavity/floor of mouth. Bolus preparation and mastication resulted in timely and efficient chewing and mashing. Bolus transport/lingual motion was with repetitive/disorganized motion of the tongue. Oral residue was a collection on oral structures. Initiation of the pharyngeal swallow occurred as the bolus head was at the posterior laryngeal surface of the epiglottis. Soft palate elevation resulted in no bolus between the soft palate and the pharyngeal wall. Laryngeal elevation was decreased, with partial superior movement of the thyroid cartilage/partial approximation of the arytenoids to the epiglottic petiole. Anterior hyoid excursion demonstrated partial anterior movement. Epiglottic movement resulted in no inversion. Laryngeal vestibular closure was incomplete, with a narrow column of air/contrast noted within the laryngeal vestibule at the height of the swallow. Pharyngeal stripping wave was present, but diminished. Pharyngeal contraction could not be determined due to logistical reasons not related to physiologic impairment. Pharyngoesophageal segment opening was completely distended for complete duration with no obstruction of bolus flow. Tongue base retraction allowed a trace column of contrast or air between the retracted tongue base and the posterior pharyngeal wall. Pharyngeal residue resulted from minimal to no pharyngeal clearance. Esophageal clearance in the upright position could not be assessed due to logistical reasons not related to physiologic impairment. Oral Impairment Score: 8 Pharyngeal Impairment Score: 10 (absence of score, component 13) Esophageal Impairment Score: --- (absence of score, component 17) Laryngeal Penetration and Aspiration: Both Penetration and Aspiration were observed in today's study. Honey-thick, Tushka-thick, Thin Contrast entered the airway at/above the vocal folds, and were not ejected from the airway. Honey-thick, [place]ka-thick, Thin Contrast entered the airway, passed below the vocal folds, and no effort were made to eject. ASSESSMENT: Clinician Assessment: This exam was conducted by a multidisciplinary team, included a speech pathologist, radiologist, and radiology practitioner assistant. Patient was seated upright at 90 degrees in a chair for lateral view only. Patient trialed the following liquid and solid consistencies: thin liquid barium by spoon, nectar thick liquid barium by spoon, honey thick liquid barium by spoon, pureed solid (mixture applesauce with barium paste) by spoon, ground solid (mixture chicken salad with barium paste). Patient displayed minimal interlabial escape with no progression to anterior lip. There was minimal escape of liquid bolus to the floor of mouth, no premature escape posteriorly prior to initiation of pharyngeal swallow. Posterior lingual movements for transport of bolus were repetitive and disorganized. Characteristic ?tongue pumping? noted when managing both liquids and solids orally. There was mild lingual residue, ultimately cleared with multiple dry swallows. Pharyngeal swallow trigger initiated as bolus head reached posterior laryngeal surface of epiglottis. There was no nasopharyngeal reflux evident during this exam. Laryngeal elevation was incomplete with partial anterior hyoid excursion. No epiglottic inversion with incomplete laryngeal vestibular closure resulted in penetration. Contrast coated anterior surface of trachea, with subsequent trace aspiration. No obstruction of flow through pharyngoesophageal segment opening. With trials thin and thickened liquid (thin liquid, nectar thick liquid, honey thick liquid) individual sips administered by teaspoon, trace amount of contrast entered the airway reaching the vocal folds during the swallow. Residue coated the trachea anteriorly. Pt demonstrated no spontaneous, protective cough when contrast entered the airway. There was also moderate to severe pooling mostly in the valleculae, some in the pyriform sinuses. Pt was instructed to produce volitional cough and throat clear. This did not reduce nor clear contrast from the airway. Pt produced repetitive dry swallows, which was effective in reducing pharyngeal retention. Pt swallowed 4+ times with increased effort. Noted trace aspiration on contrast coating trachea. Liquids were not presented by straw nor cup as it was determined based on these observations that intake of larger bolus would likely increase aspiration with liquids. Pt was administered bites of applesauce, pureed texture, by teaspoon. Continue to note moderate to severe pooling, mostly in the valleculae, but also in the pyriform sinuses and along the posterior pharyngeal wall. There was question of one episode of penetration. It appeared liquid which had previously pooled in pyriforms, mixed with additional puree and spilled over into the airway during the swallow. No subsequent episodes of penetration with following trials of pureed texture. No evidence of aspiration with pureed texture. Again, pt was instructed for dry swallow to clear residuals. Pt swallowed 5+ times with effort, reducing pharyngeal residue. Chin tuck had no effect. Pt took one small bite of chicken salad (ground texture). Pt demonstrated timely and efficient mastication. 100% of bolus collected in the valleculae with initial swallow. With subsequent dry swallows, contrast spilled with hang up in the pyriforms, but with no clearance from pharynx. Multiple, effortful dry swallows had very minimal to no effect in reducing residuals with this consistency. Chin tuck strategy had no effect in clearing of residuals. Pt took several bites of applesauce, followed with multiple dry swallows, which reduced most residue in the pharynx. No aspiration or penetration with this consistency. Pt fatigued as this exam progressed, exhibiting increased difficulty initiating a dry swallow. Compensatory Strategies Recommended: Sitting Upright (90 deg), Double Swallow, Rate of Ingestion Change Supervision during eating and or drinking: PO with SEAFO[employer] AND SERVICE MEAT MANAGER Recommended Treatments: Pharyngeal Resistive Exer, Compens. Strategy Educat. Recommendation for Speech Therapy: Speech Therapy through Rehab Facility Modified Barium Swallow Study - Outpatient PLAN: Intake Recommendations: Route: Partial PO/Partial Alternate Diet Grade: Puree Post-Study Functional Oral Intake Scale (FOIS): 2- dependent with minimal/inconsistent oral intake Continue to note severe oropharyngeal dysphagia. This exam revealed penetration, trace aspiration. Increasing pharyngeal retention with more viscous textures. Based on results of this exam objectively, safest recommendation seems to be to continue with alternative means of nutrition. Recommend introduce partial PO PUREED (NDD1) when participating in PO trials with SEAFOOD AND SERVICE MEAT MANAGER therapeutically and for supplemental/comfort feeding. Specific strategies and general precautions are recommended to reduce the risk of aspiration: -Provide oral care before and after PO intake. -Maintain upright 90 degree position during PO intake and for at least 45 minutes afterwards. -Administer small bites (1/2 teaspoon). -After pt has cleared oral cavity, provide cues for pt to elicit volitional throat clear followed by multiple dry swallows to promote clearance of pharynx. -Ensure small portion to reduce fatigue. -Elevate head of bed at least 30 degrees to reduce the risk of microaspiration. Ultimate decision for nutritional intake is to be made by the patient, his caregiver/family, and his medical team with consideration of the totality of the patient, other concomitant conditions, and overall quality of life. In any case, patient and his caretakers/family must have knowledge and understanding of the risks of aspiration when making this decision. Recommend continue speech therapy for dysphagia treatment should the patient?s alf goal be to potentially transition to an oral diet. Recommend repeat MBSS in 8 weeks. Suggested Referrals: The patient might benefit from a referral to: Gastroenterology Neurology Nutrition Services Therapy Recommendations: Therapy will be continued Prognosis for Improvement: The prognosis for the patient to meet nutritional needs by mouth is poor based on degree of impairment. Snf Goals: ? The patient will tolerate the least restrictive diet with a safe/efficient swallow to maintain adequate nutrition and hydration. ? The patient will demonstrate improved swallowing function via repeat clinical evaluation, videoendoscopy/videofluoroscopy and/or patient self-rating scores. ? The patient and/or family will participate in further education for swallowing goals. Short Term Goals: ? Diet - The patient will participate in therapeutic PO trials (NDD1) with the SEAFOOD AND SERVICE MEAT MANAGER. ? Guidelines - The patient will comply with/recall the following guidelines/strategies 100% of the time with moderate cuing: Bolus Volume Change, Rate of Ingestion Change, Additional Swallow(s) per Bolus, Throat Clear. ? Structured Therapy - The patient will demonstrate 80% accuracy and require maximum cuing in structured swallowing therapy with the SEAFOOD AND SERVICE MEAT MANAGER using the following exercises/therapy approaches and therapy assisted devices: Effortful Swallow, Ashley Maneuver, Shaker Head Lifts, Carmina Maneuver, . ? Education - The patient, family, caregiver will verbalize/demonstrate understanding of the results of this evaluation, the above recommendations, and the swallowing guidelines. Clinician - Supplemental, Miscellaneous Communication: It is important to note MBSS objective studies are snapshots in time and Patient function might vary with factors such as time of day or concomitant medical conditions. For this reason, the final treatment plan for this patient should rest with their medical care team. Additional recommendations should be considered with the totality of the Patient in mind. Thank for the opportunity to participate in the care of this patient. If you have any questions about the content of this report, please contact the [facility] at [facility]. Education: Education regarding findings from today's study and plans for therapy were provided to Patient only through Verbal Instruction. Sound Effects Technician Clinician/Clinical Fellow: No Supervisory Statement: N/A Speech Language Pathologist: Mitali Machado M.A., [facility]SEAFOOD AND SERVICE MEAT MANAGER
== END 2022-05-29 14:15 | disposition home or self-care (01) ==
LOC: HO.XRAY 14:14
PROVIDERS: Visit Provider Internal Medicine
DX: R13.10 Dysphagia, unspecified (principal); Z93.0 Tracheostomy status
CPT/HCPCS: 74230; 92611

== ENCOUNTER 2022-06-27 10:26 | Outpatient (REF) | payer MEDICARE, BC, SELFPAY ==
--- NOTE | ~2022-06-27 | CT_ITS ---
EXAMINATION: CT THORACIC SPINE WITH CONTRAST CLINICAL INFORMATION: 71-year-old with nonhealing wound at T12-L1. Evaluate for osteomyelitis. COMPARISON: CT abdomen of 03/05/2022 bone windows. TECHNIQUE: Volumetric CT imaging of the thoracic spine was done with multiplanar reformatted reconstructions. CONTRAST: 85 mL Omnipaque 350. This CT examination was performed using dose optimization techniques as appropriate, variously including the following: *Automated exposure control. *Adjustment of mA and/or kV according to patient size (this includes techniques or standardized protocols for targeted exams where dose is matched to indication/reason for exam; i.e. extremities or head). *Use of iterative reconstruction technique. DLP: 777 mGy-cm FINDINGS: Redemonstrated is a severe chronic compression fracture deformity of the T12 vertebral body similar to the previous CT with gibbus angulation at T11-T12, unchanged in appearance. Remaining thoracic vertebral bodies are well maintained. There is a mild degree of lower thoracic levocurvature centered at T10-T11. There is diffuse osteopenia. There is multilevel anterior and paravertebral spondylosis. Central Schmorl's nodes are noted at T6-T7. There is partial ankylosis along the anterior aspect of the T11-T12 intervertebral disc space. Disc space heights are relatively well maintained. No large disc herniations are identified within the limitations of the study. Gibbus angulation at T11-T12 resulting in flattening of the ventral dural sac, with effacement of the ventral thecal sac possibly abutting the ventral aspect of the spinal cord with mild spinal canal stenosis at this level. There is moderate bilateral facet arthrosis at C7-T1 without significant neural foraminal stenosis. There is mild facet arthropathy on the right at T3-T4 and T4-T5 without significant neural foraminal stenosis. There is [id number] facet arthrosis on the right at T9-T10 with [id number] right-sided neural foraminal stenosis. No paravertebral soft tissue masses or fluid collections are identified. There is subsegmental atelectasis in the right costophrenic angle. The visualized lung parenchyma is otherwise unremarkable. There is a 1.0 x 1.7 cm enlarged precarinal lymph node with multiple other AP window lymph nodes. Heart size is normal. No effusions. Coronary artery calcifications are noted. See accompanying CT of the abdomen for abdominal contents with multiple bilateral renal and hepatic cysts. CT/CT thoracic spine w IV con IMPRESSION: 1. Severe chronic compression deformity of the T12 vertebral body with gibbus angulation at T11-T12 as described above with mild spinal canal stenosis at this level. No evidence for osteomyelitis within the limitations of the study. 2. Multilevel thoracic spondylosis and facet arthropathy as described above with [id number] right-sided neural foraminal stenosis at T9-T10. 3. No paravertebral soft tissue masses or fluid collections are identified. 4. Nonspecific mild mediastinal lymphadenopathy. Recommend follow-up CT of the chest with contrast at a clinically appropriate interval to reassess. 5. See accompanying CT of the abdomen for abdominal contents with multiple bilateral renal and hepatic cysts. Fleischner guidelines were followed.
--- NOTE | ~2022-06-27 | CT_ITS ---
EXAMINATION: CT ABDOMEN AND PELVIS WITH CONTRAST CLINICAL INFORMATION: Sacral wound COMPARISON: 03/05/2022 TECHNIQUE: Multidetector volumetric images were obtained from the superior aspect of the liver through the pubic symphysis following administration 85 mL of Omnipaque 350 intravenous contrast. Sagittal and coronal reformatted images were obtained on the technologist's workstation. Oral contrast: No This CT examination was performed using dose optimization techniques as appropriate, variously including the following: *Automated exposure control *Adjustment of mA and/or kV according to patient size (this includes techniques or standardized protocols for targeted exams where dose is matched to indication/reason for exam; i.e. extremities or head) *Use of iterative reconstruction technique DLP: 304 mGy-cm FINDINGS: LUNG BASES: Normal heart size. Coronary artery calcifications. LIVER, GALLBLADDER, AND BILIARY TREE: Simple cysts are seen in the liver. No suspicious or concerning liver lesion. The hepatic and portal veins enhance normally. The gallbladder is unremarkable with no evidence of radiopaque gallstones, gallbladder wall thickening, or obvious pericholecystic inflammatory changes. PANCREAS: Unremarkable. SPLEEN: Unremarkable. ADRENAL GLANDS: 1.6 x 1.4 cm adrenal nodule has density 52 Hounsfield units, indeterminate. There is some internal heterogeneity. There is a coarse calcification in the left adrenal gland which is otherwise normal. KIDNEYS AND URETERS: Simple bilateral renal cysts for which no imaging follow-up is recommended. No calculi or hydronephrosis. BLADDER: Unremarkable. GASTROINTESTINAL TRACT: Gastrostomy tube in the distal stomach. Small bowel nondilated. No evidence of colitis or diverticulitis. ABDOMINAL WALL: No significant hernia is appreciated. LYMPH NODES: Normal. VASCULAR: Unremarkable. PELVIC VISCERA: Unremarkable. OSSEOUS STRUCTURES: There is a full-thickness soft tissue defect of the soft tissues overlying the right sacrum. There is cortical destruction and erosion of the sacrum in this region, for example image 61/85, consistent with osteomyelitis. The findings have progressed since the prior study 03/05/2022. Multilevel degenerative changes of the thoracic and lumbar spine. Chronic severe anterior wedge compression deformity of L1. CT/CT abdomen pelvis w IV con IMPRESSION: Full-thickness soft tissue defect overlying the right sacrum (S4 and S5) with underlying cortical destruction and erosion of the right sacrum consistent with osteomyelitis. The report will be called to the ordering clinician by a [place] [facility] Physician Remelt Worker.
[2022-06-27] MEDS: iohexoL 350 MG/ML 100 ML INFUS..BTL IV (11:43)
[2022-06-27 13:57] LABS: Creatinine POC 0.5 mg/dL (0.5-1.4); GFR POC > 60
== END 2022-06-27 10:27 | disposition home or self-care (01) ==
LOC: HO.CT 10:26
PROVIDERS: Visit Provider Physician Assistant
DX: L89.153 Pressure ulcer of sacral region, stage 3 (principal)
CPT/HCPCS: 72129; 74177; 82565; Q9967

== ENCOUNTER 2022-07-04 10:40 | Inpatient (IN) | payer MEDICARE, BC, SELFPAY ==
[2022-07-04 10:44] VITALS: BP 109/58; BP 122/68; PULSE 60; PULSE 63; RESP 18; TEMP 36.5; O2SAT 99; BMI 16.3
--- NOTE | 2022-07-04 10:45 | ECG_ITS ---
Test Reason : weakness Blood Pressure : / mmHG Vent. Rate : 064 BPM Atrial Rate : 064 BPM P-R Int : 144 ms QRS Dur : 084 ms QT Int : 410 ms P-R-T Axes : 070 066 062 degrees QTc Int : 422 ms Poor data quality Normal sinus rhythm Normal ECG When compared with ECG of 16-MAR-2022 01:09, Sinus rhythm has replaced Atrial fibrillation Vent. rate has decreased BY 92 BPM Borderline criteria for Inferior infarct are no longer Present ST no longer depressed in Anterolateral leads Nonspecific T wave abnormality no longer evident in Inferior leads Nonspecific T wave abnormality no longer evident in Lateral leads Referred By: Selene Page Electronically Signed By:OMERO FLORES MD
[2022-07-04 10:49] VITALS: BP 109/58; PULSE 61; RESP 12; TEMP 36.5; O2SAT 100
--- NOTE | 2022-07-04 10:50 | ED_ITS ---
HPI - Skin/Abscess/Foreign Bdy General Chief complaint: General Medical Stated complaint: SENT FROM WOUND CARE Time Seen by Provider: 07/04/22 10:44 Source: patient and old records reviewed Mode of arrival: EMS Limitations: no limitations History of Present Illness HPI narrative: 71 yo male from home hx of parkinsons ds, PAF, DVT on eliquis, PEG tube dependent but can also take some food by mouth per his reports, frail, chronic sacral ulcer s/p fall back in March which he sees the wound care center for. They have been packing it and also he has been using a wound vac. This month the wound has been getting large and deeper - no antibiotics in the last month. Given the wound was worsening a CT scan was done on 06/27 showing progression of ds since CT scan in February - cortical destruction and erosion of the right sacrum consistent with osteomyelitis. Sent to ED for IV abx, surgery consult MD complaint: lesion Onset (ago): month(s) (4+) Tetanus up to date: yes Location: buttocks (sacrum) Severity: moderate Relieving factors: other (has been getting packed with dressings in place) Exacerbating factors: immobilization (due to parkinsons and falls) Context: other (fall back in March) Associated symptoms: denies other symptoms Treatments prior to arrival: bandages Related Data Home Medications Medication Instructions Recorded Confirmed metoprolol tartrate 25 mg tablet 25 mg PO BID 08/22/20 04/26/22 amantadine HCl 100 mg tablet 1 tab PO BID 03/05/22 04/26/22 acetaminophen 325 mg capsule 650 mg PO Q6H PRN 04/26/22 bisacodyl 10 mg rectal suppository 10 mg PA DAILY PRN 04/26/22 (Dulcolax (bisacodyl)) magnesium hydroxide 400 mg/5 mL 5 ml PO DAILY PRN 04/26/22 oral suspension (Milk of Magnesia) sodium phosphates 19 gram-7 118 ml PA BEDTIME PRN 04/26/22 gram/118 mL enema (Enema Disposable) Previous Rx's Medication Instructions Recorded apixaban 5 mg tablet (Eliquis) 5 mg G-tube BID #60 tabs 03/26/22 carbidopa 25 mg-levodopa 100 mg 1 tab G-tube QID #120 tabs 03/26/22 tablet bisacodyl 5 mg tablet,delayed 10 mg PO ONCE Colon prep 2 days #4 04/26/22 release (Dulcolax (bisacodyl)) tabs polyethylene glycol 3350 17 17 g PO DAILY Colon prep 1 day 04/26/22 gram/dose oral powder (Miralax) #238 grams omeprazole 20 mg capsule,delayed 20 mg PO DAILY 30 days #90 caps 05/14/22 release Allergies Allergy/AdvReac Type Severity Reaction Status Date / Time No Known Allergies Allergy Verified 04/26/22 09:36 [No Known Allergies*] Review of Systems Review of Systems: Constitutional : No Fever, No Chills ENT/Mouth : No sore throat, No Rhinorrhea Eyes: No Eye Pain, No Swelling, No Redness Cardiovascular : No Chest Pain, No SOB Respiratory : No Cough, No Sputum Gastrointestinal : No Nausea, No Vomiting, No Diarrhea, No abdominal Pain Genitourinary : No Dysuria, No Hematuria Musculoskeletal : No joint pain, No Myalgias, No Joint Swelling Skin : pos Skin Lesions, positive skin rash Neuro : No Weakness, No Numbness, No Headache Psych : No Anxiety, No Depression Heme/Lymph: No Bruising, No Bleeding,No Lymphadenopathy All other systems reviewed and are negative PMFSH Past Medical History Attestation statement: The following information was validated with the patient. 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 Brother No problems noted. Sister No problems noted. Son No problems noted. Son No problems noted. Social History Social History Household Members: None Housing: House Do you presently have visiting nurse or other home services: No Alcohol intake: unknown Patient Tobacco Use Status: Never used Tobacco e-Cigarette/Vaping Use: Never Used Use of substances other than those prescribed or required for medical reasons: Unknown Advance Directives: No Advance Directives Information Provided: No service: No Current occupational status: retired Cognitive needs: No Hearing needs: No Vision needs: Yes Physical Exam Vital Signs: Vital Signs: Last Vital Signs Temp 97.7 F 07/04/22 10:49 Pulse 61 07/04/22 10:49 Resp 12 07/04/22 10:49 BP 109/58 L 07/04/22 10:49 Pulse Ox 100 07/04/22 10:49 O2 Del Method 07/04/22 10:49 BMI result Body Mass Index 16.3 Appearance: Alert. Oriented X3. No acute distress. Frail thin Eyes: Pupils equal, round and reactive to light. ENT: Pharynx dry MM Neck: Normal inspection. Neck supple. CVS: Normal heart rate and rhythm. Pulses normal. Respiratory: No respiratory distress. Breath sounds normal. Abdomen: Soft and nontender. G tube in place c/d/i Sacral wound: see picture BELOW Skin: Skin warm and dry. pale skin color. poor skin turgor. Extremities: No lower extremity edema. No calf ttp Neuro: Oriented X 3. No motor deficit. No sensory deficit. rigid MDM - Skin/Abscess/Foreign Bdy MDM Narrative Medical decision making narrative: 71 yo male from home hx of parkinsons ds, PAF, DVT on eliquis, PEG tube depe ndent but can also take some food by mouth per his reports, frail, chronic sacral ulcer s/p fall back in March now failing outpatient wound care with dx of sacral osteomyelitis 06/27. Sent to ED by wound care center for IV antibiotics and surgical evaluation. At this time culture sent off, labs, cultures, IV cefepime, flagyl, vancomycin ordered. Planned admit. Lab Data Result diagrams: 07/04/22 11:26 07/04/22 11:26 Labs: Lab Results 07/04/22 07/04/22 07/04/22 Range/Units 11:17 11:25 11:26 WBC 7.0 (4.8-10.8) X10*3/uL RBC 4.71 D (4.60-5.80) X10*6/uL Hgb 12.7 L D (14.0-18.0) g/dl Hct 40.6 L D (42.0-52.0) % MCV 86.2 (80.0-98.0) fL MCH 27.0 (27.0-33.0) pg MCHC 31.3 (31.0-36.0) g/dl RDW 15.9 (11.0-16.0) % Plt Count 296 (160-400) X10*3/uL MPV 9.4 (9.4-12.4) fL Immature Gran % (Auto) 0.3 (0.0-0.4) % Neut % (Auto) 81.1 H (45-73) % Lymph % (Auto) 9.5 L (20-40) % [place] % (Auto) 6.4 (2-11) % Eos % (Auto) 2.1 (0-4) % Baso % (Auto) 0.6 (0-2) % Lymph # (Auto) 0.7 L (1.2-4.9) X10*3/uL [place] # (Auto) 0.5 (0.1-1.2) X10*3/uL Eos # (Auto) 0.2 (0.0-0.4) X10*3/uL Baso # (Auto) 0.0 (0.0-0.2) X10*3/uL Abs Immat Gran (auto) 0.02 (0.00-0.03) X10*3/uL Absolute Neuts (auto) 5.7 (2.0-8.3) x10*3/uL Absolute Nucleated RBC 0.000 (0.0-0.012) X10*3/uL Nucleated RBC % (auto) 0.0 (0.0-0.2) /100WBC PT (10.0-13.1) SEC INR (0.9-1.1) Sodium (135-145) mmol/L Potassium (3.3-5.1) mmol/L Chloride (96-108) mmol/L Carbon Dioxide (22-29) mmol/L Anion Gap (12-20) BUN (9-16) mg/dL Creatinine (0.5-1.4) mg/dL Estim Creat Clear Calc Estimated GFR Random Glucose (60-115) mg/dL Lactic Acid (0.5-2.0) mmol/L Calcium (8.4-10.2) mg/dL Magnesium (1.6-2.6) mg/dL Total Bilirubin (0.0-1.0) mg/dL Direct Bilirubin (0.0-0.5) mg/dL AST (5-37) U/L ALT (0-40) U/L Alkaline Phosphatase (39-117) U/L Total Creatine Kinase (38-174) U/L C-Reactive Protein (< or = 0.50) mg/dL Total Protein (6.5-8.0) g/dL Albumin (3.5-5.0) g/dL Lipase (8-78) U/L Procalcitonin 0.07 ng/mL COVID-19 (EDUARDO) Negative (Negative) COVID-19 Clin Com See Note 07/04/22 07/04/22 07/04/22 Range/Units 11:26 11:26 11:26 WBC (4.8-10.8) X10*3/uL RBC (4.60-5.80) X10*6/uL Hgb (14.0-18.0) g/dl Hct (42.0-52.0) % MCV (80.0-98.0) fL MCH (27.0-33.0) pg MCHC (31.0-36.0) g/dl RDW (11.0-16.0) % Plt Count (160-400) X10*3/uL MPV (9.4-12.4) fL Immature Gran % (Auto) (0.0-0.4) % Neut % (Auto) (45-73) % Lymph % (Auto) (20-40) % [place] % (Auto) (2-11) % Eos % (Auto) (0-4) % Baso % (Auto) (0-2) % Lymph # (Auto) (1.2-4.9) X10*3/uL [place] # (Auto) (0.1-1.2) X10*3/uL Eos # (Auto) (0.0-0.4) X10*3/uL Baso # (Auto) (0.0-0.2) X10*3/uL Abs Immat Gran (auto) (0.00-0.03) X10*3/uL Absolute Neuts (auto) (2.0-8.3) x10*3/uL Absolute Nucleated RBC (0.0-0.012) X10*3/uL Nucleated RBC % (auto) (0.0-0.2) /100WBC PT 17.2 H (10.0-13.1) SEC INR 1.5 H (0.9-1.1) Sodium 140 (135-145) mmol/L Potassium 4.4 (3.3-5.1) mmol/L Chloride 99 (96-108) mmol/L Carbon Dioxide 28 (22-29) mmol/L Anion Gap 17 (12-20) BUN 22 H (9-16) mg/dL Creatinine 0.61 (0.5-1.4) mg/dL Estim Creat Clear Calc 79.8 Estimated GFR > 60 Random Glucose 89 (60-115) mg/dL Lactic Acid 1.0 (0.5-2.0) mmol/L Calcium 8.6 D (8.4-10.2) mg/dL Magnesium 1.9 (1.6-2.6) mg/dL Total Bilirubin 0.7 (0.0-1.0) mg/dL Direct Bilirubin 0.3 (0.0-0.5) mg/dL AST 22 D (5-37) U/L ALT 11 (0-40) U/L Alkaline Phosphatase 158 H D (39-117) U/L Total Creatine Kinase 39 (38-174) U/L C-Reactive Protein 6.25 H (< or = 0.50) mg/dL Total Protein 6.5 D (6.5-8.0) g/dL Albumin 3.3 L D (3.5-5.0) g/dL Lipase 31 (8-78) U/L Procalcitonin ng/mL COVID-19 ([facility]UARDO) (Negative) COVID-19 Clin Com ECG Data Attestation: I personally reviewed and interpreted this ECG as follows: ECG interpretation date: 07/04/22 ECG interpretation time: 11:13 Interpretation: Rate: 64 Rhythm: NSR [place]: normal Normal P waves. Normal RICC[place]. Normal QRS complex. ST T wave : normal no SHARON qTC: normal prior studies: no acute ischemia The study has been interpreted contemporaneously by me. . Discharge Plan Discharge Clinical Impression: Subacute osteomyelitis of sacrum Patient Disposition: Admitted As Inpatient Prescriptions: No Action omeprazole 20 mg capsule,delayed release(DR/EC) 20 mg PO DAILY 30 Days Qty: 90 0RF amantadine HCl 100 mg tablet 1 tab PO BID Eliquis 5 mg Tablet 5 mg G-tube BID Qty: 60 0RF carbidopa-levodopa 25-100 mg Tablet 1 tab G-tube QID Qty: 120 0RF metoprolol tartrate 25 mg tablet 25 mg PO BID acetaminophen 325 mg capsule 650 mg PO Q6H PRN bisacodyl [Dulcolax (bisacodyl)] 10 mg suppository 10 mg PA DAILY PRN magnesium hydroxide [Milk of Magnesia] 400 mg/5 mL suspension 5 ml PO DAILY PRN Enema Disposable 19-7 gram/118 mL enema 118 ml PA BEDTIME PRN bisacodyl [Dulcolax (bisacodyl)] 5 mg tablet,delayed release (DR/EC) 10 mg PO ONCE 2 Days Qty: 4 0RF Rx Instructions: Take 2 tablets at 12 pm daily starting 2 days before colonoscopy appointment polyethylene glycol 3350 [Miralax] 17 gram/dose powder 17 g PO DAILY 1 Days Qty: 238 0RF Rx Instructions: Mix Miralax with 64 oz(8 cups) of Crystal light. Take 2 tablets of Dulcolax qt 12 pm. Wait to have your 1st bowel movement, then begin drinking Miralax. Drink a glass of Miralax every 10-15 minutes until you are finished. You will drink at least another 4 cups of clear liquid of your choice over th e next 2 hours. Please drink as many clear liquids as possible You may have clear liquids up to four hours before your procedure
[2022-07-04 11:33] LABS: MANUAL DIFF FLAG NO
[2022-07-04 11:36] LABS: Basophils Percent Auto 0.6 % (0-2); Eosinophils Absolute Auto 0.2 X10*3/uL (0.0-0.4); Eosinophils Percent Auto 2.1 % (0-4); Hematocrit 40.6 % (42.0-52.0); Hemoglobin 12.7 g/dl (14.0-18.0); Imm Gran Abs Auto 0.02 X10*3/uL (0.00-0.03); Imm Gran Pct Auto 0.3 % (0.0-0.4); Lymphocytes Absolute Auto 0.7 X10*3/uL (1.2-4.9); Lymphocytes Percent Auto 9.5 % (20-40); Mean Corpuscular HGB Conc 31.3 g/dl (31.0-36.0); Mean Corpuscular Volume 86.2 fL (80.0-98.0); Mean Platelet Volume 9.4 fL (9.4-12.4); Monocytes Absolute Auto 0.5 X10*3/uL (0.1-1.2); Monocytes Percent Auto 6.4 % (2-11); Neutrophils Absolute Auto 5.7 x10*3/uL (2.0-8.3); Neutrophils Percent Auto 81.1 % (45-73); Platelet Count 296 X10*3/uL (160-400); Red Blood Count 4.71 X10*6/uL (4.60-5.80); Red Cell Distribution Width 15.9 % (11.0-16.0)
[2022-07-04 11:40] LABS: COVID-19 Test Negative (Negative); IDNOW Serial# 16C4AD1C
[2022-07-04 11:51] LABS: INTERNATIONAL NORM RATIO 1.5 (0.9-1.1); Prothrombin Time 17.2 SEC (10.0-13.1)
[2022-07-04 12:16] LABS: Alanine Aminotransferase 11 U/L (0-40); Albumin Level 3.3 g/dL (3.5-5.0); Alkaline Phosphatase 158 U/L (39-117); Anion Gap 17 (12-20); Aspartate Amino Transferase 22 U/L (5-37); Bilirubin Direct 0.3 mg/dL (0.0-0.5); Bilirubin Total 0.7 mg/dL (0.0-1.0); Blood Urea Nitrogen 22 mg/dL (9-16); C Reactive Protein 6.25 mg/dL (< or = 0.50); Calcium 8.6 mg/dL (8.4-10.2); Carbon Dioxide 28 mmol/L (22-29); Chloride 99 mmol/L (96-108); Creatinine Clr Calc Pharmacy 79.8; Estimated Glomerular Filt Rate > 60; Glucose Random 89 mg/dL (60-115); Lipase 31 U/L (8-78); Magnesium 1.9 mg/dL (1.6-2.6); Potassium 4.4 mmol/L (3.3-5.1); Sodium 140 mmol/L (135-145); Total Protein 6.5 g/dL (6.5-8.0)
[2022-07-04] MEDS: cefEPime HCl 2 GM in 0.9 % Sodium Chloride 50 ML IV (12:16)
[2022-07-04 12:23] LABS: Procalcitonin 0.07 ng/mL
[2022-07-04 12:44] VITALS: BP 113/53; PULSE 60; RESP 12; TEMP 36.7; O2SAT 99
[2022-07-04] MEDS: metroNIDAZOLE/NS 500 MG/100 ML PIGGYBACK 100 MG IV (12:45)
--- NOTE | 2022-07-04 13:02 | PM.IMHP ---
History of Present Illness Date of Service: 07/04/22 Chief Complaint: non-healing wound 71-year-old male with past medical history of CAD, DVT, AFib on Eliquis, dysphagia, peg tube dependent, HTN, Parkinson's, history of sacral wound sent to the hospital from wound care clinic for nonhealing sacral ulcer.Pt lives at [facility]. Pt states that he fell on his bottom in early March, has been suffering from a wound in his sacral region. He has been followed by wound clinic for its management,they have been packing it and also he has been using a wound vac but the wound appear to be getting larger, deeper therefore a CT of the abdomen showing S4 and S5 cortical destruction and erosion of the right sacrum consistent with osteomyelitis. Patient is oriented to self and place but slightly confused stating that he comes from home, he is rather a long term resident. He was sent to the hospital for IV antibiotics from wound care. He reports occasional pain in the tailbone, denies any fever or chills, no shortness of breath, no chest pain, no abdominal pain nausea or vomiting, no diarrhea constipation, no urinary symptoms and no lower extremity edema. On arrival to the ED patient hemodynamically stable with no significant abnormal vitals except slightly soft blood pressure of 109/58 Labs are significant for WBC count of 7.0, hemoglobin 12.7, hematocrit of 40.6, PT of 17.2, INR of 1.5, CRP of 6.25, ESR pending Patient started on IV antibiotics will be admitted for further management Review of Systems Review of Systems: Yes all other systems are reviewed and are negative [facility] Medical History Acidosis, lactic Acute dehydration Anemia Back wound CAD (coronary artery disease) Closed wedge compression fracture of T12 vertebra Decubitus ulcer of sacral area DVT (deep venous thrombosis) Dyslipidemia Dysphagia Elevated troponin Essential hypertension GI bleed Malnutrition of moderate degree Non-ST elevation [place] (NSTEMI) Parkinsonism Parkinsons disease Pneumonia Pre-operative cardiovascular examination Pressure ulcer of sacral region, unstageable 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 Brother No problems noted. Sister No problems noted. Son No problems noted. Son No problems noted. Surgical History No pertinent past surgical history Social History Household Members: None Housing: House Do you presently have visiting nurse or other home services: No Alcohol intake: unknown Patient Tobacco Use Status: Never used Tobacco e-Cigarette/Vaping Use: Never Used Use of substances other than those prescribed or required for medical reasons: Unknown Advance Directives: No Advance Directives Information Provided: No service: No Current occupational status: retired Cognitive needs: No Hearing needs: No Vision needs: Yes Meds Allergies Allergy/AdvReac Type Severity Reaction Status Date / Time No Known Allergies Allergy Verified 04/26/22 09:36 [No Known Allergies*] Active Medications: Current Medications Pharmacy Consult (Consult Rx Perform Med Rec) 1 each MISCELLANE ONCE PRN PRN Reason: Consult order Pharmacy Consult (Consult Rx Vancomycin Dosing) 1 each MISCELLANE DAILY PRN PRN Reason: Consult order Home Medications Medication Instructions Recorded Confirmed Last Taken Type metoprolol tartrate 25 mg tablet 25 mg PO BID 08/22/20 04/26/22 Unknown History amantadine HCl 100 mg tablet 1 tab PO BID 03/05/22 04/26/22 Unknown History acetaminophen 325 mg capsule 650 mg PO Q6H PRN 04/26/22 Unknown History bisacodyl 10 mg rectal suppository 10 mg [place] DAILY PRN 04/26/22 Unknown History (Dulcolax (bisacodyl)) magnesium hydroxide 400 mg/5 mL 5 ml PO DAILY PRN 04/26/22 Unknown History oral suspension (Milk of Magnesia) sodium phosphates 19 gram-7 118 ml [place] BEDTIME PRN 04/26/22 Unknown History gram/118 mL enema (Enema Disposable) Physical Exam Vital Signs and Narrative: Vital Signs: Last Vital Signs Temp 98.1 F 07/04/22 12:44 Pulse 60 07/04/22 12:44 Resp 12 07/04/22 12:44 BP 113/53 L 07/04/22 12:44 Pulse Ox 99 07/04/22 12:44 O2 Del Method 07/04/22 12:44 BMI result Body Mass Index 16.3 Const: Other: cachectic appearing alert, oriented to self and place but not time. He is aware of his situation with no distress General: cooperative and no acute distress Orientation/consciousness: patient oriented x3 Eyes: General: appearance normal, both eyes and all related structures Resp: Effort & Inspection: normal respiratory effort Auscultation: clear to auscultation bilaterally Cardio: Rate: regular rate Rhythm: regular rhythm GI: Palpation (GI): Soft to palpation Auscultation: normal bowel sounds Skin: Other: has sacrum wound that is dressed at this time. no evidence of drainage . General skin exam: no rashes or lesions noted Neuro: General: patient oriented x3 Cognition (Neuro): normal cognition Extrem: General: Yes normal to inspection and Yes no pedal edema Results Labs CBC and Chem 7: 07/04/22 11:26 07/04/22 11:26 Labs: Laboratory Results - last 24 hr 07/04/22 07/04/22 07/04/22 11:17 11:25 11:26 MCV 86.2 MCH 27.0 MCHC 31.3 RDW 15.9 Plt Count 296 MPV 9.4 Immature Gran % (Auto) 0.3 Neut % (Auto) 81.1 H Lymph % (Auto) 9.5 L [place] % (Auto) 6.4 Eos % (Auto) 2.1 Baso % (Auto) 0.6 Lymph # (Auto) 0.7 L [place] # (Auto) 0.5 Eos # (Auto) 0.2 Baso # (Auto) 0.0 Abs Immat Gran (auto) 0.02 Absolute Neuts (auto) 5.7 Absolute Nucleated RBC 0.000 Nucleated RBC % (auto) 0.0 PT INR Anion Gap Estim Creat Clear Calc Estimated GFR Random Glucose Lactic Acid Calcium Magnesium Total Bilirubin Direct Bilirubin AST ALT Alkaline Phosphatase Total Creatine Kinase C-Reactive Protein Total Protein Albumin Lipase Procalcitonin 0.07 COVID-19 (EDUARDO) Negative COVID-19 Clin Com See Note 07/04/22 07/04/22 07/04/22 11:26 11:26 11:26 MCV MCH MCHC RDW Plt Count MPV Immature Gran % (Auto) Neut % (Auto) Lymph % (Auto) [place] % (Auto) Eos % (Auto) Baso % (Auto) Lymph # (Auto) [place] # (Auto) Eos # (Auto) Baso # (Auto) Abs Immat Gran (auto) Absolute Neuts (auto) Absolute Nucleated RBC Nucleated RBC % (auto) PT 17.2 H INR 1.5 H Anion Gap 17 Estim Creat Clear Calc 79.8 Estimated GFR > 60 Random Glucose 89 Lactic Acid 1.0 Calcium 8.6 D Magnesium 1.9 Total Bilirubin 0.7 Direct Bilirubin 0.3 AST 22 D ALT 11 Alkaline Phosphatase 158 H D Total Creatine Kinase 39 C-Reactive Protein 6.25 H Total Protein 6.5 D Albumin 3.3 L D Lipase 31 Procalcitonin COVID-19 (EDUARDO) COVID-19 Clin Com Imaging Radiologist's Impressions: CT Abd/Pelvis 06/27 Full-thickness soft tissue defect overlying the right sacrum (S4 and S5) with underlying cortical destruction and erosion of the right sacrum consistent with osteomyelitis. Assessment and Plan (1) Subacute osteomyelitis of sacrum: Status: Acute (2) PEG (percutaneous endoscopic gastrostomy) status: Status: Acute (3) Sacral wound: Status: Acute Plan Any 1-year-old male with past medical history of Parkinson's disease, paroxysmal AFib, DVT on Eliquis, peg tube dependent, HTN, presents to the hospital with complaints of nonhealing sacral wound from wound clinic. # osteomyelitis of the sacrum - as seen on CT above - will place on broad spectrum IV abx - follow cultures - General surgery consulted - onfectious ds consult #PEG -tube dependent - Will consult nutrition - NPO after midnight # PAF - will hold eliquis in anticipation of surgery - continue metoprolol a # DVT - SCDs - hold Eliquis # Parkinson's - Continue home meds DVTppx: SCDs Pt will require a minimum 2 night hospital stay for IV antibiotics and further management by surgery for possible surgical intervention Quality Stroke Does the patient have a stroke diagnosis?: No VTE Prior VTE?: No VTE Risk Level:: Medical - moderate - high VTE Device Contraindication: Treatment Not Indicated VTE Drug Contraindication: N/A - Med Ordered
--- NOTE | 2022-07-04 13:53 | PHA.MEDREC ---
Pharmacy Consult ? Medication Reconciliation Pharmacy has completed the medication reconciliation. Reviewed medication list with patient. He is not a good historian but went over list with him and confirmed medications against pharmacy claim history. Patient states last time he took doses of all medications was this morning. He was unfamiliar with Eliquis and believes they stopped it. It is also not on his recent claim history so it appears he has stopped taking it.
[2022-07-04 14:33] VITALS: BP 116/64; PULSE 65; RESP 20; TEMP 36.4; O2SAT 99
[2022-07-04] MEDS: vancomycin HCL 1,250 MG in 0.9 % Sodium Chloride 250 ML 166.67 MG IV (15:05)
--- NOTE | 2022-07-04 15:12 | PHA.PROG ---
Admission Date/Time: July 04, 2022 12:57 Indication: Bone and Joint Infection Weight in k.6 kg Adjusted body weight in K.44 kg [place] body weight in K kg Obesity Dosing Indication % IBW: N/A Serum Creatinine - Last 168 Hours 07/04/22 11:26 Creatinine 0.61 Estimated CrCl and GFR - Last 168 Hours 07/04/22 11:26 Estim Creat Clear Calc 79.8 Estimated GFR > 60 Vancomycin Loading Dose: 1250 mg Current Vancomycin Dosing Regimen: 750 mg Q12H Date and Time for next Vancomycin Level to be drawn: 07/06 @ 0500 Pharmacist Comments on Vancomycin Plan: Patient scheduled to recieve vancomycin loading dose 1250 mg (25 mg/kg) Patient recently here on vancomycin in february and march 2022. Patient was subtherapuetic until placed on vanco 1000 mg Q12H where he had a trough of 15.8 om 03/11/22. Patient has similar renal function to last admission Patient has a 10 kg difference from today's and last admission. Due to the decrease in weight will start patient on vancomycin 750 mg Q12H. Expected Auc 459 with a trough of 13.9 Trough to be drawn prior to 4th dose Pharmacy will continue to monitor renal function daily. Josephine Ricks PharmD Vancomycin dosing will take advantage of [employer] as a clinical decision support tool that uses Bayesian modeling to calculate individual patient's pharmacokinetic parameters and forecast the patient's drug concentration time course with the target goal AUC 24 range of 400 - 600 mg/L/hr.
[2022-07-04 15:17] VITALS: BMI 16.3
--- NOTE | 2022-07-04 15:21 | PM.CNGS ---
History of Present Illness Consult details Consult date: 07/04/22 Narrative: 71-year-old male referred for sacral decubitus ulcer. [facility]. CT scan last week showing erosion and cortical disruption of the sacrum consistent with osteomyelitis on the area of the large ulcer. He was therefore sent to the emergency room. He is actually from the group home. I had seen him in February 2022 for this same ulcer. He had undergone debridement of this ulcer in the OR by Dr. Jin last March,. He is not very communicative this time. Review of Systems Constitutional: Constitutional: Denies chills and Denies fever(s) Cardiovascular: Cardiovascular: Denies chest pain Respiratory: Respiratory: Denies cough Gastrointestinal: Gastrointestinal: Denies abdominal pain Genitourinary: Genitourinary: Denies difficulty urinating PMFSH Past Medical History Medical History Acidosis, lactic Acute dehydration Anemia Back wound CAD (coronary artery disease) Closed wedge compression fracture of T12 vertebra Decubitus ulcer of sacral area DVT (deep venous thrombosis) Dyslipidemia Dysphagia Elevated troponin Essential hypertension GI bleed Malnutrition of moderate degree Non-ST elevation RI (NSTEMI) Parkinsonism Parkinsons disease Pneumonia Pre-operative cardiovascular examination Pressure ulcer of sacral region, unstageable 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 Brother No problems noted. Sister No problems noted. Son No problems noted. Son No problems noted. Surgical History Surgical History No pertinent past surgical history Social History Social History Household Members: Other Housing: Jail Do you presently have visiting nurse or other home services: No Alcohol intake: unknown Patient Tobacco Use Status: Never used Tobacco e-Cigarette/Vaping Use: Never Used service: No Current occupational status: retired Cognitive needs: No Hearing needs: No Vision needs: Yes Meds Allergies Allergy/AdvReac Type Severity Reaction Status Date / Time No Known Allergies Allergy Verified 04/26/22 09:36 [No Known Allergies*] Active Medications: Current Medications Acetaminophen (Acetaminophen 325 Mg Tablet) 650 mg PO Q6H PRN PRN Reason: Pain, Mild (Pain Scale 1-3) Docusate Sodium (Docusate Sodium 100 Mg Capsule) 100 mg PO DAILY PRN PRN Reason: Constipation Piperacillin Sod/Tazobactam (Sod 3.375 gm/ Sodium Chloride) 50 mls @ 100 mls/hr IV Q6H [facility] Vancomycin HCl 1,250 mg/ (Sodium Chloride) 250 mls @ 166.667 mls/hr IV ONCE ONE Stop: 07/04/22 16:14 Last Admin: 07/04/22 15:05 Dose: 166.67 mls/hr Vancomycin HCl 750 mg/ Sodium (Chloride) 265 mls @ 265 mls/hr IV Q12H [facility] Ondansetron HCl (Ondansetron Hcl 4 Mg/2 Ml Vial) 4 mg IVPUSH Q8H PRN PRN Reason: Nausea and Vomiting Pharmacy Consult (Consult Rx Perform Med Rec) 1 each MISCELLANE ONCE PRN PRN Reason: Consult order Pharmacy Consult (Consult Rx Vancomycin Dosing) 1 each MISCELLANE DAILY PRN PRN Reason: Consult order Pharmacy Consult (Consult Rx Vancomycin Dosing) 1 each MISCELLANE DAILY PRN PRN Reason: Consult order Sodium Chloride (0.9 % Sodium Chloride Flush 3 Ml Syringe) 3 ml IVFLUSH [facility] Home Medications Medication Instructions Recorded Confirmed Last Taken Type metoprolol tartrate 25 mg tablet 25 mg feeding tube BID 08/22/20 07/04/22 07/04/22 History amantadine HCl 100 mg tablet 1 tab feeding tube BID 03/05/22 07/04/22 07/04/22 History acetaminophen 325 mg capsule 650 mg feeding tube Q6H PRN 04/26/22 07/04/22 Unknown History Headache carbidopa 25 mg-levodopa 100 mg 2 tab G-tube TID 07/04/22 07/04/22 07/04/22 History tablet omeprazole 20 mg capsule,delayed 20 mg PO DAILY@0630 07/04/22 07/04/22 07/04/22 History release Physical Exam Vital Signs: Vital Signs: Last Vital Signs Temp 97.6 F 07/04/22 14:33 Pulse 65 07/04/22 14:33 Resp 20 07/04/22 14:33 BP 116/64 07/04/22 14:33 Pulse Ox 99 07/04/22 14:33 O2 Del Method 07/04/22 14:33 BMI result Body Mass Index 16.3 Const: Other: Very frail looking General: no acute distress Orientation/consciousness: patient oriented x3 Neck: Neck: Yes no lymphadenopathy Resp: Auscultation: clear to auscultation bilaterally Cardio: Rhythm: regular rhythm GI: Other: Peg tube in place Palpation (GI): Soft to palpation, nontender and no guarding Back/Spine/Pelvis: Other: Deep, sacral decubitus ulcer, to the right of the midline, seems to extend to the bony surface, some thick fibrinous debris coating the wound,no obvious gangrene, no cellulitis, undermining of edges, measuring about 7 cm by 8 cm Neuro: General: patient oriented x3 Results Labs Result diagrams: 07/05/22 05:38 07/05/22 05:38 Labs: Abnormal lab results 07/04/22 07/04/22 07/04/22 Range/Units 11:26 11:26 11:26 Hgb 12.7 L D (14.0-18.0) g/dl Hct 40.6 L D (42.0-52.0) % Neut % (Auto) 81.1 H (45-73) % Lymph % (Auto) 9.5 L (20-40) % Lymph # (Auto) 0.7 L (1.2-4.9) X10*3/uL PT 17.2 H (10.0-13.1) SEC INR 1.5 H (0.9-1.1) BUN 22 H (9-16) mg/dL Alkaline Phosphatase 158 H D (39-117) U/L C-Reactive Protein 6.25 H (< or = 0.50) mg/dL Albumin 3.3 L D (3.5-5.0) g/dL Short CBC 07/04/22 Range/Units 11:26 WBC 7.0 (4.8-10.8) X10*3/uL Hgb 12.7 L D (14.0-18.0) g/dl Hct 40.6 L D (42.0-52.0) % Plt Count 296 (160-400) X10*3/uL BMP 07/04/22 11:26 Sodium 140 Potassium 4.4 Chloride 99 Carbon Dioxide 28 BUN 22 H Creatinine 0.61 Calcium 8.6 D Cardiac Enzymes 07/04/22 Range/Units 11:26 Total Creatine Kinase 39 (38-174) U/L Liver Function 07/04/22 Range/Units 11:26 Total Bilirubin 0.7 (0.0-1.0) mg/dL Direct Bilirubin 0.3 (0.0-0.5) mg/dL AST 22 D (5-37) U/L ALT 11 (0-40) U/L Alkaline Phosphatase 158 H D (39-117) U/L Albumin 3.3 L D (3.5-5.0) g/dL All other labs normal. Assessment and Plan (1) Subacute osteomyelitis of sacrum: Status: Acute He has a large sacral decubitus ulcers described above, with CT scan showing osteomyelitis of the involved sacrum. This decubitus ulcer would therefore be a stage IV ulcer.. He has dressings in place and packing. The wound basese appears clean. It does not appear that he will require surgical debridement this time. His positions should be changed side to side for ulcer precautions. I will follow along to check on his periodically. He is on IV antibiotics. Procedures Date of Service Date of Service: 07/04/22
--- NOTE | 2022-07-04 15:23 | MHC.CLN ---
RE: CONSULT PT IS SEVERELY MALNOURISHED PT HAS SEVERE DEPLETION OF SUBCUTANEOUS FAT AND MUSCLE MASS, BMI 16 AND 34% SIGNIFICANT WT LOSS X 1 YEAR. PT IS DEPENDENT ON TF FOR NUTRITION CURRENTLY NPO RECOMMEND PROMOTE AT MAX GOAL RATE 65ML/HR WITH 120ML FREE WATER FLUSHES Q 8 HRS TO PROVIDE 1560KCALS (30KCALS/KG), 97.5G PROTEIN (1.8G/KG), 1669ML TOTAL WATER FROM FORMULA AND FLUSHES (32ML/KG) START AT 20ML/HR AND INCREASE BY 10ML Q 4 HRS UNTIL MAX GOAL IS REACHED MONITOR TOLERANCE, RESIDUALS AND LYTES SEE ALSO FULL CLINICAL NUTRITION ASSESSMENT
[2022-07-04 16:01] LABS: Erythrocyte Sedimentation Rate 83 MM/HR (0-15)
[2022-07-04] MEDS: Piperacillin Sodium/Tazobactam 3.375 GM in 0.9 % Sodium Chloride 50 ML IV ×2 (18:48→23:18)
[2022-07-04 19:33] VITALS: BMI 16.3
[2022-07-04 19:37] VITALS: BP 133/70; PULSE 92; RESP 15; O2SAT 98
--- NOTE | 2022-07-04 19:38 | MHC.CM.PN ---
IMM 07/04. Reviewed with family. Mailed at there request. CM attempted to meet with patient, but pt orientated to name only. Very poor historian. Spoke with HCP/son Xu and his . HCP copy requested. Pt at [facility] since February at [facility]. Family in process of transitioning to LTC. Working with facility. PCP Dr. Saxena. No DME. Services at [facility]. J&J vaccine. Unsure of boosters. Family states pt had Covid at [facility] 4-6 weeks ago. Currently Covid negative. Pt has PEG. Tube dependent. Has parkinson's and dementia.. Will need BLS. Probable 6 weeks antibiotic therapy-has osteo. Stage 4 sacral wound. Has been [facility] [facility]C plan: return to [facility]. Return referral placed.
[2022-07-04] MEDS: 0.9 % Sodium Chloride Flush 3 ML SYRINGE IVFLUSH (23:18)
[2022-07-04 23:36] VITALS: BP 109/58; PULSE 100; RESP 15; TEMP 36.6; O2SAT 98
[2022-07-05 03:38] VITALS: BP 146/69; PULSE 100; RESP 15; TEMP 36.8; O2SAT 99
[2022-07-05] MEDS: Piperacillin Sodium/Tazobactam 3.375 GM in 0.9 % Sodium Chloride 50 ML IV ×4 (05:39→23:26)
[2022-07-05 05:45] LABS: MANUAL DIFF FLAG NO
[2022-07-05 05:52] LABS: Basophils Absolute Auto 0.1 X10*3/uL (0.0-0.2); Eosinophils Absolute Auto 0.1 X10*3/uL (0.0-0.4); Eosinophils Percent Auto 0.8 % (0-4); Hematocrit 38.7 % (42.0-52.0); Hemoglobin 12.2 g/dl (14.0-18.0); Imm Gran Abs Auto 0.03 X10*3/uL (0.00-0.03); Imm Gran Pct Auto 0.5 % (0.0-0.4); Lymphocytes Absolute Auto 0.6 X10*3/uL (1.2-4.9); Lymphocytes Percent Auto 9.7 % (20-40); Mean Corpuscular HGB Conc 31.5 g/dl (31.0-36.0); Mean Corpuscular Hemoglobin 27.2 pg (27.0-33.0); Mean Corpuscular Volume 86.4 fL (80.0-98.0); Mean Platelet Volume 8.9 fL (9.4-12.4); Monocytes Absolute Auto 0.4 X10*3/uL (0.1-1.2); Neutrophils Absolute Auto 4.9 x10*3/uL (2.0-8.3); Platelet Count 298 X10*3/uL (160-400); Red Blood Count 4.48 X10*6/uL (4.60-5.80); Red Cell Distribution Width 15.8 % (11.0-16.0); White Blood Count 6.1 X10*3/uL (4.8-10.8)
[2022-07-05] MEDS: vancomycin HCL 750 MG in 0.9 % Sodium Chloride 250 ML 265 MG IV ×2 (06:13→19:32)
[2022-07-05 06:17] LABS: Anion Gap 16 (12-20); Blood Urea Nitrogen 23 mg/dL (9-16); Calcium 8.9 mg/dL (8.4-10.2); Carbon Dioxide 28 mmol/L (22-29); Chloride 102 mmol/L (96-108); Creatinine Clr Calc Pharmacy 76.1; Estimated Glomerular Filt Rate > 60; Glucose Random 75 mg/dL (60-115); Potassium 4.4 mmol/L (3.3-5.1); Sodium 142 mmol/L (135-145)
[2022-07-05] MEDS: 0.9 % Sodium Chloride Flush 3 ML SYRINGE IVFLUSH ×3 (07:23→19:36)
[2022-07-05 07:35] VITALS: BP 124/66; PULSE 95; RESP 15; TEMP 36.5; O2SAT 97
--- NOTE | 2022-07-05 09:17 | P.PNGS_ITS ---
Subjective Subjective Date of Service: 07/05/22 <Shannon Saeed PA-C - Last Filed: 07/05/22 09:26> 07/05/22 <Warren Selby MD - Last Filed: 07/05/22 11:51> Interval history: Did not answer when asked how hes doing. Groaned with positioning. <Shannon Saeed PA-C - Last Filed: 07/05/22 09:26> Physical Exam Vital Signs: Vital Signs: Last Vital Signs Temp 97.7 F 07/05/22 07:35 Pulse 95 07/05/22 07:35 Resp 15 07/05/22 07:35 BP 124/66 07/05/22 07:35 Pulse Ox 97 07/05/22 07:35 O2 Del Method 07/05/22 07:35 BMI result Body Mass Index 16.3 <ТАТЬЯНА Amaral Last Filed: 07/05/22 09:26> Const: General: comfortable and no acute distress <SOSA Amaral - Last Filed: 07/05/22 09:26> Nutritional Appearance: cachectic <Shannon Saeed PA-C - Last Filed: 07/05/22 09:26> Resp: Effort & Inspection: normal respiratory effort <ТАТЬЯНА Amaral Last Filed: 07/05/22 09:26> Back/Spine/Pelvis: Other: Deep sacral decubitus ulcer- remains clean without necrosis or exudate, no erythema or induration <Shannon Saeed PA-C - Last Filed: 07/05/22 09:26> Skin: Other: warm and dry <Shannon Saeed PA-C - Last Filed: 07/05/22 09:26> Extrem: General: Yes no clubbing, cyanosis or edema <ТАТЬЯНА Amaral Last Filed: 07/05/22 09:26> Objective Data Active Medications Acetaminophen (Acetaminophen 325 Mg Tablet) 650 mg PO Q6H PRN PRN Reason: Pain, Mild (Pain Scale 1-3) Acetaminophen (Acetaminophen 325 Mg Tablet) 650 mg G-TUBE Q6H PRN PRN Reason: Headache Amantadine HCl (Amantadine Hcl 100 Mg Capsule) 100 mg G-TUBE BID YAMEL Carbidopa/Levodopa (Carbidopa/Levodopa 25/100 Tablet) 2 tab G-TUBE TID [facility] Docusate Sodium (Docusate Sodium 100 Mg Capsule) 100 mg PO DAILY PRN PRN Reason: Constipation Piperacillin Sod/Tazobactam (Sod 3.375 gm/ Sodium Chloride) 50 mls @ 100 mls/hr IV Q6H [facility] Last Infusion: 07/05/22 06:13 Dose: 0 mls/hr Documented By: COURTNEY Vancomycin HCl 750 mg/ Sodium (Chloride) 265 mls @ 265 mls/hr IV Q12H [facility] Last Infusion: 07/05/22 07:21 Dose: 0 mls/hr Documented By: ELENA Metoprolol Tartrate (Metoprolol Tartrate 25 Mg Tablet) 25 mg G-TUBE BID [facility]; Protocol Omeprazole (Omeprazole 20 Mg Capsule.Dr) 20 mg PO DAILY@0630 [facility] Ondansetron HCl (Ondansetron Hcl 4 Mg/2 Ml Vial) 4 mg IVPUSH Q8H PRN PRN Reason: Nausea and Vomiting Pharmacy Consult (Consult Rx Perform Med Rec) 1 each MISCELLANE ONCE PRN PRN Reason: Consult order Pharmacy Consult (Consult Rx Vancomycin Dosing) 1 each MISCELLANE DAILY PRN PRN Reason: Consult order Pharmacy Consult (Consult Rx Vancomycin Dosing) 1 each MISCELLANE DAILY PRN PRN Reason: Consult order Sodium Chloride (0.9 % Sodium Chloride Flush 3 Ml Syringe) 3 ml IVFLUSH QSHIFT [facility] Last Admin: 07/05/22 07:23 Dose: 3 ml Documented By: ELENA <Shannon Saeed PA-C - Last Filed: 07/05/22 09:26> Labs CBC & Chem 7: : 07/05/22 05:38 07/05/22 05:38 <Shannon Saeed PA-C - Last Filed: 07/05/22 09:26> Labs: Laboratory Results - last 24 hr 07/04/22 07/04/22 07/04/22 11:17 11:25 11:26 MCV 86.2 MCH 27.0 MCHC 31.3 RDW 15.9 Plt Count 296 MPV 9.4 Immature Gran % (Auto) 0.3 Neut % (Auto) 81.1 H Lymph % (Auto) 9.5 L [place] % (Auto) 6.4 Eos % (Auto) 2.1 Baso % (Auto) 0.6 Lymph # (Auto) 0.7 L [place] # (Auto) 0.5 Eos # (Auto) 0.2 Baso # (Auto) 0.0 Abs Immat Gran (auto) 0.02 Absolute Neuts (auto) 5.7 Absolute Nucleated RBC 0.000 Nucleated RBC % (auto) 0.0 ESR PT INR Anion Gap Estim Creat Clear Calc Estimated GFR Random Glucose Lactic Acid Calcium Magnesium Total Bilirubin Direct Bilirubin AST ALT Alkaline Phosphatase Total Creatine Kinase C-Reactive Protein Total Protein Albumin Lipase Procalcitonin 0.07 COVID-19 ([facility]ARDO) Negative COVID-19 [employer] Com See Note 07/04/22 07/04/22 07/04/22 11:26 11:26 11:26 MCV MCH MCHC RDW Plt Count MPV Immature Gran % (Auto) Neut % (Auto) Lymph % (Auto) [place] % (Auto) Eos % (Auto) Baso % (Auto) Lymph # (Auto) [place] # (Auto) Eos # (Auto) Baso # (Auto) Abs Immat Gran (auto) Absolute Neuts (auto) Absolute Nucleated RBC Nucleated RBC % (auto) ESR 83 H PT 17.2 H INR 1.5 H Anion Gap 17 Estim Creat Clear Calc 79.8 Estimated GFR > 60 Random Glucose 89 Lactic Acid Calcium 8.6 D Magnesium 1.9 Total Bilirubin 0.7 Direct Bilirubin 0.3 AST 22 D ALT 11 Alkaline Phosphatase 158 H D Total Creatine Kinase 39 C-Reactive Protein 6.25 H Total Protein 6.5 D Albumin 3.3 L D Lipase 31 Procalcitonin COVID-19 ([facility]ARDO) COVID-[employer] 07/04/22 07/05/22 07/05/22 11:26 05:38 05:38 MCV 86.4 MCH 27.2 MCHC 31.5 RDW 15.8 Plt Count 298 MPV 8.9 L Immature Gran % (Auto) 0.5 H Neut % (Auto) 81.0 H Lymph % (Auto) 9.7 L [place] % (Auto) 7.0 Eos % (Auto) 0.8 Baso % (Auto) 1.0 Lymph # (Auto) 0.6 L [place] # (Auto) 0.4 Eos # (Auto) 0.1 Baso # (Auto) 0.1 Abs Immat Gran (auto) 0.03 Absolute Neuts (auto) 4.9 Absolute Nucleated RBC 0.000 Nucleated RBC % (auto) 0.0 ESR PT INR Anion Gap 16 Estim Creat Clear Calc 76.1 Estimated GFR > 60 Random Glucose 75 Lactic Acid 1.0 Calcium 8.9 Magnesium Total Bilirubin Direct Bilirubin AST ALT Alkaline Phosphatase Total Creatine Kinase C-Reactive Protein Total Protein Albumin Lipase Procalcitonin COVID-19 ([facility]) COVID-19 Clin Com <Shannon Saeed PA-C - Last Filed: 07/05/22 09:26> Microbiology Microbiology Results: Microbiology 07/04/22 11:30 Gram Stain - Final Sacrum Routine Culture - Preliminary Culture in progress. <Shannon Saeed PA-C - Last Filed: 07/05/22 09:26> Procedures Date of Service Date of Service: 07/05/22 <Shannon Saeed PA-C - Last Filed: 07/05/22 09:26> Progress Note: A&P Assessment and plan (1) Sacral wound: Status: Acute <Shannon Saeed PA-C - Last Filed: 07/05/22 09:26> Assessment and Plan: dressings changed deep ulcer, all the way to bone clean, no gangrene wet to dry applied seen and examined with BRUCE Saeed <Warren Selby MD - Last Filed: 07/05/22 11:51> (2) Subacute osteomyelitis of sacrum: Status: Acute <Shannon Saeed PA-C - Last Filed: 07/05/22 09:26> Assessment and Plan: 71 year old male admitted with large sacral decubitus ulcer with CT scan showing osteomyelitis of the sacrum. Ulcer debrided bluntly yesterday by Dr. Selby. Remains clean today. Dressing changed with saline soaked fluff packed into deep cavity followed by allevyn foam dressing. Continue daily dressing changes. Does not appear right now that surgical intervention will be needed. Continue frequent position changes, nutrition. On IV vanco and zosyn. <Shannon Saeed PA-C - Last Filed: 07/05/22 09:26> Time Spent With Patient Time: Total time spent is greater than 50% in coordination of care (as docu mented) at patient's floor/unit and/or counseling patient: <Shannon Saeed PA-C - Last Filed: 07/05/22 09:26> Quality Stroke Does the patient have a stroke diagnosis?: No <Shannon Saeed PA-C - Last Filed: 07/05/22 09:26> VTE Prior VTE?: No <Shannon Saeed PA-C - Last Filed: 07/05/22 09:26> VTE Risk Level:: Medical - moderate - high <Shannon Saeed PA-C - Last Filed: 07/05/22 09:26> VTE Device Contraindication: Treatment Not Indicated <Shannon Saeed PA-C - Last Filed: 07/05/22 09:26> VTE Drug Contraindication: N/A - Med Ordered <Shannon Saeed PA-C - Last Filed: 07/05/22 09:26>
--- NOTE | 2022-07-05 09:42 | HE.PHANOTE ---
Vanco dosing Trough ordered for 07/06/22 at 0500. SCr stable at 0.64. Dosing at 750 every 12 hours.
[2022-07-05] MEDS: Metoprolol Tartrate 25 MG TABLET G-TUBE ×2 (10:03→20:53)
[2022-07-05] MEDS: amantadine HCL 100 MG CAPSULE G-TUBE ×2 (10:03→20:53)
[2022-07-05] MEDS: Carbidopa/Levodopa 25/100 TABLET 2 TAB G-TUBE ×3 (10:03→20:53)
[2022-07-05] MEDS: Omeprazole 20 MG CAPSULE.DR PO (10:03)
[2022-07-05 11:11] VITALS: BP 120/81; PULSE 91; RESP 15; TEMP 36.8; O2SAT 98
--- NOTE | 2022-07-05 11:55 | P.PNIM_ITS ---
Subjective Subjective Date of Service: 07/05/22 Interval History: seen and examined this AM has no complaints denies pain Review of Systems negative except HPI Physical Exam Vital Signs: Vital Signs: Last Vital Signs Temp 98.2 F 07/05/22 11:11 Pulse 91 07/05/22 11:11 Resp 15 07/05/22 11:11 BP 120/81 07/05/22 11:11 Pulse Ox 98 07/05/22 11:11 O2 Del Method 07/05/22 11:11 BMI result Body Mass Index 16.3 Const: Other: General - no acute distress, appears comfortable Cardiovascular - regular rate and rhythm, S1-S2 Lungs - normal respiratory effort, clear to auscultation bilaterally, no wheezing Abdomen - soft, nontender, no rebound or guarding Extremities - no edema bilaterally Neuro - awake and alert, no focal deficits Skin -- sacral decut with dressing in place with packing; minimal drainage Objective Data Active Medications Acetaminophen (Acetaminophen 325 Mg Tablet) 650 mg PO Q6H PRN PRN Reason: Pain, Mild (Pain Scale 1-3) Acetaminophen (Acetaminophen 325 Mg Tablet) 650 mg G-TUBE Q6H PRN PRN Reason: Headache Amantadine HCl (Amantadine Hcl 100 Mg Capsule) 100 mg G-TUBE BID [facility] Last Admin: 07/05/22 10:03 Dose: 100 mg Documented By: ELENA Carbidopa/Levodopa (Carbidopa/Levodopa 25/100 Tablet) 2 tab G-TUBE TID [facility] Last Admin: 07/05/22 10:03 Dose: 2 tab Documented By: ELENA Docusate Sodium (Docusate Sodium 100 Mg Capsule) 100 mg PO DAILY PRN PRN Reason: Constipation Piperacillin Sod/Tazobactam (Sod 3.375 gm/ Sodium Chloride) 50 mls @ 100 mls/hr IV Q6H [facility] Last Infusion: 07/05/22 06:13 Dose: 0 mls/hr Documented By: COURTNEY Vancomycin HCl 750 mg/ Sodium (Chloride) 265 mls @ 265 mls/hr IV Q12H [facility] Last Infusion: 07/05/22 07:21 Dose: 0 mls/hr Documented By: ELENA Metoprolol Tartrate (Metoprolol Tartrate 25 Mg Tablet) 25 mg G-TUBE BID [facility]; Protocol Last Admin: 07/05/22 10:03 Dose: 25 mg Documented By: ELENA Omeprazole (Omeprazole 20 Mg Capsule.Dr) 20 mg PO DAILY@0630 [facility] Last Admin: 07/05/22 10:03 Dose: 20 mg Documented By: ELENA Ondansetron HCl (Ondansetron Hcl 4 Mg/2 Ml Vial) 4 mg IVPUSH Q8H PRN PRN Reason: Nausea and Vomiting Pharmacy Consult (Consult Rx Perform Med Rec) 1 each MISCELLANE ONCE PRN PRN Reason: Consult order Pharmacy Consult (Consult Rx Vancomycin Dosing) 1 each MISCELLANE DAILY PRN PRN Reason: Consult order Pharmacy Consult (Consult Rx Vancomycin Dosing) 1 each MISCELLANE DAILY PRN PRN Reason: Consult order Sodium Chloride (0.9 % Sodium Chloride Flush 3 Ml Syringe) 3 ml IVFLUSH QSHIFT [facility] Last Admin: 07/05/22 07:23 Dose: 3 ml Documented By: ELENA Labs CBC & Chem 7: 07/05/22 05:38 07/05/22 05:38 Labs: Laboratory Results - last 24 hr 07/04/22 07/04/22 07/04/22 11:25 11:26 11:26 MCV MCH MCHC RDW Plt Count MPV Immature Gran % (Auto) Neut % (Auto) Lymph % (Auto) [place] % (Auto) Eos % (Auto) Baso % (Auto) Lymph # (Auto) [place] # (Auto) Eos # (Auto) Baso # (Auto) Abs Immat Gran (auto) Absolute Neuts (auto) Absolute Nucleated RBC Nucleated RBC % (auto) ESR 83 H Anion Gap 17 Estim Creat Clear Calc 79.8 Estimated GFR > 60 Random Glucose 89 Calcium 8.6 D Magnesium 1.9 Total Bilirubin 0.7 Direct Bilirubin 0.3 AST 22 D ALT 11 Alkaline Phosphatase 158 H D Total Creatine Kinase 39 C-Reactive Protein 6.25 H Total Protein 6.5 D Albumin 3.3 L D Lipase 31 Procalcitonin 0.07 07/05/22 07/05/22 05:38 05:38 MCV 86.4 MCH 27.2 MCHC 31.5 RDW 15.8 Plt Count 298 MPV 8.9 L Immature Gran % (Auto) 0.5 H Neut % (Auto) 81.0 H Lymph % (Auto) 9.7 L [place] % (Auto) 7.0 Eos % (Auto) 0.8 Baso % (Auto) 1.0 Lymph # (Auto) 0.6 L [place] # (Auto) 0.4 Eos # (Auto) 0.1 Baso # (Auto) 0.1 Abs Immat Gran (auto) 0.03 Absolute Neuts (auto) 4.9 Absolute Nucleated RBC 0.000 Nucleated RBC % (auto) 0.0 ESR Anion Gap 16 Estim Creat Clear Calc 76.1 Estimated GFR > 60 Random Glucose 75 Calcium 8.9 Magnesium Total Bilirubin Direct Bilirubin AST ALT Alkaline Phosphatase Total Creatine Kinase C-Reactive Protein Total Protein Albumin Lipase Procalcitonin Microbiology Microbiology Results: Microbiology 07/04/22 11:30 Gram Stain - Final Sacrum Routine Culture - Preliminary Culture in progress. Assessment and Plan (1) Subacute osteomyelitis of sacrum: Status: Acute Plan 21-year-old male with past medical history of Parkinson's disease, paroxysmal AFib, DVT on Eliquis, peg tube dependent, HTN, presents to the hospital with complaints of nonhealing sacral wound from wound clinic. 1. Suspected acute osteomyelitis of the sacrum 1a. Stage 4 sacral decbu -- present on admission General surgery input appreciated -- went to dry dressing applied; also do feel he will need surgical intervention at this time continue broad spec iv antibiotics await ID input decub precautions 2. Parkinsons diease + dysphagia continue baseline meds continue tube feeds 3. PAF continue metoprolol on eliquis prevously, but appears not currently? will need to to get collateral info from SNF; for now will place him on lovenox dvt pptx 4. Severe protein calorie malnutrition playing a role in his wound healing nutrition consulted -- follow their recs DVT pptx, lovenox requires on going hospitalization for treatment of suspected acute osteo. requires ID evaluation. Quality Stroke Does the patient have a stroke diagnosis?: No VTE Prior VTE?: No VTE Risk Level:: Medical - moderate - high VTE Device Contraindication: Treatment Not Indicated VTE Drug Contraindication: N/A - Med Ordered
--- NOTE | 2022-07-05 12:02 | MHC.CLN ---
F/U NO SURGERY FOR WOUND PER PROVIDER ASSESSMENT. OK TO START TUBE FEEDING. RECOMMEND PROMOTE AT MAX GOAL RATE 65ML/HR WITH 120ML FREE WATER FLUSHES Q 8 HRS. PROVIDES 1560KCALS (30KCALS/KG), 97.5G PROTEIN (1.8G/KG), 1669ML TOTAL WATER FROM FORMULA AND FLUSHES (32ML/KG). START AT 20ML/HR AND INCREASE BY 10ML Q 4 HRS UNTIL MAX GOAL IS REACHED. PATIENT IS SEVERELY MALNOURISHED. SHOWS SIGNIFICANT WEIGHT LOSS SINCE 03/19/22 OF -29%. INCREASED NUTRITIONAL NEEDS DUE TO STAGE IV WOUND TO SACRUM. MONITOR TOLERANCE, RESIDUALS, LYTES, WEIGHT AND WOUND.
[2022-07-05] MEDS: Enoxaparin Sodium 40 MG/0.4 ML SYRINGE SUBCUT (12:18)
--- NOTE | 2022-07-05 14:14 | PC.NURSE ---
PEG tube feeding started at 1410 at 20ml/hr, will check residual in 4 hrs per order.
[2022-07-05 15:09] VITALS: BP 112/58; PULSE 89; RESP 16; TEMP 36.8; O2SAT 96
[2022-07-05 19:43] VITALS: BP 125/67; PULSE 81; RESP 14; TEMP 36.9; O2SAT 97
[2022-07-05 23:47] VITALS: BP 108/57; PULSE 64; RESP 15; TEMP 36.5; O2SAT 98
[2022-07-06] VITALS (8 sets, daily range): BP systolic 105–142; BP diastolic 58–70; PULSE 57–75; RESP 14–18; TEMP 35.5–36.9; O2SAT 97–99
[2022-07-06 05:35] LABS: Creatinine Clr Calc Pharmacy 69.6; Estimated Glomerular Filt Rate > 60
[2022-07-06 05:47] LABS: Vancomycin Trough 12.1 mcg/mL (10.0-20.0)
[2022-07-06] MEDS: Omeprazole 20 MG CAPSULE.DR PO (05:47)
[2022-07-06] MEDS: Piperacillin Sodium/Tazobactam 3.375 GM in 0.9 % Sodium Chloride 50 ML IV ×3 (05:47→18:04)
--- NOTE | 2022-07-06 06:15 | HE.PHANOTE ---
Vancomycin Dosing Addendum Patients Crcl is down this morning at 69.6 from 76.1. Level also came back this morning at 12.1 mg/L. Patient is shy of goal. However, due to decrease in clearance, we are going to keep current regimen and pull another level after 2 more doses. Level to be drawn 07/07 @0500. Predicted AUC 492 mg/L/hr
[2022-07-06] MEDS: vancomycin HCL 750 MG in 0.9 % Sodium Chloride 250 ML 265 MG IV ×2 (06:29→19:20)
[2022-07-06] MEDS: Metoprolol Tartrate 25 MG TABLET G-TUBE ×2 (09:31→20:34)
[2022-07-06] MEDS: Carbidopa/Levodopa 25/100 TABLET 2 TAB G-TUBE ×3 (09:31→20:34)
[2022-07-06] MEDS: 0.9 % Sodium Chloride Flush 3 ML SYRINGE IVFLUSH ×3 (09:31→19:31)
[2022-07-06] MEDS: amantadine HCL 100 MG CAPSULE G-TUBE ×2 (10:55→20:34)
--- NOTE | 2022-07-06 13:36 | HO.PM.IMPN ---
Subjective Subjective Date of Service: 07/06/22 Interval History: Patient seen and examined at bedside. He has no acute complaint. He is status post ulcer debridement by surgery. Denies any chest pain, no shortness of breath, no abdominal pain, no diarrhea constipation. No urinary symptoms. The pain is well controlled. Review of Systems Review of Systems: Yes all other systems are reviewed and are negative Physical Exam Vital Signs: Vital Signs: Last Vital Signs Temp 96 F L 07/06/22 11:26 Pulse 69 07/06/22 11:26 Resp 16 07/06/22 11:26 BP 142/70 H 07/06/22 11:26 Pulse Ox 97 07/06/22 11:26 O2 Del Method 07/06/22 11:26 BMI result Body Mass Index 16.3 Const: Other: pt is alert, oriented to self and place no acute distress Resp: Other: CTA BL normal resp effort Cardio: Other: normal rate and rhytm GI: Other: abd is soft, non-tender Skin: Other: dressing on sacrum clean Objective Data Active Medications Acetaminophen (Acetaminophen 325 Mg Tablet) 650 mg PO Q6H PRN PRN Reason: Pain, Mild (Pain Scale 1-3) Acetaminophen (Acetaminophen 325 Mg Tablet) 650 mg G-TUBE Q6H PRN PRN Reason: Headache Amantadine HCl (Amantadine Hcl 100 Mg Capsule) 100 mg G-TUBE BID COUNTS INCLUDE 234 BEDS AT THE [facility] Last Admin: 07/06/22 10:55 Dose: 100 mg Documented By: GAURAV Carbidopa/Levodopa (Carbidopa/Levodopa 25/100 Tablet) 2 tab G-TUBE TID COUNTS INCLUDE 234 BEDS AT THE [facility] Last Admin: 07/06/22 09:31 Dose: 2 tab Documented By: GAURAV Docusate Sodium (Docusate Sodium 100 Mg Capsule) 100 mg PO DAILY PRN PRN Reason: Constipation Enoxaparin Sodium (Enoxaparin Sodium 40 Mg/0.4 Ml Syringe) 40 mg SUBCUT Q24H COUNTS INCLUDE 234 BEDS AT THE [facility] Last Admin: 07/05/22 12:18 Dose: 40 mg Documented By: ELENA Piperacillin Sod/Tazobactam (Sod 3.375 gm/ Sodium Chloride) 50 mls @ 100 mls/hr IV Q6H COUNTS INCLUDE 234 BEDS AT THE [facility] Last Infusion: 07/06/22 06:19 Dose: 0 mls/hr Documented By: MARIA R Vancomycin HCl 750 mg/ Sodium (Chloride) 265 mls @ 265 mls/hr IV Q12H COUNTS INCLUDE 234 BEDS AT THE [facility] Last Infusion: 07/06/22 09:59 Dose: 0 mls/hr Documented By: ELENA Metoprolol Tartrate (Metoprolol Tartrate 25 Mg Tablet) 25 mg G-TUBE BID COUNTS INCLUDE 234 BEDS AT THE [facility]; Protocol Last Admin: 07/06/22 09:31 Dose: 25 mg Documented By: GAURAV Omeprazole (Omeprazole 20 Mg Capsule.) 20 mg PO DAILY@0630 COUNTS INCLUDE 234 BEDS AT THE [facility] Last Admin: 07/06/22 05:47 Dose: 20 mg Documented By: MARIA R Ondansetron HCl (Ondansetron Hcl 4 Mg/2 Ml Vial) 4 mg IVPUSH Q8H PRN PRN Reason: Nausea and Vomiting Pharmacy Consult (Consult Rx Perform Med Rec) 1 each MISCELLANE ONCE PRN PRN Reason: Consult order Pharmacy Consult (Consult Rx Vancomycin Dosing) 1 each MISCELLANE DAILY PRN PRN Reason: Consult order Pharmacy Consult (Consult Rx Vancomycin Dosing) 1 each MISCELLANE DAILY PRN PRN Reason: Consult order Sodium Chloride (0.9 % Sodium Chloride Flush 3 Ml Syringe) 3 ml IVFLUSH QSHIFT COUNTS INCLUDE 234 BEDS AT THE [facility] Last Admin: 07/06/22 09:31 Dose: 3 ml Documented By: GAURAV Labs CBC & Chem 7: 07/05/22 05:38 07/06/22 05:06 Labs: Laboratory Results - last 24 hr 07/06/22 07/06/22 05:06 05:06 Estim Creat Clear Calc 69.6 Estimated GFR > 60 Vancomycin Trough 12.1 Microbiology Microbiology Results: Microbiology 07/04/22 11:25 Blood Culture - Final Blood - Venous Coag negative Staphylococcus 07/04/22 11:54 Blood Culture - Preliminary Blood - Venous No growth after 24 hours. Assessment and Plan (1) Sacral wound: Status: Acute (2) Subacute osteomyelitis of sacrum: Status: Acute (3) PEG (percutaneous endoscopic gastrostomy) status: Status: Acute (4) Duodenal ulcer: Status: Acute (5) Paroxysmal atrial fibrillation: Status: Acute (6) Aspiration into airway: Status: Acute Plan 71-year-old male with past medical history of Parkinson's disease, paroxysmal AFib, DVT on Eliquis, peg tube dependent, HTN, presents to the hospital with complaints of nonhealing sacral wound from wound clinic. 1. Suspected acute osteomyelitis of the sacrum 1a. Stage 4 sacral decbu -- present on admission - s/p debridement by Gen surg - went to dry dressing applied - Wound care - continue broad spec iv antibiotics - awaiting ID evaluation - decub precautions - Follow cultures 2. Parkinsons diease + dysphagia continue baseline meds continue tube feeds 3. PAF continue metoprolol on eliquis prevously, but appears not currently? will need to to get collateral info from SNF; for now will place him on lovenox dvt pptx # PEG tube dependent - continue tube feeds ? 4. Severe protein calorie malnutrition - playing a role in his wound healing - nutrition consulted -- follow their recs DVT pptx, lovenox requires on going hospitalization for treatment of suspected acute osteo on iv abx. requires ID evaluation. Quality Stroke Does the patient have a stroke diagnosis?: No VTE Prior VTE?: No VTE Risk Level:: Medical - moderate - high VTE Device Contraindication: Treatment Not Indicated VTE Drug Contraindication: N/A - Med Ordered
[2022-07-06] MEDS: Enoxaparin Sodium 40 MG/0.4 ML SYRINGE SUBCUT (14:01)
--- NOTE | 2022-07-06 23:18 | W.PM.IDCN ---
History of Present Illness Data of Consult Service Date: 07/05/22 Requesting physician: Tony Greene Primary Care Provider: Unknown Physician HPI Reason for consult: sacral osteomyelitis He present with four months ulcer and then increasing size last week. He has ESR in 80s. He has no fever or chills. He is seeing Wound Clinic here. 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 Brother No problems noted. Sister No problems noted. Son No problems noted. Son No problems noted. Family history: reviewed and not pertinent Surgical History Surgical History No pertinent past surgical history Social History Social History Household Members: Other Housing: Residential Do you presently have visiting nurse or other home services: No Alcohol intake: unknown Patient Tobacco Use Status: Never used Tobacco e-Cigarette/Vaping Use: Never Used service: No Current occupational status: retired Cognitive needs: No Hearing needs: No Vision needs: Yes Meds Allergies Allergy/AdvReac Type Severity Reaction Status Date / Time No Known Allergies Allergy Verified 04/26/22 09:36 [No Known Allergies*] Active Medications: Current Medications Acetaminophen (Acetaminophen 325 Mg Tablet) 650 mg PO Q6H PRN PRN Reason: Pain, Mild (Pain Scale 1-3) Acetaminophen (Acetaminophen 325 Mg Tablet) 650 mg G-TUBE Q6H PRN PRN Reason: Headache Amantadine HCl (Amantadine Hcl 100 Mg Capsule) 100 mg G-TUBE BID [facility] Last Admin: 07/06/22 20:34 Dose: 100 mg Carbidopa/Levodopa (Carbidopa/Levodopa 25/100 Tablet) 2 tab G-TUBE TID [facility] Last Admin: 07/06/22 20:34 Dose: 2 tab Docusate Sodium (Docusate Sodium 100 Mg Capsule) 100 mg PO DAILY PRN PRN Reason: Constipation Enoxaparin Sodium (Enoxaparin Sodium 40 Mg/0.4 Ml Syringe) 40 mg SUBCUT Q24H [facility] Last Admin: 07/06/22 14:01 Dose: 40 mg Piperacillin Sod/Tazobactam (Sod 3.375 gm/ Sodium Chloride) 50 mls @ 100 mls/hr IV Q6H [facility] Last Infusion: 07/06/22 18:39 Dose: Infused Metoprolol Tartrate (Metoprolol Tartrate 25 Mg Tablet) 25 mg G-TUBE BID [facility]; Protocol Last Admin: 07/06/22 20:34 Dose: 25 mg Omeprazole (Omeprazole 20 Mg Capsule.Dr) 20 mg PO DAILY@0630 [facility] Last Admin: 07/06/22 05:47 Dose: 20 mg Ondansetron HCl (Ondansetron Hcl 4 Mg/2 Ml Vial) 4 mg IVPUSH Q8H PRN PRN Reason: Nausea and Vomiting Pharmacy Consult (Consult Rx Perform Med Rec) 1 each MISCELLANE ONCE PRN PRN Reason: Consult order Pharmacy Consult (Consult Rx Vancomycin Dosing) 1 each MISCELLANE DAILY PRN PRN Reason: Consult order Pharmacy Consult (Consult Rx Vancomycin Dosing) 1 each MISCELLANE DAILY PRN PRN Reason: Consult order Sodium Chloride (0.9 % Sodium Chloride Flush 3 Ml Syringe) 3 ml IVFLUSH QSHIFT [facility] Last Admin: 07/06/22 19:31 Dose: 3 ml Home Medications Medication Instructions Recorded Confirmed Last Taken Type metoprolol tartrate 25 mg tablet 25 mg feeding tube BID 08/22/20 07/04/22 07/04/22 History amantadine HCl 100 mg tablet 1 tab feeding tube BID 03/05/22 07/04/22 07/04/22 History acetaminophen 325 mg capsule 650 mg feeding tube Q6H PRN 04/26/22 07/04/22 Unknown History Headache carbidopa 25 mg-levodopa 100 mg 2 tab G-tube TID 07/04/22 07/04/22 07/04/22 History tablet omeprazole 20 mg capsule,delayed 20 mg PO DAILY@0630 07/04/22 07/04/22 07/04/22 History release Physical Exam Vital Signs: Vital Signs: Last Vital Signs Temp 98.1 F 07/06/22 19:03 Pulse 74 07/06/22 19:03 Resp 14 07/06/22 19:03 BP 112/64 07/06/22 19:03 Pulse Ox 99 07/06/22 19:03 O2 Del Method 07/06/22 19:03 BMI result Body Mass Index 16.3 Const: General: cooperative HEENT: Head: Yes normal to inspection Face and sinus: Yes normal facial exam Mouth: Normal oral and palatal mucosa present Teeth and gingiva: dentition normal Eyes: General: appearance normal, both eyes and all related structures Pupils: Equal, round and reactive pupils present Resp: Effort & Inspection: normal respiratory effort Cardio: Rate: regular rate Rhythm: regular rhythm GI: Palpation (GI): Soft to palpation and nontender : General: Yes no CVA tenderness Back/Spine/Pelvis: Back: no CVA tenderness Skin: Other: sacrum wound 4 x5 cm Neuro: General: moves all extremities Cranial nerves: Yes Equal, round and reactive pupils present Extrem: General: Yes normal to inspection Psych: Appearance: grossly normal Results Labs CBC & Chem 7: 07/05/22 05:38 07/06/22 05:06 Labs: BMP 07/06/22 05:06 Creatinine 0.70 Microbiology Microbiology Results: Microbiology 07/04/22 11:30 Sacrum Gram Stain - Final 07/04/22 11:30 Sacrum Routine Culture - Final Strep agalactiae (Grp B) 07/04/22 11:54 Blood - Venous Blood Culture - Preliminary No growth after 48 hours. 07/04/22 11:25 Blood - Venous Blood Culture - Final Coag negative Staphylococcus Assessment and Plan (1) Sacral wound: Status: Acute He has Group B strep wound Coagulase negative staph contaminant (2) Subacute osteomyelitis of sacrum: Status: Acute Plan Would continue antibiotics Can use IV Ceftriaxone 1 g IV daily for six weeks only if wound closure is planned or expected. Stop Vancomycin no MRSA and coaguase negative staph contaminant
[2022-07-07] VITALS (7 sets, daily range): BP systolic 112–134; BP diastolic 56–72; PULSE 62–88; RESP 16–18; TEMP 36.3–36.7; O2SAT 98–100
[2022-07-07] MEDS: Piperacillin Sodium/Tazobactam 3.375 GM in 0.9 % Sodium Chloride 50 ML IV ×2 (02:06→05:24)
[2022-07-07] MEDS: Omeprazole 20 MG CAPSULE.DR PO (05:19)
[2022-07-07 06:51] LABS: Vancomycin Random 13.3 mcg/mL (15-20)
[2022-07-07 07:05] LABS: Creatinine Clr Calc Pharmacy 76.1; Estimated Glomerular Filt Rate > 60
--- NOTE | 2022-07-07 09:12 | P.PNIM_ITS ---
Subjective Subjective Date of Service: 07/07/22 Interval History: Patient seen and examined at bedside. He has no acute complaint. He is status post ulcer debridement by surgery. Denies any chest pain, no shortness of breath, no abdominal pain, no diarrhea constipation. No urinary symptoms. The pain is well controlled. Review of Systems negative except HPI Physical Exam Vital Signs: Vital Signs: Last Vital Signs Temp 97.9 F 07/07/22 08:00 Pulse 77 07/07/22 08:00 Resp 17 07/07/22 08:00 BP 125/68 07/07/22 08:00 Pulse Ox 98 07/07/22 08:00 O2 Del Method 07/07/22 08:00 BMI result Body Mass Index 16.3 Const: Other: pt is alert, oriented to self and place no acute distress General: cooperative and no acute distress Orientation/consciousness: patient oriented x3 Resp: Other: CTA BL normal resp effort Cardio: Other: normal rate and rhytm GI: Other: abd is soft, non-tender Skin: Other: dressing on sacrum clean Neuro: General: patient oriented x3 Cognition (Neuro): normal cognition Extrem: General: Yes normal to inspection and Yes no pedal edema Objective Data Active Medications Acetaminophen (Acetaminophen 325 Mg Tablet) 650 mg PO Q6H PRN PRN Reason: Pain, Mild (Pain Scale 1-3) Acetaminophen (Acetaminophen 325 Mg Tablet) 650 mg G-TUBE Q6H PRN PRN Reason: Headache Amantadine HCl (Amantadine Hcl 100 Mg Capsule) 100 mg G-TUBE BID [facility] Last Admin: 07/06/22 20:34 Dose: 100 mg Documented By: MARIA R Carbidopa/Levodopa (Carbidopa/Levodopa 25/100 Tablet) 2 tab G-TUBE TID [facility] Last Admin: 07/06/22 20:34 Dose: 2 tab Documented By: MARIA R Docusate Sodium (Docusate Sodium 100 Mg Capsule) 100 mg PO DAILY PRN PRN Reason: Constipation Enoxaparin Sodium (Enoxaparin Sodium 40 Mg/0.4 Ml Syringe) 40 mg SUBCUT Q24H [facility] Last Admin: 07/06/22 14:01 Dose: 40 mg Documented By: GAURAV Piperacillin Sod/Tazobactam (Sod 3.375 gm/ Sodium Chloride) 50 mls @ 100 mls/hr IV Q6H [facility] Last Infusion: 07/07/22 06:08 Dose: 0 mls/hr Documented By: MARIA R Metoprolol Tartrate (Metoprolol Tartrate 25 Mg Tablet) 25 mg G-TUBE BID [facility]; Protocol Last Admin: 07/06/22 20:34 Dose: 25 mg Documented By: MARIA R Omeprazole (Omeprazole 20 Mg Capsule.Dr) 20 mg PO DAILY@0630 [facility] Last Admin: 07/07/22 05:19 Dose: 20 mg Documented By: MARIA R Ondansetron HCl (Ondansetron Hcl 4 Mg/2 Ml Vial) 4 mg IVPUSH Q8H PRN PRN Reason: Nausea and Vomiting Pharmacy Consult (Consult Rx Perform Med Rec) 1 each MISCELLANE ONCE PRN PRN Reason: Consult order Pharmacy Consult (Consult Rx Vancomycin Dosing) 1 each MISCELLANE DAILY PRN PRN Reason: Consult order Pharmacy Consult (Consult Rx Vancomycin Dosing) 1 each MISCELLANE DAILY PRN PRN Reason: Consult order Sodium Chloride (0.9 % Sodium Chloride Flush 3 Ml Syringe) 3 ml IVFLUSH QSHIFT [facility] Last Admin: 07/06/22 19:31 Dose: 3 ml Documented By: MARIA R Labs CBC & Chem 7: 07/05/22 05:38 07/07/22 05:50 Labs: Laboratory Results - last 24 hr 07/07/22 07/07/22 05:50 05:50 Estim Creat Clear Calc 76.1 Estimated GFR > 60 Random Vancomycin 13.3 L Microbiology Microbiology Results: Microbiology 07/04/22 11:30 Gram Stain - Final Sacrum Routine Culture - Final Strep agalactiae (Grp B) 07/04/22 11:54 Blood Culture - Preliminary Blood - Venous No growth after 48 hours. 07/04/22 11:25 Blood Culture - Final Blood - Venous Coag negative Staphylococcus Assessment and Plan (1) Sacral wound: Status: Acute (2) Subacute osteomyelitis of sacrum: Status: Acute (3) PEG (percutaneous endoscopic gastrostomy) status: Status: Acute (4) Paroxysmal atrial fibrillation: Status: Acute Plan 71-year-old male with past medical history of Parkinson's disease, paroxysmal AFib, DVT on Eliquis, peg tube dependent, HTN, presents to the hospital with complaints of nonhealing sacral wound from wound clinic. 1. Suspected acute osteomyelitis of the sacrum 1a. Stage 4 sacral decbu -- present on admission - s/p debridement by Gen surg - pt was seen by ID- recommends 6 wks of IV ceftrixone - will consult IR for PICC line - received 4 days of zosyn - continue Wound care - decub precautions - Stop Vancomycin no MRSA and coaguase negative staph contaminant 2. Parkinsons diease + dysphagia continue baseline meds continue tube feeds 3. PAF continue metoprolol on eliquis prevously, but appears not currently? will need to to get collateral info from SNF; for now will place him on lovenox dvt pptx # PEG tube dependent - continue tube feeds ? 4. Severe protein calorie malnutrition - playing a role in his wound healing - nutrition consulted DVT pptx, lovenox Dispo: PICC line then send back to alf requires on going hospitalization for treatment of suspected acute osteo on iv abx. PICC line placement for AM Quality Stroke Does the patient have a stroke diagnosis?: No VTE Prior VTE?: No VTE Risk Level:: Medical - moderate - high VTE Device Contraindication: Treatment Not Indicated VTE Drug Contraindication: N/A - Med Ordered
[2022-07-07] MEDS: amantadine HCL 100 MG CAPSULE G-TUBE ×2 (09:48→20:58)
[2022-07-07] MEDS: Metoprolol Tartrate 25 MG TABLET G-TUBE ×2 (09:48→20:58)
[2022-07-07] MEDS: 0.9 % Sodium Chloride Flush 3 ML SYRINGE IVFLUSH ×3 (09:48→20:59)
[2022-07-07] MEDS: Carbidopa/Levodopa 25/100 TABLET 2 TAB G-TUBE ×3 (09:48→20:58)
[2022-07-07] MEDS: Enoxaparin Sodium 40 MG/0.4 ML SYRINGE SUBCUT (12:16)
[2022-07-07] MEDS: cefTRIAXone sodium 1 GM in 0.9 % Sodium Chloride 50 ML IV (12:17)
[2022-07-08 03:30] VITALS: BP 121/63; PULSE 80; RESP 18; TEMP 36.2; O2SAT 98
[2022-07-08] MEDS: Omeprazole 20 MG CAPSULE.DR PO (05:45)
[2022-07-08 07:14] LABS: Creatinine Clr Calc Pharmacy 81.2; Estimated Glomerular Filt Rate > 60
[2022-07-08 07:54] VITALS: BP 130/66; PULSE 80; RESP 16; TEMP 36.2; O2SAT 100
[2022-07-08] MEDS: Metoprolol Tartrate 25 MG TABLET G-TUBE ×2 (09:33→19:43)
[2022-07-08] MEDS: Carbidopa/Levodopa 25/100 TABLET 2 TAB G-TUBE ×3 (09:33→19:42)
[2022-07-08] MEDS: amantadine HCL 100 MG CAPSULE G-TUBE ×2 (09:33→19:42)
[2022-07-08] MEDS: 0.9 % Sodium Chloride Flush 3 ML SYRINGE IVFLUSH ×3 (09:33→23:57)
[2022-07-08 12:00] VITALS: BP 129/67; PULSE 76; RESP 17; TEMP 36.1; O2SAT 99
[2022-07-08] MEDS: cefTRIAXone sodium 1 GM in 0.9 % Sodium Chloride 50 ML IV (12:01)
[2022-07-08] MEDS: Enoxaparin Sodium 40 MG/0.4 ML SYRINGE SUBCUT (12:01)
--- NOTE | 2022-07-08 13:14 | MHC.CLN ---
F/U NPO WITH TUBE FEEDING. TUBE FEEDING RUNNING AT MAX GOAL RATE: PROMOTE AT 65ML/HR WITH 120ML FREE WATER FLUSHES Q 8 HRS. PROVIDES 1560KCALS (30KCALS/KG), 97.5G PROTEIN (1.8G/KG), 1669ML TOTAL WATER FROM FORMULA AND FLUSHES (32ML/KG). TOLERATING TUBE FEEDING/FLUSH. CONTINUE AT MAX GOAL RATE. INCREASED NUTRITIONAL NEEDS DUE TO STAGE IV WOUND TO SACRUM. MONITOR TOLERANCE, RESIDUALS, LYTES, WEIGHT AND WOUND.
--- NOTE | 2022-07-08 13:43 | PC.NURSE ---
Pt was transfered down to Rm 272 for his PICC line placement. Pt was A/ox3 when arrival we got consent from pt, but then was very uncooperative when assessing the arm for veins with the ultrasound machine. Spoke with pt mutiple times and was still uncooperative. Dr Eda Lucas connect along with the nurse Carina Priest RN.
--- NOTE | 2022-07-08 15:31 | HO.PM.IMPN ---
Subjective Subjective Date of Service: 07/08/22 Interval History: Patient offers no acute complaints, tolerating diet no nausea no vomiting no abdominal pain, being followed for nonhealing sacral ulcer/osteomyelitis is scheduled for PICC line placement today. 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 Neck supple no JVD. CVS regular rate rhythm, Respiratory lungs clear to auscultation, no respiratory distress, no wheeze, no rhonchi. Gastrointestinal abdomen soft, nontender, bowel sounds audible, no guarding , no rigidity, Peg in place Lower back, has deep sacral decubitis ulcer without exudate, no surrounding erythema or induration Extremities no edema. Neuro moving all 4 extremity, speech clear. Objective Data Active Medications Acetaminophen (Acetaminophen 325 Mg Tablet) 650 mg PO Q6H PRN PRN Reason: Pain, Mild (Pain Scale 1-3) Acetaminophen (Acetaminophen 325 Mg Tablet) 650 mg G-TUBE Q6H PRN PRN Reason: Headache Amantadine HCl (Amantadine Hcl 100 Mg Capsule) 100 mg G-TUBE BID [facility] Last Admin: 07/08/22 09:33 Dose: 100 mg Documented By: PARRIS Carbidopa/Levodopa (Carbidopa/Levodopa 25/100 Tablet) 2 tab G-TUBE TID [facility] Last Admin: 07/08/22 14:54 Dose: 2 tab Documented By: DENNIS Docusate Sodium (Docusate Sodium 100 Mg Capsule) 100 mg PO DAILY PRN PRN Reason: Constipation Enoxaparin Sodium (Enoxaparin Sodium 40 Mg/0.4 Ml Syringe) 40 mg SUBCUT Q24H [facility] Last Admin: 07/08/22 12:01 Dose: 40 mg Documented By: DENNIS Ceftriaxone Sodium 1 gm/ (Sodium Chloride) 50 mls @ 100 mls/hr IV Q24H [facility] Last Infusion: 07/08/22 12:47 Dose: 0 mls/hr Documented By: DENNIS Metoprolol Tartrate (Metoprolol Tartrate 25 Mg Tablet) 25 mg G-TUBE BID [facility]; Protocol Last Admin: 07/08/22 09:33 Dose: 25 mg Documented By: PARRIS Omeprazole (Omeprazole 20 Mg Capsule.Dr) 20 mg PO DAILY@0630 [facility] Last Admin: 07/08/22 05:45 Dose: 20 mg Documented By: TORI Ondansetron HCl (Ondansetron Hcl 4 Mg/2 Ml Vial) 4 mg IVPUSH Q8H PRN PRN Reason: Nausea and Vomiting Pharmacy Consult (Consult Rx Perform Med Rec) 1 each MISCELLANE ONCE PRN PRN Reason: Consult order Pharmacy Consult (Consult Rx Vancomycin Dosing) 1 each MISCELLANE DAILY PRN PRN Reason: Consult order Pharmacy Consult (Consult Rx Vancomycin Dosing) 1 each MISCELLANE DAILY PRN PRN Reason: Consult order Sodium Chloride (0.9 % Sodium Chloride Flush 3 Ml Syringe) 3 ml IVFLUSH QSHIFT [facility] Last Admin: 07/08/22 09:33 Dose: 3 ml Documented By: PARRIS Labs CBC & Chem 7: 07/05/22 05:38 07/08/22 05:52 Labs: Laboratory Results - last 24 hr 07/08/22 05:52 Estim Creat Clear Calc 81.2 Estimated GFR > 60 Assessment and Plan (1) Sacral wound: Status: Acute (2) Subacute osteomyelitis of sacrum: Status: Acute (3) PEG (percutaneous endoscopic gastrostomy) status: Status: Acute (4) Paroxysmal atrial fibrillation: Status: Acute Plan 71-year-old male with past medical history of Parkinson's disease, paroxysmal AFib, DVT on Eliquis, peg tube dependent, HTN, presents to the hospital with complaints of nonhealing sacral wound from wound clinic. 1. Stage IV sacral decubiti ulcer with acute osteomyelitis of the sacrum - ESR 83, denies pain, on Tylenol for pain control - s/p debridement by Gen surg - status post 4 days of Zosyn, IV vanco discontinued since no MRSA, pt was seen by ID- recommends 6 wks of IV ceftrixone - continue Wound care PICC line placement today , patient went down for PICC line placement but was not very cooperative therefore will give Ativan and re attempt and then discharge back to rehab facility/will obtain COVID test 2. Parkinsons diease + dysphagia continue baseline meds and tube feeds 3. PAF continue metoprolol, was on eliquis prevously, but appears not currently, recommend to follow-up with PCP and Cardiology as outpatient # PEG tube dependent - continue tube feeds ? 4. Severe protein calorie malnutrition - continue supplements DVT pptx, lovenox Dispo: PICC line then send back to shelter requires on going hospitalization for treatment of suspected acute osteo on iv abx. PICC line placement Quality Stroke Does the patient have a stroke diagnosis?: No VTE Prior VTE?: No VTE Risk Level:: Medical - moderate - high VTE Device Contraindication: Treatment Not Indicated VTE Drug Contraindication: N/A - Med Ordered
[2022-07-08 15:49] VITALS: BP 128/69; PULSE 68; RESP 16; TEMP 36.2; O2SAT 98
[2022-07-08] MEDS: LORazepam 0.5 MG TABLET PO (16:41)
--- NOTE | 2022-07-08 16:50 | PC.NURSE ---
communicated with Or regarding patient 's PICC insertion. Gave Ativan, but procedure has been rescheduled to 07/09/22.
[2022-07-08 17:05] LABS: Influenza A PCR NEGATIVE (Negative); Influenza B PCR NEGATIVE (Negative); Resp Syncy Virus RNA Qual PCR NEGATIVE (Negative); SARS COV2 PCR INHOUSE NEGATIVE (Negative)
[2022-07-08 19:51] VITALS: BP 111/66; PULSE 80; RESP 16; TEMP 36.4; O2SAT 99
[2022-07-08 23:39] VITALS: BP 100/59; PULSE 65; RESP 14; TEMP 36.4; O2SAT 96
[2022-07-09 04:00] VITALS: BP 131/61; PULSE 79; RESP 14; TEMP 36.6; O2SAT 98
[2022-07-09] MEDS: Omeprazole 20 MG CAPSULE.DR PO (05:30)
[2022-07-09 06:28] LABS: Estimated Glomerular Filt Rate > 60
--- NOTE | 2022-07-09 07:24 | PC.NURSE ---
Patient alert with some confusion. Patient is due for a PICC insertion from yesterday. He is due to be given Ativan ordered by Dr Veras, before going down for procedure. Endorsed to incoming RN.
[2022-07-09 07:46] VITALS: BP 128/68; PULSE 81; RESP 18; TEMP 37.1; O2SAT 98
[2022-07-09] MEDS: Carbidopa/Levodopa 25/100 TABLET 2 TAB G-TUBE ×2 (08:29→14:46)
[2022-07-09] MEDS: 0.9 % Sodium Chloride Flush 3 ML SYRINGE IVFLUSH (08:29)
[2022-07-09] MEDS: Metoprolol Tartrate 25 MG TABLET G-TUBE (08:29)
[2022-07-09] MEDS: amantadine HCL 100 MG CAPSULE G-TUBE (08:29)
[2022-07-09] MEDS: LORazepam 0.5 MG TABLET PO (08:29)
--- NOTE | 2022-07-09 12:13 | HO.PICC ---
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 Following completion of Sharon Protocol the skin and soft tissues were anesthetized with 1% Lidocaine plain. Using ultrasound guidance, right basilic vein access was obtained by Royal Denis RN twice, but unable to pass guidewire. Right basilic vein access was obtained by Joanna More RN on first attempt. Over an 0.018 wire through peel-away sheath, a 4FR single lumen PICC line was positioned. Catheter length is 37 CM internal length, 0 CM (at the hub) external length, for a total trimmed length of 37 CM. The procedure was performed in S272. Tip verification was performed by Dennis Elder with Sherlock 3CG. Tip located in SVC. Ultrasound was used to document vein patency and for needle entry. A formal ultrasound picture and cardiac rhythm strip was recorded. 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 Verification has been performed for blood return and line patency. Arm Circumference: 23.5 CM Equipment: [employer] PICC Solo Catheter Type: 4FR Single Lumen PASV PICC Lot #: [id number]
[2022-07-09 12:37] VITALS: BP 111/64; PULSE 73; RESP 18; TEMP 36.2; O2SAT 97
[2022-07-09] MEDS: Enoxaparin Sodium 40 MG/0.4 ML SYRINGE SUBCUT (13:01)
[2022-07-09] MEDS: cefTRIAXone sodium 1 GM in 0.9 % Sodium Chloride 50 ML IV (13:01)
--- NOTE | 2022-07-09 13:31 | MHC.CM.PN ---
PLAN IS 1500 TRANSPORT TO [facility] PROVIDING TRANSPORT. RN AND UNIT AWARE OF PLAN. SON (IN ROOM) ALSO AWARE. IMM 07/08 IN CHART.
--- NOTE | 2022-07-09 14:05 | P.DS_ITS ---
DS: Providers Provider Date of Service: 07/09/22 Date of admission: 07/04/22 12:57 Date of discharge: 07/09/22 Primary care physician: Unknown Physician Consults: 07/04/22 13:14 Consult to General Surgery Routine Consulting Provider: Warren Selby Reason for consultation: Non-healing wound Has provider been notified: No 07/04/22 13:39 Consult to Infectious Diseases Routine Consulting Provider: Svetlana Burns Reason for consultation: Sacral osteomyelitis Has provider been notified: No DS: Diagnosis Discharge Diagnosis (1) Sacral wound: Status: Acute (2) Stage IV pressure ulcer of sacral region: Status: Acute (3) Severe protein-calorie malnutrition: Status: Acute DS: Summary Hospital Course Hospital Course: From admission H+P by hospitalist Jass Delacruz MD, 07/04/22: 71-year-old male with past medical history of CAD, DVT, AFib on Eliquis, dysphagia, peg tube dependent, HTN, Parkinson's, history of sacral wound sent to the hospital from wound care clinic for nonhealing sacral ulcer.Pt lives at [facility]. Pt states that he fell on his bottom in early March, has been suffering from a wound in his sacral region.? He has been followed by wound clinic for its management,they have been packing it and also he has been using a wound vac but the wound appear to be getting larger, deeper therefore a CT of the abdomen showing S4 and S5 cortical destruction and erosion of the right sacrum consistent with osteomyelitis.? Patient? is oriented to self and place but slightly confused stating that he comes from home, he is rather a residential resident. He was sent to the hospital for IV antibiotics from wound care.? He reports occasional pain in the tailbone, denies any fever or chills, no shortness of breath, no chest pain, no abdominal pain nausea or vomiting, no diarrhea constipation, no urinary symptoms and no lower extremity edema.? On arrival to the ED patient hemodynamically stable with no significant abnormal vitals except slightly soft blood pressure of 109/58 Labs are significant for WBC count of 7.0, hemoglobin 12.7, hematocrit of 40.6, PT of 17.2, INR of 1.5, CRP of 6.25, ESR pending Patient started on IV antibiotics will be admitted for further management 71-year-old male with past medical history of Parkinson's disease, paroxysmal AFib, DVT on Eliquis, PEG tube dependence, and HTN, who presented to the hospital with nonhealing sacral wound with radiographic evidence of osteomyelitis. He was admitted to the medical/surgical floor on IV vancomycin plus piperacillin-tazobactam. General Surgery was consulted and bedside debridement performed. Infectious Disease was consulted and antibiotics were narrowed to ceftriaxone with recommendation for 6 weeks of therapy. PICC was placed on 07/09/22. He was discharged with the PICC line and the following instructions: Daily dressing changes: saline soaked fluff packed into deep cavity followed by Allevyn foam dressing Air-loss bed Turn patient every 2 hours while awake. Up to chair twice daily. Please provide 1 hour daily of physical therapy to address deconditioning. Antibiotic regimen via PICC line: ceftriaxone 1g IV daily, end date 08/18/22 Please draw laboratory studies weekly while on IV ceftriaxone: CBC with differential, BMP, ESR, and CRP Please arrange follow-up with [address] Burns from [facility] Infectious Disease and Dr Jin from [facility] Wound Care Tube feeding orders: TUBE FEEDING RUNNING AT MAX GOAL RATE: PROMOTE AT 65ML/HR WITH 120ML FREE WATER FLUSHES Q 8 HRS. PROVIDES 1560KCALS (30KCALS/KG), 97.5G PROTEIN (1.8G/KG), 1669ML TOTAL WATER FROM FORMULA AND FLUSHES (32ML/KG). TOLERATING TUBE FEEDING/FLUSH. CONTINUE AT MAX GOAL RATE. INCREASED NUTRITIONAL NEEDS DUE TO STAGE IV WOUND TO SACRUM. Time Spent with Patient Time attestation: Total time spent providing and/or coordinating discharge services: Discharge coordination time: Greater than 30 minutes Quality: Safe Use of Opioids Does Pt have an Active Cancer Diagnosis on the Problem List?: No Quality: Stroke Does the patient have a stroke diagnosis?: No Physical Exam Vital Signs: Vital Signs: Last Vital Signs Temp 97.1 F 07/09/22 12:37 Pulse 73 07/09/22 12:37 Resp 18 07/09/22 12:37 BP 111/64 07/09/22 12:37 Pulse Ox 97 07/09/22 12:37 O2 Del Method 07/09/22 12:37 BMI result Body Mass Index 16.3 Gen: in no acute distress HEENT: sclera anicteric, moist mucus membranes Neck: supple Lungs: clear to auscultation bilaterally Heart: regular rate and rhythm, no murmurs Abd: soft, non-tender, non-distended Ext: no edema Skin: warm/well-perfused, deep sacral decubitus ulcer without exudate Neuro: alert and oriented x3, no focal findings Psych: appropriate affect DS: Data Data Completed and Pending Completed studies during hospitalization [Text1]: Laboratory Results WBC 6.1 X10*3/uL (4.8-10.8) 07/05/22 05:38 RBC 4.48 X10*6/uL (4.60-5.80) L 07/05/22 05:38 Hgb 12.2 g/dl (14.0-18.0) L 07/05/22 05:38 Hct 38.7 % (42.0-52.0) L 07/05/22 05:38 MCV 86.4 fL (80.0-98.0) 07/05/22 05:38 MCH 27.2 pg (27.0-33.0) 07/05/22 05:38 MCHC 31.5 g/dl (31.0-36.0) 07/05/22 05:38 RDW 15.8 % (11.0-16.0) 07/05/22 05:38 Plt Count 298 X10*3/uL (160-400) 07/05/22 05:38 MPV 8.9 fL (9.4-12.4) L 07/05/22 05:38 Immature Gran % (Auto) 0.5 % (0.0-0.4) H 07/05/22 05:38 Neut % (Auto) 81.0 % (45-73) H 07/05/22 05:38 Lymph % (Auto) 9.7 % (20-40) L 07/05/22 05:38 [place] % (Auto) 7.0 % (2-11) 07/05/22 05:38 Eos % (Auto) 0.8 % (0-4) 07/05/22 05:38 Baso % (Auto) 1.0 % (0-2) 07/05/22 05:38 Lymph # (Auto) 0.6 X10*3/uL (1.2-4.9) L 07/05/22 05:38 [place] # (Auto) 0.4 X10*3/uL (0.1-1.2) 07/05/22 05:38 Eos # (Auto) 0.1 X10*3/uL (0.0-0.4) 07/05/22 05:38 Baso # (Auto) 0.1 X10*3/uL (0.0-0.2) 07/05/22 05:38 Abs Immat Gran (auto) 0.03 X10*3/uL (0.00-0.03) 07/05/22 05:38 Absolute Neuts (auto) 4.9 x10*3/uL (2.0-8.3) 07/05/22 05:38 Absolute Nucleated RBC 0.000 X10*3/uL (0.0-0.012) 07/05/22 05:38 Nucleated RBC % (auto) 0.0 /100WBC (0.0-0.2) 07/05/22 05:38 ESR 83 MM/HR (0-15) H 07/04/22 11:26 PT 17.2 SEC (10.0-13.1) H 07/04/22 11:26 INR 1.5 (0.9-1.1) H 07/04/22 11:26 Sodium 142 mmol/L (135-145) 07/05/22 05:38 Potassium 4.4 mmol/L (3.3-5.1) 07/05/22 05:38 Chloride 102 mmol/L (96-108) 07/05/22 05:38 Carbon Dioxide 28 mmol/L (22-29) 07/05/22 05:38 Anion Gap 16 (12-20) 07/05/22 05:38 BUN 23 mg/dL (9-16) H 07/05/22 05:38 Creatinine 0.58 mg/dL (0.5-1.4) 07/09/22 05:10 Estim Creat Clear Calc 84.0 07/09/22 05:10 Estimated GFR > 60 07/09/22 05:10 Random Glucose 75 mg/dL (60-115) 07/05/22 05:38 Lactic Acid 1.0 mmol/L (0.5-2.0) 07/04/22 11:26 Calcium 8.9 mg/dL (8.4-10.2) 07/05/22 05:38 Magnesium 1.9 mg/dL (1.6-2.6) 07/04/22 11:26 Total Bilirubin 0.7 mg/dL (0.0-1.0) 07/04/22 11:26 Direct Bilirubin 0.3 mg/dL (0.0-0.5) 07/04/22 11:26 AST 22 U/L (5-37) D 07/04/22 11:26 ALT 11 U/L (0-40) 07/04/22 11:26 Alkaline Phosphatase 158 U/L (39-117) H D 07/04/22 11:26 Total Creatine Kinase 39 U/L (38-174) 07/04/22 11:26 C-Reactive Protein 6.25 mg/dL (< or = 0.50) H 07/04/22 11:26 Total Protein 6.5 g/dL (6.5-8.0) D 07/04/22 11:26 Albumin 3.3 g/dL (3.5-5.0) L D 07/04/22 11:26 Lipase 31 U/L (8-78) 07/04/22 11:26 Procalcitonin 0.07 ng/mL 07/04/22 11:25 Vancomycin Trough 12.1 mcg/mL (10.0-20.0) 07/06/22 05:06 Random Vancomycin 13.3 mcg/mL (15-20) L 07/07/22 05:50 COVID-19 (EDUARDO) Negative (Negative) 07/04/22 11:17 COVID-19 Clin Com See Note 07/04/22 11:17 Influenza Type A (PCR) NEGATIVE (Negative) 07/08/22 16:10 Influenza Type B (PCR) NEGATIVE (Negative) 07/08/22 16:10 RSV RNA Qual (PCR) NEGATIVE (Negative) 07/08/22 16:10 SARS-CoV-2 RNA (RT-PCR) NEGATIVE (Negative) 07/08/22 16:10 Discharge Plan Discharge Anticipated Discharge Date/Time: 07/09/22 15:00 Patient Disposition: Xfer SNF Discharge Diagnosis: sacral osteomyelitis stage IV sacral pressure ulcer Referrals: [facility] [Outside] - 1 Week Rhiannon Saxena MD [Physician] - 1 Week Svetlana Burns MD [Physician] - 1 Week Latesha Jin MD [Physician] - 1 Week Discharge Medications: New ceftriaxone 1 gram Recon Soln 1 g IV Q24H Qty: 39 0RF Continued amantadine HCl 100 mg tablet 1 tab feeding tube BID omeprazole 20 mg capsule,delayed release(DR/EC) 20 mg PO DAILY@0630 carbidopa-levodopa 25-100 mg tablet 2 tab G-tube TID metoprolol tartrate 25 mg tablet 25 mg feeding tube BID acetaminophen 325 mg capsule 650 mg feeding tube Q6H PRN (Reason: Headache) Discharge Orders: Discharge Order (Routine); Ordered 07/09/22 Ordered By: Torito Ba Diet: tube feeding Activity on Discharge: As tolerated Stand Alone Forms: Patient Portal Discharge page Activity Restrictions/Additional Instructions: Tube feeding regimen: TUBE FEEDING RUNNING AT MAX GOAL RATE: PROMOTE AT 65ML/HR WITH 120ML FREE WATER FLUSHES Q 8 HRS. PROVIDES 1560KCALS (30KCALS/KG), 97.5G PROTEIN (1.8G/KG), 1669ML TOTAL WATER FROM FORMULA AND FLUSHES (32ML/KG). TOLERATING TUBE FEEDING/FLUSH. CONTINUE AT MAX GOAL RATE. INCREASED NUTRITIONAL NEEDS DUE TO STAGE IV WOUND TO SACRUM. Care Plan Goals: cure of osteomyelitis wound closure Health Concerns: sacral osteomyelitis stage IV sacral pressure ulcer Plan of Treatment: Daily dressing changes: saline soaked fluff packed into deep cavity followed by Allevyn foam dressing Air-loss bed Turn patient every 2 hours while awake. Up to chair twice daily. Please provide 1 hour daily of physical therapy to address deconditioning. Antibiotic regimen via PICC line: ceftriaxone 1g IV daily, end date 08/18/22 Please draw laboratory studies weekly while on IV ceftriaxone: CBC with differential, BMP, ESR, and CRP Please arrange follow-up with [address] Burns from [facility] Infectious Disease and Dr Jin from [facility] Wound Care Assessment: See Discharge Summary.
== END 2022-07-09 16:00 | disposition skilled nursing facility (03) | DRG 592 ==
LOC: HO.ED 12:42 → HO.EDOVER 13:09 → HO.S3 18:47
PROVIDERS: Hospitalist; Admitting Provider Internal Medicine; Emergency Provider Emergency Medicine; PCP Internal Medicine; Visit Provider Family Medicine
DX: L89.154 Pressure ulcer of sacral region, stage 4 (principal); E43 Unspecified severe protein-calorie malnutrition; M86.28 Subacute osteomyelitis, other site; R64 Cachexia; Z68.1 Body mass index [BMI] 19.9 or less, adult; I25.2 Old myocardial infarction; R13.10 Dysphagia, unspecified; I25.10 Atherosclerotic heart disease of native coronary artery without angina pectoris; I48.0 Paroxysmal atrial fibrillation; B95.1 Streptococcus, group B, as the cause of diseases classified elsewhere; Z20.822 Contact with and (suspected) exposure to COVID-19; Z93.1 Gastrostomy status; Z86.718 Personal history of other venous thrombosis and embolism; Z79.01 Long term (current) use of anticoagulants; Z79.899 Other long term (current) drug therapy
CPT/HCPCS: 0241U; 36415; 36573; 80048; 80076; 80202; 82550; 82565; 83605; 83690; 83735; 84145; 85025; 85610; 85652; 86140; 87040; 87070; 87147; 87205; 87635; 93005; 99285; C1751; J0692; J0696; J1650; J2543; J3370

== ENCOUNTER → 2022-09-05 07:42 | Outpatient (BNVA) | payer MEDICARE, BC, SELFPAY | PROVIDERS: PCP Internal Medicine; Referring Provider Internal Medicine; Visit Provider Internal Medicine Gastroenterology | DX: Z13.89 Encounter for screening for other disorder (principal) ==

== ENCOUNTER → 2022-09-06 14:07 | Outpatient (BNVA) | payer MEDICARE, BC, SELFPAY | PROVIDERS: PCP Internal Medicine; Visit Provider Internal Medicine | DX: M46.28 Osteomyelitis of vertebra, sacral and sacrococcygeal region (principal); S31.000D Unspecified open wound of lower back and pelvis without penetration into retroperitoneum, subsequent encounter | CPT/HCPCS: 99212 ==

== ENCOUNTER 2022-09-18 10:55 | Inpatient (IN) | payer MEDICARE, BC, SELFPAY ==
--- NOTE | ~2022-09-18 | XR_ITS ---
EXAMINATION: XR CHEST CLINICAL INFORMATION: Shortness of breath. COMPARISON: 03/09/2022 TECHNIQUE: Frontal view of the chest was obtained. FINDINGS: Patchy airspace opacities at the left lung base may be due to aspiration or pneumonia. No additional consolidation. No pneumothorax or pleural effusion. Cardiac and mediastinal contours are normal. Pulmonary vasculature is normal. Bones are osteopenic. Osteoarthritis is present in the acromioclavicular and glenohumeral joints. Degenerative spondylosis in the thoracic spine. XR/XR chest 1V IMPRESSION: Patchy airspace opacities in the left lung base which may be due to aspiration or pneumonia.
--- NOTE | 2022-09-18 11:15 | ECG_ITS ---
Test Reason : SEPSIS WORKUP Blood Pressure : / mmHG Vent. Rate : 102 BPM Atrial Rate : 102 BPM P-R Int : 136 ms QRS Dur : 102 ms QT Int : 350 ms P-R-T Axes : 071 045 001 degrees QTc Int : 456 ms Sinus tachycardia with Premature supraventricular complexes and with occasional Premature ventricular complexes Possible Inferior infarct , age undetermined Abnormal ECG When compared with ECG of 04-JUL-2022 11:01, Significant changes have occurred Referred By: Eva Prieto Electronically Signed By:Eliazar Olmstead
[2022-09-18 11:19] VITALS: BP 125/76; BP 126/90; PULSE 102; PULSE 96; RESP 26; TEMP 38.2; O2SAT 94; O2SAT 96; BMI 17.0
--- NOTE | 2022-09-18 11:41 | PC.NURSE ---
Verified with MD will admin tylenol by g tube after confirming with air induction auscultation
[2022-09-18 12:02] LABS: INTERNATIONAL NORM RATIO 1.3 (0.9-1.1); Prothrombin Time 14.7 SEC (10.0-13.1)
--- NOTE | 2022-09-18 12:02 | PC.NURSE ---
Patient straight cath for urine
[2022-09-18] MEDS: Acetaminophen 325 MG TABLET 975 MG PO (12:10)
[2022-09-18] MEDS: Piperacillin Sodium/Tazobactam 3.375 GM in 0.9 % Sodium Chloride 50 ML IV ×2 (12:11→20:10)
[2022-09-18 12:13] LABS: Appearance Urine Clear; Color Urine Yellow; Glucose Urine UA Negative (Negative); Leukocyte Esterase Urine Negative (Negative); Nitrite Urine Negative (Negative); PH 5.5 (5.0-9.0); Specific Gravity - Urine >= 1.030 (1.005-1.025); UMIC TRIGGER UACC YES; Urine Blood Trace (Negative); Urine Ketones Negative (Negative); Urine Protein Trace mg/dL (Neg-Trace)
[2022-09-18 12:15] LABS: Alanine Aminotransferase 25 U/L (0-40); Albumin Level 3.4 g/dL (3.5-5.0); Alkaline Phosphatase 138 U/L (39-117); Anion Gap 17 (12-20); Aspartate Amino Transferase 11 U/L (5-37); Bilirubin Total 1.3 mg/dL (0.0-1.0); Blood Urea Nitrogen 38 mg/dL (9-16); Calcium 8.6 mg/dL (8.4-10.2); Carbon Dioxide 22 mmol/L (22-29); Chloride 109 mmol/L (96-108); Creatinine Clr Calc Pharmacy 63.7; Estimated Glomerular Filt Rate > 60; Glucose Random 159 mg/dL (60-115); Potassium 3.6 mmol/L (3.3-5.1); Sodium 144 mmol/L (135-145)
[2022-09-18 12:16] LABS: Lactic Acid 2.4 mmol/L (0.5-2.0)
[2022-09-18 12:18] LABS: B Type Natriuretic Peptide 107 pg/mL (<100)
--- NOTE | 2022-09-18 12:22 | PC.NURSE ---
Verified G tube with induction of air and auscultation tylenol admin tolerating IV abx will CTM
[2022-09-18] MEDS: 0.9 % Sodium Chloride 500 ML IV (12:29)
[2022-09-18 12:30] LABS: COVID-19 Test Negative (Negative); IDNOW Serial# 16C4AD1C; IDNOW Serial# BCCEAD1C; Influenza A Negative (Negative); Influenza B2 Negative (Negative)
[2022-09-18 12:34] LABS: Bacteria Urine None Seen (None Seen); Squamous Epithelial Cell Urine 0-2 /HPF (0-2); WBC Urine 0-5 /HPF (0-5)
--- NOTE | 2022-09-18 12:36 | PHA.MEDREC ---
Pharmacy Consult ? Medication Reconciliation Pharmacy has completed the medication reconciliation. Pharmacy faxed med list from [facility].
[2022-09-18 13:39] LABS: Hematocrit 38.7 % (42.0-52.0); Hemoglobin 12.4 g/dl (14.0-18.0); Mean Corpuscular Hemoglobin 28.7 pg (27.0-33.0); Mean Corpuscular Volume 89.6 fL (80.0-98.0); Platelet Count 254 X10*3/uL (160-400); Red Blood Count 4.32 X10*6/uL (4.60-5.80); Red Cell Distribution Width 14.9 % (11.0-16.0); White Blood Count 11.6 X10*3/uL (4.8-10.8)
--- NOTE | 2022-09-18 13:40 | ED.FEVER ---
HPI - Fever General Chief Complaint: Fever Stated Complaint: SOB, FEVER,COCCIX WOUND,T 101.2,HR 102,92%RA Time Seen by Provider: 09/18/22 11:02 Source: patient, EMS and other Mode of arrival: EMS History of Present Illness HPI Narrative: This is a 71-year-old male who is brought in by EMS from [facility] and at that facility they are reporting that he has a coccyx wound as well as shortness of breath and was placed on oxygen of 2 L by EMS. Patient denies any shortness of breath or chest pain and did say that he had some abdominal discomfort but that has subsided. Related Data Home Medications Medication Instructions Recorded Confirmed metoprolol tartrate 25 mg tablet 25 mg feeding tube BID 08/22/20 09/18/22 amantadine HCl 100 mg tablet 1 tab feeding tube BID 03/05/22 09/18/22 acetaminophen 325 mg capsule 650 mg feeding tube Q6H PRN Fever 04/26/22 09/18/22 Or Pain carbidopa 25 mg-levodopa 100 mg 2 tab G-tube TID 07/04/22 09/18/22 tablet omeprazole 20 mg capsule,delayed 20 mg feeding tube DAILY@0630 07/04/22 09/18/22 release bisacodyl 10 mg rectal suppository 10 mg HI DAILY PRN Constipation 09/05/22 09/18/22 (Dulcolax (bisacodyl)) pramipexole 0.25 mg tablet 0.25 mg feeding tube TID 09/05/22 09/18/22 magnesium hydroxide 400 mg/5 mL 30 ml feeding tube DAILY PRN 09/18/22 09/18/22 oral suspension (Milk of Magnesia) Constipation sodium phosphates 19 gram-7 118 ml HI DAILY PRN Constipation 09/18/22 09/18/22 gram/118 mL enema (Fleet Enema) trazodone 50 mg tablet 25 mg feeding tube BID PRN anxiety 09/18/22 09/18/22 or agitation Allergies Allergy/AdvReac Type Severity Reaction Status Date / Time No Known Allergies Allergy Verified 09/06/22 14:19 [No Known Allergies*] Review of Systems Review of Systems: Pertinent positives and negatives as stated in HPI PMFSH Past Medical History Source: nursing notes reviewed Medical History Acidosis, lactic Acute dehydration Anemia Aspiration into airway Back wound CAD (coronary artery disease) Closed wedge compression fracture of T12 vertebra Decubitus ulcer of sacral area Duodenal ulcer DVT (deep venous thrombosis) Dyslipidemia Dysphagia Elevated troponin Essential hypertension GI bleed Malnutrition of moderate degree Non-ST elevation NV (NSTEMI) Parkinsonism Parkinsons disease Paroxysmal atrial fibrillation Pneumonia Pre-operative cardiovascular examination Pressure ulcer of sacral region, unstageable 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 Rhabdomyolysis Surgical History No pertinent past surgical history PEG (percutaneous endoscopic gastrostomy) status Family History Family History Father Bladder cancer Mother No problems noted. Brother No problems noted. Sister No problems noted. Son No problems noted. Son No problems noted. Social History Social History Household Members: Other Housing: Assisted Do you presently have visiting nurse or other home services: No Alcohol intake: unknown Patient Tobacco Use Status: Never used Tobacco Smoked in Last 30 Days: No e-Cigarette/Vaping Use: Never Used Advance Directives: No service: No Current occupational status: retired Cognitive needs: No Hearing needs: No Vision needs: Yes Physical Exam Vital Signs: Vital Signs: Last Vital Signs Temp 100.7 F H 09/18/22 11:19 Pulse 96 09/18/22 11:19 Resp 26 H 09/18/22 11:19 BP 125/76 09/18/22 11:19 Pulse Ox 94 09/18/22 11:19 O2 Del Method 09/18/22 11:19 Oxygen Flow Rate 2 09/18/22 11:19 BMI result Body Mass Index 17.0 VITAL SIGNS: Reviewed. GENERAL: Chronically ill, cachectic, no obvious distress HEAD: Normocephalic/atraumatic EYES: PERRLA, EOMI EARS: Ext canals without abnormality NOSE: Nares patent bilateral OROPHARYNX: no oral lesions noted, posterior pharynx clear NECK: Supple, no adenopathy LUNGS: Good inspiratory effort, decrease lung sounds without wheeze/rhonchi, mild tachypnea SpO2<94> on 2 L via nasal cannula CARDIOVASCULAR: Regular rate and rhythm without noted murmurs ABDOMEN: Soft, non-tender, non-distended with bowel sounds. Peg is in place without obvious signs of infection MUSCULOSKELETAL: No tenderness, deformities, or effusions noted on gross inspection. EXTREMITIES: No cyanosis, clubbing or edema. SKIN: Inspection of the skin reveals no rashes NEUROLOGIC: Alert and oriented x 2. Strength and sensation to light touch were grossly intact x 4. Medications Administered Discontinued Medications Generic Name Dose Route Start Last Admin Trade Name Freq PRN Reason Stop Dose Admin Acetaminophen 975 mg 09/18/22 11:15 09/18/22 12:10 Acetaminophen 325 Mg Tablet PO 09/18/22 11:16 975 mg ONCE ONE Administration Piperacillin Sod/Tazobactam 50 mls @ 100 mls/hr 09/18/22 12:01 09/18/22 12:44 Sod 3.375 gm/ Sodium Chloride IV 09/18/22 12:30 Infused ONCE ONE Infusion Sodium Chloride 500 mls @ 500 mls/hr 09/18/22 12:30 09/18/22 13:58 Ns IV 09/18/22 13:29 Infused .Q1H YAMEL Infusion Medical Decision Making Medical Decision Making [facility] Narrative: 1407: This is a 71-year-old male who has been seen here in the emergency room before, aspiration pneumonia, has had a PEG placed since that time, appears clinically dry obviously febrile for which he received Tylenol. I have reviewed the workup and my interpretation is that this patient has hypoxia with aspiration pneumonia and clinically appears to be dehydrated. Patient has received IV fluids, antibiotics and is currently on supplemental oxygen. Differential Diagnosis Please see the discussion above Consult Healthcare Provider Management of the patient was discussed with: Hospitalist Lab Data Please see the discussion above 09/18/22 11:43 09/18/22 11:41 Labs: Lab Results 09/18/22 09/18/22 09/18/22 Range/Units 11:41 11:41 11:41 WBC (4.8-10.8) X10*3/uL RBC (4.60-5.80) X10*6/uL Hgb (14.0-18.0) g/dl Hct (42.0-52.0) % MCV (80.0-98.0) fL MCH (27.0-33.0) pg MCHC (31.0-36.0) g/dl RDW (11.0-16.0) % Plt Count (160-400) X10*3/uL MPV (9.4-12.4) fL Immature Gran % (Auto) Neut % (Auto) Lymph % (Auto) [place] % (Auto) Eos % (Auto) Baso % (Auto) Lymph # (Auto) [place] # (Auto) Eos # (Auto) Baso # (Auto) Abs Immat Gran (auto) Absolute Neuts (auto) Absolute Nucleated RBC (0.0-0.012) X10*3/uL Nucleated RBC % (auto) (0.0-0.2) /100WBC PT (10.0-13.1) SEC INR (0.9-1.1) Sodium 144 (135-145) mmol/L Potassium 3.6 (3.3-5.1) mmol/L Chloride 109 H (96-108) mmol/L Carbon Dioxide 22 (22-29) mmol/L Anion Gap 17 (12-20) BUN 38 H (9-16) mg/dL Creatinine 0.80 (0.5-1.4) mg/dL Estim Creat Clear Calc 63.7 Estimated GFR > 60 Random Glucose 159 H (60-115) mg/dL Lactic Acid (0.5-2.0) mmol/L Calcium 8.6 (8.4-10.2) mg/dL Total Bilirubin 1.3 H (0.0-1.0) mg/dL AST 11 (5-37) U/L ALT 25 (0-40) U/L Alkaline Phosphatase 138 H (39-117) U/L Troponin I High Sens 31.0 (<3.5-35.0) ng/L B-Natriuretic Peptide 107 H (<100) pg/mL Total Protein 6.0 L (6.5-8.0) g/dL Albumin 3.4 L (3.5-5.0) g/dL Urine Color Urine Appearance Urine pH (5.0-9.0) Ur Specific [place] (1.005-1.025) Urine Protein (Neg-Trace) mg/dL Urine Glucose (UA) (Negative) mg/dL Urine Ketones (Negative) mg/dL Urine Blood (Negative) Urine Nitrite (Negative) Ur Leukocyte Esterase (Negative) Urine RBC (0-2) /HPF Urine WBC (0-5) /HPF Ur Squamous Epith Cells (0-2) /HPF Urine Bacteria (None Seen) Hyaline Casts (0-2) /LPF COVID-19 (EDUARDO) (Negative) COVID-19 Clin Com Influenza Type A (BRYANNA) (Negative) Influenza Type B (BRYANNA) (Negative) Influenza A & B Note 09/18/22 09/18/22 09/18/22 Range/Units 11:42 11:43 11:43 WBC 11.6 H (4.8-10.8) X10*3/uL RBC 4.32 L (4.60-5.80) X10*6/uL Hgb 12.4 L (14.0-18.0) g/dl Hct 38.7 L (42.0-52.0) % MCV 89.6 (80.0-98.0) fL MCH 28.7 (27.0-33.0) pg MCHC 32.0 (31.0-36.0) g/dl RDW 14.9 (11.0-16.0) % Plt Count 254 (160-400) X10*3/uL MPV 10.0 (9.4-12.4) fL Immature Gran % (Auto) Cancelled Neut % (Auto) Cancelled Lymph % (Auto) Cancelled [place] % (Auto) Cancelled Eos % (Auto) Cancelled Baso % (Auto) Cancelled Lymph # (Auto) Cancelled [place] # (Auto) Cancelled Eos # (Auto) Cancelled Baso # (Auto) Cancelled Abs Immat Gran (auto) Cancelled Absolute Neuts (auto) Cancelled Absolute Nucleated RBC 0.000 (0.0-0.012) X10*3/uL Nucleated RBC % (auto) 0.0 (0.0-0.2) /100WBC PT 14.7 H (10.0-13.1) SEC INR 1.3 H (0.9-1.1) Sodium (135-145) mmol/L Potassium (3.3-5.1) mmol/L Chloride (96-108) mmol/L Carbon Dioxide (22-29) mmol/L Anion Gap (12-20) BUN (9-16) mg/dL Creatinine (0.5-1.4) mg/dL Estim Creat Clear Calc Estimated GFR Random Glucose (60-115) mg/dL Lactic Acid (0.5-2.0) mmol/L Calcium (8.4-10.2) mg/dL Total Bilirubin (0.0-1.0) mg/dL AST (5-37) U/L ALT (0-40) U/L Alkaline Phosphatase (39-117) U/L Troponin I High Sens (<3.5-35.0) ng/L B-Natriuretic Peptide (<100) pg/mL Total Protein (6.5-8.0) g/dL Albumin (3.5-5.0) g/dL Urine Color Urine Appearance Urine pH (5.0-9.0) Ur Specific [place] (1.005-1.025) Urine Protein (Neg-Trace) mg/dL Urine Glucose (UA) (Negative) mg/dL Urine Ketones (Negative) mg/dL Urine Blood (Negative) Urine Nitrite (Negative) Ur Leukocyte Esterase (Negative) Urine RBC (0-2) /HPF Urine WBC (0-5) /HPF Ur Squamous Epith Cells (0-2) /HPF Urine Bacteria (None Seen) Hyaline Casts (0-2) /LPF COVID-19 (EDUARDO) (Negative) COVID-19 Clin Com Influenza Type A (BRYANNA) Negative (Negative) Influenza Type B (BRYANNA) Negative (Negative) Influenza A & B Note See Note 09/18/22 09/18/22 09/18/22 Range/Units 11:43 11:43 12:06 WBC (4.8-10.8) X10*3/uL RBC (4.60-5.80) X10*6/uL Hgb (14.0-18.0) g/dl Hct (42.0-52.0) % MCV (80.0-98.0) fL MCH (27.0-33.0) pg MCHC (31.0-36.0) g/dl RDW (11.0-16.0) % Plt Count (160-400) X10*3/uL MPV (9.4-12.4) fL Immature Gran % (Auto) Neut % (Auto) Lymph % (Auto) [place] % (Auto) Eos % (Auto) Baso % (Auto) Lymph # (Auto) [place] # (Auto) Eos # (Auto) Baso # (Auto) Abs Immat Gran (auto) Absolute Neuts (auto) Absolute Nucleated RBC (0.0-0.012) X10*3/uL Nucleated RBC % (auto) (0.0-0.2) /100WBC PT (10.0-13.1) SEC INR (0.9-1.1) Sodium (135-145) mmol/L Potassium (3.3-5.1) mmol/L Chloride (96-108) mmol/L Carbon Dioxide (22-29) mmol/L Anion Gap (12-20) BUN (9-16) mg/dL Creatinine (0.5-1.4) mg/dL Estim Creat Clear Calc Estimated GFR Random Glucose (60-115) mg/dL Lactic Acid 2.4 H* (0.5-2.0) mmol/L Calcium (8.4-10.2) mg/dL Total Bilirubin (0.0-1.0) mg/dL AST (5-37) U/L ALT (0-40) U/L Alkaline Phosphatase (39-117) U/L Troponin I High Sens (<3.5-35.0) ng/L B-Natriuretic Peptide (<100) pg/mL Total Protein (6.5-8.0) g/dL Albumin (3.5-5.0) g/dL Urine Color Yellow Urine Appearance Clear Urine pH 5.5 (5.0-9.0) Ur Specific [place] >= 1.030 H (1.005-1.025) Urine Protein Trace (Neg-Trace) mg/dL Urine Glucose (UA) Negative (Negative) mg/dL Urine Ketones Negative (Negative) mg/dL Urine Blood Trace (Negative) Urine Nitrite Negative (Negative) Ur Leukocyte Esterase Negative (Negative) Urine RBC 3-5 H (0-2) /HPF Urine WBC 0-5 (0-5) /HPF Ur Squamous Epith Cells 0-2 (0-2) /HPF Urine Bacteria None Seen (None Seen) Hyaline Casts 3-5 (0-2) /LPF COVID-19 (EDUARDO) Negative (Negative) COVID-19 Clin Com See Note Influenza Type A (BRYANNA) (Negative) Influenza Type B (BRYANNA) (Negative) Influenza A & B Note Independent Interpretation I performed an independent interpretation of an: EKG Interpretation: Sinus tachycardia, HR-102, HI/QRS/QTC is within normal limits. Radiology Impression Radiologist Impression: My interpretation is in agreement with radiology's impression of the imaging study. External Record Review External record reviewed: Inpatient record, Outpatient record and Prior outpatient labs Chronic Conditions Patient?s care impacted by: Hypertension Critical Care Time Critical Care Time Critical Care Time: Yes Total Critical Care Time: 45 Attestation: I personally attest to this time spent taking care of the patient. Discharge Plan Discharge Clinical Impression: Hypoxia, Aspiration pneumonia, Dehydration Patient Disposition: Admitted As Inpatient Prescriptions: No Action amantadine HCl 100 mg tablet 1 tab feeding tube BID omeprazole 20 mg capsule,delayed release(DR/EC) 20 mg feeding tube DAILY@0630 carbidopa-levodopa 25-100 mg tablet 2 tab G-tube TID trazodone 50 mg Tablet 25 mg feeding tube BID PRN (Reason: anxiety or agitation) Rx Instructions: START DATE 09/06/2022; END DATE - 09/20/2022 magnesium hydroxide [Milk of Magnesia] 400 mg/5 mL Suspension 30 ml feeding tube DAILY PRN (Reason: Constipation) Fleet Enema 19-7 gram/118 mL Enema 118 ml HI DAILY PRN (Reason: Constipation) Rx Instructions: use if no results from Dulcolax suppository metoprolol tartrate 25 mg tablet 25 mg feeding tube BID acetaminophen 325 mg capsule 650 mg feeding tube Q6H PRN (Reason: Fever Or Pain) pramipexole 0.25 mg tablet 0.25 mg feeding tube TID bisacodyl [Dulcolax (bisacodyl)] 10 mg suppository 10 mg HI DAILY PRN (Reason: Constipation) Rx Instructions: use if no results from milk of magnesia
[2022-09-18 13:53] LABS: Reflex Lactate? Lactic Acid Added
[2022-09-18 14:07] LABS: Band Neutrophils Percent 4 % (3-5); Monocytes Absolute Manual 0.1 X10*3/uL (0.1-1.2); Monocytes Percent Manual 1 % (2-11); Neutrophils Absolute Manual 11.5 X10*3/uL (2.0-8.3); Neutrophils Percent Manual 95 % (45-73)
[2022-09-18 14:08] LABS: Large Platelet PRESENT; Platelet Estimate NORMAL (NORMAL); Platelet Morphology Comment NOTED
[2022-09-18 14:09] LABS: RBC Morphology NORMAL
[2022-09-18 14:21] VITALS: BP 116/61; PULSE 84; RESP 22; TEMP 36.6; O2SAT 96
--- NOTE | 2022-09-18 14:21 | P.HPHOSP_ITS ---
History of Present Illness Date of Service: 09/18/22 Attending physician on admission: Prasanth Zaman Chief Complaint: SOB Pt is a 71-year-old male with a PMH significant for?Parkinson's, CAD, DVT, paroxyismal AFib not on Eliquis, dysphagia, peg tube dependent, and HTN who presents to the ED from a [facility] SN[facility] for shortness of breath and cough. Patient is somnolent and slightly confused, so HPI supplemented by son who is at bedside. Pt apparently has developed cough and SOB over the past 3-4 days. Pt is slightly confused, oriented to person and place, but unclear where he came from or what year it is. Son maintains his father's mentation and alertness is near baseline. Patient is not on O2 supplementation at home. In the ED patient was febrile at 100.7 and tachypneic at 26. Patient was placed on 2L of nasal cannula and satting at 94. Labs were significant for leukocytosis of 11.6, lactic acid 2.4, repeat 1.9, elevated BNP 107 (near baseline). CXR s howed patchy airspace opacities in left lung base which may be due to aspiration or pneumonia. Pt was treated with IVF and IV antibiotics (vanco and Zosyn). Pt will be admitted to the hospital for treatment of aspiration pneumonia. Review of Systems Review of Systems: Difficult to obtain due to patient's mentation. [facility] Medical History Acidosis, lactic Acute dehydration Anemia Aspiration into airway Back wound CAD (coronary artery disease) Closed wedge compression fracture of T12 vertebra Decubitus ulcer of sacral area Duodenal ulcer DVT (deep venous thrombosis) Dyslipidemia Dysphagia Elevated troponin Essential hypertension GI bleed Malnutrition of moderate degree Non-ST elevation CA (NSTEMI) Parkinsonism Parkinsons disease Paroxysmal atrial fibrillation Pneumonia Pre-operative cardiovascular examination Pressure ulcer of sacral region, unstageable 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 Brother No problems noted. Sister No problems noted. Son No problems noted. Son No problems noted. Surgical History No pertinent past surgical history PEG (percutaneous endoscopic gastrostomy) status Social History Household Members: Other Housing: Retirement Do you presently have visiting nurse or other home services: No Alcohol intake: unknown Patient Tobacco Use Status: Never used Tobacco Smoked in Last 30 Days: No e-Cigarette/Vaping Use: Never Used Currently Displaying Signs/Symptoms of Drug Intoxication Withdrawal: No Advance Directives: No service: No Current occupational status: retired Cognitive needs: No Hearing needs: No Vision needs: Yes Meds Allergies Allergy/AdvReac Type Severity Reaction Status Date / Time No Known Allergies Allergy Verified 09/06/22 14:19 [No Known Allergies*] Active Medications: Current Medications Vancomycin HCl 750 mg/ Sodium (Chloride) 265 mls @ 265 mls/hr IV ONCE ONE Stop: 09/18/22 15:08 Pharmacy Consult (Consult Rx Vancomycin Dosing) 1 each MISCELLANE DAILY PRN PRN Reason: Consult order Home Medications Medication Instructions Recorded Confirmed Last Taken Type metoprolol tartrate 25 mg tablet 25 mg feeding tube BID 08/22/20 09/18/22 07/04/22 History amantadine HCl 100 mg tablet 1 tab feeding tube BID 03/05/22 09/18/22 07/04/22 History acetaminophen 325 mg capsule 650 mg feeding tube Q6H PRN Fever 04/26/22 09/18/22 Unknown History Or Pain carbidopa 25 mg-levodopa 100 mg 2 tab G-tube TID 07/04/22 09/18/22 07/04/22 History tablet omeprazole 20 mg capsule,delayed 20 mg feeding tube DAILY@0630 07/04/22 09/18/22 07/04/22 History release bisacodyl 10 mg rectal suppository 10 mg MS DAILY PRN Constipation 09/05/22 09/18/22 Unknown History (Dulcolax (bisacodyl)) pramipexole 0.25 mg tablet 0.25 mg feeding tube TID 09/05/22 09/18/22 Unknown History magnesium hydroxide 400 mg/5 mL 30 ml feeding tube DAILY PRN 09/18/22 09/18/22 Unknown History oral suspension (Milk of Magnesia) Constipation sodium phosphates 19 gram-7 118 ml MS DAILY PRN Constipation 09/18/22 09/18/22 Unknown History gram/118 mL enema (Fleet Enema) trazodone 50 mg tablet 25 mg feeding tube BID PRN anxiety 09/18/22 09/18/22 Unknown History or agitation Physical Exam Vital Signs and Narrative: Vital Signs: Last Vital Signs Temp 100.7 F H 09/18/22 11:19 Pulse 96 09/18/22 11:19 Resp 26 H 09/18/22 11:19 BP 125/76 09/18/22 11:19 Pulse Ox 94 09/18/22 11:19 O2 Del Method 09/18/22 11:19 Oxygen Flow Rate 2 09/18/22 11:19 BMI result Body Mass Index 17.0 Constitutional: Pt somnulent but arousable, cachectic-looking, in no acute distress. Mental Status: Oriented to person andplace but not to time. Eyes: Pupils are equal, round, and reactive to light. Ear, Nose, and Throat: Oropharynx clear, mucous membranes dry. Ears and nose without deformities. Trachea midline. Respiratory: Bibasilar crackles. Cardiovascular: S1, S2 regular. No murmurs, rubs, or gallops. Gastrointestinal: Abdomen soft, non-tender, non-distended. Normal bowel sounds. PEG insert in place without signs of infection. Neurologic: Cranial nerves II-XI are grossly intact. No focal neurological deficits. Moves all extremities spontaneously. Skin: Sacral decubitus ulcer, covered by bandaged. Musculoskeletal: No cyanosis or clubbing. Extremities: No edema. Psychiatric: Normal mood and affect. Results Labs 09/18/22 11:43 09/18/22 11:41 Labs: Laboratory Results - last 24 hr 09/18/22 09/18/22 09/18/22 11:41 11:41 11:41 MCV MCH MCHC RDW Plt Count MPV Immature Gran % (Auto) Neut % (Auto) Lymph % (Auto) [place] % (Auto) Eos % (Auto) Baso % (Auto) Lymph # (Auto) [place] # (Auto) Eos # (Auto) Baso # (Auto) Abs Immat Gran (auto) Absolute Neuts (auto) Absolute Nucleated RBC Nucleated RBC % (auto) Neutrophils % (Manual) Band Neutrophils % Monocytes % (Manual) Abs Neuts (Manual) Monocytes # (Manual) Platelet Estimate Large Platelets Plt Morphology Comment RBC Morphology PT INR Anion Gap 17 Estim Creat Clear Calc 63.7 Estimated GFR > 60 Random Glucose 159 H Lactic Acid Calcium 8.6 Total Bilirubin 1.3 H AST 11 ALT 25 Alkaline Phosphatase 138 H Troponin I High Sens 31.0 B-Natriuretic Peptide 107 H Total Protein 6.0 L Albumin 3.4 L Urine Color Urine Appearance Urine pH Ur Specific [place] Urine Protein Urine Glucose (UA) Urine Ketones Urine Blood Urine Nitrite Ur Leukocyte Esterase Urine RBC Urine WBC Ur Squamous Epith Cells Urine Bacteria Hyaline Casts COVID-19 (EDUARDO) COVID-19 Clin Com Influenza Type A (BRYANNA) Influenza Type B (BRYANNA) Influenza A & B Note 09/18/22 09/18/22 09/18/22 11:42 11:43 11:43 MCV 89.6 MCH 28.7 MCHC 32.0 RDW 14.9 Plt Count 254 MPV 10.0 Immature Gran % (Auto) Cancelled Neut % (Auto) Cancelled Lymph % (Auto) Cancelled [place] % (Auto) Cancelled Eos % (Auto) Cancelled Baso % (Auto) Cancelled Lymph # (Auto) Cancelled [place] # (Auto) Cancelled Eos # (Auto) Cancelled Baso # (Auto) Cancelled Abs Immat Gran (auto) Cancelled Absolute Neuts (auto) Cancelled Absolute Nucleated RBC 0.000 Nucleated RBC % (auto) 0.0 Neutrophils % (Manual) 95 H Band Neutrophils % 4 Monocytes % (Manual) 1 L Abs Neuts (Manual) 11.5 H Monocytes # (Manual) 0.1 Platelet Estimate NORMAL Large Platelets PRESENT Plt Morphology Comment NOTED RBC Morphology NORMAL PT 14.7 H INR 1.3 H Anion Gap Estim Creat Clear Calc Estimated GFR Random Glucose Lactic Acid Calcium Total Bilirubin AST ALT Alkaline Phosphatase Troponin I High Sens B-Natriuretic Peptide Total Protein Albumin Urine Color Urine Appearance Urine pH Ur Specific [place] Urine Protein Urine Glucose (UA) Urine Ketones Urine Blood Urine Nitrite Ur Leukocyte Esterase Urine RBC Urine WBC Ur Squamous Epith Cells Urine Bacteria Hyaline Casts COVID-19 (EDUARDO) COVID-19 Clin Com Influenza Type A (BRYANNA) Negative Influenza Type B (BRYANNA) Negative Influenza A & B Note See Note 09/18/22 09/18/22 09/18/22 11:43 11:43 12:06 MCV MCH MCHC RDW Plt Count MPV Immature Gran % (Auto) Neut % (Auto) Lymph % (Auto) [place] % (Auto) Eos % (Auto) Baso % (Auto) Lymph # (Auto) [place] # (Auto) Eos # (Auto) Baso # (Auto) Abs Immat Gran (auto) Absolute Neuts (auto) Absolute Nucleated RBC Nucleated RBC % (auto) Neutrophils % (Manual) Band Neutrophils % Monocytes % (Manual) Abs Neuts (Manual) Monocytes # (Manual) Platelet Estimate Large Platelets Plt Morphology Comment RBC Morphology PT INR Anion Gap Estim Creat Clear Calc Estimated GFR Random Glucose Lactic Acid 2.4 H* Calcium Total Bilirubin AST ALT Alkaline Phosphatase Troponin I High Sens B-Natriuretic Peptide Total Protein Albumin Urine Color Yellow Urine Appearance Clear Urine pH 5.5 Ur Specific [place] >= 1.030 H Urine Protein Trace Urine Glucose (UA) Negative Urine Ketones Negative Urine Blood Trace Urine Nitrite Negative Ur Leukocyte Esterase Negative Urine RBC 3-5 H Urine WBC 0-5 Ur Squamous Epith Cells 0-2 Urine Bacteria None Seen Hyaline Casts 3-5 COVID-19 (EDUARDO) Negative COVID-19 Clin Com See Note Influenza Type A (BRYANNA) Influenza Type B (BRYANNA) Influenza A & B Note Imaging Radiologist's Impressions: Impressions Chest X-Ray 09/18/22 12:12 IMPRESSION: Patchy airspace opacities in the left lung base which may be due to aspiration or pneumonia. Assessment and Plan (1) Aspiration pneumonia: Status: Acute (2) Sacral wound: Status: Acute (3) Dehydration: Status: Acute Plan Pt is a 71-year-old male with a PMH significant for?Parkinson's, CAD, DVT, parox yismal AFib not on Eliquis, dysphagia, peg tube dependent, and HTN who presents to the ED from a [facility] SNF for shortness of breath and cough. Pt will be admitted to the hospital for treatment of aspiration pneumonia with IV abx. Aspiration Pneumonia IV abx: Vanco and Zosyn Gentle IVF maintenance with LR Check volume status tomorrow and continue IVF if necessary Sacral decubitus ulcer, unspecified Completed course of IV ABX in August 2022 for osteomyelitis, followed by wound care clinic Air loss mattress Position changes q2 Dressing changes daily Wound care consult Diet NPO, feed through PEG Jevity 1.5 Ovidio Intermittent via tube to infuse at a rate of 90 mL/hr Parkinson's Continue home meds GERD Continue home meds History of paroxysmal AFib Continue metoprolol Will not restart Eliquis pending wound care consult DNR/DNI Attending:?Dr Zaman. DVT Prophylaxis: Lovenox Pt will require a hospitalization of at least two nights for treatment o f?Aspiration pneumonia with IV abx. Time Spent With Patient Time: Total time managing care of this patient today ____ minutes. Quality Stroke Does the patient have a stroke diagnosis?: No VTE Prior VTE?: No VTE Risk Level:: Medical - moderate - high VTE Device Contraindication: Treatment Not Indicated VTE Drug Contraindication: N/A - Med Ordered
[2022-09-18] MEDS: vancomycin HCL 750 MG in 0.9 % Sodium Chloride 250 ML 265 MG IV ×2 (14:27→16:47)
[2022-09-18 14:36] LABS: Lactic Acid 1.9 mmol/L (0.5-2.0)
--- NOTE | 2022-09-18 15:27 | PC.NURSE ---
Notified admitting PA patient has g tube through which his meds are admin, and if possible he could change any PO meds to by tube will await orders
[2022-09-18] MEDS: Enoxaparin Sodium 40 MG/0.4 ML SYRINGE SUBCUT (15:38)
[2022-09-18] MEDS: Lactated Ringers 1,000 ML 50 ML IVCONT (15:39)
[2022-09-18] MEDS: 0.9 % Sodium Chloride Flush 3 ML SYRINGE IVFLUSH (15:40)
[2022-09-18 16:00] VITALS: BP 130/74; PULSE 80; RESP 16; TEMP 36.7; O2SAT 98
--- NOTE | 2022-09-18 16:00 | MHC.EDTECH ---
Addendum entered by Janette Bright 09/18/22 16:28: this pct assumed care of pt at 1500 ,pt sleeping ,vitals sign taken . Original Note: this
[2022-09-18 18:13] VITALS: BP 127/76; PULSE 84; RESP 22; TEMP 36.4; O2SAT 100
[2022-09-18 19:33] VITALS: BP 133/65; PULSE 84; RESP 17; TEMP 36.4; O2SAT 99
[2022-09-18] MEDS: Carbidopa/Levodopa 25/100 TABLET 2 TAB G-TUBE (22:48)
[2022-09-18] MEDS: Pramipexole Di-HCL 0.25 MG TABLET G-TUBE (22:49)
[2022-09-18] MEDS: Metoprolol Tartrate 25 MG TABLET G-TUBE (22:49)
[2022-09-19] MEDS: 0.9 % Sodium Chloride Flush 3 ML SYRINGE IVFLUSH ×3 (00:41→19:53)
[2022-09-19] MEDS: Piperacillin Sodium/Tazobactam 3.375 GM in 0.9 % Sodium Chloride 50 ML IV ×4 (00:41→19:50)
[2022-09-19] MEDS: Acetaminophen 325 MG TABLET 650 MG G-TUBE (01:13)
[2022-09-19 03:58] VITALS: BP 122/65; PULSE 109; RESP 18; TEMP 37.2; O2SAT 98
[2022-09-19 06:20] LABS: Hematocrit 39.8 % (42.0-52.0); Hemoglobin 12.5 g/dl (14.0-18.0); Mean Corpuscular HGB Conc 31.4 g/dl (31.0-36.0); Mean Corpuscular Hemoglobin 27.8 pg (27.0-33.0); Mean Corpuscular Volume 88.6 fL (80.0-98.0); Mean Platelet Volume 9.1 fL (9.4-12.4); Platelet Count 269 X10*3/uL (160-400); Red Blood Count 4.49 X10*6/uL (4.60-5.80); White Blood Count 11.9 X10*3/uL (4.8-10.8)
[2022-09-19 06:41] LABS: Creatinine Clr Calc Pharmacy 76.1; Estimated Glomerular Filt Rate > 60
[2022-09-19 06:44] LABS: Anion Gap 13 (12-20); Blood Urea Nitrogen 25 mg/dL (9-16); Calcium 8.3 mg/dL (8.4-10.2); Carbon Dioxide 29 mmol/L (22-29); Chloride 105 mmol/L (96-108); Estimated Glomerular Filt Rate > 60; Glucose Random 77 mg/dL (60-115); Potassium 3.6 mmol/L (3.3-5.1); Sodium 143 mmol/L (135-145)
[2022-09-19 07:49] VITALS: BP 134/63; PULSE 123; RESP 17; TEMP 37.2; O2SAT 95
--- NOTE | 2022-09-19 08:47 | HE.PHANOTE ---
Vancomycin Dosing Addendum Patients renal function has improved from a scr 0.80 to 0.68. Continue dose of 1000 mg Q24H. Predicted AUC 438 mg/L/hr. Level due 09/20 @1400.
[2022-09-19] MEDS: Metoprolol Tartrate 25 MG TABLET G-TUBE ×2 (09:36→20:04)
[2022-09-19] MEDS: Pramipexole Di-HCL 0.25 MG TABLET G-TUBE ×3 (09:37→20:04)
[2022-09-19] MEDS: Carbidopa/Levodopa 25/100 TABLET 2 TAB G-TUBE ×3 (09:37→20:04)
[2022-09-19 10:22] VITALS: BMI 17.0
--- NOTE | 2022-09-19 10:28 | MHC.CLN ---
RE: CONSULT PT IS SEVERELY MALNOURISHED PT WITH SEVERELY DEPLTED SUBCUTANEOUS FAT AND MUSCLE MASS, BMI 17 AND 18% SIGNIFICANT WT LOSS X 6 MONTHS WITH INCREASED NUTRITION NEEDS R/T PRESSURE INJURY PT DEPENDENT ON TF FOR 100% NUTRITION SUPPORT RECOMMEND OSMOLITE 1.5 AT 90ML/HR X 12 HRS CONT. WITH 30ML PROSOURCE BID AND 240ML FREE WATER FLUSHES Q 6 HRS TO PROVIDE 1740 TOTAL KCALS (32KCALS/KG), 98G TOTAL PROTEIN (1.8G/KG), 1783ML TOTAL WATER FROM FORMULA AND FLUSHES (33ML/KG) MONITOR TOLERANCE, RESIDUALS AND LYTES SEE ALSO FULL CLINICAL NUTRITION ASSESSMENT
[2022-09-19] MEDS: vancomycin HCL 1,000 MG in 0.9 % Sodium Chloride 250 ML 270 MG IV (14:15)
[2022-09-19] MEDS: Lactated Ringers 1,000 ML 50 ML IVCONT (15:33)
--- NOTE | 2022-09-19 15:51 | MHC.CM.PN ---
PATIENT IS IN FROM [facility] WHERE HE IS A BED HOLD. HE IS PRIMARILY BED BOUND, ALTHOUGH SON (IN ROOM) WOULD LIKE TO SE PATIENT BE ABLE TO SIT UP IN A CHAIR AGAIN HCP IS ON FILE AND VERIFIED. COVID VACCINATED AND BOOSTERED. IMM 09/19IN CHART
[2022-09-19 16:00] VITALS: BP 124/58; PULSE 93; RESP 16; TEMP 37.1; O2SAT 99
--- NOTE | 2022-09-19 16:10 | P.PNIM_ITS ---
Subjective Subjective Date of Service: 09/19/22 Interval History: No acute events overnight. Tolerant of tube feedings Review of Systems Denies chest pain Denies shortness of breath Denies nausea vomiting diarrhea denies fever chills Physical Exam Vital Signs: Vital Signs: Last Vital Signs Temp 98.9 F 09/19/22 07:49 Pulse 123 H 09/19/22 07:49 Resp 17 09/19/22 07:49 BP 134/63 09/19/22 07:49 Pulse Ox 95 09/19/22 07:49 O2 Del Method 09/19/22 07:49 O2 Flow Rate 2.0 09/19/22 07:49 Oxygen Flow Rate 2 09/18/22 11:19 BMI result Body Mass Index 17.0 Const: Other: Awake alert oriented to person and place Resp: Other: Diminished at bases; bilateral basilar crackles Cardio: Other: No S4; positive S1-S2; no S3 murmurs rubs or gallops GI: Other: Soft nontender nondistended normoactive bowel sounds. Peg site clean dry and intact Extrem: Other: No edema bilaterally Objective Data Active Medications Acetaminophen (Acetaminophen 325 Mg Tablet) 650 mg G-TUBE Q6H PRN PRN Reason: Fever Or Pain Last Admin: 09/19/22 01:13 Dose: 650 mg Documented By: THERESE Amantadine HCl (Amantadine Hcl 100 Mg Capsule) 100 mg PO BID [facility] Bisacodyl (Bisacodyl 10 Mg Supp.Rect) 10 mg MI DAILY PRN PRN Reason: Constipation Carbidopa/Levodopa (Carbidopa/Levodopa 25/100 Tablet) 2 tab G-TUBE TID [facility] Last Admin: 09/19/22 09:37 Dose: 2 tab Documented By: MAHOGANY Enoxaparin Sodium (Enoxaparin Sodium 40 Mg/0.4 Ml Syringe) 40 mg SUBCUT Q24H [facility] Last Admin: 09/18/22 15:38 Dose: 40 mg Documented By: YASMIN Lactated Ringer's (Lr) 1,000 mls @ 50 mls/hr IVCONT .Q20H [facility] Last Admin: 09/19/22 15:33 Dose: 50 mls/hr Documented By: MAHOGANY Piperacillin Sod/Tazobactam (Sod 3.375 gm/ Sodium Chloride) 50 mls @ 100 mls/hr IV Q6H [facility] Last Infusion: 09/19/22 14:25 Dose: 0 mls/hr Documented By: MAHOGANY Vancomycin HCl 1,000 mg/ (Sodium Chloride) 270 mls @ 270 mls/hr IV Q24H [facility] Last Infusion: 09/19/22 15:45 Dose: 0 mls/hr Documented By: MAHOGANY Magnesium Hydroxide (Milk Of Magnesia 30 Ml Oral.Susp) 30 ml G-TUBE DAILY PRN PRN Reason: Constipation Metoprolol Tartrate (Metoprolol Tartrate 25 Mg Tablet) 25 mg G-TUBE BID [facility]; Protocol Last Admin: 09/19/22 09:36 Dose: 25 mg Documented By: MAHOGANY Ondansetron HCl (Ondansetron Hcl 4 Mg/2 Ml Vial) 4 mg IVPUSH Q8H PRN PRN Reason: Nausea and Vomiting Pharmacy Consult (Consult Rx Vancomycin Dosing) 1 each MISCELLANE DAILY PRN PRN Reason: Consult order Pramipexole Dihydrochloride (Pramipexole Di-Hcl 0.25 Mg Tablet) 0.25 mg G-TUBE TID [facility] Last Admin: 09/19/22 09:37 Dose: 0.25 mg Documented By: MAHOGANY Sodium Biphosphate/Sodium Phosphate (Sodium Phosphate,[place]-Dibasic 133 Ml Enema) 118 ml [place] DAILY PRN PRN Reason: Constipation Sodium Chloride (0.9 % Sodium Chloride Flush 3 Ml Syringe) 3 ml IVFLUSH QSHIFT [facility] Last Admin: 09/19/22 09:37 Dose: 3 ml Documented By: MAHOGANY Trazodone HCl (Trazodone Hcl 25 Mg Halftab) 25 mg G-TUBE BID PRN PRN Reason: anxiety or agitation Labs 09/19/22 05:54 09/19/22 05:54 Labs: Laboratory Results - last 24 hr 09/19/22 09/19/22 09/19/22 05:54 05:54 05:54 MCV 88.6 MCH 27.8 MCHC 31.4 RDW 15.0 Plt Count 269 MPV 9.1 L Absolute Nucleated RBC 0.000 Nucleated RBC % (auto) 0.0 Anion Gap 13 Estim Creat Clear Calc 75.0 76.1 Estimated GFR > 60 > 60 Random Glucose 77 Calcium 8.3 L Microbiology Microbiology Results: Microbiology 09/18/22 11:41 Blood Culture - Preliminary Blood - Venous Prelim: GPC Gram Stain only 09/18/22 11:41 Blood Culture - Preliminary Blood - Venous No growth after 24 hours. Assessment and Plan (1) Aspiration pneumonia: Status: Acute (2) Stage IV pressure ulcer of sacral region: Status: Acute Plan Pt is a 71-year-old male with a PMH significant for?Parkinson's, CAD, DVT, paroxyismal AFib not on Eliquis, dysphagia, peg tube dependent, and HTN who presents to the ED from a [facility] for shortness of breath and cough. Pt will be admitted to the hospital for treatment of aspiration pneumonia with IV abx. 1.Aspiration Pneumonia -Vanco/Zosyn(2) -follow-up blood cultures 2.Sacral decubitus ulcer, unspecified -wound care -Air loss mattress -wound care consult 3. Dysphagia -Jevity 1.5 Ovidio Intermittent via tube to infuse at a rate of 90 mL/hr -on 12/off 12 3.Parkinson's Continue home meds 4.History of paroxysmal AFib -continue metoprolol; rate control adequate -adjust as indicated -will restart Eliquis DNR/DNI Lovenox Pt will require a hospitalization of at least two nights for treatment of?Aspiration pneumonia with IV abx. Time Spent With Patient Time: Total time managing care of this patient today ____ minutes. Quality Stroke Does the patient have a stroke diagnosis?: No VTE Prior VTE?: No VTE Risk Level:: Medical - moderate - high VTE Device Contraindication: Treatment Not Indicated VTE Drug Contraindication: N/A - Med Ordered
[2022-09-19] MEDS: Enoxaparin Sodium 40 MG/0.4 ML SYRINGE SUBCUT (16:12)
[2022-09-19 19:50] VITALS: BP 119/57; PULSE 101; RESP 20; TEMP 36.6; O2SAT 97
[2022-09-19] MEDS: Apixaban 5 MG TABLET PO (20:04)
[2022-09-20] MEDS: Piperacillin Sodium/Tazobactam 3.375 GM in 0.9 % Sodium Chloride 50 ML IV ×4 (00:53→18:53)
[2022-09-20 04:00] VITALS: BP 114/57; PULSE 89; RESP 20; TEMP 36.8; O2SAT 97
[2022-09-20 06:19] LABS: MANUAL DIFF FLAG NO
[2022-09-20 06:32] LABS: Basophils Percent Auto 0.3 % (0-2); Eosinophils Percent Auto 0.2 % (0-4); Hematocrit 34.1 % (42.0-52.0); Imm Gran Abs Auto 0.04 X10*3/uL (0.00-0.03); Imm Gran Pct Auto 0.4 % (0.0-0.4); Lymphocytes Absolute Auto 0.7 X10*3/uL (1.2-4.9); Lymphocytes Percent Auto 6.9 % (20-40); Mean Corpuscular HGB Conc 32.3 g/dl (31.0-36.0); Mean Corpuscular Hemoglobin 28.4 pg (27.0-33.0); Mean Corpuscular Volume 87.9 fL (80.0-98.0); Mean Platelet Volume 9.4 fL (9.4-12.4); Monocytes Absolute Auto 0.4 X10*3/uL (0.1-1.2); Monocytes Percent Auto 3.5 % (2-11); Neutrophils Absolute Auto 9.5 x10*3/uL (2.0-8.3); Neutrophils Percent Auto 88.7 % (45-73); Platelet Count 261 X10*3/uL (160-400); Red Blood Count 3.88 X10*6/uL (4.60-5.80); White Blood Count 10.7 X10*3/uL (4.8-10.8)
[2022-09-20 06:56] LABS: Alanine Aminotransferase 16 U/L (0-40); Albumin Level 2.6 g/dL (3.5-5.0); Alkaline Phosphatase 97 U/L (39-117); Anion Gap 16 (12-20); Aspartate Amino Transferase 22 U/L (5-37); Bilirubin Total 1.1 mg/dL (0.0-1.0); Blood Urea Nitrogen 23 mg/dL (9-16); Carbon Dioxide 24 mmol/L (22-29); Chloride 109 mmol/L (96-108); Creatinine Clr Calc Pharmacy 83.6; Estimated Glomerular Filt Rate > 60; Glucose Fasting 85 mg/dL (60-99); Potassium 3.7 mmol/L (3.3-5.1); Sodium 145 mmol/L (135-145); Total Protein 4.8 g/dL (6.5-8.0)
[2022-09-20 07:55] VITALS: BP 134/68; PULSE 90; RESP 20; TEMP 36.6; O2SAT 96
[2022-09-20] MEDS: Apixaban 5 MG TABLET PO ×2 (08:04→21:27)
[2022-09-20] MEDS: Pramipexole Di-HCL 0.25 MG TABLET G-TUBE ×3 (08:04→21:24)
[2022-09-20] MEDS: Carbidopa/Levodopa 25/100 TABLET 2 TAB G-TUBE ×3 (08:04→21:24)
[2022-09-20] MEDS: 0.9 % Sodium Chloride Flush 3 ML SYRINGE IVFLUSH ×3 (08:05→21:25)
[2022-09-20] MEDS: Metoprolol Tartrate 25 MG TABLET G-TUBE ×2 (08:05→21:25)
--- NOTE | 2022-09-20 12:37 | HO.WOUNDCONS ---
History of Present Illness Data of Consult Service Date: 09/20/22 Requesting physician: Cynthia Mcmanus Primary Care Provider: Amos Salazar MD [facility] Reason for consult: decubitus ulcer, recent osteomyelitis [id number]: Kwabena is well known to the wound clinic. He is here twice monthly and we have been using skin substitutes in combination with wound VAC to try to granulate tissue in this stage IV coccygeal ulcer. He recently completed IV antibiotics for the indication of osteomyelitis and his wound is looking improved. Unfortunately, he developed cough and shortness of breath shortly after his visit on Friday. He is NPO. He is using tube feedings only. Was sent to the hospital by his facility for concern of hypoxia. Chest x-ray showed concern of aspiration pneumonia. He is placed on Zosyn. He is doing much better now. He continues to have pain at the coccyx. Review of Systems Review of Systems: Tells me he feels much better. Continues to have pain with probing at the coccygeal ulcer but no pain we leave it alone. Denies shortness of breath today. 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 Brother No problems noted. Sister No problems noted. Son No problems noted. Son No problems noted. Surgical History No pertinent past surgical history PEG (percutaneous endoscopic gastrostomy) status Social History Household Members: Other Housing: [facility] Do you presently have visiting nurse or other home services: No Alcohol intake: unknown Patient Tobacco Use Status: Never used Tobacco Smoked in Last 30 Days: No e-Cigarette/Vaping Use: Never Used Currently Displaying Signs/Symptoms of Drug Intoxication Withdrawal: No Advance Directives: No service: No Current occupational status: retired Cognitive needs: No Hearing needs: No Vision needs: Yes Meds Allergies Allergy/AdvReac Type Severity Reaction Status Date / Time No Known Allergies Allergy Verified 09/06/22 14:19 [No Known Allergies*] Active Medications: Current Medications Acetaminophen (Acetaminophen 325 Mg Tablet) 650 mg G-TUBE Q6H PRN PRN Reason: Fever Or Pain Last Admin: 09/19/22 01:13 Dose: 650 mg Amantadine HCl (Amantadine Hcl 100 Mg Capsule) 100 mg PO BID [facility] Apixaban (Apixaban 5 Mg Tablet) 5 mg PO BID [facility] Last Admin: 09/20/22 08:04 Dose: 5 mg Bisacodyl (Bisacodyl 10 Mg Supp.Rect) 10 mg AL DAILY PRN PRN Reason: Constipation Carbidopa/Levodopa (Carbidopa/Levodopa 25/100 Tablet) 2 tab G-TUBE TID [facility] Last Admin: 09/20/22 08:04 Dose: 2 tab Piperacillin Sod/Tazobactam (Sod 3.375 gm/ Sodium Chloride) 50 mls @ 100 mls/hr IV Q6H [facility] Last Infusion: 09/20/22 08:42 Dose: Infused Vancomycin HCl 1,000 mg/ (Sodium Chloride) 270 mls @ 270 mls/hr IV Q24H [facility] Last Infusion: 09/19/22 15:45 Dose: Infused Magnesium Hydroxide (Milk Of Magnesia 30 Ml Oral.Susp) 30 ml G-TUBE DAILY PRN PRN Reason: Constipation Metoprolol Tartrate (Metoprolol Tartrate 25 Mg Tablet) 25 mg G-TUBE BID [facility]; Protocol Last Admin: 09/20/22 08:05 Dose: 25 mg Ondansetron HCl (Ondansetron Hcl 4 Mg/2 Ml Vial) 4 mg IVPUSH Q8H PRN PRN Reason: Nausea and Vomiting Pharmacy Consult (Consult Rx Vancomycin Dosing) 1 each MISCELLANE DAILY PRN PRN Reason: Consult order Pramipexole Dihydrochloride (Pramipexole Di-Hcl 0.25 Mg Tablet) 0.25 mg G-TUBE TID [facility] Last Admin: 09/20/22 08:04 Dose: 0.25 mg Sodium Biphosphate/Sodium Phosphate (Sodium Phosphate,Harvey-Dibasic 133 Ml Enema) 118 ml AL DAILY PRN PRN Reason: Constipation Sodium Chloride (0.9 % Sodium Chloride Flush 3 Ml Syringe) 3 ml IVFLUSH QSHIFT [facility] Last Admin: 09/20/22 08:05 Dose: 3 ml Trazodone HCl (Trazodone Hcl 25 Mg Halftab) 25 mg G-TUBE BID PRN PRN Reason: anxiety or agitation Home Medications Medication Instructions Recorded Confirmed Last Taken Type metoprolol tartrate 25 mg tablet 25 mg feeding tube BID 08/22/20 09/18/22 07/04/22 History amantadine HCl 100 mg tablet 1 tab feeding tube BID 03/05/22 09/18/22 07/04/22 History acetaminophen 325 mg capsule 650 mg feeding tube Q6H PRN Fever 04/26/22 09/18/22 Unknown History Or Pain carbidopa 25 mg-levodopa 100 mg 2 tab G-tube TID 07/04/22 09/18/22 07/04/22 History tablet omeprazole 20 mg capsule,delayed 20 mg feeding tube DAILY@0630 07/04/22 09/18/22 07/04/22 History release bisacodyl 10 mg rectal suppository 10 mg AL DAILY PRN Constipation 09/05/22 09/18/22 Unknown History (Dulcolax (bisacodyl)) pramipexole 0.25 mg tablet 0.25 mg feeding tube TID 09/05/22 09/18/22 Unknown History magnesium hydroxide 400 mg/5 mL 30 ml feeding tube DAILY PRN 09/18/22 09/18/22 Unknown History oral suspension (Milk of Magnesia) Constipation sodium phosphates 19 gram-7 118 ml AL DAILY PRN Constipation 09/18/22 09/18/22 Unknown History gram/118 mL enema (Fleet Enema) trazodone 50 mg tablet 25 mg feeding tube BID PRN anxiety 09/18/22 09/18/22 Unknown History or agitation Physical Exam Vital Signs and Narrative: Vital Signs: Last Vital Signs Temp 97.8 F 09/20/22 07:55 Pulse 90 09/20/22 07:55 Resp 20 09/20/22 07:55 BP 134/68 09/20/22 07:55 Pulse Ox 96 09/20/22 07:55 O2 Del Method 09/20/22 07:55 O2 Flow Rate 2 09/20/22 07:55 Oxygen Flow Rate 2 09/18/22 11:19 BMI result Body Mass Index 17.0 As in the clinic, he is able to roll onto his left side with assistance. The wound base is pink healthy and granular. Periosteal exposure is not new and is located most centrally by way of palpation. Dura fiber alginate is placed over the wound in layered format. Secondary dressing applied but needs to be redressed by nursing. Periwound maceration is likely from alleyn. The no surrounding redness or warmth to suggest recurrent infection of the wound. Results Labs 09/20/22 05:35 09/20/22 05:35 Labs: Laboratory Results - last 24 hr 09/20/22 09/20/22 05:35 05:35 MCV 87.9 MCH 28.4 MCHC 32.3 RDW 15.0 Plt Count 261 MPV 9.4 Immature Gran % (Auto) 0.4 Neut % (Auto) 88.7 H Lymph % (Auto) 6.9 L Harvey % (Auto) 3.5 Eos % (Auto) 0.2 Baso % (Auto) 0.3 Lymph # (Auto) 0.7 L Harvey # (Auto) 0.4 Eos # (Auto) 0.0 Baso # (Auto) 0.0 Abs Immat Gran (auto) 0.04 H Absolute Neuts (auto) 9.5 H Absolute Nucleated RBC 0.000 Nucleated RBC % (auto) 0.0 Anion Gap 16 Estim Creat Clear Calc 83.6 Estimated GFR > 60 Fasting Glucose 85 Calcium 8.0 L Total Bilirubin 1.1 H AST 22 ALT 16 Alkaline Phosphatase 97 Total Protein 4.8 L Albumin 2.6 L Assessment and Plan (1) Stage IV pressure ulcer of sacral region: Status: Acute Plan Once he has recovered from his aspiration pneumonia and medical issues are stable, he can return to the facility from wound perspective. There is no sense in starting a wound VAC as part of this hospitalization but it can be replaced when he returns to rehab. Seems to be doing much better. One could ponder coccygectomy for recurrent osteomyelitis but we can consider this is an out patient. I do not think he would tolerate surgery very well and he has been doing better with conservative wound care treatment. Use dura fiber alginate as the primary dressing and several layers of non woven gauze with hypafix as a secondary dressing until return to facility. Reccomend replace of vac at that time. The periwound is likely to get macerated with the use of Allevyn foam so avoid use. Alginate should be changed every 48 hours and prn soiling. Time Spent With Patient Time: Total time managing care of this patient today ____ minutes.
--- NOTE | 2022-09-20 13:14 | MHC.CLN ---
F/U PT DEPENDENT ON TF FOR 100% NUTRITION SUPPORT. TOLERATING CURRENT TUBE FEED. CONTINUE OSMOLITE 1.5 AT 90ML/HR X 12 HRS CONT. WITH 30ML PROSOURCE BID AND 240ML FREE WATER FLUSHES Q 6 HRS TO PROVIDE 1740 TOTAL KCALS (32KCALS/KG), 98G TOTAL PROTEIN (1.8G/KG), 1783ML TOTAL WATER FROM FORMULA AND FLUSHES (33ML/KG) MONITOR TOLERANCE, RESIDUALS AND LYTES.
--- NOTE | 2022-09-20 13:57 | HO.PM.IMPN ---
Subjective Subjective Date of Service: 09/20/22 Interval History: More alert today. Tolerating tube feeds well Review of Systems Denies chest pain Denies shortness of breath Denies nausea vomiting diarrhea denies fever chills Physical Exam Vital Signs: Vital Signs: Last Vital Signs Temp 97.8 F 09/20/22 07:55 Pulse 90 09/20/22 07:55 Resp 20 09/20/22 07:55 BP 134/68 09/20/22 07:55 Pulse Ox 96 09/20/22 07:55 O2 Del Method 09/20/22 07:55 O2 Flow Rate 2 09/20/22 07:55 Oxygen Flow Rate 2 09/18/22 11:19 BMI result Body Mass Index 17.0 Const: Other: Awake alert oriented to person and place Resp: Other: Diminished at bases; bilateral basilar crackles Cardio: Other: No S4; positive S1-S2; no S3 murmurs rubs or gallops GI: Other: Soft nontender nondistended normoactive bowel sounds. Peg site clean dry and intact Extrem: Other: No edema bilaterally Objective Data Active Medications Acetaminophen (Acetaminophen 325 Mg Tablet) 650 mg G-TUBE Q6H PRN PRN Reason: Fever Or Pain Last Admin: 09/19/22 01:13 Dose: 650 mg Documented By: THERESE Amantadine HCl (Amantadine Hcl 100 Mg Capsule) 100 mg PO BID [facility] Apixaban (Apixaban 5 Mg Tablet) 5 mg PO BID [facility] Last Admin: 09/20/22 08:04 Dose: 5 mg Documented By: MAHOGANY Bisacodyl (Bisacodyl 10 Mg Supp.Rect) 10 mg TN DAILY PRN PRN Reason: Constipation Carbidopa/Levodopa (Carbidopa/Levodopa 25/100 Tablet) 2 tab G-TUBE TID [facility] Last Admin: 09/20/22 08:04 Dose: 2 tab Documented By: MAHOGANY Piperacillin Sod/Tazobactam (Sod 3.375 gm/ Sodium Chloride) 50 mls @ 100 mls/hr IV Q6H [facility] Last Infusion: 09/20/22 08:42 Dose: 0 mls/hr Documented By: MAHOGANY Vancomycin HCl 1,000 mg/ (Sodium Chloride) 270 mls @ 270 mls/hr IV Q24H [facility] Last Infusion: 09/19/22 15:45 Dose: 0 mls/hr Documented By: MAHOGANY Magnesium Hydroxide (Milk Of Magnesia 30 Ml Oral.Susp) 30 ml G-TUBE DAILY PRN PRN Reason: Constipation Metoprolol Tartrate (Metoprolol Tartrate 25 Mg Tablet) 25 mg G-TUBE BID [facility]; Protocol Last Admin: 09/20/22 08:05 Dose: 25 mg Documented By: MAHOGANY Ondansetron HCl (Ondansetron Hcl 4 Mg/2 Ml Vial) 4 mg IVPUSH Q8H PRN PRN Reason: Nausea and Vomiting Pharmacy Consult (Consult Rx Vancomycin Dosing) 1 each MISCELLANE DAILY PRN PRN Reason: Consult order Pramipexole Dihydrochloride (Pramipexole Di-Hcl 0.25 Mg Tablet) 0.25 mg G-TUBE TID [facility] Last Admin: 09/20/22 08:04 Dose: 0.25 mg Documented By: MAHOGANY Sodium Biphosphate/Sodium Phosphate (Sodium Phosphate,Catron-Dibasic 133 Ml Enema) 118 ml TN DAILY PRN PRN Reason: Constipation Sodium Chloride (0.9 % Sodium Chloride Flush 3 Ml Syringe) 3 ml IVFLUSH QSHIFT [facility] Last Admin: 09/20/22 08:05 Dose: 3 ml Documented By: MAHOGANY Trazodone HCl (Trazodone Hcl 25 Mg Halftab) 25 mg G-TUBE BID PRN PRN Reason: anxiety or agitation Labs 09/20/22 05:35 09/20/22 05:35 Labs: Laboratory Results - last 24 hr 09/20/22 09/20/22 05:35 05:35 MCV 87.9 MCH 28.4 MCHC 32.3 RDW 15.0 Plt Count 261 MPV 9.4 Immature Gran % (Auto) 0.4 Neut % (Auto) 88.7 H Lymph % (Auto) 6.9 L Catron % (Auto) 3.5 Eos % (Auto) 0.2 Baso % (Auto) 0.3 Lymph # (Auto) 0.7 L Catron # (Auto) 0.4 Eos # (Auto) 0.0 Baso # (Auto) 0.0 Abs Immat Gran (auto) 0.04 H Absolute Neuts (auto) 9.5 H Absolute Nucleated RBC 0.000 Nucleated RBC % (auto) 0.0 Anion Gap 16 Estim Creat Clear Calc 83.6 Estimated GFR > 60 Fasting Glucose 85 Calcium 8.0 L Total Bilirubin 1.1 H AST 22 ALT 16 Alkaline Phosphatase 97 Total Protein 4.8 L Albumin 2.6 L Microbiology Microbiology Results: Microbiology 09/18/22 11:41 Blood Culture - Preliminary Blood - Venous No growth after 48 hours. 09/18/22 11:41 Blood Culture - Final Blood - Venous Coag negative Staphylococcus Assessment and Plan (1) Aspiration pneumonia: Status: Acute (2) Stage IV pressure ulcer of sacral region: Status: Acute (3) Dysphagia: Status: Acute Plan Pt is a 71-year-old male with a PMH significant for?Parkinson's, CAD, DVT, paroxyismal AFib not on Eliquis, dysphagia, peg tube dependent, and HTN who presents to the ED from a [facility] SNF for shortness of breath and cough. Pt will be admitted to the hospital for treatment of aspiration pneumonia with IV abx. 1.Aspiration Pneumonia -Vanco/Zosyn(3) -follow-up blood cultures...coag neg staph 2.Sacral decubitus ulcer, Stage 4 -wound care -Air loss mattress -wound care consult appreciated 3. Dysphagia -Jevity 1.5 Ovidio Intermittent via tube to infuse at a rate of 90 mL/hr -on 12/off 12 3.Parkinson's Continue home meds 4.History of paroxysmal AFib -continue metoprolol; rate control adequate -adjust as indicated -will restart Eliquis DNR/DNI Lovenox Pt will require a hospitalization of at least two nights for treatment of?Aspiration pneumonia with IV abx. Time Spent With Patient Time: Total time managing care of this patient today ____ minutes. Quality Stroke Does the patient have a stroke diagnosis?: No VTE Prior VTE?: No VTE Risk Level:: Medical - moderate - high VTE Device Contraindication: Treatment Not Indicated VTE Drug Contraindication: N/A - Med Ordered
[2022-09-20 14:55] LABS: Vancomycin Random 4.3 mcg/mL (15-20)
--- NOTE | 2022-09-20 15:04 | HE.PHANOTE ---
GRAY MURRAY CHANGED DOSE TO 750MG Q12H, NEXT LEVEL DUE 09/21 @1400 GREGORY
[2022-09-20 15:22] VITALS: BP 100/48; PULSE 84; RESP 18; TEMP 36.6; O2SAT 98
[2022-09-20] MEDS: vancomycin HCL 750 MG in 0.9 % Sodium Chloride 250 ML 265 MG IV (16:06)
[2022-09-20 20:00] VITALS: BP 122/61; PULSE 88; RESP 17; TEMP 36.4; O2SAT 98
[2022-09-21] MEDS: Piperacillin Sodium/Tazobactam 3.375 GM in 0.9 % Sodium Chloride 50 ML IV ×2 (01:22→06:17)
[2022-09-21] MEDS: vancomycin HCL 750 MG in 0.9 % Sodium Chloride 250 ML 265 MG IV (03:32)
[2022-09-21 04:00] VITALS: BP 120/65; PULSE 85; RESP 17; TEMP 36.4; O2SAT 98
[2022-09-21 07:05] VITALS: BP 105/55; PULSE 92; RESP 18; TEMP 36.6
[2022-09-21 07:10] LABS: Creatinine Clr Calc Pharmacy 86.4; Estimated Glomerular Filt Rate > 60
--- NOTE | 2022-09-21 09:02 | PM.DS ---
DS: Providers Provider Date of Service: 09/21/22 Date of admission: 09/18/22 15:13 Date of discharge: 09/21/22 Primary care physician: Amos Salazar MD Consults: 09/18/22 16:42 Consult to Wound Care Routine Consulting Provider: [facility] Wound Care Management Reason for consultation: Decubitus Ulcer s/p recent osteomyelitis Has provider been notified: No DS: Diagnosis Discharge Diagnosis (1) Aspiration pneumonia: Status: Acute (2) Stage IV pressure ulcer of sacral region: Status: Acute (3) Dysphagia: Status: Acute DS: Summary Hospital Course Hospital Course: 71-year-old male with a PMH significant for?Parkinson's,?CAD, DVT, paroxyismal AFib not on Eliquis, dysphagia, peg tube dependent, and HTN?who presents to the ED from a [facility] SNF for shortness of breath and cough.? Patient is somnolent and slightly confused, so HPI supplemented by son who is at bedside. Pt apparently has developed cough and SOB over the past 3-4 days. Pt is slightly confused, oriented to person and place, but unclear where he came from or what year it is.? Son maintains his father's mentation and alertness is near baseline.? Patient is not on O2 supplementation at home.? In the ED patient was febrile at 100.7 and tachypneic at 26.? Patient was placed on 2L of nasal cannula and satting at 94. Labs were significant for leukocytosis of 11.6, lactic acid 2.4, repeat 1.9, elevated BNP 107 (near baseline). CXR showed patchy airspace opacities in left lung base which may be due to aspiration or pneumonia. Pt was treated with IVF and IV antibiotics (vanco and Zosyn). Pt will be admitted to the hospital for treatment of aspiration pneumonia. Hospital course Patient was admitted to the general medical floor on IV vancomycin and Zosyn. Over the course of the next 72 hours patient improved from a mentation standpoint. Still has an O2 requirement but markedly improved. He was seen in consultation by Wound Care who states they are very familiar with him as he follows as an outpatient.. At this point he will be transferred back to [facility] complete his course of antibiotics; doxycycline/Augmentin Time Spent with Patient Time attestation: Total time managing care of this patient today ____ minutes. Discharge coordination time: Greater than 30 minutes Quality: Safe Use of Opioids Does Pt have an Active Cancer Diagnosis on the Problem List?: No Quality: Stroke Does the patient have a stroke diagnosis?: No Physical Exam Vital Signs: Vital Signs: Last Vital Signs Temp 98 F 09/21/22 07:05 Pulse 92 09/21/22 07:05 Resp 18 09/21/22 07:05 BP 105/55 L 09/21/22 07:05 Pulse Ox 98 09/21/22 04:00 O2 Del Method 09/21/22 07:05 O2 Flow Rate 2 09/21/22 07:05 Oxygen Flow Rate 2 09/18/22 11:19 BMI result Body Mass Index 17.0 Const: Other: Awake alert oriented to person and place Resp: Other: Diminished at bases; bilateral basilar crackles Cardio: Other: No S4; positive S1-S2; no S3 murmurs rubs or gallops GI: Other: Soft nontender nondistended normoactive bowel sounds. Peg site clean dry and intact Extrem: Other: No edema bilaterally DS: Data Data Completed and Pending Completed studies during hospitalization [Text1]: Procedures Control Bleeding in Gastrointestinal Tract, Via Natural or Artificial Opening Endoscopic (03/05/22) Excision of Back Skin, External Approach (03/05/22) Excision of Stomach, Pylorus, Via Natural or Artificial Opening Endoscopic, Diagnostic (03/05/22) Extraction of Back Skin, External Approach (07/04/22) Fluoroscopy of Superior Vena Cava, Guidance (03/05/22) Insertion of Feeding Device into Stomach, Percutaneous Approach (03/05/22) Insertion of Infusion Device into Right Atrium, Percutaneous Approach (03/05/22) Insertion of Infusion Device into Superior Vena Cava, Percutaneous Approach (07/04/22) Transfusion of Nonautologous Red Blood Cells into Peripheral Vein, Percutaneous Approach (03/05/22) Ultrasonography of Superior Vena Cava, Guidance (07/04/22) Labs on day of discharge: Laboratory Results - last 24 hr 09/20/22 09/21/22 14:03 05:46 Creatinine 0.59 Estim Creat Clear Calc 86.4 Estimated GFR > 60 Random Vancomycin 4.3 L Preliminary micro results at discharge 09/18/22 11:41 Blood Culture - Preliminary Blood - Venous No growth after 48 hours. Discharge Plan Discharge Patient Disposition: [facility] Discharge Diagnosis: Aspiration pneumonia Referrals: Amos Salazar MD [Primary Care Provider] - 1 Week Discharge Medications: New Eliquis 5 mg Tablet 5 mg PO BID Qty: 60 0RF amoxicillin-pot clavulanate [Augmentin] 250-62.5 mg/5 mL suspension for reconstitution 10 ml PO Q8H 7 Days Qty: 210 0RF doxycycline hyclate 100 mg capsule 100 mg PO BID 7 Days Qty: 14 0RF Continued amantadine HCl 100 mg tablet 1 tab feeding tube BID omeprazole 20 mg capsule,delayed release(DR/EC) 20 mg feeding tube DAILY@0630 carbidopa-levodopa 25-100 mg tablet 2 tab G-tube TID trazodone 50 mg Tablet 25 mg feeding tube BID PRN (Reason: anxiety or agitation) Rx Instructions: START DATE 09/06/2022; END DATE - 09/20/2022 magnesium hydroxide [Milk of Magnesia] 400 mg/5 mL Suspension 30 ml feeding tube DAILY PRN (Reason: Constipation) Fleet Enema 19-7 gram/118 mL Enema 118 ml [place] DAILY PRN (Reason: Constipation) Rx Instructions: use if no results from Dulcolax suppository metoprolol tartrate 25 mg tablet 25 mg feeding tube BID acetaminophen 325 mg capsule 650 mg feeding tube Q6H PRN (Reason: Fever Or Pain) pramipexole 0.25 mg tablet 0.25 mg feeding tube TID bisacodyl [Dulcolax (bisacodyl)] 10 mg suppository 10 mg [place] DAILY PRN (Reason: Constipation) Rx Instructions: use if no results from milk of magnesia Discharge Orders: Discharge Order (Routine); Ordered 09/21/22 Ordered By: Prasanth Zaman Diet: Tube feedings as ordered Activity on Discharge: Walk with crutches Stand Alone Forms: Patient Portal Discharge page Care Plan Goals: Complete course of doxycycline and Augmentin as ordered Health Concerns: Resume all pre-hospital medications and tube feeds Plan of Treatment: Resume plan of care as per [facility] Assessment: See discharge summary
--- NOTE | 2022-09-21 09:44 | MHC.CM.PN ---
PT MEDICALLY CLEARED FOR D/C BACK TO [facility] FOR [facility], [facility] FOR BLS TRANSPORT
[2022-09-21] MEDS: Pramipexole Di-HCL 0.25 MG TABLET G-TUBE (10:39)
[2022-09-21] MEDS: Carbidopa/Levodopa 25/100 TABLET 2 TAB G-TUBE (10:39)
[2022-09-21] MEDS: Apixaban 5 MG TABLET PO (10:39)
[2022-09-21] MEDS: Metoprolol Tartrate 25 MG TABLET G-TUBE (10:39)
[2022-09-21] MEDS: 0.9 % Sodium Chloride Flush 3 ML SYRINGE IVFLUSH (10:39)
[2022-09-21 13:20] LABS: COVID-19 Test Negative (Negative); IDNOW Serial# 9DB6401D
[2022-09-21 13:32] LABS: Vancomycin Random 8.7 mcg/mL (15-20)
--- NOTE | 2022-09-21 13:54 | HE.PHANOTE ---
Vancomycin Dosing Addendum Vancomycin trough subtherapeutic on day 3 ( 8.7). increasing the dose to 1000 mg q12h and will recheck level tomorrow @1300. predicted auc of 558, tough 15.4
--- NOTE | 2022-09-23 07:58 | P.CDIR_ITS ---
Documented by User: Karli Escobar CCS, CDIS 09/23/22 08:02 Retrospective Query PHYSICIAN'S DOCUMENTATION REQUEST Date of Query: 09/23/22 0853 Patient Name: Bird Gama Admit Date: 09/18/22 Dear Doctor, A review of the medical record indicates additional documentation may be needed. Please review below and update the documentation accordingly. Clinical Indicators: Risk Factors/Clinical Indicators/Treatments Clinical nutrition notes 09/18 - Severely malnourished, severely depleted subcutaneous fat and muscle mass, BMI 17 and 18% signficant wt loss x 6 months. Pt dependent on TF for 100% nutrition. ASPEN Criteria* Acute Illness Chronic Illness Clinical Characteristic Non-Severe (2 or more criteria present) Severe (2 or more criteria present) Non-Severe (2 or more criteria present) Severe (2 or more criteria present) Energy Intake <75% for >7 days <=50% for >=5 days <75% for >=1 month <=75% for >=1 month Weight Loss 1 week 1 ? 2% >2% N/A N/A 1 month 5% >5% 5% >5% 3 months 7.5 % >7.5% 7.5% >7.5% 6 months N/A N/A 10% >10% 1 year N/A N/A 20% >20% Body Fat Mild Moderate Mild Severe Muscle Mass Mild Moderate Mild Severe Fluid Accumulation Mild Moderate to Severe Mild Severe Reduced [employer] Strength N/A Measurably Reduced N/A Measurably Reduced *[facility] Hospitalist, 2017 If possible, please provide in your progress notes, additional specificity regarding the severity of the malnutrition using the above information: * Mild * Moderate * Severe * Other (please specify) * Unable to determine Use of terms such as suspected, likely, concern for, or probable (associated with a specific diagnosis that is being evaluated, monitored, or treated as if it exists) are acceptable and can be coded in the inpatient setting, when documented at the time of discharge. Thank you, Karli Escobar CCS, CDIS Extension: [phone] Please use your independent medical judgment in providing your response. THIS QUERY IS PART OF THE PERMANENT MEDICAL RECORD Documented by User: Prasanth Zaman DO 09/29/22 12:58 Retrospective Query Provider Response: Other (Unable to determine)
== END 2022-09-21 15:10 | DRG 177 ==
LOC: HO.ED 14:13 → HO.EDOVER 18:57 → HO.S3 19:01
PROVIDERS: Admitting Provider Student in an Organized Health Care Education/Training Program; Emergency Provider Student in an Organized Health Care Education/Training Program; PCP Internal Medicine; Visit Provider Hospitalist
DX: J69.0 Pneumonitis due to inhalation of food and vomit (principal); L89.154 Pressure ulcer of sacral region, stage 4; Z66 Do not resuscitate; E86.0 Dehydration; G20 Parkinson's disease; I48.0 Paroxysmal atrial fibrillation; I25.10 Atherosclerotic heart disease of native coronary artery without angina pectoris; I10 Essential (primary) hypertension; K21.9 Gastro-esophageal reflux disease without esophagitis; Z93.1 Gastrostomy status
CPT/HCPCS: 36415; 71045; 80048; 80053; 80202; 81001; 82565; 83605; 83880; 84484; 85007; 85025; 85027; 85610; 87040; 87147; 87205; 87502; 87635; 93005; 99285; J1650; J2543; J3370